=== PATIENT | male | born 1945 | race Caucasian/White ===

== ENCOUNTER 2023-11-22 15:08 | Observation (INO) | payer OTHER, SELFPAY ==
[2023-11-22] VITALS (15 sets, daily range): BP systolic 117–186; BP diastolic 61–118; BMI 23.8
--- NOTE | 2023-11-22 05:43 | ED.GENMED ---
History of Present Illness
<Blake Khalil DO - Last Filed: 11/22/23 05:45>
General
Chief Complaint: Breathing Problem
Time Seen by Provider: 11/22/23 04:20
<HAROON Garcia - Last Filed: 11/22/23 06:04>
General
Source: patient
Exam Limitations: none
Travel History
Have you had any contact with someone who has COVID-19?: No
Do you have any symptoms of coronavirus? Fever > 100 degrees, chills, cough, shortness of breath, sore throat, loss of taste or smell, muscle aches, or headache?: No
History of Present Illness
History of Present Illness:
78 YO M with a PMH of delirium, PAD, CKD, MARIANO, adrenal insufficiency, HLD, HTN, GERD, COPD, and CAD presenting here today after a fall x few hours ago. Pt states he fell off his bed. His located him. Pt states he hit his head at first, but
seems confused, and states he hit his chest. He rates the severity of his pain a 5/10. He states he takes aspirin daily.
Past History
<HAROON Garcia - Last Filed: 11/22/23 06:04>
Past History
ED Past Medical History: CAD, COPD, GERD, HTN, Hypercholesterolemia and Other (pulm fibrosis, MARIANO, on 8 L O2 at home)
Social History
Tobacco: Former smoker
Personal: Single
Living: with family
Review of Systems
<HAROON Garcia - Last Filed: 11/22/23 06:04>
Review of Systems
Constitutional: Reports no symptoms
EENT: Reports no symptoms
Respiratory: Reports no symptoms
Cardiac: Reports no symptoms
ABD/GI: Reports no symptoms
: Reports no symptoms
Musculoskeletal: Reports no symptoms
Skin: Reports no symptoms
Neurological: Reports other (Maybe head pain, or chest pain. Pt is confused with the way he fell.)
Phy Exam
<Kristan Raymond [facility] - Last Filed: 11/22/23 06:04>
Physical Exam
Physical Exam:
Regular S1 and S2. +Wheezing on inspiration.
Pt is confused on exam.
Not oriented to time.
General Physical Exam
General Presentation: well appearing
General age: appears stated age
General Skin: warm and dry
General Habitus: elderly
General Mental: confused
Cardiovascular Exam
Cardiovascular Exam: regular rate/rhythm
Pulmonary Exam
Pulmonary Exam: generalized wheezing (On inspiration)
Scores
<Kristan Raymond [facility] - Last Filed: 11/22/23 06:04>
Heart Failure Risk
Heart Failure Risk Score: Not Applicable
Course
<Blake Khalil DO - Last Filed: 11/22/23 05:45>
Orders/Labs/Results
Orders:
Orders
11/22/23 06:14
Complete Blood Count/With Diff Urgent
Comprehensive Metabolic Panel Urgent
11/22/23 07:51
Venous Blood Gas Urgent
%Oxygen/Room Air: 8L
11/22/23 08:06
Urinalysis Reflex To Culture Urgent
Date Specimen was Collected: 11/22/23
Time Specimen was Collected: 08:03
11/22/23 09:19
CT Head W/o Iv Contrast Urgent
Comment:
Reason For Exam: fall
11/22/23 09:42
CR Chest - 2 Views Urgent
Comment:
Reason For Exam: sob
11/22/23 11:06
Add On- LAB Urgent
Tests Added?: BNP
Dexamethasone Sod Phosphate [Decadron] 10 mg IV NOW STA
Abnormal Lab Results
11/22/23 11/22/23
06:14 07:51
RBC 3.17 L 10^6/uL
(4.70-6.10)
Hgb 9.3 L g/dL
(13.0-18.0)
Hct 28.6 L %
(39.0-52.0)
MCHC 32.5 L g/dL
(33.0-37.0)
RDW 17.9 H %
(11.5-14.5)
Abs Immat Gran (auto) 0.1 H 10^3/uL
(0-0.05)
Absolute Neuts (auto) 6.8 H 10^3/uL
(1.4-6.5)
Absolute Lymphs (auto) 0.8 L 10^3/uL
(1.2-3.4)
Immature Gran % 0.6 H %
(0-0.5)
Neutrophils % 86.6 H %
(42.2-75.2)
Lymphocytes % 10.1 L %
(20.5-51.1)
VBG pCO2 51 H mmHg
(35-48)
VBG pO2 114 H mmHg
(30-50)
VBG HCO3 32.3 H mmol/L
(22-27)
BUN 22 H mg/dl
(9-20)
Glucose 150 H mg/dl
(70-99)
Total Protein 5.7 L g/dl
(6.3-8.2)
Albumin 3.2 L g/dl
(3.5-5.0)
11/22/23 06:14
11/22/23 06:14
Vital Signs
Initial and Last Documented VS:
Initial Vital Signs
Pulse Ox
94
11/22/23 04:12
Last Documented Vital Signs
Temp Pulse Resp BP Pulse Ox
97.8 F 78 25 149/66 98
11/22/23 04:14 11/22/23 10:27 11/22/23 10:27 11/22/23 09:27 11/22/23 10:27
<Kristan Raymond [facility] - Last Filed: 11/22/23 06:04>
Orders/Labs/Results
Orders:
Orders
11/22/23 06:14
Complete Blood Count/With Diff Urgent
Comprehensive Metabolic Panel Urgent
11/22/23 07:51
Venous Blood Gas Urgent
%Oxygen/Room Air: 8L
11/22/23 08:06
Urinalysis Reflex To Culture Urgent
Date Specimen was Collected: 11/22/23
Time Specimen was Collected: 08:03
11/22/23 09:19
CT Head W/o Iv Contrast Urgent
Comment:
Reason For Exam: fall
11/22/23 09:42
CR Chest - 2 Views Urgent
Comment:
Reason For Exam: sob
11/22/23 11:06
Add On- LAB Urgent
Tests Added?: BNP
Dexamethasone Sod Phosphate [Decadron] 10 mg IV NOW STA
Abnormal Lab Results
11/22/23 11/22/23
06:14 07:51
RBC 3.17 L 10^6/uL
(4.70-6.10)
Hgb 9.3 L g/dL
(13.0-18.0)
Hct 28.6 L %
(39.0-52.0)
MCHC 32.5 L g/dL
(33.0-37.0)
RDW 17.9 H %
(11.5-14.5)
Abs Immat Gran (auto) 0.1 H 10^3/uL
(0-0.05)
Absolute Neuts (auto) 6.8 H 10^3/uL
(1.4-6.5)
Absolute Lymphs (auto) 0.8 L 10^3/uL
(1.2-3.4)
Immature Gran % 0.6 H %
(0-0.5)
Neutrophils % 86.6 H %
(42.2-75.2)
Lymphocytes % 10.1 L %
(20.5-51.1)
VBG pCO2 51 H mmHg
(35-48)
VBG pO2 114 H mmHg
(30-50)
VBG HCO3 32.3 H mmol/L
(22-27)
BUN 22 H mg/dl
(9-20)
Glucose 150 H mg/dl
(70-99)
Total Protein 5.7 L g/dl
(6.3-8.2)
Albumin 3.2 L g/dl
(3.5-5.0)
11/22/23 06:14
11/22/23 06:14
Vital Signs
Initial and Last Documented VS:
Initial Vital Signs
Pulse Ox
94
11/22/23 04:12
Last Documented Vital Signs
Temp Pulse Resp BP Pulse Ox
97.8 F 78 25 149/66 98
11/22/23 04:14 11/22/23 10:27 11/22/23 10:27 11/22/23 09:27 11/22/23 10:27
<Avinash Sheffield DO - Last Filed: 11/22/23 11:08>
Orders/Labs/Results
Orders:
Orders
11/22/23 06:14
Complete Blood Count/With Diff Urgent
Comprehensive Metabolic Panel Urgent
11/22/23 07:51
Venous Blood Gas Urgent
%Oxygen/Room Air: 8L
11/22/23 08:06
Urinalysis Reflex To Culture Urgent
Date Specimen was Collected: 11/22/23
Time Specimen was Collected: 08:03
11/22/23 09:19
CT Head W/o Iv Contrast Urgent
Comment:
Reason For Exam: fall
11/22/23 09:42
CR Chest - 2 Views Urgent
Comment:
Reason For Exam: sob
11/22/23 11:06
Add On- LAB Urgent
Tests Added?: BNP
Dexamethasone Sod Phosphate [Decadron] 10 mg IV NOW STA
Abnormal Lab Results
11/22/23 11/22/23
06:14 07:51
RBC 3.17 L 10^6/uL
(4.70-6.10)
Hgb 9.3 L g/dL
(13.0-18.0)
Hct 28.6 L %
(39.0-52.0)
MCHC 32.5 L g/dL
(33.0-37.0)
RDW 17.9 H %
(11.5-14.5)
Abs Immat Gran (auto) 0.1 H 10^3/uL
(0-0.05)
Absolute Neuts (auto) 6.8 H 10^3/uL
(1.4-6.5)
Absolute Lymphs (auto) 0.8 L 10^3/uL
(1.2-3.4)
Immature Gran % 0.6 H %
(0-0.5)
Neutrophils % 86.6 H %
(42.2-75.2)
Lymphocytes % 10.1 L %
(20.5-51.1)
VBG pCO2 51 H mmHg
(35-48)
VBG pO2 114 H mmHg
(30-50)
VBG HCO3 32.3 H mmol/L
(22-27)
BUN 22 H mg/dl
(9-20)
Glucose 150 H mg/dl
(70-99)
Total Protein 5.7 L g/dl
(6.3-8.2)
Albumin 3.2 L g/dl
(3.5-5.0)
11/22/23 06:14
11/22/23 06:14
Vital Signs
Initial and Last Documented VS:
Initial Vital Signs
Pulse Ox
94
11/22/23 04:12
Last Documented Vital Signs
Temp Pulse Resp BP Pulse Ox
97.8 F 78 25 149/66 98
11/22/23 04:14 11/22/23 10:27 11/22/23 10:27 11/22/23 09:27 11/22/23 10:27
<HAROON Garcia - Last Filed: 11/22/23 06:04>
MDM/Problems Addressed
Differential Diagnosis Includes:
Confusion due to UTI, Concussion
MDM/Problems Addressed:
Fall x few hours ago
<HAROON Garcia - Last Filed: 11/22/23 06:04>
*Critical Care Note
Total Time (30-74mins, 75-104mins- exclusive of procedures): Not Applicable
<Avinash Sheffield DO - Last Filed: 11/22/23 11:08>
Update Note
Update Note:
78-year-old male who presents after his significant other found him to be a little confused and very weak. He is on oxygen at home due to pulmonary fibrosis. She does state that he was only given 3 to 5 years to live and he is on year 4. No
fevers reported. No vomiting reported. Patient did reportedly have a minor fall. Exam: Patient is slightly confused. Moves all extremities equally.'s Are exam with fine crackles at bases. Assessment and plan: Weak, confused and could be related
to hypoxia. Treat with Decadron. Admit
ED Attending Note
<Blake Khalil DO - Last Filed: 11/22/23 05:45>
ED Attending Note
Patient seen and examined by attending physician: Yes
I performed the substantive portion of visit, reviewed & personally made and approve the management plan that is documented in note by myself or JAYNE.: Yes
<HAROON Garcia - Last Filed: 11/22/23 06:04>
-
Portions of this chart may have been created with voice recognition software.� Occasional wrong word or��sound alike� substitutions may have occurred due to the inherent limitations of voice recognition software.
Discharge Plan
Departure
Patient Disposition: Admit
Date of Disposition: 11/22/23
Time of Disposition: 11:08
Admit to: Telemetry
Presentation/result/management discussed w/ accepting MD/DO: Hospitalist
Discharge Problem:
Hypoxia, Pulmonary fibrosis, Acute alteration in mental status
Prescriptions:
No Action
prednisone 10 MG tablet
15 mg PO DAILY
benzonatate 200 MG capsule
200 mg PO TID
amlodipine 5 MG tablet
5 mg PO DAILY
pantoprazole 40 MG tablet,delayed release (DR/EC)
40 mg PO DAILY
hydrochlorothiazide 25 MG tablet
25 mg PO DAILY
Ofev 150 MG capsule
150 mg PO BID
atorvastatin 40 mg Tablet
40 mg PO DAILY
Theragen Tablet
1 tab PO DAILY
fexofenadine [Jessica] 180 mg Tablet
180 mg PO DAILY
lorazepam 0.5 mg Tablet
0.5 mg PO Q4HPRN PRN (Reason: anxiety)
Patient Comments:
last filled 10/23/2023 for 270 tablets
gabapentin 100 mg Capsule
100 mg PO TID
sertraline 50 mg Tablet
50 mg PO DAILY
cholecalciferol (vitamin D3) [Vitamin D3] 25 mcg (1,000 unit) Tablet
25 mcg PO DAILY
ibuprofen [Advil] 200 mg Tablet
200 mg PO Q6HPRN PRN (Reason: mild pain)
atovaquone 750 mg/5 mL Suspension
1,500 mg PO DAILY
Patient Comments:
last filled 11/16/2023 for 300mL.
Referrals:
UNKNOWN - PT DOES,NOT KNOW [Family Provider] -
Interventions
Interventions:
*Risk Screen - Suicide Last Done: 11/22/23 04:19
*General Assessment Last Done: 11/22/23 04:19
*Neglect/Abuse Screening Last Done: 11/22/23 04:20
ED- Fall Risk Assessment Last Done: 11/22/23 04:27
*ED COVID-19 Vaccine History Last Done: 11/22/23 06:17
ED- Cardiac Assessment Last Done: 11/22/23 08:38
ED- Pulmonary Assessment Last Done: 11/22/23 04:27
Discharge Date and Time
Print Language: EQUATORIAL GUINEAN
[2023-11-22 06:21] LABS: % Basophils 0.3 % (0-2); % Eosinophils 0.1 % (0-6); % Immature Granulocytes 0.6 % (0-0.5); % Lymphocytes 10.1 % (20.5-51.1); % Monocytes 2.3 % (1.7-9.3); % Neutrophils 86.6 % (42.2-75.2); Absolute Immature Granulocytes 0.1 10^3/uL (0-0.05); Absolute Lymphocytes 0.8 10^3/uL (1.2-3.4); Absolute Monocytes 0.2 10^3/uL (0.1-0.6); Absolute Neutrophils 6.8 10^3/uL (1.4-6.5); Hematocrit 28.6 % (39.0-52.0); Hemoglobin 9.3 g/dL (13.0-18.0); Mean Corp Hgb Conc. 32.5 g/dL (33.0-37.0); Mean Corpuscular Hgb 29.3 pg (27.0-31.0); Mean Corpuscular Volume 90.2 fL (80.0-94.0); Mean Platelet Volume 9.9 fL (7.4-10.4); Nucleated Red Blood Cells % 0 % (-); Platelet Count 305 10^3/uL (130-400); Red Blood Cell Count 3.17 10^6/uL (4.70-6.10); Red Cell Dist. Width 17.9 % (11.5-14.5); White Blood Cell Count 7.8 10^3/uL (4.8-10.8)
[2023-11-22 06:37] LABS: ALT (SGPT) 20 U/L (0-50); AST (SGOT) 25 U/L (17-59); Albumin 3.2 g/dl (3.5-5.0); Alkaline Phosphatase 63 U/L (38-126); Blood Urea Nitrogen 22 mg/dl (9-20); Calcium 9.4 mg/dl (8.4-10.2); Carbon Dioxide 30 mmol/L (22-30); Chloride 102 mmol/L (98-107); Estimated Creatinine Clearance 84 ml/min; Glucose 150 mg/dl (70-99); Potassium 4.3 mmol/L (3.5-5.1); Sodium 139 mmol/L (135-145); Total Bilirubin 0.5 mg/dl (0.2-1.3); Total Protein 5.7 g/dl (6.3-8.2); eGFR > 60.00
[2023-11-22 08:01] LABS: Venous Blood Gas B.E. 6.7 mmol/L (-4 to +4); Venous Blood Gas HCO3 32.3 mmol/L (22-27); Venous Blood Gas O2 Sat % 99.3 %; Venous Blood Gas pCO2 51 mmHg (35-48); Venous Blood Gas pH 7.41 (7.32-7.43); Venous Blood Gas pO2 114 mmHg (30-50)
[2023-11-22 08:20] LABS: Urine Albumin Negative (Neg - Trace); Urine Bilirubin Negative (Negative); Urine Character Clear (Clear); Urine Color Yellow; Urine Glucose Negative (Negative); Urine Ketone Negative (Negative); Urine Leukocyte Negative (Negative); Urine Nitrite Negative (Negative); Urine Occult Blood Negative (Negative); Urine Specific Gravity 1.015 (<1.030); Urine Urobilinogen Negative (Neg - 1+)
[2023-11-22] MEDS: DECADRON 10 MG IV (11:16)
--- NOTE | 2023-11-22 11:21 | HPS.HSE ---
Family Physician
-
Family Physician: NOT KNOW UNKNOWN - PT DOES
Chief Complaint
-
fall/confusion
History of Present Illness
78 male peripheral arterial disease MARIANO pulmonary fibrosis COPD, chronic respiratory failure 5 to 10 L at home baseline, adrenal sufficiency hypertension hyperlipidemia coronary artery disease mild dementia brought in by due to fall off bed
while sleeping with associate confusion weakness. Vital signs stable on baseline oxygen supplementation 5 L. Labs relatively unremarkable chronic anemia hemoglobin appears baseline. CT head noted no acute abnormalities, old right cerebellar
infarct. Chest x-ray noted known interstitial fibrosis possible pulmonary edema BNP within normal limits. Concern for possible interstitial lung disease exacerbation versus progression patient was referred for admission by ED. AOx3 patient
appears to have capacity to make his own medical decisions at this time. Denies fever chills nausea vomiting diarrhea chest/abd pain palpitations lightheadedness dizziness or headache.
Medical History
Past Medical History
Past Medical History: Reports Other (As above)
Past Surgical History: Reports Other (As above)
Social History
Tobacco: Former Smoker
Alcohol: None
Drug: None
Personal:
Living: With Family
Employment: Not Employed
Family History
Family History: Not pertinent (Reviewed)
Allergies / Home Medications
Allergies reflects when Allergies were last updated in [employer].
Home Medications with original date entered in [employer]
Allergy/Medication List:
Allergies
Allergy/AdvReac Type Severity Reaction Status Date / Time
aripiprazole [From Abilify] Allergy Unknown Verified 02/18/23 12:40
ciprofloxacin [From Cipro] Allergy Rash Verified 02/16/23 20:51
codeine Allergy Unknown Verified 02/16/23 20:51
ibuprofen [From Advil] Allergy Rash Verified 02/18/23 15:08
morphine Allergy Unknown Verified 02/16/23 20:51
pseudoephedrine Allergy Unknown Verified 02/16/23 20:51
[From DayQuil Sinus
Pressure/Pain]
Home Medications
amlodipine 5 mg tablet 5 mg PO DAILY Blood Pressure 07/04/21
benzonatate 200 mg capsule 200 mg PO TID Cough 07/04/21
hydrochlorothiazide 25 mg tablet 25 mg PO DAILY Fluid Retention/Swelling 07/04/21
nintedanib 150 mg capsule (Ofev) 150 mg PO BID IDIOPATHIC PULMONARY FIBROSIS 07/04/21
pantoprazole 40 mg tablet,delayed release 40 mg PO DAILY Gastrointestinal Issue 07/04/21
prednisone 10 mg tablet 15 mg PO DAILY Anti-Inflammatory 07/04/21
atorvastatin 40 mg tablet 40 mg PO DAILY 11/22/23
atovaquone 750 mg/5 mL oral suspension 1,500 mg PO DAILY 11/22/23
cholecalciferol (vitamin D3) 25 mcg (1,000 unit) tablet (Vitamin D3) 25 mcg PO DAILY 11/22/23
fexofenadine 180 mg tablet 180 mg PO DAILY 11/22/23
gabapentin 100 mg capsule 100 mg PO TID 11/22/23
ibuprofen 200 mg tablet (Advil) 200 mg PO Q6HPRN PRN mild pain 11/22/23
lorazepam 0.5 mg tablet 0.5 mg PO Q4HPRN PRN anxiety 11/22/23
sertraline 50 mg tablet 50 mg PO DAILY 11/22/23
therapeutic multivitamin 1 tab PO DAILY 11/22/23
Review of Systems
-
A 12 point ROS was completed and negative except as noted: Yes
Constitutional: Reports Other (as below)
Physical Exam
Vital Signs
Vital Signs
Temp Pulse Resp BP Pulse Ox
97.8 F 78 25 149/66 98
11/22/23 04:14 11/22/23 10:27 11/22/23 10:27 11/22/23 09:27 11/22/23 10:27
Physical Exam
General: Other (as below)
Laboratory Results
-
11/22/23 06:14
05/29/24 06:14
Laboratory Results
Total Bilirubin 0.5 mg/dl (0.2-1.3) 11/22/23 06:14
AST 25 U/L (17-59) 11/22/23 06:14
ALT 20 U/L (0-50) 11/22/23 06:14
Alkaline Phosphatase 63 U/L (38-126) 11/22/23 06:14
Impression/Plan
-
ROS
General: Denies fever chills night sweats unexpected weight loss
Neuro: Denies seizure shaking loss of consciousness dizziness vertigo
Psych: denies depression hallucinations confusion manic episodes
Endocrine: Denies polyuria polydipsia polyphagia heat/cold intolerance
HEENT: Denies blindness visual disturbances epistaxis
Pulmonary: denies coughing hemoptysis sneezing sob dyspnea on exertion
Cardiovascular: denies chest pain palpitations leg swelling
Hematology: denies signs symptoms of anemia easy bruising/bleeding
Gastrointestinal: denies nausea vomiting diarrhea constipation hematemesis hematochezia melena
Genito-Urinary: denies retention incontinence dysuria
Musculoskeletal: reports chronic joint pain weakness
Dermatology: denies rash laceration bruising
Physical Exam
General: Appears chronically ill, No pallor, cyanosis, or jaundice.
HEENT: Throat clear. Normocephalic atraumatic Pinpoint pupils b/l arcus senilis+
NECK: Supple. No JVD Carotid Bruits
RESPIRATORY: distant breath sounds no crackles or wheezing noted, on oxygen supplementation 5L baseline
CVS: S1, S2 normal. RRR. No murmur, rub or gallop.
ABDOMEN: Soft, non-tender. No distension. BS+/normal.
EXTREMITIES: No peripheral cyanosis or edema.
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
IMPRESSION:
78 male peripheral arterial disease MARIANO pulmonary fibrosis COPD, chronic respiratory failure 5 to 10 L at home baseline, adrenal sufficiency hypertension hyperlipidemia coronary artery disease mild dementia brought in by due to fall off bed
while sleeping with associate confusion weakness (ambulates with walker at baseline per patient). Vital signs stable on baseline oxygen supplementation 5 L. Labs relatively unremarkable chronic anemia hemoglobin appears baseline. CT head noted no
acute abnormalities, old right cerebellar infarct. Chest x-ray noted known interstitial fibrosis possible pulmonary edema BNP within normal limits. Concern for possible interstitial lung disease exacerbation versus progression patient was referred
for admission by ED. AOx3 patient appears to have capacity to make his own medical decisions at this time.
PLAN:
#Fall/reported associate confusion/weakness
#Hx Mild Dementia
#Severe Interstitial Lung disease, Possible Exacerbation vs Progression
#MARIANO
#Chronic Hypoxic respiratory failure
Observation tele
ST/PT/OT eval
Pulm eval
case mgmt consult
Cont oxygen supplementation as necessary goal sat 92%
Fall precautions
cont home BIPAP
Received IV decadron in ED
cont home prednisone 15 mg daily
cont home atovaquone prophylaxis
cont home Ofev
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
#Hyperlipidemia
#Coronary artery diseae
#PAD
cont asa 81 mg daily and statin
#adrenal insuff
cont home prednisone
#Hypertension
cont home amlodipine HCTz with holding parameters
#GERD
continue PPI
#Anxiety/depression
cont home sertraline prn ativan
dvt ppx lovenox
Full Code as per patient
I spent a total of 80 minutes with the patient or on the floor. More than 50% of this time involved counseling and coordination of care.
[2023-11-22 12:20] LABS: NT-proBNP 228 pg/ml
[2023-11-22 14:23] LABS: TSH Reflex To Free T4 1.08 uIU/ml (0.47-4.68)
--- NOTE | 2023-11-22 17:50 | PTCARENOTE ---
Pt arrived to [facility] around 1720. Pt has no complaints of pain. VSS. Pt oriented to room.
[2023-11-22] MEDS: NEURONTIN 100 MG PO ×2 (17:57→22:08)
[2023-11-22] MEDS: LOVENOX 40 MG SC (17:57)
[2023-11-22] MEDS: TESSALON PERLES 200 MG PO ×2 (17:57→22:08)
[2023-11-22 18:23] LABS: Procalcitonin < 0.05 ng/ml (0.0-0.25)
--- NOTE | 2023-11-22 18:27 | RESPNOTE ---
pt does not have his home bipap machine with him
offered to use hospital bipap at night, he declined use of hospital bipap stating he will wait till he get home.
pt educated on importance of using bipap at nite, still declined.
--- NOTE | 2023-11-22 20:15 | PTCARENOTE ---
pt got OOB to use urinal. SpO2=<70%. pt lips were blue. assisted pt back to bed. placed on non rebreather until oxygen returned to normal 100% then placed back on 6.5LO2 at 98%. contacted OIL HEAT TECHNICIAN obtained prn order for SOB.- see MAR. pt resting in bed w/
call anderson in reach.
[2023-11-22] MEDS: DUONEB 3 ML INH (20:45)
[2023-11-22] MEDS: ATIVAN 0.5 MG PO (22:09)
--- NOTE | 2023-11-23 | PTCARENOTE ---
ordered ekg completed. showed:NORMAL SINUS RHYTHM POSSIBLE LEFT ATRIAL ENLARGEMENT RIGHT BUNDLE BRANCH BLOCK
INFERIOR INFARCT , AGE UNDETERMINED ABNORMAL ECG NO PREVIOUS ECGS AVAILABLE.
pt has no c/o pain. informed HAT MARKER Abdelwahamallory - labs for am.
[2023-11-23 04:29] VITALS: BP 133/75
--- NOTE | 2023-11-23 06:56 | W.PN.HOSP.TC ---
Today's Communication/Plan
-
discharge
Assessment / Plan
Assessment / Plan
Physical Exam
General: Appears chronically ill, No pallor, cyanosis, or jaundice.
HEENT: Throat clear. Normocephalic atraumatic Pinpoint pupils b/l arcus senilis+
NECK: Supple. No JVD Carotid Bruits
RESPIRATORY: distant breath sounds no crackles or wheezing noted, on oxygen supplementation 5-10L baseline
CVS: S1, S2 normal. RRR. No murmur, rub or gallop.
ABDOMEN: Soft, non-tender. No distension. BS+/normal.
EXTREMITIES: No peripheral cyanosis or edema.
MANAGER HOSP[facility]: AOx3
IMPRESSION:
78 male peripheral arterial disease MARIANO pulmonary fibrosis COPD, chronic respiratory failure 5 to 10 L at home baseline, adrenal sufficiency hypertension hyperlipidemia coronary artery disease mild dementia brought in by due to fall off bed
while sleeping with associate confusion weakness (ambulates with walker at baseline per patient). Vital signs stable on baseline oxygen supplementation 5 L. Labs relatively unremarkable chronic anemia hemoglobin appears baseline. CT head noted no
acute abnormalities, old right cerebellar infarct. Chest x-ray noted known interstitial fibrosis possible pulmonary edema BNP within normal limits. Concern for possible interstitial lung disease exacerbation versus progression patient was referred
for admission by ED. AOx3 patient appears to have capacity to make his own medical decisions at this time.
PLAN:
#Fall/reported associate confusion/weakness
#Hx Mild Dementia
#Severe Interstitial Lung disease, Possible Exacerbation vs Progression
#MARIANO
#Chronic Hypoxic respiratory failure
Observation tele
ST eval appreciated appropriate regular diet
PT/OT eval appreciated Home Health Services
case mgmt consult appreciated
Cont oxygen supplementation as necessary goal sat 92%
Fall precautions
cont home BIPAP
Received IV decadron in ED
Pulm eval appreciated cont home PO steroid prednisone 15 mg daily
cont home atovaquone prophylaxis
cont home Ofev
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
#Hyperlipidemia
#Coronary artery diseae
#PAD
cont asa 81 mg daily and statin
#adrenal insuff
cont home prednisone
#Hypertension
cont home amlodipine HCTz with holding parameters
#GERD
continue PPI
#Anxiety/depression
cont home sertraline prn ativan
dvt ppx lovenox
Full Code as per patient
Patient endorses having nebulizer machine at home along with prn nebulizer medication as necessary.
Confusion resolved, baseline mental/oxygenation status, medically stable for discharge home with home services and outpatient follow up recommendations.
discussed with patient and his fiance Wilma
Total Time Preparing Discharge ___50____ minutes including examination of the patient, summary of the hospital stay, instructions for continuing care to all relevant caregivers; and preparation of discharge records, prescriptions, and referral
forms if necessary.
Anticipated Discharge: Today
Subjective/Interval History
-
Date of Service: November 23, 2023
Seen and examined at bedside, sitting up comfortably in chair, in no acute distress reports feeling well. Denies new acute issues at this time. Eager to go home AOx3.
Objective Data
-
Labs:
Laboratory Results
11/23/23
06:00
WBC Pending
Hgb Pending
Hct Pending
Plt Count Pending
Sodium Pending
Potassium Pending
Chloride Pending
Carbon Dioxide Pending
BUN Pending
Creatinine Pending
Glucose Pending
Calcium Pending
Vital Signs:
Vital Signs
Temp Pulse Resp BP Pulse Ox
97.8 F 76 24 133/75 98
11/23/23 04:29 11/23/23 04:29 11/23/23 04:29 11/23/23 04:29 11/23/23 04:29
I&O
11/21/23 11/22/23 11/23/23
06:59 06:59 06:59
Intake Total 240 / 240
Output Total 100 / 100
Balance 140 / 140
[2023-11-23 07:05] VITALS: BP 149/78
[2023-11-23] MEDS: MEPRON SUSPENSION 1500 MG PO (07:44)
[2023-11-23] MEDS: NEURONTIN 100 MG PO ×2 (07:44→15:04)
[2023-11-23] MEDS: CLARITIN 10 MG PO (07:44)
[2023-11-23] MEDS: NORVASC 5 MG PO (07:44)
[2023-11-23] MEDS: LIPITOR 40 MG PO (07:44)
[2023-11-23] MEDS: PROTONIX 40 MG PO (07:44)
[2023-11-23] MEDS: LOW STRENGTH ASPIRIN 81 MG PO (07:44)
[2023-11-23] MEDS: ZOLOFT 50 MG PO (07:44)
[2023-11-23] MEDS: VITAMIN D3 (cholecalciferol) 25 MCG PO (07:45)
[2023-11-23] MEDS: DELTASONE 15 MG PO (07:45)
[2023-11-23] MEDS: THERAGRAN 1 TABLET PO (07:46)
[2023-11-23] MEDS: ORETIC 25 MG PO (07:46)
[2023-11-23] MEDS: TESSALON PERLES 200 MG PO ×2 (07:46→15:04)
[2023-11-23 09:00] VITALS: BP 140/77; PULSE 67; O2SAT 96
--- NOTE | 2023-11-23 09:05 | PTOTSP ---
Speech Language Pathology
Pt seen for clinical bedside swallow evaluation. He denied any previous or current dysphagia. P.O. trials of regular solids and thin liquids provided. Adequate mastication, bolus formation, and A-P transit noted with no oral residue noted. No
overt signs of aspiration. CXR not conerning for PNA with WBC WNL.
Recommend:
(1) Continue regular solids/thin liquids
(2) General aspiration precautions
(3) Meds as tolerated
(4) PROCUREMENT INSPECTOR to sign off. Please reconsult as indicated.
[2023-11-23 09:13] LABS: % Basophils 0.1 % (0-2); % Eosinophils 0.2 % (0-6); % Immature Granulocytes 0.4 % (0-0.5); % Lymphocytes 17.7 % (20.5-51.1); % Monocytes 9.2 % (1.7-9.3); % Neutrophils 72.4 % (42.2-75.2); Absolute Lymphocytes 1.4 10^3/uL (1.2-3.4); Absolute Monocytes 0.8 10^3/uL (0.1-0.6); Absolute Neutrophils 5.9 10^3/uL (1.4-6.5); Hematocrit 29.5 % (39.0-52.0); Hemoglobin 9.1 g/dL (13.0-18.0); Mean Corp Hgb Conc. 30.8 g/dL (33.0-37.0); Mean Corpuscular Volume 93.9 fL (80.0-94.0); Nucleated Red Blood Cells % 0 % (-); Platelet Count 332 10^3/uL (130-400); Red Blood Cell Count 3.14 10^6/uL (4.70-6.10); Red Cell Dist. Width 18.1 % (11.5-14.5); White Blood Cell Count 8.1 10^3/uL (4.8-10.8)
[2023-11-23 09:15] VITALS: BP 140/77; PULSE 68; O2SAT 96
--- NOTE | 2023-11-23 10:05 | CON.PUL ---
Consultation
Consultation Request
Date/Time Consultation Requested: 11/23/2023-8 AM
Date/Time Consultation Performed: 11/23/2023-8:15 AM
Requesting Provider: Hospitalist
Performing Provider: Dr. Macias
Reason for Consultation: Shortness of breath
Medical History
-
Chief Complaint: Shortness of breath
History of Present Illness:
78-year-old male with underlying severe COPD/pulmonary fibrosis overlap, PAD, MARIANO on chronic oxygen in addition to CAD and mild dementia who presented with shortness of breath, confusion and weakness-pulmonary consulted for COPD/pulmonary fibrosis
11/23/2023. Patient states that he has shortness of breath with minimal exertion but not too far from his baseline. He is on 5 to 10 L at home. He denies any chest pain, chest congestion, productive cough, pleurisy, mopped assist, abdominal pain,
nausea, new weakness, or increased lower extremity swelling.
Past Medical History
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 Adrenal insufficiency. Hypertension. Hyperlipidemia. PAD. Old right cerebellar infarct. CAD.
Mild dementia. GERD. Anxiety/depression.)
Social History
Tobacco: Former Smoker (3 packs daily for 30 years quit 48 years old)
Alcohol: None
Drug: None
Personal:
Living: With Family
Occupational Exposures: No known asbestos exposure
Environmental Exposures: No known tuberculosis exposure
Family History
Family History: Reviewed & Not Pertinent
Allergies / Home Medications
Allergies
Allergy/AdvReac Type Severity Reaction Status Date / Time
aripiprazole [From Abilify] Allergy Unknown Verified 02/18/23 12:40
ciprofloxacin [From Cipro] Allergy Rash Verified 02/16/23 20:51
codeine Allergy Unknown Verified 02/16/23 20:51
ibuprofen [From Advil] Allergy Rash Verified 02/18/23 15:08
morphine Allergy Unknown Verified 02/16/23 20:51
pseudoephedrine Allergy Unknown Verified 02/16/23 20:51
[From DayQuil Sinus
Pressure/Pain]
Home Medications
�Medication �Instructions �Recorded �Confirmed �Last Taken �Type
amlodipine 5 mg tablet 5 mg PO DAILY Blood Pressure 07/04/21 11/22/23 11/21/23 History
benzonatate 200 mg capsule 200 mg PO TID Cough 07/04/21 11/22/23 11/21/23 History
hydrochlorothiazide 25 mg tablet 25 mg PO DAILY Fluid 07/04/21 11/22/23 11/21/23 History
Retention/Swelling
nintedanib 150 mg capsule (Ofev) 150 mg PO BID IDIOPATHIC PULMONARY 07/04/21 11/22/23 11/21/23 History
FIBROSIS
pantoprazole 40 mg tablet,delayed 40 mg PO DAILY Gastrointestinal 07/04/21 11/22/23 11/21/23 History
release Issue
prednisone 10 mg tablet 15 mg PO DAILY Anti-Inflammatory 07/04/21 11/22/23 11/21/23 History
aspirin 81 mg chewable tablet 81 mg PO DAILY 11/22/23 11/22/23 Unknown History
atorvastatin 40 mg tablet 40 mg PO DAILY 11/22/23 11/22/23 11/21/23 History
atovaquone 750 mg/5 mL oral 1,500 mg PO DAILY 11/22/23 11/22/23 11/21/23 History
suspension
cholecalciferol (vitamin D3) 25 25 mcg PO DAILY 11/22/23 11/22/23 11/21/23 History
mcg (1,000 unit) tablet (Vitamin
D3)
fexofenadine 180 mg tablet 180 mg PO DAILY 11/22/23 11/22/23 11/21/23 History
gabapentin 100 mg capsule 100 mg PO TID 11/22/23 11/22/23 11/21/23 History
ibuprofen 200 mg tablet (Advil) 200 mg PO Q6HPRN PRN mild pain 11/22/23 11/22/23 11/21/23 History
lorazepam 0.5 mg tablet 0.5 mg PO Q4HPRN PRN anxiety 11/22/23 11/22/23 Unknown History
sertraline 50 mg tablet 50 mg PO DAILY 11/22/23 11/22/23 11/21/23 History
therapeutic multivitamin 1 tab PO DAILY 11/22/23 11/22/23 11/21/23 History
Review of Systems
-
Unable to Obtain full review of systems at this time due to: Other (Per HPI)
Vitals / Labs / Diagnostic Testing
Vital Signs
Temp Pulse Resp BP Pulse Ox
97.6 F 70 20 149/78 94
11/23/23 07:05 11/23/23 07:05 11/23/23 07:05 11/23/23 07:05 11/23/23 09:22
Lab Data
11/23/23 08:41
Diagnostic Testing:
Physical Exam
-
Exam:
Well-nourished and well-developed in no apparent distress
HEENT-atraumatic, normocephalic
Neck-supple, no JVD, no bruit
Heart regular with systolic murmur
Chest with diminished breath sounds, hyperinflation, crackles at both bases, prolonged expiratory time and forced wheezes
Back without tenderness
Abdomen-soft, nontender, nondistended, no hepatosplenomegaly
Extremities-no cyanosis, clubbing, trace lower extremity edema
Integument-intact, no rashes, lesions or ecchymosis
Neurology-alert and oriented, nonfocal motor and sensory exam
Assessment
-
78-year-old male with underlying severe COPD/pulmonary fibrosis overlap, PAD, MARIANO on chronic oxygen in addition to CAD and mild dementia who presented with shortness of breath, confusion and weakness-pulmonary consulted for COPD/pulmonary fibrosis
11/23/2023.
Assessment
Status post fall associated with confusion and weakness
COPD/pulmonary fibrosis overlap with mild acute exacerbation
VBG 11/22/2023--51/114/7 0.41
Mild dementia
MARIANO
Chronic hypoxemic respiratory failure
Mild anemia-hemoglobin 9.1-normocytic
Conditions present prior to admission:
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
Former zcxzoe-70-hycx-year-quit 48 years old.
Adrenal insufficiency.
Hypertension.
Hyperlipidemia.
PAD.
Old right cerebellar infarct.
CAD.
Mild dementia.
GERD.
Anxiety/depression.
Plan
Respiratory compensation in this patient with advanced lung disease-COPD/pulmonary fibrosis overlap is likely mild over his baseline
Supplemental oxygen as needed-maintained on high FiO2 oxygen at home-5 to 10 L
Nebulizers as needed
Prednisone 15 mg daily
Patient is maintained on Ofev for his pulmonary fibrosis as an outpatient
Mucolytic's
Incentive spirometry
Flutter
Hold on intravenous Decadron
BiPAP at night and during the daytime as tolerated
Observe off antibiotics
Speech therapy evaluation
Physical therapy and Occupational Therapy evaluation
Follow hemoglobin
Transfuse if needed
DVT prophylaxis-on Lovenox
Nutrition
Early mobilization/physical therapy
Outpatient pulmonary follow-up
Most recently followed by Dr. De Dios at [facility] and maintained on nebulizers as well as Ofev and oxygen-would like to transfer care local-number will be provided at time of discharge
Diagnostic data:
Chest x-ray 02/12/2023-increased reticulonodular markings suggestive of interstitial fibrosis, slight blunting left costophrenic angle
Chest x-ray 02/19/2023-extremely limited because of low lung volumes
Chest x-ray 11/22/2023-pronounced reticular interstitial thickening related to interstitial fibrosis, no significant pleural effusions or pneumothorax
Lower extremity ultrasound 07/05/2021-no evidence for lower extremity venous thrombosis
CT head 11/22/2023-no acute intracranial abnormalities, mild atrophy and mild chronic small vessel changes, old right sella [place] infarct, no significant changes compared to prior study 02/12/2023
Data Reviewed
-
EKG: Report reviewed by me
Radiology: Image personally visualized and interpreted and Report reviewed by me
Medical Tests (Nuc Med, Echo etc): Report reviewed by me
Labs: Labs reviewed by me
Old Records: Reviewed
Total Time Spent with Patient (in minutes): 65
[2023-11-23 10:22] LABS: Blood Urea Nitrogen 24 mg/dl (9-20); Calcium 9.7 mg/dl (8.4-10.2); Carbon Dioxide 32 mmol/L (22-30); Chloride 104 mmol/L (98-107); Estimated Creatinine Clearance 84 ml/min; Glucose 103 mg/dl (70-99); Magnesium 2.2 mg/dl (1.6-2.3); Potassium 4.4 mmol/L (3.5-5.1); eGFR > 60.00
[2023-11-23 10:37] LABS: Sodium 142 mmol/L (135-145)
[2023-11-23 11:25] VITALS: BP 104/78
--- NOTE | 2023-11-23 12:07 | CM ---
Patient seen in chair, initial assessment completed. Patient resides with his fiance and in one story home, no steps to enter. Patient has a rolling walker, cane, and wheelchair at home. Patient is on home O2, unsure of provider. Patient reports
history with [facility] in past, would like referral to [facility], [facility], referral made in [facility] Patient denies SNF history. Patient reports PCP Dr. Carlos through [facility], pharmacy is [facility] on [address] in [place], not [facility] in [place], pharmacy changed in patients chart. Patient confirms he has prescription coverage through his insurance. Patient reports his fiance and her daughter will be providing transportation home. [facility] form reviewed, signed, placed in
chart. CM will continue to follow for discharge planning needs.
Plan; home with referral to [facility], [facility].
--- NOTE | 2023-11-23 15:03 | W.DCSUMMARY ---
Discharge Summary
Discharge Data
Date of Admission: 11/22/23
Date of Discharge: 11/23/23
-
Pending Results: No
Hospital Course
78 male peripheral arterial disease MARIANO pulmonary fibrosis COPD, chronic respiratory failure 5 to 10 L at home baseline, adrenal sufficiency hypertension hyperlipidemia coronary artery disease mild dementia brought in by fiance due to fall off bed
while sleeping with associate confusion weakness (ambulates with walker at baseline per patient). Vital signs stable on baseline oxygen supplementation 5 L. Labs relatively unremarkable chronic anemia hemoglobin appears baseline. CT head noted no
acute abnormalities, old right cerebellar infarct. Chest x-ray noted known interstitial fibrosis possible pulmonary edema BNP within normal limits. Concern for possible interstitial lung disease exacerbation versus progression patient was referred
for admission by ED. AOx3 patient appears to have capacity to make his own medical decisions at this time. Placed on observation tele overnight. ST evaluated and assessed appropriate regular diet. PT/OT evaluated and assessed Home Health
Services.
Case mgmt consult appreciated. Puljanice parekh appreciated, recommended cont home PO steroid prednisone 15 mg daily. Medically stable, patient was discharged home with home services and outpatient follow up recommendations.
Discharge Plan
-
Patient Disposition: Home with Home Care
Discharge Diagnosis/Procedures: Fall/reported associate confusion/weakness since resolved/improved
Old right cerebellar infarct noted on CT head, no acute abnormalities noted
Severe Interstitial Lung disease baseline at this time, ruled out Possible Exacerbation
History Mild Dementia
Obstructive Sleep apnea
Chronic Hypoxic respiratory failure
Hyperlipidemia
Coronary Artery Disease
Peripheral Artery Disease
Adrenal insufficiency
Hypertension
GERD
Anxiety/depression
Condition: Fair
Diet: Regular
Activity: As tolerated and With Walker
Driving Restrictions: No driving
Bathing Restrictions: None
Other Services: VN, PT and OT
Activity Restrictions/Additional Instructions:
Please follow up with primary care provider in 1 week of discharge and Pulmonology in 2-4 weeks of discharge
Referrals:
Santiago Macias MD [Active] - in two to four weeks
(or Nurse practitioner
Transfer care from [facility]
Eventual PFTs, 6-minute walk test
)
UNKNOWN - PT DOES,NOT KNOW [Family Provider] -
Prescriptions:
Continued
prednisone 10 MG tablet
15 mg PO DAILY
benzonatate 200 MG capsule
200 mg PO TID
amlodipine 5 MG tablet
5 mg PO DAILY
pantoprazole 40 MG tablet,delayed release (DR/EC)
40 mg PO DAILY
hydrochlorothiazide 25 MG tablet
25 mg PO DAILY
Ofev 150 MG capsule
150 mg PO BID
atorvastatin 40 mg Tablet
40 mg PO DAILY
therapeutic multivitamin Tablet
1 tab PO DAILY
fexofenadine 180 mg Tablet
180 mg PO DAILY
lorazepam 0.5 mg Tablet
0.5 mg PO Q4HPRN PRN (Reason: anxiety)
Patient Comments:
last filled 10/23/2023 for 270 tablets
gabapentin 100 mg Capsule
100 mg PO TID
sertraline 50 mg Tablet
50 mg PO DAILY
cholecalciferol (vitamin D3) [Vitamin D3] 25 mcg (1,000 unit) Tablet
25 mcg PO DAILY
ibuprofen [Advil] 200 mg Tablet
200 mg PO Q6HPRN PRN (Reason: mild pain)
atovaquone 750 mg/5 mL Suspension
1,500 mg PO DAILY
Patient Comments:
last filled 11/16/2023 for 300mL.
aspirin 81 mg Tablet,Chewable
81 mg PO DAILY
Discharge Orders:
Discharge Patient (As Directed); Ordered 11/23/23
Ordered By: Gustavo Johnson
Discharge Date and Time
Discharge Date/Time: 11/23/23 19:30
Print Language: FAROESE
[2023-11-23 15:17] VITALS: BP 133/74
== END 2023-11-23 19:30 | disposition home health service (06) ==
LOC: 4 WEST ACU 15:08
PROVIDERS: Student in an Organized Health Care Education/Training Program; ADMITTING PHYSICIAN Internal Medicine; CONSULT PHYSICIAN Internal Medicine Critical Care Medicine; EMERGENCY PHYSICIAN Emergency Medicine
DX: R53.1 Weakness (principal); R41.0 Disorientation, unspecified; W06.XXXA Fall from bed, initial encounter; Y93.9 Activity, unspecified; Y92.9 Unspecified place or not applicable; J84.10 Pulmonary fibrosis, unspecified; I12.9 Hypertensive chronic kidney disease with stage 1 through stage 4 chronic kidney disease, or unspecified chronic kidney disease; I25.10 Atherosclerotic heart disease of native coronary artery without angina pectoris; J44.1 Chronic obstructive pulmonary disease with (acute) exacerbation; E78.00 Pure hypercholesterolemia, unspecified; D64.9 Anemia, unspecified; K21.9 Gastro-esophageal reflux disease without esophagitis; G47.33 Obstructive sleep apnea (adult) (pediatric); J96.11 Chronic respiratory failure with hypoxia; I73.9 Peripheral vascular disease, unspecified; E27.40 Unspecified adrenocortical insufficiency; F32.A Depression, unspecified; F03.A3 Unspecified dementia, mild, with mood disturbance; N18.9 Chronic kidney disease, unspecified; Z79.82 Long term (current) use of aspirin; Z99.81 Dependence on supplemental oxygen; Z87.891 Personal history of nicotine dependence; Z86.73 Personal history of transient ischemic attack (TIA), and cerebral infarction without residual deficits; Z88.6 Allergy status to analgesic agent; Z88.1 Allergy status to other antibiotic agents; Z88.5 Allergy status to narcotic agent; Z88.8 Allergy status to other drugs, medicaments and biological substances; Z79.52 Long term (current) use of systemic steroids
CPT/HCPCS: 51701; 70450; 71046; 80048; 80053; 81003; 82805; 83735; 83880; 84145; 84443; 85025; 87070; 92610; 93005; 94640; 96374; 97162; 97166; 99285; G0378

== ENCOUNTER 2023-12-27 15:32 | Emergency (ER) | payer OTHER, SELFPAY ==
[2023-12-27 15:41] VITALS: BP 107/59
--- NOTE | 2023-12-27 15:59 | ED.GENMED ---
History of Present Illness
<Claudette Hudson PA-C - Last Filed: 12/27/23 20:53>
General
Chief Complaint: Skin Problem
Source: patient
Exam Limitations: none
Time Seen by Provider: 12/27/23 15:58
History of Present Illness
History of Present Illness:
This is a 78-year-old male with past medical history of COPD on 4 L- 8 L at baseline, coronary artery disease, hyperlipidemia, hypertension, left knee replacement presenting emergency department today with concerns of redness on his left lower
extremity. Patient states that this started a few days ago. Patient states that it is not painful, not itchy, and patient states that he does not feel sick. Patient denies any fevers or chills, nausea or vomiting, abdominal pain. Patient states
that he has had this in the past and required IV antibiotics. Patient denies any difficulty ambulating. Patient denies any falls or trauma to the area. Patient does have allergy to ciprofloxacin but denies any other antibiotic allergies.
Past History
<Claudette Hudson PA-C - Last Filed: 12/27/23 20:53>
Past History
ED Past Medical History: CAD, COPD, GERD, HTN, Hypercholesterolemia and Other (pulm fibrosis, MARIANO, on 8 L O2 at home)
Social History
Tobacco: Former smoker
Personal: Single
Living: with family
Review of Systems
<Claudette Hudson PA-C - Last Filed: 12/27/23 20:53>
Review of Systems
All Other Systems: ROS reviewed and negative except as documented in HPI and ROS
Phy Exam
<GLORIA Powers Last Filed: 12/27/23 20:53>
Physical Exam
Physical Exam:
General: Patient is well appearing and in no acute distress; non-toxic
Skin: Warm and dry, left lower extremity mildly erythematous, 2 palpable raised masses on anterior [place] about 2 cm wide
Head: Normocephalic, atraumatic
Eyes: Sclera non-icteric. EOMs intact.
Cardiac: Regular rate and rhythm, no murmur
Peripheral Vascular: Mild left lower extremity swelling noted, 2+ dorsalis pedis and posterior tibial pulses pulses
Pulm: Normal respiratory effort, no wheezes, rales, rhonchi, no crackles
Musculoskeletal: No pain with range of motion of the left knee. No tenderness palpation of left lower extremity.
Neuro: CN II-XII intact, no focal neurologic deficits.
Psychiatric: Appropriate mood and affect.
Course
<Claudette Hudson PA-C - Last Filed: 12/27/23 20:53>
Orders/Labs/Results
Orders:
Orders
12/27/23 16:46
Wound Culture [Wound/Abscess/Other Culture] Urgent
JEANINE Source: Leg
Specimen Description: Left
Date Specimen was Collected: 12/27/23
Time Specimen was Collected: 16:41
12/27/23 17:00
Complete Blood Count/With Diff Urgent
Comprehensive Metabolic Panel Urgent
CeFAZolin 1 GRAM [Ancef] 1 gram in 5 ml IV NOW
Abnormal Lab Results
12/27/23
17:00
RBC 3.22 L 10^6/uL
(4.70-6.10)
Hgb 9.2 L g/dL
(13.0-18.0)
Hct 30.3 L %
(39.0-52.0)
MCV 94.1 H fL
(80.0-94.0)
MCHC 30.4 L g/dL
(33.0-37.0)
RDW 16.8 H %
(11.5-14.5)
Absolute Neuts (auto) 8.8 H 10^3/uL
(1.4-6.5)
Absolute Lymphs (auto) 0.8 L 10^3/uL
(1.2-3.4)
Neutrophils % 89.2 H %
(42.2-75.2)
Lymphocytes % 7.7 L %
(20.5-51.1)
Carbon Dioxide 35 H mmol/L
(22-30)
BUN 24 H mg/dl
(9-20)
Glucose 165 H mg/dl
(70-99)
Total Protein 5.7 L g/dl
(6.3-8.2)
Albumin 3.4 L g/dl
(3.5-5.0)
12/27/23 17:00
12/27/23 17:00
Vital Signs
Initial and Last Documented VS:
Initial Vital Signs
Temp Pulse Resp BP Pulse Ox
98.0 F 78 20 107/59 94
12/27/23 15:41 12/27/23 15:41 12/27/23 15:41 12/27/23 15:41 12/27/23 15:41
Last Documented Vital Signs
Temp Pulse Resp BP Pulse Ox
98.0 F 73 18 130/64 99
12/27/23 15:41 12/27/23 17:45 12/27/23 17:45 12/27/23 17:00 12/27/23 16:13
<Edwardo Watson, - Last Filed: 12/27/23 16:39>
Orders/Labs/Results
Orders:
Orders
12/27/23 16:46
Wound Culture [Wound/Abscess/Other Culture] Urgent
JEANINE Source: Leg
Specimen Description: Left
Date Specimen was Collected: 12/27/23
Time Specimen was Collected: 16:41
12/27/23 17:00
Complete Blood Count/With Diff Urgent
Comprehensive Metabolic Panel Urgent
CeFAZolin 1 GRAM [Ancef] 1 gram in 5 ml IV NOW
Abnormal Lab Results
12/27/23
17:00
RBC 3.22 L 10^6/uL
(4.70-6.10)
Hgb 9.2 L g/dL
(13.0-18.0)
Hct 30.3 L %
(39.0-52.0)
MCV 94.1 H fL
(80.0-94.0)
MCHC 30.4 L g/dL
(33.0-37.0)
RDW 16.8 H %
(11.5-14.5)
Absolute Neuts (auto) 8.8 H 10^3/uL
(1.4-6.5)
Absolute Lymphs (auto) 0.8 L 10^3/uL
(1.2-3.4)
Neutrophils % 89.2 H %
(42.2-75.2)
Lymphocytes % 7.7 L %
(20.5-51.1)
Carbon Dioxide 35 H mmol/L
(22-30)
BUN 24 H mg/dl
(9-20)
Glucose 165 H mg/dl
(70-99)
Total Protein 5.7 L g/dl
(6.3-8.2)
Albumin 3.4 L g/dl
(3.5-5.0)
12/27/23 17:00
12/27/23 17:00
Vital Signs
Initial and Last Documented VS:
Initial Vital Signs
Temp Pulse Resp BP Pulse Ox
98.0 F 78 20 107/59 94
12/27/23 15:41 12/27/23 15:41 12/27/23 15:41 12/27/23 15:41 12/27/23 15:41
Last Documented Vital Signs
Temp Pulse Resp BP Pulse Ox
98.0 F 73 18 130/64 99
12/27/23 15:41 12/27/23 17:45 12/27/23 17:45 12/27/23 17:00 12/27/23 16:13
Procedures
<Claudette Hudson PA-C - Last Filed: 12/27/23 20:53>
Incision/Drainage/Joint Aspiration
Left Anterior Calf:
Anethesia: 1% Lidocaine with Epi
Preparation: cleaned with Betadine
Type of procedure: incise and drain
Nature of site: abscess
Description of abscess: less than 3cm
Loculations broken up: No
How much fluid was obtained?: large amount
Fluid description: purulent
Treatment: left open for drainage
Additional information:
Two, 2 cm abscesses were incised and drained on the left anterior thigh
<Claudette Hudson PA-C - Last Filed: 12/27/23 20:53>
MDM/Problems Addressed
Differential Diagnosis Includes:
ddx include cellulitis, erysipelas, peripheral vascular disease, sebaceous cyst
MDM/Problems Addressed:
Lower extremity redness:
This is a 78-year-old male with past medical history of COPD on 4 L- 8 L at baseline, coronary artery disease, hyperlipidemia, hypertension, left knee replacement presenting emergency department today with concerns of redness on his left lower
extremity. Patient denies any pain in the area, any itchiness, any drainage. 2 palpable masses are seen in the left anterior [place], non firm to palpation. These masses were incised and drained, they drained a significant amount of purulent fluid
consistent with abscess. The wounds were dressed. Wound care instructions given, wounds covered and left open for drainage. Return precautions discussed. Patient given a dose of Ancef here in emergency department, will be sent home Keflex.
Patient stable for discharge
Chronic conditions affecting care:
COPD, CAD, HTN, HLP
Acute Exacerbation and/or Progression of Chronic Illness:
COPD, CAD, HTN, HLP
<Claudette Hudson PA-C - Last Filed: 12/27/23 20:53>
*Pulse Oximetry
Patient hypoxic: no
*Critical Care Note
Total Time (30-74mins, 75-104mins- exclusive of procedures): Not Applicable
Data Reviewed
Review of Other/Old Records Reveals: Records (Reviewed previous ER physician documentation from 07/04/2021) and Discharge Summary (Reviewed discharge summary from 11/23/2023)
Source: patient and records
<Claudette Hudson PA-C - Last Filed: 12/27/23 20:53>
Patient Management
Escalation/DeEscalation of care consider admission/obs:
Admit not indicated. Patient stable for discharge.
ED Attending Note
<Claudette Hudson PA-C - Last Filed: 12/27/23 20:53>
-
Portions of this chart may have been created with voice recognition software.� Occasional wrong word or��sound alike� substitutions may have occurred due to the inherent limitations of voice recognition software.
<Edwardo Watson DO - Last Filed: 12/27/23 16:39>
ED Attending Note
Patient seen and examined by attending physician: Yes
I performed the substantive portion of visit, reviewed & personally made and approve the management plan that is documented in note by myself or JAYNE.: Yes
ED Attending Note:
Seen with SMITA examined independently nontoxic elderly male chronic lung disease on oxygen left lower extremity redness without particular warmth no fever no nausea vomiting to nodular somewhat fluctuant areas over the [place], prior records reviewed he
was admitted in 2019 with cellulitis of extremity and back associated improved suddenly switched to Ancef apparently did improve, not clearly cellulitis perhaps small abscesses performed bedside I&D, check cultures consideration for empiric Ancef
patient would like to go home not be admitted
Discharge Plan
Departure
Patient Disposition: Home (Routine Discharge)
Date of Disposition: 12/27/23
Time of Disposition: 17:40
Patient with high blood pressure during this ER visit?: Yes
Condition: Good
Discharge Problem:
Cellulitis
Instructions: Wound Care (DC), Cellulitis (Skin Infection), Adult (DC), BLOOD PRESSURE
Prescriptions:
New
cephalexin 500 mg capsule
500 mg PO QID 7 Days Qty: 28 0RF
No Action
prednisone 10 MG tablet
15 mg PO DAILY
benzonatate 200 MG capsule
200 mg PO TID
amlodipine 5 MG tablet
5 mg PO DAILY
pantoprazole 40 MG tablet,delayed release (DR/EC)
40 mg PO DAILY
hydrochlorothiazide 25 MG tablet
25 mg PO DAILY
Ofev 150 MG capsule
150 mg PO BID
atorvastatin 40 mg Tablet
40 mg PO DAILY
therapeutic multivitamin Tablet
1 tab PO DAILY
fexofenadine 180 mg Tablet
180 mg PO DAILY
lorazepam 0.5 mg Tablet
0.5 mg PO Q4HPRN PRN (Reason: anxiety)
Patient Comments:
last filled 10/23/2023 for 270 tablets
gabapentin 100 mg Capsule
100 mg PO TID
sertraline 50 mg Tablet
50 mg PO DAILY
cholecalciferol (vitamin D3) [Vitamin D3] 25 mcg (1,000 unit) Tablet
25 mcg PO DAILY
ibuprofen [Advil] 200 mg Tablet
200 mg PO Q6HPRN PRN (Reason: mild pain)
atovaquone 750 mg/5 mL Suspension
1,500 mg PO DAILY
Patient Comments:
last filled 11/16/2023 for 300mL.
aspirin 81 mg Tablet,Chewable
81 mg PO DAILY
Referrals:
Javon Carlos MD [Family Provider] -
Activity Restrictions/Additional Instructions:
Please change dressing over the wounds once daily. You can expect these wounds to drain on their own. Please keep the area well cleaned with mild soap and water.
We have sent an antibiotic called Ladan to her pharmacy. Please take one tablet 4 times daily for 7 days. You can start this tomorrow.
Please follow-up with your primary care provider in a few days.
Please return to the emergency department should you experience fevers or chills, increasing redness swelling or pain in your lower left leg, chest pain, increasing shortness of breath, nausea or vomiting, or any other signs or symptoms concerning
to you.
You will receive a call with the results of your wound culture.
Interventions
Interventions:
*Risk Screen - Suicide Last Done: 12/27/23 15:41
*General Assessment Last Done: 12/27/23 15:41
*Neglect/Abuse Screening Last Done: 12/27/23 15:41
ED- Fall Risk Assessment Last Done: 12/27/23 16:13
*ED COVID-19 Vaccine History Last Done: 12/27/23 16:13
*Nursing Disposition Last Done: 12/27/23 18:11
ED-Skin Assessment Last Done: 12/27/23 16:13
Discharge Date and Time
Discharge Date/Time: 12/27/23 18:12
Print Language: TURKMEN
[2023-12-27 16:16] VITALS: BP 131/69
[2023-12-27 17:00] VITALS: BP 130/64
[2023-12-27] MEDS: ANCEF 5 IV (17:10)
[2023-12-27 17:18] LABS: % Basophils 0.1 % (0-2); % Eosinophils 0.1 % (0-6); % Immature Granulocytes 0.4 % (0-0.5); % Lymphocytes 7.7 % (20.5-51.1); % Monocytes 2.5 % (1.7-9.3); % Neutrophils 89.2 % (42.2-75.2); Absolute Lymphocytes 0.8 10^3/uL (1.2-3.4); Absolute Monocytes 0.3 10^3/uL (0.1-0.6); Absolute Neutrophils 8.8 10^3/uL (1.4-6.5); Hematocrit 30.3 % (39.0-52.0); Hemoglobin 9.2 g/dL (13.0-18.0); Mean Corp Hgb Conc. 30.4 g/dL (33.0-37.0); Mean Corpuscular Hgb 28.6 pg (27.0-31.0); Mean Corpuscular Volume 94.1 fL (80.0-94.0); Mean Platelet Volume 9.8 fL (7.4-10.4); Nucleated Red Blood Cells % 0 % (-); Platelet Count 270 10^3/uL (130-400); Red Blood Cell Count 3.22 10^6/uL (4.70-6.10); Red Cell Dist. Width 16.8 % (11.5-14.5); White Blood Cell Count 9.9 10^3/uL (4.8-10.8)
[2023-12-27 17:25] LABS: ALT (SGPT) 20 U/L (0-50); AST (SGOT) 27 U/L (17-59); Albumin 3.4 g/dl (3.5-5.0); Alkaline Phosphatase 64 U/L (38-126); Blood Urea Nitrogen 24 mg/dl (9-20); Calcium 9.2 mg/dl (8.4-10.2); Carbon Dioxide 35 mmol/L (22-30); Chloride 101 mmol/L (98-107); Estimated Creatinine Clearance 76 ml/min; Glucose 165 mg/dl (70-99); Potassium 3.7 mmol/L (3.5-5.1); Sodium 142 mmol/L (135-145); Total Bilirubin 0.4 mg/dl (0.2-1.3); Total Protein 5.7 g/dl (6.3-8.2); eGFR > 60.00
== END 2023-12-27 18:12 | disposition home or self-care (01) ==
LOC: EMR 15:32
PROVIDERS: Physician Assistant; EMERGENCY PHYSICIAN Emergency Medicine; FAMILY PHYSICIAN Internal Medicine
DX: L03.116 Cellulitis of left lower limb (principal); L02.416 Cutaneous abscess of left lower limb; J44.9 Chronic obstructive pulmonary disease, unspecified; I25.10 Atherosclerotic heart disease of native coronary artery without angina pectoris; E78.00 Pure hypercholesterolemia, unspecified; I10 Essential (primary) hypertension
CPT/HCPCS: 99284; 10061; 96374; 80053; 85025; 87070; 87205

== ENCOUNTER 2024-03-15 18:53 | Inpatient (IN) | payer OTHER, SELFPAY ==
[2024-03-15] VITALS (13 sets, daily range): BP systolic 101–127; BP diastolic 53–93; BMI 24.2
--- NOTE | 2024-03-15 16:38 | ED.GENMED ---
History of Present Illness
General
Chief Complaint: Breathing Problem
Source: patient and ambulance crew
Exam Limitations: none
Time Seen by Provider: 03/15/24 16:36
History of Present Illness
History of Present Illness:
78-year-old male presents emergency department due to respiratory distress. He has a history of pulmonary fibrosis and emphysema. He is on 8 L of oxygen.
Past History
Past History
ED Past Medical History: CAD, COPD, GERD, HTN, Hypercholesterolemia and Other (pulm fibrosis, MARIANO, on 8 L O2 at home)
Social History
Tobacco: Former smoker
Alcohol: None
Drug: None
Personal: Single
Living: with family
Review of Systems
Review of Systems
Allergies reviewed?: Yes
All Other Systems: Not applicable
Constitutional: Reports no symptoms
EENT: Reports no symptoms
Respiratory: Reports cough and trouble breathing
Cardiac: Reports no symptoms
ABD/GI: Reports no symptoms
: Reports no symptoms
Musculoskeletal: Reports no symptoms
Skin: Reports no symptoms
Neurological: Reports no symptoms
Endocrine: Reports no symptoms
Hematologic/Lymphatic: Reports no symptoms
Psychiatric: Reports no symptoms
Phy Exam
Physical Exam
Physical Exam:
Physical Exam
General: Moderate respiratory distress
Neck: supple. no meningeal signs. normal posterior pharynx
Heart: s1/s2 regular rate and rhythm, no murmur. equal radial
pulses.
HEENT: Pupils equal round reactive to light, EOMI
Lungs: Moderate respiratory distress. Slight wheezes bilaterally
Abdomen: normal bowel sounds. not tender. no CVAT
Neuro: alert and oriented. no focal neurological deficits cranial nerves II through XII intact
Skin: no rash
Psychiatric: well kept. interactive and cooperative
Extremities: no edema. no calf tenderness. negative homans. good distal pulses
Scores
Heart Failure Risk
Heart Failure Risk Score: Not Applicable
Course
Orders/Labs/Results
Orders:
Orders
03/15/24 Dinner
NPO
Allow oral meds: Yes
Allow clear liquids: Sips of Clears
NPO with Ice Chips: Yes
03/15/24 16:33
Electrocardiogram (*1) Urgent
Reason for Study: Shortness of Breath
EKG- Treatment ONCE
Portable Chest Xray [CR Chest Portable - 1 View] Urgent
Comment:
Reason For Exam: SOB
Reason Study Needs to be Portable: Patient Unstable
03/15/24 16:36
Electrocardiogram (*1) Stat
Reason for Study: Other
Other Reason for Exam: pneumonia
Cardiac Monitoring- Treatment ONCE
EKG- Treatment ONCE
IV Insert/Care/Rem.- Treatment PRN
Dexamethasone Sod Phosphate [Decadron] 10 mg IV NOW STA
Ipratropium/Albuterol Sulfate [Duoneb] 3 ml INH R NOW STA
O2 Therapy [RESP] Stat
Titrate/Wean O2 to maintain O2 sat greater than (%): 92
Pulse Ox/cont/shift [RESP] Stat
Quantity: 1
03/15/24 16:47
O2 Therapy [RESP] Urgent
Titrate/Wean O2 to maintain O2 sat greater than (%): 92
03/15/24 16:56
Complete Blood Count/With Diff Urgent
Comprehensive Metabolic Panel Urgent
Creatine Phosphokinase Urgent
Lactic Acid Q4H
Comment: CANCEL 2nd LACTIC ACID IF 1st LACTIC ACID IS LESS THAN 2
NT-proBNP Urgent
Troponin I Urgent
Blood Culture Urgent
JEANINE Source: Blood/Venous
Specimen Description:
03/15/24 17:11
Blood Culture Routine
JEANINE Source: Blood/Venous
Specimen Description:
03/15/24 17:58
Electrocardiogram (*1) Urgent
Reason for Study: Shortness of Breath
EKG- Treatment ONCE
03/15/24 18:10
Heparin 4,000 units IV NOW STA
Nursing to Place Non Medication Order As Directed
Physician Order: PTT 6 hours after initial start of Heparin infusion
Above order entered?: Yes
03/15/24 18:14
PTT Urgent
Comment: Obtain baseline before beginning heparin infusion if not already collected
03/15/24 18:15
Heparin 78084 Units/250 ml 25,000 units in 250 ml IV PER PROTOCOL
Weight to be used for heparin protocol in kilograms (kg):: 74.4
Protocol:: Cardiac Tx/Acute Coronary
PTT Goal Range to be used:: PTT 73 to 111 seconds
Order type:: Initial
INITIAL Infusion Dose (UNITS/KG/hr) & then follow protocol:: 12 units/kg/hr
Infusion Dose in UNITS/hr & then follow protocol (UNITS/hr):: 900
INFUSION RATE in mL/hr & then follow protocol (mL/hr):: 9
PTT less than or equal to 64 seconds:: Increase rate by 200 units/hr (+ 2 mL/hr)
PTT 64.1 to 72.9 seconds:: Increase rate by 100 units/hr (+ 1 mL/hr)
PTT 73 to 111 seconds:: Target Range. No change in rate.
PTT 111.1 to 130.9 seconds:: Decrease rate by 100 units/hr (- 1 mL/hr)
PTT 131 to 199.9 seconds:: HOLD for 1 hr. Then decrease rate by 200 units/hr (- 2 mL/hr)
PTT greater than or equal to 200 seconds:: HOLD for 2 hrs & Notify Provider. Then decrease by 200 units/hr (-
2 mL/hr)
Lab follow-up:: Each change, PTT q6h until 2 consecutive are therapeutic. Then PTT
daily.
03/15/24 18:17
CARDIOLOGY CONSULT Urgent
Consulting Provider: Juan Mejia
Was physician already notified: Yes
Reason for consult: NSTEMI
Aspirin Chewable [Low Strength Aspirin] 324 mg PO NOW STA
03/15/24 18:[address] [CT Chest Pe Study] Stat
Comment:
Reason For Exam: Hx of pulmonary fibrosis, hypoxia
03/15/24 18:33
0.9% Sodium Chloride 1000 ml [Nss] 1,000 ml IV BOLUS
03/15/24 18:34
Admit/Transfer Patient As Directed
Co-Sign Provider:
Level of Care: Inpatient admission
Assign to:: IVU
Physician / Group: Hospitalist
Diagnosis: NSTEMI
Reason for Hospitalization: NSTEMI
Expected length of stay greater than two midnights?: Yes
ELOS- Estimated Length of Stay in days: 5
I certify the patient meets the requirements for IP care: Yes
PRN Pain Medication Management As Directed
May give lesser potent ordered pain med per pt: Yes
preference::
Protocol:: Medication orders for pain may be administered in a
manner that supports deferring to patient preference
when the pt is:
- Requesting an ordered lesser potent pain medication.
Least to most potent pain medications are defined
as: acetaminophen < NSAID < tramadol < opioids
(morphine, oxycodone, hydromorphone).
- Requesting a lesser dose of the same medication IF
ORDERED.
- Requesting a less intrusive route of administration
if both routes are prescribed by the provider (PO <
IV).
03/15/24 18:36
Code Status As Directed
Resuscitation Status: Full Code
03/15/24 18:37
Vancomycin [Vancocin] 2,000 mg 0.9% Sodium Chloride 500 ml [Nss] 500 ml IV NOW
03/15/24 18:49
Add On- LAB Stat
Tests Added?: CPK
03/15/24 20:00
Cefepime HCl [Maxipime] 2,000 mg IV Q8H
Sterile Water [Sterile Water For Injection] 10 ml IV Q8H
03/15/24 21:07
Lactic Acid Q4H
Comment: CANCEL 2nd LACTIC ACID IF 1st LACTIC ACID IS LESS THAN 2
03/15/24 21:44
0.9% Sodium Chloride 1000 ml [Nss] 1,000 ml IV 75 mls/hr
Acetaminophen [Tylenol] 650 mg PO Q4HPRN PRN
Bisacodyl [Dulcolax] 10 mg RECTAL [id number] PRN
Docusate W/Senna [Senokot-S] 1 tablet PO BIDPRN PRN
Ipratropium/Albuterol Sulfate [Duoneb] 3 ml INH R Q4HPRN PRN
Ipratropium/Albuterol Sulfate [Duoneb] 3 ml INH R QID
Ondansetron Injectable [Zofran] 4 mg IV Q8HPRN PRN
Polyethylene Glycol Powder [Miralax] 17 grams PO DAILYPRN PRN
03/15/24 21:44
Echo 2D MMode Color/Doppler Routine
Reason for Study: NSTEMI
PULMONARY CONSULT Routine
Consulting Provider: Santiago Macias
Was physician already notified: Yes
Reason for consult: hypoxia
Heparin Protocol- PTT Orders As Directed
PTT per Heparin protocol: -Obtain CBC and baseline PTT - if not already collected.
-Obtain PTT 6 hours from start of infusion. Then, every 6 hours until 2 consecutive
PTT's are therapeutic. Then, PTT Daily.
-With each rate change, obtain PTT every 6 hours until 2 consecutive PTT's are
therapeutic. Then, PTT Daily.
Activity As Directed
Activity Level: Out of Bed-Early Mobility
Notify MD As Directed
Notify physician if: PTT is greater than or equal to 200.
Vital Signs As Directed
Frequency: Per unit guidelines
O2 Therapy [RESP] Routine
Titrate/Wean O2 to maintain O2 sat greater than (%): 90
03/15/24 22:00
Gabapentin [Neurontin] 100 mg PO TID
03/15/24 22:59
Procalcitonin Routine
PCT Algorithmm Indication: Sepsis
TSH Reflex To Free T4 Routine
Troponin I Q6H
03/16/24 00:00
MethylPREDNISolone PF [Solu-Medrol Pf] 60 mg IV Q6H
03/16/24 00:25
PTT Urgent
03/16/24 03:44
Troponin I Q6H
03/16/24 06:00
Complete Blood Count/With Diff IN AM
Comprehensive Metabolic Panel IN AM
Lipid Profile [Cardiovascular Evaluation] IN AM
Magnesium IN AM
03/16/24 08:00
Aspirin Chewable [Low Strength Aspirin] 81 mg PO DAILY
Atorvastatin [Lipitor] 40 mg PO DAILY
Loratadine [Claritin] 10 mg PO DAILY
Pantoprazole [Protonix] 40 mg PO DAILY
Sertraline HCl [Zoloft] 50 mg PO DAILY
03/16/24 09:44
Troponin I Q6H
03/17/24 06:00
Complete Blood Count/No Diff Q2D
Comment: notify provider: Platelet count < 130,000 or decrease by 50% from baseline
03/19/24 06:00
Complete Blood Count/No Diff Q2D
Comment: notify provider: Platelet count < 130,000 or decrease by 50% from baseline
03/21/24 06:00
Complete Blood Count/No Diff Q2D
Comment: notify provider: Platelet count < 130,000 or decrease by 50% from baseline
03/23/24 06:00
Complete Blood Count/No Diff Q2D
Comment: notify provider: Platelet count < 130,000 or decrease by 50% from baseline
03/25/24 06:00
Complete Blood Count/No Diff Q2D
Comment: notify provider: Platelet count < 130,000 or decrease by 50% from baseline
03/27/24 06:00
Complete Blood Count/No Diff Q2D
Comment: notify provider: Platelet count < 130,000 or decrease by 50% from baseline
03/29/24 06:00
Complete Blood Count/No Diff Q2D
Comment: notify provider: Platelet count < 130,000 or decrease by 50% from baseline
03/31/24 06:00
Complete Blood Count/No Diff Q2D
Comment: notify provider: Platelet count < 130,000 or decrease by 50% from baseline
Abnormal Lab Results
03/15/24
16:56
WBC 14.9 H 10^3/uL
(4.8-10.8)
RBC 3.89 L 10^6/uL
(4.70-6.10)
Hgb 10.1 L g/dL
(13.0-18.0)
Hct 33.6 L %
(39.0-52.0)
MCH 26.0 L pg
(27.0-31.0)
MCHC 30.1 L g/dL
(33.0-37.0)
RDW 17.6 H %
(11.5-14.5)
Absolute Neuts (auto) 11.8 H 10^3/uL
(1.4-6.5)
Absolute Monos (auto) 0.8 H 10^3/uL
(0.1-0.6)
Neutrophils % 79.2 H %
(42.2-75.2)
Lymphocytes % 13.0 L %
(20.5-51.1)
Carbon Dioxide 31 H mmol/L
(22-30)
BUN 30 H mg/dl
(9-20)
Glucose 151 H mg/dl
(70-99)
Lactic Acid 5.0 H* mmol/L
(0.7-2.0)
AST 115 H U/L
(17-59)
Creatine Kinase 250 H U/L
(55-170)
Troponin I 8.110 H* ng/ml
Total Protein 6.0 L g/dl
(6.3-8.2)
03/15/24 16:56
03/15/24 16:56
Vital Signs
Initial and Last Documented VS:
Initial Vital Signs
Pulse Resp BP
107 32 114/93
03/15/24 16:35 03/15/24 16:35 03/15/24 16:35
Last Documented Vital Signs
Pulse Resp BP Pulse Ox
88 21 111/67 99
03/15/24 20:36 03/15/24 20:15 03/15/24 19:45 03/15/24 20:16
MDM/Problems Addressed
Differential Diagnosis Includes:
Pulmonary embolism, NSTEMI, COPD, pulmonary fibrosis, respiratory failure
MDM/Problems Addressed:
78-year-old male with respiratory failure, hypoxia, pulmonary fibrosis exacerbation, and NSTEMI
Chronic conditions affecting care: CAD and COPD
Acute Exacerbation and/or Progression of Chronic Illness: CAD and COPD
*Radiology
Radiology exam reviewed: radiology read reviewed (Chest x-ray shows severe pulmonary fibrosis, CT chest shows no PE, severe pulmonary fibrosis and coronary disease)
*Pulse Oximetry
Patient hypoxic: yes
*EKG
Interpreted by ED Provider?: Yes
EKG Intrepretation Date: 03/15/24
EKG Intrepretation Time: 18:05
Interpretation: abnormal
Comparison EKG: changes noted
Heart Rate: 104
Rate: tachycardiac
Rhythm: sinus tachycardia
Christiana: normal axis
Interval: normal interval
QRS Pattern: right bundle branch block
Ischemia: non-specific ST changes
*Quality Nurse Interpretation
Rate: tachycardiac
Interpretation: abnormal
Heart Rate: 100
Rhythm: sinus tachycardia
*Critical Care Note
Total Time (30-74mins, 75-104mins- exclusive of procedures): 45
comment:
Critical care statement: A total of 45 minutes of critical care time was provided for this patient. This includes management of unstable vital signs, evaluation of the patient at bedside, reviewing the patient's pertinent medical records, discussion
with consultants, review of old EKGs and review of pertinent medical records. This time with separate from time utilized to perform the aforementioned documented procedures
Patient Management
Social determinants of health affecting care: Living situation
Discussion with other providers: Hospitalist and Foreclosure Specialist (Cardiology, Dr. Mejia agrees with aspirin and heparin)
Escalation/DeEscalation of care consider admission/obs:
Admit indicated
ED Attending Note
-
Portions of this chart may have been created with voice recognition software.� Occasional wrong word or��sound alike� substitutions may have occurred due to the inherent limitations of voice recognition software.
Discharge Plan
Departure
Patient Disposition: Admit
Date of Disposition: 03/15/24
Time of Disposition: 18:08
Admit to: IMU
Presentation/result/management discussed w/ accepting MD/DO: Hospitalist
Patient with high blood pressure during this ER visit?: No
Condition: Fair
Discharge Problem:
Acute respiratory failure with hypoxia, IPF (idiopathic pulmonary fibrosis), Acute non-ST elevation myocardial infarction (NSTEMI)
Interventions
Interventions:
*Risk Screen - Suicide Last Done: 03/15/24 16:40
*General Assessment Last Done: 03/15/24 16:40
*Neglect/Abuse Screening Last Done: 03/15/24 16:40
ED- Fall Risk Assessment Last Done: 03/15/24 17:28
*ED COVID-19 Vaccine History Last Done: 03/15/24 16:40
*Nursing Disposition Last Done: 03/15/24 20:41
ED- Cardiac Assessment Last Done: 03/15/24 17:27
ED- Pulmonary Assessment Last Done: 03/15/24 17:27
Discharge Date and Time
Discharge Date/Time: 03/15/24 20:42
[2024-03-15] MEDS: DUONEB 3 ML INH ×2 (16:58→23:25)
[2024-03-15] MEDS: DECADRON 10 MG IV (16:58)
[2024-03-15 17:04] LABS: % Basophils 0.3 % (0-2); % Eosinophils 1.7 % (0-6); % Immature Granulocytes 0.3 % (0-0.5); % Monocytes 5.5 % (1.7-9.3); % Neutrophils 79.2 % (42.2-75.2); Absolute Basophils 0.1 10^3/uL (0-0.2); Absolute Eosinophils 0.3 10^3/uL (0-0.7); Absolute Lymphocytes 1.9 10^3/uL (1.2-3.4); Absolute Monocytes 0.8 10^3/uL (0.1-0.6); Absolute Neutrophils 11.8 10^3/uL (1.4-6.5); Hematocrit 33.6 % (39.0-52.0); Hemoglobin 10.1 g/dL (13.0-18.0); Mean Corp Hgb Conc. 30.1 g/dL (33.0-37.0); Mean Corpuscular Volume 86.4 fL (80.0-94.0); Nucleated Red Blood Cells % 0 % (-); Platelet Count 317 10^3/uL (130-400); Red Blood Cell Count 3.89 10^6/uL (4.70-6.10); Red Cell Dist. Width 17.6 % (11.5-14.5); White Blood Cell Count 14.9 10^3/uL (4.8-10.8)
[2024-03-15 17:20] LABS: ALT (SGPT) 34 U/L (0-50); AST (SGOT) 115 U/L (17-59); Albumin 3.6 g/dl (3.5-5.0); Alkaline Phosphatase 70 U/L (38-126); Blood Urea Nitrogen 30 mg/dl (9-20); Calcium 9.2 mg/dl (8.4-10.2); Carbon Dioxide 31 mmol/L (22-30); Chloride 101 mmol/L (98-107); Estimated Creatinine Clearance 65 ml/min; Glucose 151 mg/dl (70-99); Potassium 4.7 mmol/L (3.5-5.1); Sodium 145 mmol/L (135-145); Total Bilirubin 0.6 mg/dl (0.2-1.3); eGFR > 60.00
[2024-03-15 17:33] LABS: NT-proBNP 1260 pg/ml
[2024-03-15] MEDS: HEPARIN 4000 UNITS IV (18:22)
[2024-03-15] MEDS: HEPARIN 25000 UNITS/250 ML IV (18:23)
[2024-03-15] MEDS: LOW STRENGTH ASPIRIN 324 MG PO (18:27)
[2024-03-15 18:34] LABS: APTT 32.1 Sec (23.4-35.0)
--- NOTE | 2024-03-15 18:50 | HPS.HSE ---
Family Physician
-
Family Physician: Javon Carlos
Chief Complaint
-
SOB
History of Present Illness
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 Also had episodes of palpitations. In ED found troponin of 8, lactate of 5, placed on HFNC. EKG without ST elevation.
Medical History
Past Medical History
Past Medical History: Reports Other
Additional Past Medical History:
See HPI
Past Surgical History: Reports Other
Additional Past Surgical History:
See HPI
Social History
Tobacco: Non-smoker
Alcohol: None
Drug: None
Family History
Family History: Not pertinent
Allergies / Home Medications
Allergies reflects when Allergies were last updated in [facility].
Home Medications with original date entered in [facility]
Allergy/Medication List:
Allergies
Allergy/AdvReac Type Severity Reaction Status Date / Time
aripiprazole [From Abilify] Allergy Unknown Verified 03/15/24 16:35
ciprofloxacin [From Cipro] Allergy Rash Verified 03/15/24 16:35
codeine Allergy Unknown Verified 03/15/24 16:35
morphine Allergy Unknown Verified 03/15/24 16:35
Home Medications
amlodipine 5 mg tablet 5 mg PO DAILY Blood Pressure 07/04/21
benzonatate 200 mg capsule 200 mg PO TID Cough 07/04/21
hydrochlorothiazide 25 mg tablet 25 mg PO DAILY Fluid Retention/Swelling 07/04/21
nintedanib 150 mg capsule (Ofev) 150 mg PO BID IDIOPATHIC PULMONARY FIBROSIS 07/04/21
pantoprazole 40 mg tablet,delayed release 40 mg PO DAILY Gastrointestinal Issue 07/04/21
prednisone 10 mg tablet 15 mg PO DAILY Anti-Inflammatory 07/04/21
aspirin 81 mg chewable tablet 81 mg PO DAILY Blood Clot Prevention/Tx 11/22/23
atorvastatin 40 mg tablet 40 mg PO DAILY High Cholesterol 11/22/23
atovaquone 750 mg/5 mL oral suspension 1,500 mg PO DAILY Infection 11/22/23
cholecalciferol (vitamin D3) 25 mcg (1,000 unit) tablet (Vitamin D3) 25 mcg PO DAILY Supplement 11/22/23
fexofenadine 180 mg tablet 180 mg PO DAILY Allergies 11/22/23
gabapentin 100 mg capsule 100 mg PO TID Neurological Condition 11/22/23
ibuprofen 200 mg tablet (Advil) 200 mg PO Q6HPRN PRN mild pain 11/22/23
lorazepam 0.5 mg tablet 0.5 mg PO Q4HPRN PRN anxiety 11/22/23
sertraline 50 mg tablet 50 mg PO DAILY Depression 11/22/23
therapeutic multivitamin 1 tab PO DAILY Supplement 11/22/23
cephalexin 500 mg capsule 500 mg PO QID 7 days #28 caps 12/27/23
Review of Systems
-
History Source: Patient
A 12 point ROS was completed and negative except as noted: Yes
Respiratory: Reports Trouble Breathing
Physical Exam
Vital Signs
Vital Signs
Pulse Resp BP Pulse Ox
103 20 101/53 99
03/15/24 18:30 03/15/24 18:30 03/15/24 18:30 03/15/24 18:30
Physical Exam
General: Respiratory Distress
HEENT: Moist mucous membranes and Other (R tip of ear resection)
Respiratory: Crackles; No Wheezes
Cardiac: S1/S2, Regular Rhythm and Tachycardia
GI: Soft, Non Tender and Non Distended
Musculoskeletal: No Clubbing, No Cyanosis and No Edema
Skin: Warm
Neuro: Awake, Alert, Oriented and AO x 3
Psych: Calm
Laboratory Results
-
03/15/24 16:56
03/15/24 16:56
Laboratory Results
APTT 32.1 Sec (23.4-35.0) 03/15/24 18:14
Lactic Acid 5.0 mmol/L (0.7-2.0) H* 03/15/24 16:56
Total Bilirubin 0.6 mg/dl (0.2-1.3) 03/15/24 16:56
AST 115 U/L (17-59) H 03/15/24 16:56
ALT 34 U/L (0-50) 03/15/24 16:56
Alkaline Phosphatase 70 U/L (38-126) 03/15/24 16:56
Troponin I 8.110 ng/ml H* 03/15/24 16:56
Data Reviewed
-
Diagnostic Radiology: Report Reviewed by me
Lab Data: Labs Reviewed by me
Impression/Plan
-
A/P:
#Acute on chronic hypoxic respiratory failure
#COPD exacerbation
#Pulmonary fibrosis
CTA chest
IV steroids
bronchodilators
Pulm consult
HFNC and wean off tto baseline as tolerated
#Leukocytosis
possibly steroid induced, will start empiric Abx pedning CT chest
#NSTEMI
#Palpitations
Cardio consult urgent
ASA, heparin drip
Telemetry
cont statin
Eventual BB
sublingual nitro PRN
Echo
#Elevated lactate
2/2 hypoxia
follow
IVF
#HLD
cont home meds
#Essential HTN
hold antihypertensives since borderline-low BP on admission
#AST elevation
check CPK
follow LFT
most likely 2/2 cardiac injury
DVT ppx on heparin drip
Full code
I have spent at least 79min reviewing chart, test results, communication with consutlants and direct patient care
[2024-03-15] MEDS: VANCOCIN 540 MG IV (18:55)
[2024-03-15] MEDS: NSS 1000 IV ×2 (18:56→23:05)
[2024-03-15 19:27] LABS: Creatine Phosphokinase 250 U/L (55-170)
--- NOTE | 2024-03-15 20:56 | PHA.VAN.IN ---
Assessment
- Assessment
Renal Function: Appears similar to baseline
Concomitant Antimicrobials: CEFEPIME
- Previous Dosing Experience
Previous Regimen: 1250MG IV Q12H
Date of Regimen: 07/05/21
Provided Trough of: 12.8 PREDICTED
Provided AUC of: 478 PREDICTED
Patient's SCR is: Similar to previous dosing experience
Patient's weight is: Decreased compared to previous dosing experience (07/05/21 WT = 102 KG)
AUC Dosing Plan
- Dosing Variables
Dosing Weight (kg): 74.4
Dosing CrCl (ml/min): 65
Vd coefficient (L/kg): 0.7
- Empiric Dosing
Initial / Loading Dose: 2GM
Maintenance Regimen: 750MG IV Q12H
Estimated AUC (mcg*h/mL): 508
Estimated Peak (mcg*h/mL): 28.6
Estimated Trough (mcg/ml): 15.1
Estimated Half Life (H): 11.9
Pharmacokinetics Vancomycin I
- -
Patient Age: 78
Patient Sex: Male
Vancomycin Day #: 1
Indication: Pulmonary/Respiratory
Requesting Provider: NICOLAS
Pertinent Antimicrobial Allergies:
Allergies
ciprofloxacin [From Cipro] Allergy (Verified 03/15/24 16:35)
Rash
Height / Weight:
Height 5 ft 9 in
Actual Weight 74.4 kg
- Vital Signs / Lab Results
Pulse Resp BP Pulse Ox
88 21 111/67 99
03/15/24 20:36 03/15/24 20:15 03/15/24 19:45 03/15/24 20:15
Lab Results - Hematology
03/15/24
16:56
WBC 14.9 H
Lab Results - Chemistry
03/15/24
16:56
BUN 30 H
Creatinine 0.9
Estimated Creat Clear 65
Albumin 3.6
03/15/24
16:56
Lactic Acid 5.0 H*
[2024-03-15 21:28] LABS: Lactic Acid 1.5 mmol/L (0.7-2.0)
[2024-03-15] MEDS: DUONEB INH (22:26)
--- NOTE | 2024-03-15 22:32 | PTCARENOTE ---
Pt admitted in to 2251- Heparin gtt, IVF, and Vanco infusing. Admission and assessment completed. Dgt Rosalind at bedside. High flow NC in place resp. on the floor managing. Pt unsure of medlist at this time. dgt will have significant other Wilma
bring in med list from home tomorrow. Pt denies cheat pain- appears tachypneic, orthopneic but saturating in the mid-high 90s. POC discussed with pt and family- call anderson within reach. Wounds documented on work list. SR with 1st degree.
[2024-03-15] MEDS: MAXIPIME 2000 MG IV (22:51)
[2024-03-15] MEDS: STERILE WATER FOR INJECTION 10 ML IV (22:51)
[2024-03-15] MEDS: NEURONTIN 100 MG PO (23:05)
[2024-03-15] MEDS: SOLU-MEDROL PF 60 MG IV (23:05)
[2024-03-15 23:42] LABS: Procalcitonin 0.26 ng/ml (0.0-0.25)
[2024-03-16 00:20] LABS: TSH Reflex To Free T4 1.14 uIU/ml (0.47-4.68)
[2024-03-16 04:26] VITALS: BP 121/67
[2024-03-16 05:22] LABS: % Immature Granulocytes 0.6 % (0-0.5); % Lymphocytes 4.3 % (20.5-51.1); % Monocytes 1.4 % (1.7-9.3); % Neutrophils 93.7 % (42.2-75.2); Absolute Immature Granulocytes 0.1 10^3/uL (0-0.05); Absolute Lymphocytes 0.4 10^3/uL (1.2-3.4); Absolute Monocytes 0.1 10^3/uL (0.1-0.6); Absolute Neutrophils 7.8 10^3/uL (1.4-6.5); Hematocrit 27.2 % (39.0-52.0); Hemoglobin 8.6 g/dL (13.0-18.0); Mean Corp Hgb Conc. 31.6 g/dL (33.0-37.0); Mean Corpuscular Hgb 27.3 pg (27.0-31.0); Mean Corpuscular Volume 86.3 fL (80.0-94.0); Mean Platelet Volume 9.8 fL (7.4-10.4); Nucleated Red Blood Cells % 0 % (-); Platelet Count 208 10^3/uL (130-400); Red Blood Cell Count 3.15 10^6/uL (4.70-6.10); Red Cell Dist. Width 17.1 % (11.5-14.5); White Blood Cell Count 8.3 10^3/uL (4.8-10.8)
[2024-03-16 05:41] LABS: ALT (SGPT) 30 U/L (0-50); AST (SGOT) 74 U/L (17-59); Albumin 2.9 g/dl (3.5-5.0); Alkaline Phosphatase 60 U/L (38-126); Blood Urea Nitrogen 25 mg/dl (9-20); Calcium 8.4 mg/dl (8.4-10.2); Carbon Dioxide 30 mmol/L (22-30); Chloride 104 mmol/L (98-107); Estimated Creatinine Clearance 84 ml/min; Glucose 176 mg/dl (70-99); HDL Cholesterol 63 mg/dl; LDL Cholesterol, Calculated 69 mg/dl; Potassium 4.7 mmol/L (3.5-5.1); Sodium 142 mmol/L (135-145); Total Bilirubin 0.3 mg/dl (0.2-1.3); Total Cholesterol 145 mg/dl (50-199); Total Protein 5.1 g/dl (6.3-8.2); Triglyceride 69 mg/dl (10-149); Very Low Density Lipoprotein 13 mg/dl (0-30); eGFR > 60.00
[2024-03-16 06:00] VITALS: BMI 24.1
[2024-03-16] MEDS: VANCOCIN 150 IV ×2 (06:32→17:40)
[2024-03-16 06:54] VITALS: BP 123/66
--- NOTE | 2024-03-16 08:07 | CON.CAR ---
Consultation
Consultation Request
Date/Time Consultation Requested: 03/15/2024 18: 00
Date/Time Consultation Performed: 03/16/2024 7: 45
Requesting Provider: Elly
Performing Provider: Roberto
Reason for Consultation: mi
Medical History
-
Chief Complaint: sob, respiratory distress
History of Present Illness:
Miller has a history of severe pulmonary fibrosis on 5 to 8 L of oxygen chronically (followed by pulmonary at [facility] and possibly due to ink exposure), CAD status post stents in 1997 at [facility], peripheral vascular disease status post
peripheral stents, reflux, hypertension, hypercholesterolemia. At baseline he is on 5 to 8 L of oxygen. He had a lesion removed from his right ear on 03/13/2024. He became progressively more short of breath and had palpitations. In the ER he was
in respiratory distress. He is found to have a troponin of 8 with lactate of 5 and was placed on nonrebreather then BiPAP. At the present time he feels better. He denies chest discomfort.
Past Medical History
Past Medical History: Other (See HPI)
Past Surgical History: Other (Cartilage remove from knee in 1973, spur removed from neck in 1979, balloon angioplasty right thigh 1989, heart stent 1997, bilateral knee replacement 2005, peroneal nerve release left knee 2006, tender transfer left
foot 2008, second left knee replacement 2009, left hand tendon repair 2013, right h)
Social History
Tobacco: Former Smoker (Stopped in the s)
Alcohol: None
Drug: None
Personal: Partner
Living: With Family
Employment: Retired (Retired from [employer])
Family History
Family History: CAD (Father had heart attack and at age 57) and Other (Mother of cancer at age 60)
Allergies / Home Medications
Allergy/AdvReac Type Severity Reaction Status Date / Time
aripiprazole [From Abilify] Allergy Unknown Verified 03/15/24 16:35
ciprofloxacin [From Cipro] Allergy Rash Verified 03/15/24 16:35
codeine Allergy Unknown Verified 03/15/24 16:35
morphine Allergy Unknown Verified 03/15/24 16:35
�Medication �Instructions �Recorded �Confirmed �Type
amlodipine 5 mg tablet 5 mg PO DAILY Blood Pressure 07/04/21 11/22/23 History
benzonatate 200 mg capsule 200 mg PO TID Cough 07/04/21 11/22/23 History
hydrochlorothiazide 25 mg tablet 25 mg PO DAILY Fluid 07/04/21 11/22/23 History
Retention/Swelling
nintedanib 150 mg capsule (Ofev) 150 mg PO BID IDIOPATHIC PULMONARY 07/04/21 11/22/23 History
FIBROSIS
pantoprazole 40 mg tablet,delayed 40 mg PO DAILY Gastrointestinal 07/04/21 11/22/23 History
release Issue
prednisone 10 mg tablet 15 mg PO DAILY Anti-Inflammatory 07/04/21 11/22/23 History
aspirin 81 mg chewable tablet 81 mg PO DAILY Blood Clot 11/22/23 11/22/23 History
Prevention/Tx
atorvastatin 40 mg tablet 40 mg PO DAILY High Cholesterol 11/22/23 11/22/23 History
atovaquone 750 mg/5 mL oral 1,500 mg PO DAILY Infection 11/22/23 11/22/23 History
suspension
cholecalciferol (vitamin D3) 25 25 mcg PO DAILY Supplement 11/22/23 11/22/23 History
mcg (1,000 unit) tablet (Vitamin
D3)
fexofenadine 180 mg tablet 180 mg PO DAILY Allergies 11/22/23 11/22/23 History
gabapentin 100 mg capsule 100 mg PO TID Neurological 11/22/23 11/22/23 History
Condition
ibuprofen 200 mg tablet (Advil) 200 mg PO Q6HPRN PRN mild pain 11/22/23 11/22/23 History
lorazepam 0.5 mg tablet 0.5 mg PO Q4HPRN PRN anxiety 11/22/23 11/22/23 History
sertraline 50 mg tablet 50 mg PO DAILY Depression 11/22/23 11/22/23 History
therapeutic multivitamin 1 tab PO DAILY Supplement 11/22/23 11/22/23 History
cephalexin 500 mg capsule 500 mg PO QID 7 days #28 caps 12/27/23 Rx
Review of Systems
-
History Source: Patient
All other systems: Negative unless noted
Constitutional: Weight Loss (He claims to have lost 50 pounds in the past few years)
EENT: No Symptoms
Respiratory: Trouble Breathing
Cardiac: No Symptoms
Abdomen/GI: Constipated
: No Symptoms
Musculoskeletal: No Symptoms
Skin: No Symptoms
Neurological: No Symptoms
Endocrine: No Symptoms
Hematologic/Lymphatic: No Symptoms
Physical Exam
Vital Signs
Temp Pulse Resp BP Pulse Ox
98.3 F 62 18 123/66 100
03/16/24 04:28 03/16/24 07:45 03/16/24 06:53 03/16/24 06:54 03/16/24 07:45
Lab Results
03/16/24 04:47
03/16/24 04:47
Troponin I Cancelled 03/16/24 09:44
Yng-M-Fmpyzoylzbh Pept 1260 pg/ml 03/15/24 16:56
General: Well developed, well nourished in NAD.
Neck: Supple, no JVD, HJR, carotids +2 B/L, no bruits bilaterally.
Heart: Non displaced PMI, RRR, no murmurs, No S3, S4, no rubs.
Lungs: Scattered rhonchi
Abdomen: Normal bowel sounds, soft, non-tender, non-distended.
Extremities: No clubbing, cyanosis or edema bilaterally.
Neuro: Grossly nonfocal, awake, alert and oriented x3.
Impression / Plan
-
Impression:
Hypoxemic respiratory failure
Non-STEMI with peak troponin of 9.9
Pulmonary fibrosis on chronic 5 to 8 L of oxygen possibly due to prior ink exposure
Acute diastolic CHF
Elevated lactic acid level
History of CAD status post stents in [address] Maldonado at [facility] but not seen since 2021
History of PVD status post lower extremity revascularization procedures
Hypertension
Hypercholesterolemia
GERD
Anemia
Hyperglycemia
Right bundle branch block
Plan:
There may be an element of acute diastolic CHF as well with elevated proBNP but chest x-ray and CT difficult to evaluate given severe pulmonary fibrosis
We will try IV Lasix as well
Continue supportive care with IV steroids as well as antibiotics with cefepime and vancomycin for possible sepsis
Pulmonary is to evaluate patient as well
Will check echocardiogram to assess LV function
Continue IV heparin for now but unclear if patient would be a candidate for [employer] given severe pulmonary fibrosis at baseline
Might consider stopping IV heparin after 48-hour
LDL 69�continue Lipitor
Add low-dose Toprol and hold Norvasc and HCTZ for now
Need to review records from [facility] with Dr. Maldonado's office
Follow anemia with hemoglobin of 8.6 on 03/16
Check hemoglobin A1c
Data Reviewed
-
EKG: Tracing Personally Visualized and interpreted
Radiology: Report Reviewed by me
CT Scan: Report Reviewed by me
Medical Tests (Nuc Med, Echo etc): Report Reviewed by me
Labs: Labs Reviewed by me
Old Records: Reviewed
[2024-03-16] MEDS: DUONEB 3 ML INH ×4 (08:13→19:33)
[2024-03-16] MEDS: SOLU-MEDROL PF 60 MG IV (08:34)
[2024-03-16] MEDS: LOW STRENGTH ASPIRIN 81 MG PO (08:37)
[2024-03-16] MEDS: LIPITOR 40 MG PO (08:38)
[2024-03-16] MEDS: NEURONTIN 100 MG PO ×3 (08:38→21:54)
[2024-03-16] MEDS: CLARITIN 10 MG PO (08:38)
[2024-03-16] MEDS: ZOLOFT 50 MG PO (08:38)
[2024-03-16] MEDS: PROTONIX 40 MG PO (08:38)
[2024-03-16] MEDS: STERILE WATER FOR INJECTION 10 ML IV ×3 (08:44→23:37)
[2024-03-16] MEDS: MAXIPIME 2000 MG IV ×3 (08:49→23:34)
[2024-03-16] MEDS: TOPROL XL 25 MG PO (08:49)
[2024-03-16] MEDS: LASIX 40 MG IV (08:49)
--- NOTE | 2024-03-16 09:22 | PTCARENOTE ---
Assumed care of pt from night RN. Pt received awake and alert, Ox3. VSS, CM shows SB with 1 degree AVB, POX 100% on Hi maile 50/80. Heparin drip infusing through left f/a at 700 units/hr. urine cultures, and nasal swabs for COVID and Influenza
obtained as ordered. CLD started as ordered. He denies any pain or discomfort at this time, turned and repositioned for comfort.
--- NOTE | 2024-03-16 09:41 | W.PN.HOSP.TC ---
Today's Communication/Plan
-
stop IVF
cont Abx
send UA
Assessment / Plan
Assessment / Plan
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 Also had episodes of palpitations. In ED found troponin of 8, lactate of 5, placed on HFNC. EKG without ST elevation.
A/P:
#Acute on chronic hypoxic respiratory failure
#COPD exacerbation
#Pulmonary fibrosis
CTA chest
IV steroids
bronchodilators
Pulm consult
HFNC and wean off tto baseline as tolerated
#Leukocytosis - resolved on Abx
procalcitonin elevated, cont empiric Abx, suspect pneumonia due to new hypoxia and chronic lung disease
Check UA
Legionella and s.pneumonia urinary Ag
Sputum Cx if possible
Check COVID-19, Influenza PCR
Bcx NTW
MRSA screen pending
#NSTEMI
#Palpitations
#Possible acute on chronci HFpEF exacerbation
Cardio consult: IV lasix
ASA, heparin drip
Telemetry
cont statin
Eventual BB
sublingual nitro PRN
Echo
#Anemai
Anemia w/u including FOBT
follow CBC
#Elevated lactate
2/2 hypoxia
follow
IVF
#HLD
cont home meds
#Essential HTN
hold antihypertensives since borderline-low BP on admission
#Anxiety d/o
cont SSRI
#AST elevation - improving
CPK minimally elevated
follow LFT
most likely 2/2 cardiac injury
DVT ppx on heparin drip
Full code
I have spent at least 59min reviewing chart, test results, communication with consutlants and direct patient care
Anticipated Discharge: > 48 hours
Subjective/Interval History
-
Date of Service: March 16, 2024
Objective Data
-
Labs:
Laboratory Results
03/16/24 03/16/24 03/16/24
01:01 04:47 09:15
WBC 8.3
Hgb 8.6 L
Hct 27.2 L
Plt Count 208 D
APTT 138.0 H Pending
Sodium 142
Potassium 4.7
Chloride 104
Carbon Dioxide 30
BUN 25 H
Creatinine 0.7
Glucose 176 H
Calcium 8.4
Total Bilirubin 0.3
AST 74 H
ALT 30
Alkaline Phosphatase 60
Vital Signs:
Vital Signs
Temp Pulse Resp BP Pulse Ox
98.4 F 72 18 123/66 96
03/16/24 08:34 03/16/24 08:13 03/16/24 08:13 03/16/24 06:54 03/16/24 08:19
Review of Systems
-
History Source: Patient
All other systems: Reviewed and negative
Physical Exam
-
General: No Apparent Distress
HEENT: Normocephalic
Respiratory: Rales
GI: Soft
Genito-urinary: No Costovertebral Tender
Musculoskeletal: No Clubbing, No Cyanosis and No Edema
Neuro: Awake, Alert, Oriented and AO x 3
Psych: Calm
--- NOTE | 2024-03-16 10:04 | PHA.VAN.FU ---
Vancomycin Assessment / Plan
- Assessment
Renal Function: Stable
WBC's are: Trending Down
In the past 24 hrs, patient has been: Afebrile
Concomitant Antimicrobials: cefepime
- Dosing Plan
Continue: vancomycin 750 mg q12h - first dose 03/16 06
- Monitoring Plan
No level(s) ordered at this time: consider levels after 4th maint dose Teetee ricci
- Follow Up
Pharmacy will continue to follow.
Vancomycin Follow UP
- -
Patient Age: 78
Patient Sex: Male
Vancomycin Day #: 2
Indication: Pulmonary/Respiratory
Requesting Provider: NICOLAS
Pertinent Antimicrobial Allergies:
Allergies
ciprofloxacin [From Cipro] Allergy (Verified 03/15/24 16:35)
Rash
Height / Weight:
Height 5 ft 9 in
Actual Weight 74.4 kg
Pertinent Past Medical History: COPD - home O2 5-10 L, chronic steroids
- Vital Signs / Lab Results
Temp Pulse Resp BP Pulse Ox
98.4 F 72 18 123/66 96
03/16/24 08:34 03/16/24 08:13 03/16/24 08:13 03/16/24 06:54 03/16/24 08:19
Lab Results - Hematology
03/15/24 03/16/24
16:56 04:47
WBC 14.9 H 8.3
Lab Results - Chemistry
03/15/24 03/16/24
16:56 04:47
BUN 30 H 25 H
Creatinine 0.9 0.7
Estimated Creat Clear 65 84
Albumin 3.6 2.9 L
03/15/24 03/15/24
16:56 21:07
Lactic Acid 5.0 H* 1.5
--- NOTE | 2024-03-16 10:13 | CON.PUL ---
Consultation
Consultation Request
Date/Time Consultation Requested: 03/16/2024-7 AM
Date/Time Consultation Performed: 03/16/2024-7:30 AM
Requesting Provider: Hospitalist
Performing Provider: Dr. Macias
Reason for Consultation: Shortness of breath and pulmonary fibrosis
Medical History
-
Chief Complaint: Shortness of breath
History of Present Illness:
78-year-old male with underlying CAD, PAD with stents, COPD/pulmonary fibrosis overlap taking care of at [facility] though he does want local care, chronic hypoxemia maintained on 5 L of oxygen at home, prednisone as well as Ofev who presented
with increasing shortness of breath and noted to be hypoxemic with elevated troponin-pulmonary consulted for pulmonary fibrosis/hypoxemia 03/16/2024. The patient states that he feels better since he came in. He has chronic dyspnea on exertion. He
is usually on a minimum of 5 L of oxygen at home. He denies any current chest pain, chest tightness, pleurisy, hemoptysis, chest congestion, abdominal pain, nausea, vomiting, leg swelling or weakness.
Past Medical History
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 Former [id number]-year-quit 48 years old. Adrenal insufficiency. Hypertension. Hyperlipidemia. PAD. Old right cerebellar infarct. CAD.
Mild dementia. GERD. Anxiety/depression.)
Social History
Tobacco: Former Smoker (3 packs a day for 30 years-quit 48 years old)
Alcohol: None
Drug: None
Personal:
Living: With Family
Occupational Exposures: No known asbestos exposure
Environmental Exposures: No known tuberculosis exposure
Allergies / Home Medications
Allergies
Allergy/AdvReac Type Severity Reaction Status Date / Time
aripiprazole [From Abilify] Allergy Unknown Verified 03/15/24 16:35
ciprofloxacin [From Cipro] Allergy Rash Verified 03/15/24 16:35
codeine Allergy Unknown Verified 03/15/24 16:35
morphine Allergy Unknown Verified 03/15/24 16:35
Home Medications
�Medication �Instructions �Recorded �Confirmed �Last Taken �Type
amlodipine 5 mg tablet 5 mg PO DAILY Blood Pressure 07/04/21 11/22/23 11/21/23 History
benzonatate 200 mg capsule 200 mg PO TID Cough 07/04/21 11/22/23 11/21/23 History
hydrochlorothiazide 25 mg tablet 25 mg PO DAILY Fluid 07/04/21 11/22/23 11/21/23 History
Retention/Swelling
nintedanib 150 mg capsule (Ofev) 150 mg PO BID IDIOPATHIC PULMONARY 07/04/21 11/22/23 11/21/23 History
FIBROSIS
pantoprazole 40 mg tablet,delayed 40 mg PO DAILY Gastrointestinal 07/04/21 11/22/23 11/21/23 History
release Issue
prednisone 10 mg tablet 15 mg PO DAILY Anti-Inflammatory 07/04/21 11/22/23 11/21/23 History
aspirin 81 mg chewable tablet 81 mg PO DAILY Blood Clot 11/22/23 11/22/23 Unknown History
Prevention/Tx
atorvastatin 40 mg tablet 40 mg PO DAILY High Cholesterol 11/22/23 11/22/23 11/21/23 History
atovaquone 750 mg/5 mL oral 1,500 mg PO DAILY Infection 11/22/23 11/22/23 11/21/23 History
suspension
cholecalciferol (vitamin D3) 25 25 mcg PO DAILY Supplement 11/22/23 11/22/23 11/21/23 History
mcg (1,000 unit) tablet (Vitamin
D3)
fexofenadine 180 mg tablet 180 mg PO DAILY Allergies 11/22/23 11/22/23 11/21/23 History
gabapentin 100 mg capsule 100 mg PO TID Neurological 11/22/23 11/22/23 11/21/23 History
Condition
ibuprofen 200 mg tablet (Advil) 200 mg PO Q6HPRN PRN mild pain 11/22/23 11/22/23 11/21/23 History
lorazepam 0.5 mg tablet 0.5 mg PO Q4HPRN PRN anxiety 11/22/23 11/22/23 Unknown History
sertraline 50 mg tablet 50 mg PO DAILY Depression 11/22/23 11/22/23 11/21/23 History
therapeutic multivitamin 1 tab PO DAILY Supplement 11/22/23 11/22/23 11/21/23 History
cephalexin 500 mg capsule 500 mg PO QID 7 days #28 caps 12/27/23 Unknown Rx
Review of Systems
-
Unable to Obtain full review of systems at this time due to: Other (Per HPI)
Vitals / Labs / Diagnostic Testing
Vital Signs
Temp Pulse Resp BP Pulse Ox
98.4 F 72 18 123/66 96
03/16/24 08:34 03/16/24 08:13 03/16/24 08:13 03/16/24 06:54 03/16/24 08:19
Lab Data
03/16/24 04:47
03/16/24 04:47
Laboratory Results
03/15/24 03/16/24
18:14 01:01
APTT 32.1 138.0 H
Diagnostic Testing:
Physical Exam
-
Exam:
Well-nourished and well-developed in no apparent distress
HEENT-atraumatic, normocephalic
Neck-supple, no JVD, no bruit
Heart-regular rate and rhythm-no murmurs, rubs or gallops
Chest with crackles at both bases and no wheezes
Back without tenderness
Abdomen-soft, nontender, nondistended, no hepatosplenomegaly
Extremities-no cyanosis, clubbing, trace lower extremity edema
Integument-intact, no rashes, lesions or ecchymosis
Neurology-alert and oriented, nonfocal motor and sensory exam
Assessment
-
78-year-old male with underlying CAD, PAD with stents, COPD/pulmonary fibrosis overlap taking care of at [facility] though he does want local care, chronic hypoxemia maintained on 5 L of oxygen at home, prednisone as well as Ofev who presented
with increasing shortness of breath and noted to be hypoxemic with elevated troponin-pulmonary consulted for pulmonary fibrosis/hypoxemia 03/16/2024.
COPD/pulmonary fibrosis overlap with mild acute exacerbation
Elevated troponin-peak 9.9
Acute diastolic CHF
Bronchitis versus early pneumonia-elevated procalcitonin
Elevated lactate
Mild dementia
MARIANO
Mild anemia-hemoglobin 8.6-normocytic
Hyperglycemia
Conditions present prior to admission:
Recent hospitalization 11/23/2023-fall and mild acute COPD/pulmonary fibrosis overlap exacerbation
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
Former [id number]-year-quit 48 years old.
Adrenal insufficiency.
Hypertension.
Hyperlipidemia.
PAD.
Old right cerebellar infarct.
CAD.
Mild dementia.
GERD.
Anxiety/depression.
Plan
Respiratory compensation in this patient with advanced lung disease-COPD/pulmonary fibrosis overlap is likely mild over his baseline
Supplemental oxygen as needed-maintained on high FiO2 oxygen at home-5 to 10 L
Nebulizers as needed-on DuoNebs
Solu-Medrol 60 mg IV every 6 hours initiated-fairly rapid taper-will reduce to 40 mg IV every 12 hours
Prednisone 15 mg daily this is baseline
Patient is maintained on Ofev for his pulmonary fibrosis as an outpatient
Mucolytic's
Incentive spirometry
Flutter
BiPAP at night and during the daytime as tolerated
Check cultures
Urine Legionella and streptococcal antigen pending
Influenza-pending
MRSA screen pending
Blood cultures pending
Unable to produce sputum
Empiric antibiotics-vancomycin and cefepime initiated
Trend troponin
Cardiology evaluation ongoing-correspondence reviewed
Heparin initiated
Diuresis as tolerated
Monitor renal function, electrolytes, intake/output, lower extremity edema and weight
Replace electrolytes as needed
Speech therapy evaluation if needed
Physical therapy and Occupational Therapy evaluation
Follow hemoglobin
Transfuse if needed
DVT prophylaxis-on heparin drip
GI prophylaxis-on pantoprazole
Nutrition
Early mobilization/physical therapy
Outpatient pulmonary follow-up recommended
Most recently followed by Dr. De Dios at [facility] and maintained on nebulizers as well as Ofev and oxygen-would like to transfer care local-number will be provided at time of discharge
Diagnostic data:
Chest x-ray 02/12/2023-increased reticulonodular markings suggestive of interstitial fibrosis, slight blunting left costophrenic angle
Chest x-ray 02/19/2023-extremely limited because of low lung volumes
Chest x-ray 11/22/2023-pronounced reticular interstitial thickening related to interstitial fibrosis, no significant pleural effusions or pneumothorax
Chest x-ray 03/15/2024-bilateral interstitial opacifications without acute process
Lower extremity ultrasound 07/05/2021-no evidence for lower extremity venous thrombosis
CT head 11/22/2023-no acute intracranial abnormalities, mild atrophy and mild chronic small vessel changes, old right sella [place] infarct, no significant changes compared to prior study 02/12/2023
CT chest 03/15/2024-no CT evidence for PE, chronic severe pulmonary fibrosis and emphysema, severe coronary artery and aortic valve calcifications
Data Reviewed
-
EKG: Report reviewed by me
Radiology: Image personally visualized and interpreted and Report reviewed by me
CT Scan: Image personally visualized and interpreted and Report reviewed by me
Medical Tests (Nuc Med, Echo etc): Report reviewed by me
Labs: Labs reviewed by me
Old Records: Reviewed
Total Time Spent with Patient (in minutes): 50
[2024-03-16 10:38] LABS: COVID-19 Antigen Negative (Negative)
[2024-03-16 10:43] LABS: Urine Albumin Negative (Neg - Trace); Urine Bilirubin Negative (Negative); Urine Character Clear (Clear); Urine Color Yellow; Urine Glucose Negative (Negative); Urine Ketone Trace (Negative); Urine Leukocyte Negative (Negative); Urine Nitrite Negative (Negative); Urine Occult Blood Negative (Negative); Urine Urobilinogen Negative (Neg - 1+); Urine pH 6.5 (5.0-9.0)
[2024-03-16 10:59] LABS: Total Iron Binding Capacity 274 ug/dl (261-462)
[2024-03-16 11:01] LABS: APTT 118.5 Sec (23.4-35.0)
--- NOTE | 2024-03-16 11:29 | PTCARENOTE ---
Tubi high risk case manager applied as ordered.
[2024-03-16 11:34] VITALS: BP 118/72
[2024-03-16 16:09] VITALS: BP 130/69
[2024-03-16] MEDS: SOLU-MEDROL PF 40 MG IV (17:39)
[2024-03-16 17:57] LABS: APTT 81.5 Sec (23.4-35.0)
[2024-03-16 18:53] VITALS: BP 128/62
[2024-03-16 21:58] VITALS: BP 131/71
[2024-03-16 23:50] LABS: APTT 73.5 Sec (23.4-35.0)
[2024-03-17] VITALS (12 sets, daily range): BP systolic 122–147; BP diastolic 59–81; BMI 24.1
[2024-03-17] MEDS: TESSALON PERLES 200 MG PO (00:34)
[2024-03-17] MEDS: ATIVAN 0.5 MG PO ×2 (00:44→23:08)
--- NOTE | 2024-03-17 02:03 | PTCARENOTE ---
Pt. taken to [facility] by PCT this shift, had a large BM (refused bedpan, insisted he get OOB). Pt. very GRUBBS after getting back in bed, pulse ox 70's-80's on high flow O2 50 L / 55 %, titrated up to 50 L / 65% with improvement, pulse ox up to mid 90's,
pt. stated he felt better.. Generally pt. is very intolerant of any movement, even simply turning, due to respiratory status. Unable to lay flat. Requires recovery time with any movement. Okay when completely still. NSR on the monitor. No chest
pain. Requested his 'sleeping pill' (Ativan on home med list) - order obtained, dose given, pt. sleeping.
[2024-03-17] MEDS: VANCOCIN 150 IV ×2 (05:10→17:46)
[2024-03-17] MEDS: SOLU-MEDROL PF 40 MG IV ×2 (05:10→17:44)
[2024-03-17] MEDS: HEPARIN 25000 UNITS/250 ML IV (05:11)
[2024-03-17 05:36] LABS: % Immature Granulocytes 0.3 % (0-0.5); % Lymphocytes 5.2 % (20.5-51.1); % Monocytes 7.4 % (1.7-9.3); % Neutrophils 87.1 % (42.2-75.2); Absolute Lymphocytes 0.4 10^3/uL (1.2-3.4); Absolute Monocytes 0.6 10^3/uL (0.1-0.6); Absolute Neutrophils 6.6 10^3/uL (1.4-6.5); Hematocrit 25.2 % (39.0-52.0); Hemoglobin 7.9 g/dL (13.0-18.0); Mean Corp Hgb Conc. 31.3 g/dL (33.0-37.0); Mean Corpuscular Hgb 26.3 pg (27.0-31.0); Nucleated Red Blood Cells % 0 % (-); Platelet Count 241 10^3/uL (130-400); Red Cell Dist. Width 17.2 % (11.5-14.5); Reticulocyte Count 1.4 % (0.4-2.8); White Blood Cell Count 7.5 10^3/uL (4.8-10.8)
[2024-03-17 05:49] LABS: APTT 66.6 Sec (23.4-35.0)
[2024-03-17 05:55] LABS: ALT (SGPT) 45 U/L (0-50); AST (SGOT) 72 U/L (17-59); Alkaline Phosphatase 58 U/L (38-126); Blood Urea Nitrogen 29 mg/dl (9-20); Calcium 8.7 mg/dl (8.4-10.2); Carbon Dioxide 32 mmol/L (22-30); Chloride 103 mmol/L (98-107); Estimated Creatinine Clearance 72 ml/min; Glucose 134 mg/dl (70-99); Iron 30 ug/dl (49-181); LDH 455 U/L (120-246); Phosphorus 3.4 mg/dl (2.5-4.5); Potassium 4.3 mmol/L (3.5-5.1); Sodium 142 mmol/L (135-145); Total Bilirubin 0.3 mg/dl (0.2-1.3); Total Protein 5.2 g/dl (6.3-8.2); eGFR > 60.00
--- NOTE | 2024-03-17 07:17 | W.PN.PUL.V3 ---
Today's Communication / Plan
-
Check cultures
Empiric antibiotics
Diuresis
Adjust cardiac medications in case cardiac ischemia playing a role
No change in steroids
Long-term prognosis unfortunately poor
Patient wished a happy birthday!
Assessment
-
78-year-old male with underlying CAD, PAD with stents, COPD/pulmonary fibrosis overlap taking care of at [facility] though he does want local care, chronic hypoxemia maintained on 5 L of oxygen at home, prednisone as well as Ofev who presented
with increasing shortness of breath and noted to be hypoxemic with elevated troponin-pulmonary consulted for pulmonary fibrosis/hypoxemia 03/16/2024.
COPD/pulmonary fibrosis overlap with mild acute exacerbation
Elevated troponin-peak 9.9
Acute diastolic CHF
Bronchitis versus early pneumonia-elevated procalcitonin
Elevated lactate
Mild dementia
MARIANO
Mild anemia-hemoglobin 8.6-normocytic
Hyperglycemia
Conditions present prior to admission:
Recent hospitalization 11/23/2023-fall and mild acute COPD/pulmonary fibrosis overlap exacerbation
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
Adrenal insufficiency.
Hypertension.
Hyperlipidemia.
PAD.
Old right cerebellar infarct.
CAD.
Mild dementia.
GERD.
Anxiety/depression.
Plan
Respiratory decompensation in this patient with advanced end-stage lung disease-COPD/pulmonary fibrosis overlap is likely mild over his baseline
Unfortunately he has end-stage lung disease and thus the only hope of improving his current situation is if there is another reversible process such as ischemic CAD/CHF/infection as his lung disease will not improve-steroids have been initiated for
the potential of reversible inflammatory component
Remains unstable with episodes of chest tightness and shortness of breath aggravated by underlying anxiety-rapid response 03/17/2024
Supplemental oxygen as needed-maintained on high FiO2 oxygen at home-5 to 10 L
Nebulizers as needed-on DuoNebs
Solu-Medrol 60 mg IV every 6 hours initiated-fairly rapid taper-will reduce to 40 mg IV every 12 hours-no change
Note: Prednisone 15 mg daily this is baseline
Patient is maintained on Ofev for his pulmonary fibrosis as an outpatient
Mucolytic's
Incentive spirometry
Flutter
BiPAP at night and during the daytime as tolerated
Cultures reviewed
Urine Legionella and streptococcal antigen pending
Urine Legionella and streptococcal antigen negative
Influenza-pending
MRSA screen positive
Blood cultures negative
Last urine culture 02/17/2023-Enterococcus
Unable to produce sputum
Empiric antibiotics-vancomycin and cefepime initiated
Continue to trend troponin
Cardiology evaluation ongoing-correspondence reviewed-reviewed with Dr. Michael Keyes-okay to try increased [id number] for bronchospasm
Heparin initiated
Continue diuresis as tolerated
Monitor renal function, electrolytes, intake/output, lower extremity edema and weight
Replace electrolytes as needed
Speech therapy evaluation if needed
Physical therapy and Occupational Therapy evaluation
Follow hemoglobin
Transfuse if needed
DVT prophylaxis-on heparin drip
GI prophylaxis-on pantoprazole
Nutrition
Early mobilization/physical therapy
Patient wished a happy birthday!
Outpatient pulmonary follow-up recommended-he has end-stage lung disease
Most recently followed by Dr. De Dios at [facility] and maintained on nebulizers as well as Ofev and oxygen-would like to transfer care local-number will be provided at time of discharge
Diagnostic data:
Chest x-ray 02/12/2023-increased reticulonodular markings suggestive of interstitial fibrosis, slight blunting left costophrenic angle
Chest x-ray 02/19/2023-extremely limited because of low lung volumes
Chest x-ray 11/22/2023-pronounced reticular interstitial thickening related to interstitial fibrosis, no significant pleural effusions or pneumothorax
Chest x-ray 03/15/2024-bilateral interstitial opacifications without acute process
Lower extremity ultrasound 07/05/2021-no evidence for lower extremity venous thrombosis
CT head 11/22/2023-no acute intracranial abnormalities, mild atrophy and mild chronic small vessel changes, old right sella [place] infarct, no significant changes compared to prior study 02/12/2023
CT chest 03/15/2024-no CT evidence for PE, chronic severe pulmonary fibrosis and emphysema, severe coronary artery and aortic valve calcifications
Subjective Data
-
Date of Service:
Date of Service: March 17, 2024
Chief Complaint: Pulmonary Follow Up and Dyspnea Follow Up
Subjective:
Respiratory status very tenuous, desaturates with difficulties in recovery with minimal exertion-going to the commode, currently improved, no chest pain, chest tightness, productive cough, abdominal pain
Review of Systems
General: Other (Per HPI)
Objective Data
Data Reviewed
Vital Signs / I&O:
Vital Signs
Temp Pulse Resp BP Pulse Ox
98.2 F 69 20 127/77 99
03/17/24 04:16 03/17/24 04:15 03/17/24 04:16 03/17/24 04:15 03/17/24 04:24
Intake and Output
03/16/24 03/17/24 03/18/24
06:59 06:59 06:59
Intake Total 474 / 474
Output Total 2099 / 2099
Balance -1626 / -1626
SaO2: 99
Nasal Cannula flow liters per minute: 50
Physical Exam
General: Respiratory Distress (n) and Comfortable
HEENT: Normocephalic, Anicteric and Moist Mucous Membranes
Cardiovascular: Regular Rhythm and Murmur
Respiratory: Wheeze (Forced end expiratory), Crackles (Bilateral [facility] up posteriorly), Rhonchi (n), Non-Labored Respirations, Accessory Resp Muscle Use (n) and Stridor (n)
GI: Soft, Non Distended and Non Tender
Neurology: Awake, Alert and No Motor Deficits
Skin: Warm, Good Color, Cyanosis (n), Jaundice (n) and Rash (n)
Labs/Micro/Reports
Lab Data
03/17/24 05:16
03/17/24 05:16
Laboratory Results
03/16/24 03/16/24 03/16/24
10:07 17:37 23:31
APTT 118.5 H 81.5 H 73.5 H
03/17/24
05:16
APTT 66.6 H
Microbiology
03/15/24 17:11 Blood/Venous Blood Culture - Preliminary
No Growth in 24 hours- Final report to follow
03/15/24 16:56 Blood/Venous Blood Culture - Preliminary
No Growth in 24 hours- Final report to follow
03/16/24 10:07 Urine Legionella Urinary Antigen - Final
Negative for Legionella pneumophila Serogroup 1 antigen.
A negative result does not rule out the possiblity of
Legionella infection due to other serogroups or species of
Legionella. Clinical correlation is recommended.
03/16/24 10:07 Urine Streptococcus pneumoniae Antigen (M - Final
Negative for Streptococcus pneumoniae antigen.
A negative result does not exclude infection with
Streptococcus pneumoniae. Clinical correlation is
recommended.
--- NOTE | 2024-03-17 08:07 | W.PN.HOSP.TC ---
Addendum entered and electronically signed by Paul Sanabria MD 03/17/24 13:15:
#DM type 2 new onset
Accuchecks, Insulin SS, DM diet
HgbA1c 6.7%
Original Note:
Today's Communication/Plan
-
check FOBT
discuss transfusion with cardio
Hematology consult
serial H&H
stop Heparin at 6pm
If MRSA scren neg - will stop Vanco
Assessment / Plan
Assessment / Plan
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 Also had episodes of palpitations. In ED found troponin of 8, lactate of 5, placed on HFNC. EKG without ST elevation. Managed for NSTEMI, possible pneumonia and exacerbation of COPD/lung fibrosis overlap. Developed worsening
anemia
A/P:
#Acute on chronic hypoxic respiratory failure
#COPD exacerbation
#Pulmonary fibrosis
CTA chest
IV steroids
bronchodilators
Pulm consult
HFNC and wean off tto baseline as tolerated
#possible CAP
procalcitonin elevated, cont empiric Abx, suspect pneumonia due to new hypoxia and chronic lung disease
Legionella and s.pneumonia urinary Ag
Sputum Cx if possible
COVID-19, Influenza PCR neg
Bcx NTD
MRSA screen pending - plan to stop Vanco if neg
#NSTEMI
#Palpitations with sinus arrhythmia on tele
#Possible acute on chronic HFpEF exacerbation
Cardio consult: IV lasix
ASA, heparin drip for 48h as per cardio
Telemetry
cont statin - LDL 69
Eventual BB
sublingual nitro PRN
Echo
#PETE
with infection will postpone iron suplementation
High LDH with normal retics -hematology consult
Discuss with cardiology blood transfusion since patient is treated for NSTEMI - would favor keeping Hgb between 9-10, however concomitant concern for CHF might be prohibitive. Also patient w/o chest pain
serial H&H
FOBT pending
Consent signed
#Elevated lactate
2/2 hypoxia
resolved
#HLD
cont home meds
#Essential HTN
hold antihypertensives since borderline-low BP on admission
#Anxiety d/o
cont SSRI
#AST elevation - improving
CPK minimally elevated
follow LFT
most likely 2/2 cardiac injury
DVT ppx on heparin drip
Full code
I have spent at least 59min reviewing chart, test results, communication with consutlants and direct patient care
Anticipated Discharge: > 48 hours
Subjective/Interval History
-
Date of Service: March 17, 2024
Objective Data
-
Labs:
Laboratory Results
03/16/24 03/17/24 03/17/24
23:31 05:16 12:00
WBC 7.5
Hgb 7.9 L Pending
Hct 25.2 L Pending
Plt Count 241
APTT 73.5 H 66.6 H Pending
Sodium 142
Potassium 4.3
Chloride 103
Carbon Dioxide 32 H
BUN 29 H
Creatinine 0.8
Glucose 134 H
Calcium 8.7
Total Bilirubin 0.3
AST 72 H
ALT 45
Alkaline Phosphatase 58
03/17/24
20:00
WBC
Hgb Pending
Hct Pending
Plt Count
APTT
Sodium
Potassium
Chloride
Carbon Dioxide
BUN
Creatinine
Glucose
Calcium
Total Bilirubin
AST
ALT
Alkaline Phosphatase
Vital Signs:
Vital Signs
Temp Pulse Resp BP Pulse Ox
97.5 F 69 20 127/77 99
03/17/24 07:32 03/17/24 04:15 03/17/24 07:32 03/17/24 04:15 03/17/24 07:32
I&O
03/16/24 03/17/24 03/18/24
06:59 06:59 06:59
Intake Total 474 / 474
Output Total 2099 / 2099
Balance -1626 / -1626
Review of Systems
-
History Source: Patient
All other systems: Reviewed and negative
Respiratory: Reports Trouble Breathing
Physical Exam
-
General: No Apparent Distress
HEENT: Normocephalic
Respiratory: Negative Wheezes or Rales
Cardiac: Regular Rhythm
GI: Soft, Nontender and Nondistended
Musculoskeletal: No Clubbing, No Cyanosis and No Edema
Skin: Other (L neck bruse, b/l UE bruises)
Neuro: Awake, Alert, Oriented and AO x 3
Psych: Calm
--- NOTE | 2024-03-17 08:10 | W.PN.CARDCBS ---
Addendum entered and electronically signed by Michael Keyes MD 03/17/24 09:46:
Patient with chest tightness and increasing shortness of breath. Had not had tightness in chest prior to this episode. ST elevation in V1, which is new, ST elevation in lead III and aVF may be slightly increased. Suspect RCA distribution
discomfort, symptoms better with nitro. Will increase beta-yunior. Heparin still on hold because of anemia, stat hemoglobin, would consider adding Plavix if hemoglobin is stable.
Original Note:
Today's Communication / Plan
-
Stop heparin
Continue aspirin
Okay to transfuse from my standpoint
Continue IV Lasix
Echo in a.m.
Impression / Plan
-
Impression:
Hypoxemic respiratory failure
Non-STEMI with peak troponin of 9.9
Pulmonary fibrosis on chronic 5 to 8 L of oxygen possibly due to prior ink exposure
Acute diastolic CHF
Elevated lactic acid level
History of CAD status post stents in [address] Maldonado at [facility] but not seen since 2021
History of PVD status post lower extremity revascularization procedures
Hypertension
Hypercholesterolemia
GERD
Anemia
Hyperglycemia
Right bundle branch block
Plan:
He presents with a troponin of approximately 9, but I doubt true ACS. Suspect troponin elevation is mostly nonischemic myocardial injury related to COPD and possibly an element of heart failure with unknown EF.
At present I think his major issues relate to his COPD rather than ACS or predominant cardiac issues, though there may be an element of heart failure.
His hemoglobin has dropped to 7.9. He is on heparin and aspirin. Since I doubt ACS will stop heparin now. Continue aspirin. If hemoglobin stabilizes we could consider empiric addition of clopidogrel. Cardiac catheterization is not out of the
question but if possible should probably be avoided. Obviously not a surgical candidate, and therefore we do not need to worry about Plavix washout if Plavix is started.
I am in favor of transfusion if Dr Sanabria feels necessary.
Await echo in a.m.
We have added a beta-yunior, given his lung disease may need to discontinue, okay to continue for now.
Await records from Dr. Maldonado.
Progress Note - [place]
Subjective
Date of Service: March 17, 2024:
Patient very short of breath, had trouble with moving bowels, now on 55 L high flow, sats 99%
Current medications: Cefepime 2 g IV every 8, vancomycin, aspirin 81 mg a day, atorvastatin 40 mg a day, Claritin, Neurontin 100 mg 3 times daily, sertraline 50 mg daily, DuoNebs, metoprolol ER 25 mg a day, furosemide 40 mg IV daily,
methylprednisolone 40 IV every 12, pantoprazole. Was not on metoprolol at baseline, currently on IV heparin
127/77, pulse 69, respiratory 20, afebrile, intake and output -1.6 L, weight is 74 kg, down 0.4 kg, some respiratory distress, on high flow, head neck exam unremarkable, rare crackles, breath sounds somewhat tubular but still moving air, distant
heart tones, JVD hard to assess, pulses diminished right lower extremity, not much edema, abdomen benign, neuro nonfocal, conversant
Chest CT no pulmonary embolism, severe COPD/fibrosis, cardiomegaly, coronary artery calcification/stents
Hemoglobin 7.9 this morning, was 10.1 on admit, platelets are 241, BUN and creatinine are 29 and 0.8, potassium 4.3, troponin peak was 9.9, yesterday was 8.5, proBNP was 1260, in October had been 228
EKG, sinus rhythm/tachycardia PACs, right bundle branch block left atrial enlargement, inferior LA
Objective
Labs:
03/17/24 05:16
Labs
Hgb 7.9 g/dL (13.0-18.0) L 03/17/24 05:16
Hct 25.2 % (39.0-52.0) L 03/17/24 05:16
Plt Count 241 10^3/uL (130-400) 03/17/24 05:16
APTT 66.6 Sec (23.4-35.0) H 03/17/24 05:16
Sodium 142 mmol/L (135-145) 03/17/24 05:16
Potassium 4.3 mmol/L (3.5-5.1) 03/17/24 05:16
BUN 29 mg/dl (9-20) H 03/17/24 05:16
Creatinine 0.8 mg/dL (0.7-1.3) 03/17/24 05:16
Glucose 134 mg/dl (70-99) H 03/17/24 05:16
Troponins
03/15/24 03/15/24 03/16/24
16:56 22:59 04:47
Troponin I 8.110 H* 9.920 H* 8.510 H*
03/16/24
09:44
Troponin I Cancelled
Vital Signs and I&O:
Vital Signs
Temp Pulse Resp BP Pulse Ox
36.4 C 69 20 127/77 99
03/17/24 07:32 03/17/24 04:15 03/17/24 07:32 03/17/24 04:15 03/17/24 07:32
Vital Signs
Temp Pulse Resp BP Pulse Ox
36.4 C 69 20 127/77 99
03/17/24 07:32 03/17/24 04:15 03/17/24 07:32 03/17/24 04:15 03/17/24 07:32
Intake & Output
03/15/24 03/16/24 03/17/24 03/18/24
07:59 07:59 07:59 07:59
Intake Total 474 / 474
Output Total 2099 / 2099
Balance -1626 / -1626
Physical Exam
Physical Exam
See above
[2024-03-17] MEDS: DUONEB 3 ML INH ×4 (08:19→19:22)
[2024-03-17] MEDS: LASIX 40 MG IV (08:52)
[2024-03-17] MEDS: ZOLOFT 50 MG PO (08:53)
[2024-03-17] MEDS: CLARITIN 10 MG PO (08:53)
[2024-03-17] MEDS: LOW STRENGTH ASPIRIN 81 MG PO (08:54)
[2024-03-17] MEDS: NEURONTIN 100 MG PO ×3 (08:54→23:08)
[2024-03-17] MEDS: LIPITOR 40 MG PO (08:54)
[2024-03-17] MEDS: TOPROL XL 25 MG PO (08:55)
[2024-03-17] MEDS: NSS (PRESERVATIVE FREE) 10 ML IV ×2 (09:03→19:42)
[2024-03-17] MEDS: PROTONIX IV 40 MG IV ×2 (09:04→19:42)
[2024-03-17] MEDS: MAXIPIME 2000 MG IV ×3 (09:13→23:08)
[2024-03-17] MEDS: STERILE WATER FOR INJECTION 10 ML IV ×3 (09:13→23:08)
--- NOTE | 2024-03-17 09:29 | W.PN.UPDATE ---
Update Note
Progress Note Update
Episode of chest tightness with no hypoxia, resolved with nitro
No change on EKG - similar ST changes from October 2023
Cardio called to reassess
check CBC, CMP, Lactate, PT/PTT, ddimer, proBNP and troponin
[2024-03-17 10:10] LABS: % Immature Granulocytes 0.2 % (0-0.5); % Lymphocytes 5.5 % (20.5-51.1); % Neutrophils 92.3 % (42.2-75.2); Absolute Lymphocytes 0.5 10^3/uL (1.2-3.4); Absolute Monocytes 0.2 10^3/uL (0.1-0.6); Absolute Neutrophils 7.8 10^3/uL (1.4-6.5); Hematocrit 26.2 % (39.0-52.0); Hemoglobin 7.9 g/dL (13.0-18.0); Hemoglobin 8.1 g/dL (13.0-18.0); Mean Corp Hgb Conc. 30.4 g/dL (33.0-37.0); Mean Corpuscular Hgb 26.2 pg (27.0-31.0); Mean Corpuscular Volume 86.1 fL (80.0-94.0); Mean Platelet Volume 10.2 fL (7.4-10.4); Nucleated Red Blood Cells % 0 % (-); Platelet Count 257 10^3/uL (130-400); Red Blood Cell Count 3.02 10^6/uL (4.70-6.10); Red Cell Dist. Width 17.4 % (11.5-14.5); White Blood Cell Count 8.5 10^3/uL (4.8-10.8)
[2024-03-17 10:16] LABS: INR 1.12; PT 14.2 Sec (11.4-14.6)
[2024-03-17 10:17] LABS: APTT 48.1 Sec (23.4-35.0)
[2024-03-17] MEDS: PROTONIX PO (10:21)
[2024-03-17 10:26] LABS: ALT (SGPT) 47 U/L (0-50); AST (SGOT) 73 U/L (17-59); Albumin 3.2 g/dl (3.5-5.0); Alkaline Phosphatase 59 U/L (38-126); Blood Urea Nitrogen 29 mg/dl (9-20); Calcium 8.8 mg/dl (8.4-10.2); Carbon Dioxide 28 mmol/L (22-30); Chloride 100 mmol/L (98-107); Estimated Creatinine Clearance 72 ml/min; Glucose 254 mg/dl (70-99); Sodium 140 mmol/L (135-145); Total Bilirubin 0.4 mg/dl (0.2-1.3); Total Protein 5.4 g/dl (6.3-8.2); eGFR > 60.00
[2024-03-17 10:36] LABS: Lactic Acid 4.5 mmol/L (0.7-2.0)
--- NOTE | 2024-03-17 10:44 | PTCARENOTE ---
Assumed care of pt from night RN. Pt received awake and alert. Hi/flow presently 50/65 with POX 94% CM shows NSR with first degree AVB. Presently he is resting comfortably. At 0930 as I was administering Lasix, pt became very SOB and c/o chest
tightness. Resp called Stat, and EKG done. Hi/maile was adjusted to 55/100, and one NTG given SL. Pt began to relax, Chest tightness diminished. Stat labs drawn as ordered. made aware, repeat EKG done as ordered. Pt returned to baseline.
Unit of PRBC's ordered for am H/H 7.03/21. Will continue to monitor closely.
[2024-03-17 10:50] LABS: D-Dimer 0.44 ug/mlFEU (0.00-0.50)
[2024-03-17 10:59] LABS: NT-proBNP 3200 pg/ml
--- NOTE | 2024-03-17 11:42 | PHA.VAN.FU ---
Vancomycin Assessment / Plan
- Assessment
Renal Function: Stable
WBC's are: WNL
In the past 24 hrs, patient has been: Afebrile
Concomitant Antimicrobials: cefepime; atovaquone
- Dosing Plan
Continue: vancomycin 750 mg q12h - first dose 03/16 600
- Monitoring Plan
Peak Level: 03/17 2030 - after 4th maint dose
Trough Level: 03/18 530
- Follow Up
Pharmacy will continue to follow.
Vancomycin Follow UP
- -
Patient Age: 78
Patient Sex: Male
Vancomycin Day #: 3
Indication: Pulmonary/Respiratory
Requesting Provider: NICOLAS
Pertinent Antimicrobial Allergies:
Allergies
ciprofloxacin [From Cipro] Allergy (Verified 03/15/24 16:35)
Rash
Height / Weight:
Height 5 ft 9 in
Actual Weight 74 kg
Pertinent Past Medical History: COPD - home O2 5-10 L, chronic steroids
- Vital Signs / Lab Results
Temp Pulse Resp BP Pulse Ox
97.5 F 80 18 138/81 100
03/17/24 07:32 03/17/24 11:14 03/17/24 11:14 03/17/24 07:34 03/17/24 11:16
Lab Results - Hematology
03/15/24 03/16/24 03/17/24
16:56 04:47 05:16
WBC 14.9 H 8.3 7.5
03/17/24
09:53
WBC 8.5
Lab Results - Chemistry
03/15/24 03/16/24 03/17/24
16:56 04:47 05:16
BUN 30 H 25 H 29 H
Creatinine 0.9 0.7 0.8
Estimated Creat Clear 65 84 72
Albumin 3.6 2.9 L 3.0 L
03/17/24
09:54
BUN 29 H
Creatinine 0.8
Estimated Creat Clear 72
Albumin 3.2 L
03/15/24 03/15/24 03/17/24
16:56 21:07 09:53
Lactic Acid 5.0 H* 1.5 4.5 H*
Microbiology Results
03/15/24 22:19 MRSA Screen - Final
Nose Staph aureus MRSA
03/15/24 17:11 Blood Culture - Preliminary
Blood/Venous No Growth in 24 hours- Final report to follow
03/15/24 16:56 Blood Culture - Preliminary
Blood/Venous No Growth in 24 hours- Final report to follow
03/16/24 10:07 Legionella Urinary Antigen - Final
Urine Negative for Legionella pneumophila Serogroup 1 antigen.
A negative result does not rule out the possiblity of
Legionella infection due to other serogroups or species of
Legionella. Clinical correlation is recommended.
Streptococcus pneumoniae Antigen (M - Final
Negative for Streptococcus pneumoniae antigen.
A negative result does not exclude infection with
Streptococcus pneumoniae. Clinical correlation is
recommended.
--- NOTE | 2024-03-17 12:12 | PTCARENOTE ---
One uit PRBC's up and infusing as ordered, VSS, pt appears comfortable with no S/S of adverse reaction.
[2024-03-17] MEDS: LOPRESSOR 25 MG PO ×3 (12:14→23:08)
--- NOTE | 2024-03-17 12:19 | CON.ONC ---
Impression
Impression
Acute on chronic anemia last normal Hemoglobin 21 months ago baseline 10Respiratory insufficiency
Elevated troponin acute ischemic cardiomyopathy Troponin peak 9.9
Diastolic Dysfunction
Pulmonary fibrosis
Developing iron deficiency
Plan
Plan
Elevated RDW with MCV trending toward microcytosis
Heme test stools
Consult GI once safe to evaluate
Replete iron
Monitor CBC
Patient History
History of Present Illness
78-year-old male with underlying CAD, PAD with stents, COPD/pulmonary fibrosis overlap taking care of at [facility] though he does want local care, chronic hypoxemia maintained on 5 L of oxygen at home presented with increasing shortness of
breath, hypoxemic with elevated troponin. He has chronic dyspnea on exertion. He is usually on a minimum of 5 L of oxygen at home Secondary to pulmonary fibrosis.He reports dark melanotic stools on occasion over the past few weeks and is anemic. He
denies any current chest pain, chest tightness, pleurisy, hemoptysis, chest congestion, abdominal pain, nausea, vomiting, leg swelling or weakness.
Past-Medical/Surgical History
Past Medical History
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 Adrenal insufficiency. Hypertension. Hyperlipidemia. PAD. Old right cerebellar infarct. CAD. Mild
dementia. GERD. Anxiety/depression.
Social History
Tobacco: Former Smoker (3 packs a day for 30 years-quit 48 years old)
Alcohol: None
Drug: None
Personal:
Living: With Family
Occupational Exposures: No known asbestos exposure
Environmental Exposures: No known tuberculosis exposure
Patient Medication
�Medication �Instructions �Recorded �Confirmed �Last Taken �Type
amlodipine 5 mg tablet 5 mg PO DAILY Blood Pressure 07/04/21 03/16/24 11/21/23 History
benzonatate 200 mg capsule 200 mg PO TID Cough 01/03/1703/16/24 11/21/23 History
hydrochlorothiazide 25 mg tablet 25 mg PO DAILY Fluid 07/04/21 03/16/24 11/21/23 History
Retention/Swelling
nintedanib 150 mg capsule (Ofev) 150 mg PO BID IDIOPATHIC PULMONARY 07/04/21 03/16/24 11/21/23 History
FIBROSIS
pantoprazole 40 mg tablet,delayed 40 mg PO DAILY Gastrointestinal 07/04/21 03/16/24 11/21/23 History
release Issue
prednisone 10 mg tablet 15 mg PO DAILY Anti-Inflammatory 07/04/21 03/16/24 11/21/23 History
aspirin 81 mg chewable tablet 81 mg PO DAILY Blood Clot 11/22/23 11/22/23 Unknown History
Prevention/Tx
atorvastatin 40 mg tablet 40 mg PO DAILY High Cholesterol 11/22/23 03/16/24 11/21/23 History
atovaquone 750 mg/5 mL oral 1,500 mg PO DAILY Infection 11/22/23 03/16/24 11/21/23 History
suspension
cholecalciferol (vitamin D3) 25 25 mcg PO DAILY Supplement 11/22/23 11/22/23 11/21/23 History
mcg (1,000 unit) tablet (Vitamin
D3)
fexofenadine 180 mg tablet 180 mg PO DAILY Allergies 11/22/23 11/22/23 11/21/23 History
gabapentin 100 mg capsule 100 mg PO TID Neurological 11/22/23 03/16/24 11/21/23 History
Condition
ibuprofen 200 mg tablet (Advil) 200 mg PO Q6HPRN PRN mild pain 11/22/23 11/22/23 11/21/23 History
lorazepam 0.5 mg tablet 0.5 mg PO Q4HPRN PRN anxiety 11/22/23 03/16/24 Unknown History
sertraline 50 mg tablet 50 mg PO DAILY Depression 11/22/23 03/16/24 11/21/23 History
therapeutic multivitamin 1 tab PO DAILY Supplement 11/22/23 03/16/24 11/21/23 History
Active Medications
Generic Name Dose Route Start Last Admin
Trade Name Freq PRN Reason Stop Dose Admin
Acetaminophen 650 mg 03/15/24 21:44
Acetaminophen 325 Mg Tablet PO 04/12/24 21:43
Q4HPRN PRN
mild pain/LAMAR/temp> 100.4F
Albuterol/Ipratropium 3 ml 03/15/24 21:44 03/17/24 11:14
Ipratropium 0.5/Albuterol 3 Mg (3 Ml Ampul) INH 3 ml
R QID RAYMON Administration
Protocol
Albuterol/Ipratropium 3 ml 03/15/24 21:44 03/15/24 23:25
Ipratropium 0.5/Albuterol 3 Mg (3 Ml Ampul) INH 3 ml
R Q4HPRN PRN Administration
shortness of breath
Protocol
Aspirin 81 mg 03/16/24 08:00 03/17/24 08:54
Aspirin 81 Mg Chewable Tablet PO 04/13/24 07:59 81 mg
DAILY RAYMON Administration
Atorvastatin Calcium 40 mg 03/16/24 08:00 03/17/24 08:54
Atorvastatin (Lipitor) 40 Mg Tablet PO 04/13/24 07:59 40 mg
DAILY RAYMON Administration
Atovaquone 1,500 mg 03/18/24 08:00
Atovaquone 750 Mg/5 Ml Oral Suspension Cup PO 03/28/24 07:59
DAILY RAYMON
Bisacodyl 10 mg 03/15/24 21:44
Bisacodyl 10 Mg Rectal Suppository RECTAL 04/12/24 21:43
[id number] PRN
constipation
Cefepime HCl 2,000 mg 03/15/24 20:00 03/17/24 09:13
Cefepime Hcl 2,000 Mg/12.5 Ml Vial IV 2,000 mg
Q8H RAYMON Administration
Furosemide 40 mg 03/16/24 09:00 03/17/24 08:52
Furosemide 40 Mg (10 Mg/Ml) 4 Ml Vial IV 04/13/24 08:59 40 mg
DAILY RAYMON Administration
Gabapentin 100 mg 03/15/24 22:00 03/17/24 08:54
Gabapentin 100 Mg Capsule PO 04/12/24 21:59 100 mg
TID RAYMON Administration
Vancomycin HCl 750 mg in 150 mls @ 150 mls/hr 03/16/24 06:00 03/17/24 05:10
Vancocin IV 150 mls
Q12H RAYMON Administration
Protocol
Loratadine 10 mg 03/16/24 08:00 03/17/24 08:53
Loratadine 10 Mg Tablet PO 04/13/24 07:59 10 mg
DAILY RAYMON Administration
Lorazepam 0.5 mg 03/17/24 12:18
Lorazepam 0.5 Mg Tablet PO 04/14/24 12:17
BIDPRN PRN
anxiety
Methylprednisolone Sodium Succinate 40 mg 03/16/24 18:00 03/17/24 05:10
Methylprednisolone Pf 125 Mg/2 Ml Vial IV 04/13/24 17:59 40 mg
Q12H RAYMON Administration
Metoprolol Tartrate 25 mg 03/17/24 12:00 03/17/24 12:14
Metoprolol 25 Mg Regular Release Tablet PO 04/14/24 11:59 25 mg
Q6 RAYMON Administration
Nitroglycerin 0.4 mg 03/17/24 09:25
Nitroglycerin 0.4 Mg Sl Tablet SL 04/14/24 09:24
[id number] PRN
chest pain, tightness
Nintedanib [Ofev] 0 mg 03/17/24 20:00
150 Mg Capsule Po PO 04/14/24 19:59
Bid BID RAYMON
Ondansetron HCl 4 mg 03/15/24 21:44
Ondansetron 4 Mg/2 Ml Vial IV 04/12/24 21:43
Q8HPRN PRN
nausea and vomiting
Pantoprazole Sodium 40 mg 03/17/24 09:00 03/17/24 09:04
Pantoprazole Sodium 40 Mg/10 Ml Vial IV 04/14/24 08:59 40 mg
Q12 RAYMON Administration
Polyethylene Glycol 17 grams 03/15/24 21:44
Polyethylene Glycol Powder 17 Grams Packet PO 04/12/24 21:43
DAILYPRN PRN
constipation
Senna/Docusate Sodium 1 tablet 03/15/24 21:44
Docusate W/Senna (Sarah-Colace) Tablet PO 04/12/24 21:43
BIDPRN PRN
constipation
Sertraline HCl 50 mg 03/16/24 08:00 03/17/24 08:53
Sertraline 50 Mg Tablet PO 04/13/24 07:59 50 mg
DAILY RAYMON Administration
Sodium Chloride 0 flush 03/15/24 22:00
Sodium Chloride 0.9% (Flush) Syringe IV 04/12/24 21:59
PER PROTOCOL RAYMON
Sodium Chloride 10 ml 03/17/24 09:00 03/17/24 09:03
Sodium Chloride 0.9% (Preservative Free) 10 Ml Vial IV 04/14/24 08:59 10 ml
Q12 RAYMON Administration
Sterile Water 10 ml 03/15/24 20:00 03/17/24 09:13
Sterile Water For Injection 10 Ml Vial IV 04/12/24 19:59 10 ml
Q8H RAYMON Administration
Review of Systems
-
As indicated in HPI patient reports atypical bowels including dark red stool
Physical Exam
-
Physical Exam
Well-nourished and well-developed in no apparent distress
HEENT-atraumatic, normocephalic
Neck-supple, no JVD, no bruit
Heart-regular rate and rhythm-no murmurs, rubs or gallops
Chest with crackles at both bases and no wheezes
Back without tenderness
Abdomen-soft, nontender, nondistended, no hepatosplenomegaly
Extremities-no cyanosis, clubbing, trace lower extremity edema
Integument-intact, no rashes, lesions or ecchymosis
Neurology-alert and oriented, nonfocal motor and sensory exam
Labs
Lab Results
WBC 8.5 10^3/uL (4.8-10.8) 03/17/24 09:53
RBC 3.02 10^6/uL (4.70-6.10) L 03/17/24 09:53
Hgb 7.9 g/dL (13.0-18.0) L 03/17/24 09:53
Hgb 8.1 g/dL (13.0-18.0) L 03/17/24 09:53
Hct 26.0 % (39.0-52.0) L 03/17/24 09:53
Hct 26.2 % (39.0-52.0) L 03/17/24 09:53
MCV 86.1 fL (80.0-94.0) 03/17/24 09:53
MCH 26.2 pg (27.0-31.0) L 03/17/24 09:53
MCHC 30.4 g/dL (33.0-37.0) L 03/17/24 09:53
RDW 17.4 % (11.5-14.5) H 03/17/24 09:53
Plt Count 257 10^3/uL (130-400) 03/17/24 09:53
MPV 10.2 fL (7.4-10.4) 03/17/24 09:53
Abs Immat Gran (auto) 0.0 10^3/uL (0-0.05) 03/17/24 09:53
Absolute Neuts (auto) 7.8 10^3/uL (1.4-6.5) H 03/17/24 09:53
Absolute Lymphs (auto) 0.5 10^3/uL (1.2-3.4) L 03/17/24 09:53
Absolute Monos (auto) 0.2 10^3/uL (0.1-0.6) 03/17/24 09:53
Absolute Eos (auto) 0.0 10^3/uL (0-0.7) 03/17/24 09:53
Absolute Basos (auto) 0.0 10^3/uL (0-0.2) 03/17/24 09:53
Immature Gran % 0.2 % (0-0.5) 03/17/24 09:53
Neutrophils % 92.3 % (42.2-75.2) H 03/17/24 09:53
Lymphocytes % 5.5 % (20.5-51.1) L 03/17/24 09:53
Monocytes % 2.0 % (1.7-9.3) 03/17/24 09:53
Eosinophils % 0.0 % (0-6) 03/17/24 09:53
Basophils % 0.0 % (0-2) 03/17/24 09:53
Creatinine 0.8 mg/dL (0.7-1.3) 03/17/24 09:54
Vital Signs
Vital Signs
Temp Pulse Resp BP Pulse Ox
97.6 F 84 18 132/76 100
03/17/24 12:08 03/17/24 12:14 03/17/24 12:08 03/17/24 12:14 03/17/24 11:16
[2024-03-17 12:59] LABS: Glycohemoglobin (HgbA1c) 6.7 % (4.0-5.6)
[2024-03-17 16:40] LABS: Glucose - Point of Care 175 mg/dl (70-99)
[2024-03-17] MEDS: NOVOLOG FLEXPEN-LOW RESISTANCE SC (16:40)
--- NOTE | 2024-03-17 19:50 | PTCARENOTE ---
Pt. received at change of shift. Pt. seen and assessed in room. Pt. AOx3, no complaints of pain at this time. On high flow with a continuous pulse ox, satting at 100%. Plan of care explained to pt., pt. verbalizes understanding. Call anderson within
reach. Continuing to monitor at this time.
[2024-03-17 20:41] LABS: Hematocrit 28.1 % (39.0-52.0); Hemoglobin 8.9 g/dL (13.0-18.0)
[2024-03-17 20:59] LABS: Vancomycin Peak 24.9 ug/ml (18-26)
[2024-03-17 21:52] LABS: Glucose - Point of Care 184 mg/dl (70-99)
[2024-03-18] VITALS (9 sets, daily range): BP systolic 86–157; BP diastolic 40–71; BMI 24.2
[2024-03-18] MEDS: SOLU-MEDROL PF 40 MG IV (05:16)
[2024-03-18] MEDS: LOPRESSOR 25 MG PO ×2 (05:17→22:57)
[2024-03-18 05:42] LABS: Albumin 3.2 g/dl (3.5-5.0); Blood Urea Nitrogen 31 mg/dl (9-20); Calcium 8.9 mg/dl (8.4-10.2); Carbon Dioxide 29 mmol/L (22-30); Chloride 103 mmol/L (98-107); Estimated Creatinine Clearance 72 ml/min; Glucose 137 mg/dl (70-99); Phosphorus 3.4 mg/dl (2.5-4.5); Potassium 4.5 mmol/L (3.5-5.1); Sodium 141 mmol/L (135-145); eGFR > 60.00
[2024-03-18 05:46] LABS: Vancomycin Trough 16.3 ug/ml (5-20)
[2024-03-18] MEDS: VANCOCIN 150 IV (05:51)
[2024-03-18 06:46] LABS: % Basophils 0.1 % (0-2); % Immature Granulocytes 0.5 % (0-0.5); % Lymphocytes 5.2 % (20.5-51.1); % Monocytes 7.6 % (1.7-9.3); % Neutrophils 86.6 % (42.2-75.2); Absolute Immature Granulocytes 0.1 10^3/uL (0-0.05); Absolute Lymphocytes 0.5 10^3/uL (1.2-3.4); Absolute Monocytes 0.8 10^3/uL (0.1-0.6); Absolute Neutrophils 8.9 10^3/uL (1.4-6.5); Hematocrit 28.7 % (39.0-52.0); Hemoglobin 9.1 g/dL (13.0-18.0); Mean Corp Hgb Conc. 31.7 g/dL (33.0-37.0); Mean Corpuscular Hgb 26.7 pg (27.0-31.0); Mean Corpuscular Volume 84.2 fL (80.0-94.0); Mean Platelet Volume 9.7 fL (7.4-10.4); Nucleated Red Blood Cells % 0 % (-); Platelet Count 233 10^3/uL (130-400); Red Blood Cell Count 3.41 10^6/uL (4.70-6.10); Red Cell Dist. Width 17.1 % (11.5-14.5); White Blood Cell Count 10.2 10^3/uL (4.8-10.8)
[2024-03-18] MEDS: DUONEB 3 ML INH ×4 (07:08→19:25)
[2024-03-18] MEDS: NOVOLOG FLEXPEN-LOW RESISTANCE SC ×3 (07:20→17:51)
--- NOTE | 2024-03-18 08:14 | VNURNOTE ---
Chart reviewed. Patient is current with [facility] nursing. Will continue to follow hospital course and DC plans.
[2024-03-18] MEDS: ZOLOFT 50 MG PO (08:57)
[2024-03-18] MEDS: LIPITOR 40 MG PO (08:57)
[2024-03-18] MEDS: CLARITIN 10 MG PO (08:57)
[2024-03-18] MEDS: LOW STRENGTH ASPIRIN 81 MG PO (08:57)
[2024-03-18] MEDS: NSS (PRESERVATIVE FREE) 10 ML IV ×2 (08:58→19:51)
[2024-03-18] MEDS: NEURONTIN 100 MG PO ×3 (08:58→22:57)
[2024-03-18] MEDS: PROTONIX IV 40 MG IV ×2 (08:58→19:50)
[2024-03-18] MEDS: LASIX 40 MG IV (08:58)
[2024-03-18] MEDS: MEPRON SUSPENSION 1500 MG PO (08:58)
--- NOTE | 2024-03-18 09:31 | W.PN.ONC2 ---
Today's Communication / Plan
-
daily CBC, follow anemia evaluation, transfuse prn
Impression
Impression
a/w acute respiratory failure, CTA no pulmonary emboli
Acute on chronic anemia, baseline Hgb since January 2023 ~10g/dL
nonischemic myocardial injury
Diastolic Dysfunction
Pulmonary fibrosis
COPD
CAD
normocytic anemia -less likely hemolysis with normal retic
purpura from chronic steroid use
Plan
Plan
normocytic Anemia
Heme test stools
follow up iron studies, B12, folate
Consult GI once safe to evaluate
transfuse prn hgb <8g/dL, s/p 1 unit prbc during hospitalization
daily CBC
Updates provided to daughterRosalind at bedside
>50% of visit was spent on education, counseling, and coordination of care
Subjective/Objective
Chief Complaint
confusion this morning
Subjective
afebrile, soft BP this morning, on HF supplemental O2
denies overt bleeding, chronic purpura unchanged
Vital Signs:
Vital Signs
Temp Pulse Resp BP Pulse Ox
97.6 F 64 14 96/40 97
03/18/24 05:23 03/18/24 09:00 03/18/24 07:10 03/18/24 08:57 03/18/24 09:00
Lab Results:
Laboratory Data
WBC 10.2 10^3/uL (4.8-10.8) 03/18/24 06:37
Hgb 9.1 g/dL (13.0-18.0) L 03/18/24 06:37
Plt Count 233 10^3/uL (130-400) 03/18/24 06:37
PT 14.2 Sec (11.4-14.6) 03/17/24 09:54
INR 1.12 03/17/24 09:54
APTT Cancelled 03/17/24 12:00
eGFR > 60.00 03/18/24 05:09
Physical Exam
No acute distress
HEENT-atraumatic, normocephalic
Neck-supple
Heart-S1, S2
Chest with crackles at both bases and no wheezes
Abdomen-soft, nontender, nondistended
Extremities-trace lower extremity edema
Neurology-alert and oriented, speech clear
Review of Systems
Review of Systems
ROS notable for subjective, otherwise negative
--- NOTE | 2024-03-18 09:39 | W.PN.PUL3 ---
Today's Communication / Plan
-
Weaning down on HFNC, wean back to baseline O2 as tolerated, reviewed with RT
Continued on IV lasix for elevated proBNP
Can likely stop abx tomorrow 03/19 which would complete 5 days
Decrease steroids today
Encouraged OOB, PT/OT
GOC would be appropriate if he were to clinically deteriorate
Assessment
-
78-year-old male with underlying CAD, PAD with stents, COPD/pulmonary fibrosis overlap taking care of at [facility] though he does want local care, chronic hypoxemia maintained on 5 L of oxygen at home, prednisone as well as Ofev who presented
with increasing shortness of breath and noted to be hypoxemic with elevated troponin-pulmonary consulted for pulmonary fibrosis/hypoxemia 03/16/2024.
COPD/pulmonary fibrosis overlap with mild acute exacerbation
Elevated troponin-peak 9.9
Acute diastolic CHF
Bronchitis versus early pneumonia-elevated procalcitonin
Elevated lactate
Mild dementia
MARIANO
Mild anemia-hemoglobin 8.6-normocytic
Hyperglycemia
Conditions present prior to admission:
Recent hospitalization 11/23/2023-fall and mild acute COPD/pulmonary fibrosis overlap exacerbation
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
Adrenal insufficiency.
Hypertension.
Hyperlipidemia.
PAD.
Old right cerebellar infarct.
CAD.
Mild dementia.
GERD.
Anxiety/depression.
Plan
Respiratory decompensation in this patient with advanced end-stage lung disease-COPD/pulmonary fibrosis overlap is likely mild over his baseline
Remains on HFNC now, weaning down
At baseline uses 5L at rest, at times up to 8L due to long cannula length at home
Unfortunately he has end-stage lung disease and thus the only hope of improving his current situation is if there is another reversible process such as ischemic CAD/CHF/infection as his lung disease will not improve-steroids have been initiated for
the potential of reversible inflammatory component
Remains unstable with episodes of chest tightness and shortness of breath aggravated by underlying anxiety-rapid response 03/17/2024
Supplemental oxygen as needed-maintained on high FiO2 oxygen at home-5 to 10 L
Nebulizers as needed-on DuoNebs
Solu-Medrol 60 mg IV every 6 hours initiated-fairly rapid taper-will reduce to 40 mg IV every 12 hours
Will change this to daily dose, prednisone taper eventually
Note: Prednisone 15 mg daily this is baseline
Patient is maintained on Ofev for his pulmonary fibrosis as an outpatient
Mucolytic's
Incentive spirometry
Flutter
BiPAP at night and during the daytime as tolerated
Cultures reviewed
Urine Legionella and streptococcal antigen negative
MRSA screen positive
Blood cultures negative
Last urine culture 02/17/2023-Enterococcus
Unable to produce sputum
Empiric antibiotics-vancomycin and cefepime initiated 03/15
Can likely stop abx tomorrow 03/19 (day 5)
ProBNP 3200
Continue to trend troponin
Cardiology evaluation ongoing-correspondence reviewed-reviewed with Dr. Michael Keyes-okay to try increased [id number]-renepnd for bronchospasm
Heparin initiated
Continue diuresis as tolerated--agree with IV dosing
Monitor renal function, electrolytes, intake/output, lower extremity edema and weight
Replace electrolytes as needed
Speech therapy evaluation if needed
Physical therapy and Occupational Therapy evaluation
Follow hemoglobin
Transfuse if needed
DVT prophylaxis-on heparin drip
GI prophylaxis-on pantoprazole
Nutrition
Early mobilization/physical therapy
Outpatient pulmonary follow-up recommended-he has end-stage lung disease
Most recently followed by Dr. De Dios at [facility] and maintained on nebulizers as well as Ofev and oxygen-would like to transfer care local-number will be provided at time of discharge
Diagnostic data:
Chest x-ray 02/12/2023-increased reticulonodular markings suggestive of interstitial fibrosis, slight blunting left costophrenic angle
Chest x-ray 02/19/2023-extremely limited because of low lung volumes
Chest x-ray 11/22/2023-pronounced reticular interstitial thickening related to interstitial fibrosis, no significant pleural effusions or pneumothorax
Chest x-ray 03/15/2024-bilateral interstitial opacifications without acute process
Lower extremity ultrasound 07/05/2021-no evidence for lower extremity venous thrombosis
CT head 11/22/2023-no acute intracranial abnormalities, mild atrophy and mild chronic small vessel changes, old right sella [place] infarct, no significant changes compared to prior study 02/12/2023
CT chest 03/15/2024-no CT evidence for PE, chronic severe pulmonary fibrosis and emphysema, severe coronary artery and aortic valve calcifications
Subjective Data
-
Date of Service:
Date of Service: March 18, 2024
Chief Complaint: Pulmonary Follow Up and Dyspnea Follow Up
Subjective:
Remains on HFNC, he notes his SOB has been improving
No new complaints
Has not been OOB much
Objective Data
Data Reviewed
Vital Signs / I&O / Oxygen:
Vital Signs
Temp Pulse Resp BP Pulse Ox
97.6 F 64 14 96/40 97
03/18/24 05:23 03/18/24 09:00 03/18/24 07:10 03/18/24 08:57 03/18/24 09:00
Intake and Output
03/17/24 03/18/24 03/19/24
06:59 06:59 06:59
Intake Total 474 / 474 650 / 650
Output Total 2099 / 2099 1150 / 1150
Balance -1626 / -1626 -500 / -500
SaO2 97
Nasal Cannula flow liters per 40
minute
Physical Exam
General: Respiratory Distress (n) and Comfortable
HEENT: Normocephalic, Anicteric and Moist Mucous Membranes
Cardiovascular: Regular Rhythm and Murmur
Respiratory: Wheeze (Forced end expiratory), Crackles (Bilateral custodial up posteriorly), Rhonchi (n), Non-Labored Respirations, Accessory Resp Muscle Use (n) and Stridor (n)
GI: Soft, Non Distended and Non Tender
Neurology: Awake, Alert, Oriented, AO x 3 and No Motor Deficits
Skin: Warm, Good Color, Cyanosis (n), Jaundice (n) and Rash (n)
Labs/Micro/Reports
Lab Data
03/18/24 06:37
03/18/24 05:09
Laboratory Results
03/17/24
09:54
PT 14.2
INR 1.12
APTT 48.1 H
Microbiology
03/15/24 17:11 Blood/Venous Blood Culture - Preliminary
No Growth in 48 hours- Final report to follow
03/15/24 16:56 Blood/Venous Blood Culture - Preliminary
No Growth in 48 hours- Final report to follow
03/15/24 22:19 Nose MRSA Screen - Final
Staph aureus MRSA
03/16/24 10:07 Urine Legionella Urinary Antigen - Final
Negative for Legionella pneumophila Serogroup 1 antigen.
A negative result does not rule out the possiblity of
Legionella infection due to other serogroups or species of
Legionella. Clinical correlation is recommended.
03/16/24 10:07 Urine Streptococcus pneumoniae Antigen (M - Final
Negative for Streptococcus pneumoniae antigen.
A negative result does not exclude infection with
Streptococcus pneumoniae. Clinical correlation is
recommended.
--- NOTE | 2024-03-18 09:48 | PHA.VAN.FU ---
Vancomycin Assessment / Plan
- Assessment
Renal Function: Stable
WBC's are: WNL
In the past 24 hrs, patient has been: Afebrile
Concomitant Antimicrobials: cefepime
- Assessment - Therapeutic Drug Monitoring
Extrapolated Cmax (mcg/mL): 27.3
Peak level was drawn: Appropriately (drawn ~1.8H after end of previous infusion)
Extrapolated Cmin (mcg/mL): 15.8
Trough Drawn: Appropriately
Levels were drawn: At steady state (levels drawn after 4th maintenance dose)
Calculated AUC (mcg*h/mL): 506
Calculated ke: 0.0496
Calculated half life (H): 14
Calculated Vd (L): 59.9 (~0.8 L/kg)
Calculated Vanc CL (ml/min): 49
- Dosing Plan
Adjust Regimen to: Vanc 1250mg Q24H starting 03/19 0600
New Regimen Predicts: AUC (437), Peak (30), Trough (10)
AUC therapeutic; however, t1/2 > interval and patient may continue to accumulate
May require further dose adjustment
- Monitoring Plan
No level(s) ordered at this time: consider levels in next few days
- Follow Up
Pharmacy will continue to follow.
Vancomycin Follow UP
- -
Patient Age: 78
Patient Sex: Male
Vancomycin Day #: 4
Indication: Pulmonary/Respiratory
Requesting Provider: Dr. Sanabria
Pertinent Antimicrobial Allergies:
ciprofloxacin - Rash
Height / Weight:
Height 5 ft 9 in
Actual Weight 74.2 kg
Pertinent Past Medical History: COPD - home O2 5-10 L, chronic steroids
- Vital Signs / Lab Results
Temp Pulse Resp BP Pulse Ox
97.6 F 64 14 96/40 97
03/18/24 05:23 03/18/24 09:00 03/18/24 07:10 03/18/24 08:57 03/18/24 09:00
Lab Results - Hematology
03/15/24 03/16/24 03/17/24
16:56 04:47 05:16
WBC 14.9 H 8.3 7.5
03/17/24 03/18/24
09:53 06:37
WBC 8.5 10.2
Lab Results - Chemistry
03/15/24 03/16/24 03/17/24
16:56 04:47 05:16
BUN 30 H 25 H 29 H
Creatinine 0.9 0.7 0.8
Estimated Creat Clear 65 84 72
Albumin 3.6 2.9 L 3.0 L
03/17/24 03/18/24
09:54 05:09
BUN 29 H 31 H
Creatinine 0.8 0.8
Estimated Creat Clear 72 72
Albumin 3.2 L 3.2 L
03/15/24 03/15/24 03/17/24
16:56 21:07 09:53
Lactic Acid 5.0 H* 1.5 4.5 H*
03/17/24
13:48
Lactic Acid 3.0 H
Microbiology Results
03/15/24 17:11 Blood Culture - Preliminary
Blood/Venous No Growth in 48 hours- Final report to follow
03/15/24 16:56 Blood Culture - Preliminary
Blood/Venous No Growth in 48 hours- Final report to follow
03/15/24 22:19 MRSA Screen - Final
Nose Staph aureus MRSA
03/16/24 10:07 Legionella Urinary Antigen - Final
Urine Negative for Legionella pneumophila Serogroup 1 antigen.
A negative result does not rule out the possiblity of
Legionella infection due to other serogroups or species of
Legionella. Clinical correlation is recommended.
Streptococcus pneumoniae Antigen (M - Final
Negative for Streptococcus pneumoniae antigen.
A negative result does not exclude infection with
Streptococcus pneumoniae. Clinical correlation is
recommended.
Therapeutic Drug Monitoring
Vancomycin Peak 24.9 ug/ml (18-26) 03/17/24 20:36
Vancomycin Trough 16.3 ug/ml (5-20) 03/18/24 05:09
[2024-03-18] MEDS: MAXIPIME 2000 MG IV ×3 (10:09→23:01)
[2024-03-18] MEDS: STERILE WATER FOR INJECTION 10 ML IV ×3 (10:09→23:00)
[2024-03-18] MEDS: ATIVAN 0.5 MG PO ×2 (10:21→22:57)
--- NOTE | 2024-03-18 11:21 | W.PN.CARDCBS ---
Addendum entered and electronically signed by Michael Keyes MD 03/18/24 13:47:
Patient seems confused, currently incontinent, does not appear to be in distress, says he feels better than yesterday. Yesterday he had chest tightness with EKG changes, in the setting of anemia, resolved with sublingual nitro and increase in
metoprolol.
current medications: Cefepime, DuoNebs, aspirin 81 mg a day, atorvastatin 40 mg a day, Neurontin 100 3 times daily, Claritin, sertraline 50 a day, furosemide 40 mg IV daily, pantoprazole 40 IV every 12, Mepron, Ofev, metoprolol tartrate 25 every 6,
insulin, vancomycin, Solu-Medrol
86/48, 129/70, pulse 60s, weight is 74.2 kg, unchanged, incontinent, still on high flow, no acute distress, saturations adequate, head neck exam unremarkable, dry crackles throughout much of lungs, systolic murmur at base, abdomen benign,
extremities without much edema,
Hemoglobin 9.1, platelets 233, BUN and creatinine 31 and 0.8, troponin is 2.89, continuing to drop, proBNP yesterday was 3200 had been 1260 at admission
EKG today, sinus bradycardia, right bundle branch block, inferior CT, PACs, LVH, ST segment changes remained stable, Saturations are 96% on high flow, intake and output relatively stable
Echo is pending
Impression:
Admitted with acute on chronic hypoxemic respiratory failure 03/15/24
AE COPD
Possible PNA
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
Chest pain
Non-STEMI with peak troponin of 9.9 this admission
Acute HFpEF
Elevated lactic acid level
CAD
s/p stents in 1997 History of PVD status post lower extremity revascularization procedures
Hypertension
Hypercholesterolemia
GERD
Anemia
Hyperglycemia
Right bundle branch block
Plan:
Regarding his respiratory failure he remains marginally compensated. Probably a result of both heart failure with unknown EF and predominantly COPD/pulmonary fibrosis and/or pneumonia
I suspect his non-ST segment elevation CT is secondary to a ROD BUSTER of the RCA and non-ACS myocardial injury related to increased demand in the setting of anemia and lower GI bleeding.
Await GI evaluation. Not certain if he is a candidate for endoscopic evaluation at this time. Would probably want oxygen requirements to drop before considering.
Eventually he will need cardiac catheterization but is not stable at present.
Strategy for now will be aspirin only with beta-blockade. We may need to reduce metoprolol if blood pressure remains low. Volume status is difficult to assess. Will hold furosemide and reassess in a.m.
Original Note:
Today's Communication / Plan
-
Remains on high flow
Echo pending
GI consulted
Impression / Plan
-
PCP: Dr. Javon Carlos
Cardiology: Dr. Maldonado at [facility], last seen 2021,
Impression:
Admitted with acute on chronic hypoxemic respiratory failure 03/15/24
AE COPD
Possible PNA
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
Chest pain
Non-STEMI with peak troponin of 9.9 this admission
Acute HFpEF
Elevated lactic acid level
CAD
s/p stents in 1997
History of PVD status post lower extremity revascularization procedures
Hypertension
Hypercholesterolemia
GERD
Anemia
Hyperglycemia
Right bundle branch block
Echo 03/18/24: Study pending
Plan:
-Called patient's primary rod buster, Dr. Maldonado, on 03/18/24 and they confirmed that he has not been seen in the office since 2021. Dr. Maldonado's office is faxing over last office note and echo from 05/2022
-Hgb improved to 9.1 on 03/18/24 following 1 unit of PRBCs given 03/17/24 for a Hgb of 7.9.
-Patient was heme positive on 03/17/24. Patient previously cared for at [facility] and reports a colonoscopy there within the last 5 years that was normal by his report. Will ask GI to consult, consult placed and GI contacted by me.
-No recurrence of chest pain. Heparin gtt has been on hold due to suspected GIB. Cont aspirin 81 mg daily
-New to Lopressor 25 mg PO q 6 hours, but dose held 03/18/24 AM due to hypotension.
-Patient reports previous PCI in 1997, await records from primary rod buster
-Troponin peaked at 9.92. Patient with chest pain and ECG changes. Echo pending
-LDL 69 and outpatient dose of atorvastatin 40 mg daily has been continued
-Weight is only down 1 lb despite Lasix 40 mg IV daily diuresis.
-Remains on 40 L high flow with h/o 5-8 L NC continuously at home prior to admission
Progress Note - Soils Analyst
Subjective
Date of Service: March 18, 2024
No chest pain
Objective
Labs:
03/18/24 06:37
03/18/24 05:09
Labs
Hgb 9.1 g/dL (13.0-18.0) L 03/18/24 06:37
Hct 28.7 % (39.0-52.0) L 03/18/24 06:37
Plt Count 233 10^3/uL (130-400) 03/18/24 06:37
PT 14.2 Sec (11.4-14.6) 03/17/24 09:54
INR 1.12 03/17/24 09:54
APTT Cancelled 03/17/24 12:00
Sodium 141 mmol/L (135-145) 03/18/24 05:09
Potassium 4.5 mmol/L (3.5-5.1) 03/18/24 05:09
BUN 31 mg/dl (9-20) H 03/18/24 05:09
Creatinine 0.8 mg/dL (0.7-1.3) 03/18/24 05:09
Glucose 137 mg/dl (70-99) H 03/18/24 05:09
Troponins
03/15/24 03/15/24 03/16/24
16:56 22:59 04:47
Troponin I 8.110 H* 9.920 H* 8.510 H*
03/16/24 03/17/24 03/18/24
09:44 09:54 05:09
Troponin I Cancelled 3.310 H* 2.890 H*
Vital Signs and I&O:
Vital Signs
Temp Pulse Resp BP Pulse Ox
97.6 F 65 18 96/40 95
03/18/24 05:23 03/18/24 11:01 03/18/24 11:01 03/18/24 08:57 03/18/24 11:01
Vital Signs
Temp Pulse Resp BP Pulse Ox
97.6 F 65 18 96/40 95
03/18/24 05:23 03/18/24 11:01 03/18/24 11:01 03/18/24 08:57 03/18/24 11:01
Intake & Output
03/16/24 03/17/24 03/18/24 03/19/24
06:59 06:59 06:59 06:59
Intake Total 474 / 474 650 / 650
Output Total 2100 / 2100 1150 / 1150
Balance -1626 / -1626 -500 / -500
Physical Exam
Physical Exam
GEN: NAD. AAOx3
HEENT: MMM
LUNGS: Wearing high flow. No wheeze
CV: SR on tele
ABD: ND
EXT: No edema B/L
NEURO: Gross non-focal
SKIN: No rash
--- NOTE | 2024-03-18 12:06 | CM ---
spoke to pt in room, he is prev indep, lives with his s.o. in a 1 story home with no steps to enter. he uses home O2 with [employer]- 5-8 liters as needed. dc plan is underdetermined at this , cm following.
[2024-03-18] MEDS: LOPRESSOR PO ×2 (12:09→18:34)
--- NOTE | 2024-03-18 12:27 | PTCARENOTE ---
patient slightly confused per patient and daughter. anxious. requesting ativan.oriented but states he got a little confused overnight. will contine to monitor.
--- NOTE | 2024-03-18 13:17 | CON.GI ---
Addendum entered and electronically signed by Juan Erazo MD 03/18/24 14:25:
Patient seen and examined, agree with nurse practitioner note. Patient is an 79-year-old male with complex medical history as noted who presents with shortness of breath and palpitations, found to have non-ST elevation NV. His menstrual hemoglobin
on presentation was 10.1, heparin was started and dropped to 7.9. Today there is back to 9.1 without transfusion. He has had loose stools, though they have been brown. On Hemoccult they were positive, though again has not had any gross bleeding.
He denies any abdominal pain, nausea, vomiting, dysphagia, melena or hematochezia. He does have a history of endoscopy and colonoscopy with Dr. Olson in [place] in the past around 5 to 7 years ago which have been unremarkable by his report. His
exam is benign from GI standpoint, with no significant abdominal tenderness, though does have multiple ecchymoses diffusely. At this point his underlying anemia is more likely anemia of chronic disease, though iron studies are pending, and
multifactorial. While his stools were Hemoccult positive he has not had any gross bleeding, and hemoglobin has been relatively stable. From a GI standpoint there is no contraindication to anticoagulation if needed. Will hold on any invasive GI
procedures unless had a gross bleeding.
We will sign off for now, please call back with any further questions or signs of gross bleeding.
Original Note:
Consultation
-
Date/Time Consultation Requested: 03/18/24 1119
Date/Time Consultation Performed: 03/18/24 1245
Requesting Provider: SMITA Maria
Performing Provider: Dr. Erazo/MINGO Baker
Reason for Consultation: anemia
Medical History
Chief Complaint / HPI
Chief Complaint: respiratory distress
History of Present Illness:
79-year-old male with past medical history of CAD, PAD with stents, COPD/pulmonary fibrosis O2 dependent on 8 L, obstructive sleep apnea, on chronic prednisone and Ofev, adrenal insufficiency, hypertension, hyperlipidemia, prior right cerebellar
infarct, mild dementia, GERD, anxiety, depression, recent right ear lesion removed on 03/13/2024 who presents to the emergency room on 03/15/2024 with increased shortness of breath, palpitations. He was found to have a non-ST LETHA with peak troponin
of 9.9 and acute HFpEF He was on heparin and aspirin. Heparin drip has been put on hold. His chest pain resolved with nitro. He continues on Lasix 40 mg IV daily. He is currently on aspirin 81 mg only now his hemoglobin dropped down to 7.9 from
presentation hemoglobin of 10.1. Of note his hemoglobin usually runs in the 9 range on prior labs that we have. He was given 1 unit of packed red blood cells and this improved to 9.1. He has had no signs of GI bleeding. He has had loose brown
stools. He is on Ofev which gives him loose stools. He continues on pantoprazole 40 mg IV twice daily. He is currently on high flow O2 supplementation. When he starts to speak he desaturates. The patient denies any GI complaints. He denies any
prior history of ulcers. He is chronically on pantoprazole at home. He states he had colonoscopy and endoscopy in the past with Drs. Olson and Vu in [place]. He believes that the timeline for this is somewhere between 5 and 7 years ago.
He denies any history of polyps. He denies any family history of gastrointestinal malignancy or IBD. He denies any history of nausea, vomiting, melena, hematochezia. I was able to review records from his PCP dated 02/20/2024 and there were no GI
complaints reported or recorded. It states that his chronic GERD was stable on pantoprazole.
Past Medical History
Past Medical History: CAD (PAD), CHF, COPD (IPF), CVA, GERD, HTN, Hypercholesterolemia and Other (Adrenal insufficiency, mild dementia, anxiety, depression,)
Past Surgical History: Other (Cartilage removed October 1973, spur removed neck 1979, balloon angio right thigh 1989, heart stent 1997, bilateral total knee replacement 2005, peroneal nerve release left knee 2006, tendon transfer left foot 2007, knee
replacement 2009, left hand tendon repair 2013, right hip replaced 2016, bilateral )
Social History
Tobacco: Former Smoker
Alcohol: None
Drug: None
Personal: Partner
Living: With Family
Employment: Retired
Family History
Family History: Other (No family history gastrointestinal malignancy or IBD)
Allergies / Home Medications
Allergy/AdvReac Type Severity Reaction Status Date / Time
aripiprazole [From Abilify] Allergy Unknown Verified 03/15/24 16:35
ciprofloxacin [From Cipro] Allergy Rash Verified 03/15/24 16:35
codeine Allergy Unknown Verified 03/15/24 16:35
morphine Allergy Unknown Verified 03/15/24 16:35
�Medication �Instructions �Recorded
amlodipine 5 mg tablet 5 mg PO DAILY Blood Pressure 07/04/21
benzonatate 200 mg capsule 200 mg PO TID Cough 07/04/21
hydrochlorothiazide 25 mg tablet 25 mg PO DAILY Fluid 07/04/21
Retention/Swelling
nintedanib 150 mg capsule (Ofev) 150 mg PO BID IDIOPATHIC PULMONARY 07/04/21
FIBROSIS
pantoprazole 40 mg tablet,delayed 40 mg PO DAILY Gastrointestinal 07/04/21
release Issue
prednisone 10 mg tablet 15 mg PO DAILY Anti-Inflammatory 07/04/21
aspirin 81 mg chewable tablet 81 mg PO DAILY Blood Clot 11/22/23
Prevention/Tx
atorvastatin 40 mg tablet 40 mg PO DAILY High Cholesterol 11/22/23
atovaquone 750 mg/5 mL oral 1,500 mg PO DAILY Infection 11/22/23
suspension
cholecalciferol (vitamin D3) 25 25 mcg PO DAILY Supplement 11/22/23
mcg (1,000 unit) tablet (Vitamin
D3)
fexofenadine 180 mg tablet 180 mg PO DAILY Allergies 11/22/23
gabapentin 100 mg capsule 100 mg PO TID Neurological 11/22/23
Condition
ibuprofen 200 mg tablet (Advil) 200 mg PO Q6HPRN PRN mild pain 11/22/23
lorazepam 0.5 mg tablet 0.5 mg PO Q4HPRN PRN anxiety 11/22/23
sertraline 50 mg tablet 50 mg PO DAILY Depression 11/22/23
therapeutic multivitamin 1 tab PO DAILY Supplement 11/22/23
Review of Systems
-
All other systems: A 12 pt ROS was Negative except as stated above in HPI
Vital Signs
Temp Pulse Resp BP Pulse Ox
97.7 F 67 22 86/48 96
03/18/24 11:49 03/18/24 12:09 03/18/24 11:49 03/18/24 12:09 03/18/24 11:41
Physical Exam
Exam
General: Other (Appears chronically ill, high flow cannula in place, becomes dyspneic and desaturates with speaking)
HEENT: Anicteric
Respiratory: Wheezes (Bilateral expiratory wheezes, Poor air exchange) and Rales (Fine crackles)
Cardiac: Regular Rhythm
GI: Soft, Non Tender, Non Distended and Normal Bowel Sounds
Musculoskeletal: No Edema
Skin: Warm and Dry
Neuro: Awake, Alert and Oriented
Psych: Calm
Results
WBC 10.2 10^3/uL (4.8-10.8) 03/18/24 06:37
Hgb 9.1 g/dL (13.0-18.0) L 03/18/24 06:37
Hct 28.7 % (39.0-52.0) L 03/18/24 06:37
MCV 84.2 fL (80.0-94.0) 03/18/24 06:37
Plt Count 233 10^3/uL (130-400) 03/18/24 06:37
Absolute Neuts (auto) 8.9 10^3/uL (1.4-6.5) H 03/18/24 06:37
PT 14.2 Sec (11.4-14.6) 03/17/24 09:54
INR 1.12 03/17/24 09:54
APTT Cancelled 03/17/24 12:00
Sodium 141 mmol/L (135-145) 03/18/24 05:09
Potassium 4.5 mmol/L (3.5-5.1) 03/18/24 05:09
Chloride 103 mmol/L (98-107) 03/18/24 05:09
Carbon Dioxide 29 mmol/L (22-30) 03/18/24 05:09
BUN 31 mg/dl (9-20) H 03/18/24 05:09
Creatinine 0.8 mg/dL (0.7-1.3) 03/18/24 05:09
Calcium 8.9 mg/dl (8.4-10.2) 03/18/24 05:09
Total Bilirubin 0.4 mg/dl (0.2-1.3) 03/17/24 09:54
AST 73 U/L (17-59) H 03/17/24 09:54
ALT 47 U/L (0-50) 03/17/24 09:54
Alkaline Phosphatase 59 U/L (38-126) 03/17/24 09:54
Diagnostic Image Results:
CT Chest 03/15/24:
1. No CTA evidence for an acute pulmonary thromboembolism.
2. Severe chronic pulmonary fibrosis and emphysema.
3. Mild cardiomegaly.
4. Severe coronary artery and aortic valve calcifications. Please correlate with symptoms of and risk factors for coronary artery disease and aortic stenosis, with further workup as clinically appropriate.
Electronically signed by Antione Bai, 03/15/2024 8:55 PM
Prior GI Procedures:
EGD: Patient states approximately 5 to [address]s Olson and Vu in [place]
Colonoscopy: Patient states approximately 5 to [address]s Olson and Vu in [place]
Assessment / Plan
-
79-year-old male with past medical history of CAD, PAD with stents, COPD/pulmonary fibrosis O2 dependent on 8 L, obstructive sleep apnea, on chronic prednisone and Ofev, adrenal insufficiency, hypertension, hyperlipidemia, prior right cerebellar
infarct, mild dementia, GERD, anxiety, depression, recent right ear lesion removed on 03/13/2024 who presents to the emergency room on 03/15/2024 with increased shortness of breath, palpitations. He was found to have a non-ST LETAH with peak troponin
of 9.9 and acute HFpEF He was on heparin and aspirin. Heparin drip has been put on hold. His chest pain resolved with nitro. He continues on Lasix 40 mg IV daily. He is currently on aspirin 81 mg only now his hemoglobin dropped down to 7.9 from
presentation hemoglobin of 10.1. Of note his hemoglobin usually runs in the 9 range on prior labs that we have. He was given 1 unit of packed red blood cells and this improved to 9.1. He has had no signs of GI bleeding. His stools are loose and
brown.
Impression:
Acute on chronic hypoxemic respiratory failure-> Continues on high flow O2 supplementation at this time
Acute exacerbation COPD/IPF on Ofev/Steroids/cefepime/vanco
Non-ST elevated NV -> on ASA 81 mg, Heparin gtt on hold
Acute HFpEF-on Lasix
Anemia -> Hgb 10.1 then to 7.9-> 1 unit PRB given now 9.1. Baseline in the 9-10 range in the past. No signs of bleeding identified.
--stools brown, was on PPI prior to arrival and now on BID. Patient without GI sx prior to arrival and none at this time.
Plan:
-Patient unable to have any GI intervention given respiratory status.
-Also no role for GI intervention as no signs of GI bleeding.
-Continue Pantoprazole 40 mg BID for GI protection
-Ok to continue ASA 81 mg daily.
-Further recommendations to be forthcoming.
-
-
Thank you for consultation and allowing me to participate in the patient's care. Please call the neon tube bender GI physician during the after hours with any questions or concerns.
--- NOTE | 2024-03-18 13:58 | PTCARENOTE ---
weaned to 40L50% fio2. hi maile. tolerating well. 95%
[2024-03-18 14:02] LABS: Glucose - Point of Care 131 mg/dl (70-99)
--- NOTE | 2024-03-18 14:06 | WOUNDNOTE ---
L 2ND TOE
--- NOTE | 2024-03-18 14:07 | WOUNDNOTE ---
R POSTERIOR HEEL PROXIMAL
--- NOTE | 2024-03-18 14:16 | WOUNDNOTE ---
WON RN note: Patient admitted with acute non -st elevation NE.
See H&P for complete history. Lives with girlfriend, daughter lives nearby.
PMH: Mild dementia, PAD-L fem pop November 2022, pneumonia, chronic L leg ulcer, anemia, COPD, pulmonary fibrosis, 3ppd smoker quit at age 48, R ear skin cancer removal. and adrenal insufficiency.
Wound Location and type/assessment: Patient known to service, last seen 01/2023. Since then L lateral ankle ulcer healed. Has remaining L anterior venous ulcer that is chronic. + Audible PP with Doppler, trace edema. L 2nd toe plantar with dry scab,
suspect arterial vs abrasion. Using Tubigrip for compression at home. R medial foot with intact scab/abrasion. R heel with 2 intact scabs from previous ulcers, suspect are healing stage 2PI. L heel blanchable red. Sacrum is intact, patient
incontinent of large amt of urine, condom catheter had fallen off. R ear with recent surgery for skin cancer patient states, adaptic and dry dressing in place. R elbow with tiny skin tear.
Appetite: Good.
Pressure redistribution devices in place: Centrella air bed.
Plan:Adaptic and silicone foam applied to R ear and L anterior leg. Silicone foam applied to R elbow. Adhesive foams to both heels. Air cushion on pillow under calves to offload heels. Tubigrip size F applied knee high. L 2nd toe open to air. Will
confirm orders with hospitalist and updated nurse. Updated nurse Jyoti, care plan and will follow as needed.
Note to case management of equipment requested for discharge: Continue VN
--- NOTE | 2024-03-18 14:18 | W.PN.HOSP.TC ---
Today's Communication/Plan
-
Hold lasix
PPI
trend hgb
wean o2
IV steroids
IV abx
Assessment / Plan
Assessment / Plan
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 Also had episodes of palpitations. In ED found troponin of 8, lactate of 5, placed on HFNC. EKG without ST elevation. Managed for NSTEMI, possible pneumonia and exacerbation of COPD/lung fibrosis overlap. Developed worsening
anemia
A/P:
#Acute on chronic hypoxic respiratory failure
#COPD exacerbation
#Pulmonary fibrosis
CTA chest
IV steroids solumedrol 40mg daily. Frequency decreased.
bronchodilators
Pulm consulted
HFNC and wean off to baseline as tolerated
#possible CAP
procalcitonin elevated, cont empiric Abx, suspect pneumonia due to new hypoxia and chronic lung disease
Legionella and s.pneumonia urinary Ag
Sputum Cx if possible
COVID-19, Influenza PCR neg
Bcx NTD
MRSA POSITIVE. Cont vanc/cefepime for now
#NSTEMI
#Palpitations with sinus arrhythmia on tele
#Possible acute on chronic HFpEF exacerbation
Cardio consult
Cont asprin.
s/p hep gtt infusion.
Telemetry
cont statin - LDL 69
Eventual BB
sublingual nitro PRN
cont BB
Lasix held for today
#PETE
with infection will postpone iron suplementation
High LDH with normal retics -hematology consult
Discuss with cardiology blood transfusion since patient is treated for NSTEMI - would favor keeping Hgb between 9-10, however concomitant concern for CHF might be prohibitive. Also patient w/o chest pain
serial H&H
GI consulted.
PPI bid for now
#Elevated lactate
2/2 hypoxia
resolved
#HLD
cont home meds
#Essential HTN
hold antihypertensives since borderline-low BP on admission
#Anxiety d/o
cont SSRI
#AST elevation - improving
CPK minimally elevated
follow LFT
most likely 2/2 cardiac injury
DVT ppx scds
Full code
Anticipated Discharge: > 48 hours
Subjective/Interval History
-
Date of Service: March 18, 2024
Remains on HFNC
FOBT positive earlier today
Hgb at 9.1
tachypneic
Objective Data
-
Labs:
Laboratory Results
03/18/24 03/18/24
05:09 06:37
WBC 10.2
Hgb 9.1 L
Hct 28.7 L
Plt Count 233
Sodium 141
Potassium 4.5
Chloride 103
Carbon Dioxide 29
BUN 31 H
Creatinine 0.8
Glucose 137 H
Calcium 8.9
Vital Signs:
Vital Signs
Temp Pulse Resp BP Pulse Ox
97.7 F 67 22 86/48 96
03/18/24 11:49 03/18/24 12:09 03/18/24 11:49 03/18/24 12:09 03/18/24 11:41
I&O
03/17/24 03/18/24 03/19/24
06:59 06:59 06:59
Intake Total 474 / 474 650 / 650 240 / 240
Output Total 2100 / 2099 1150 / 1150 350 / 350
Balance -1626 / -1626 -500 / -500 -110 / -110
Data Reviewed
-
Total Time Spent with Patient (in minutes): 58
[2024-03-18 14:40] LABS: Ferritin 49.1 ng/ml (17.9-464.0)
[2024-03-18 15:11] LABS: Folate > 20.0 ng/ml (2.76-20); Vitamin B12 577 pg/ml (239-931)
--- NOTE | 2024-03-18 20:20 | PTCARENOTE ---
pt. received at change of shift. pt AOx3, O2 on high flow nasal cannula at 40L/50% currently satting on 96% on continuous pulse ox. Tele reading NSR. No complaints of pain at this time. Plan of care explained to patient, pt. verbalizes
understanding. Call anderson within reach. Continuing to monitor at this time.
[2024-03-18 21:47] LABS: Glucose - Point of Care 152 mg/dl (70-99)
[2024-03-18] MEDS: TESSALON PERLES 200 MG PO (22:57)
[2024-03-19] VITALS (12 sets, daily range): BP systolic 117–159; BP diastolic 59–94; BMI 24.1
[2024-03-19 03:18] LABS: Blood Urea Nitrogen 28 mg/dl (9-20); Calcium 8.8 mg/dl (8.4-10.2); Carbon Dioxide 37 mmol/L (22-30); Chloride 103 mmol/L (98-107); Estimated Creatinine Clearance 64 ml/min; Glucose 88 mg/dl (70-99); Phosphorus 2.8 mg/dl (2.5-4.5); Potassium 3.8 mmol/L (3.5-5.1); Sodium 145 mmol/L (135-145); eGFR > 60.00
[2024-03-19] MEDS: LOPRESSOR 25 MG PO ×4 (05:19→22:57)
[2024-03-19] MEDS: VANCOCIN 275 MG IV (05:19)
[2024-03-19] MEDS: DUONEB 3 ML INH ×4 (07:19→19:24)
[2024-03-19 07:28] LABS: Glucose - Point of Care 92 mg/dl (70-99)
[2024-03-19] MEDS: NOVOLOG FLEXPEN-LOW RESISTANCE SC (07:33)
--- NOTE | 2024-03-19 08:35 | PHA.VAN.FU ---
Vancomycin Assessment / Plan
- Assessment
Renal Function: Stable
WBC's are: WNL
In the past 24 hrs, patient has been: Afebrile
Concomitant Antimicrobials: cefepime
- Dosing Plan
Continue: Vanc 1250mg Q24H (first dose of new regimen today)
- Monitoring Plan
No level(s) ordered at this time: consider levels in next few days
- Follow Up
Pharmacy will continue to follow.
Vancomycin Follow UP
- -
Patient Age: 78
Patient Sex: Male
Vancomycin Day #: 5
Indication: Pulmonary/Respiratory
Requesting Provider: Dr. Sanabria
Pertinent Antimicrobial Allergies:
ciprofloxacin - Rash
Height / Weight:
Height 5 ft 9 in
Actual Weight 73.9 kg
Pertinent Past Medical History: COPD (home O2)
- Vital Signs / Lab Results
Temp Pulse Resp BP Pulse Ox
98.1 F 56 20 155/66 94
03/19/24 07:44 03/19/24 07:21 03/19/24 07:44 03/19/24 05:19 03/19/24 07:44
Lab Results - Hematology
03/17/24 03/17/24 03/18/24
05:16 09:53 06:37
WBC 7.5 8.5 10.2
Lab Results - Chemistry
03/17/24 03/17/24 03/18/24
05:16 09:54 05:09
BUN 29 H 29 H 31 H
Creatinine 0.8 0.8 0.8
Estimated Creat Clear 72 72 72
Albumin 3.0 L 3.2 L 3.2 L
03/19/24
02:45
BUN 28 H
Creatinine 0.9
Estimated Creat Clear 64
Albumin 3.0 L
03/17/24 03/17/24
09:53 13:48
Lactic Acid 4.5 H* 3.0 H
Microbiology Results
03/15/24 17:11 Blood Culture - Preliminary
Blood/Venous No Growth in 72 hours- Final report to follow
03/15/24 16:56 Blood Culture - Preliminary
Blood/Venous No Growth in 72 hours- Final report to follow
03/15/24 22:19 MRSA Screen - Final
Nose Staph aureus MRSA
Therapeutic Drug Monitoring
Vancomycin Peak 24.9 ug/ml (18-26) 03/17/24 20:36
Vancomycin Trough 16.3 ug/ml (5-20) 03/18/24 05:09
[2024-03-19] MEDS: NSS (PRESERVATIVE FREE) 10 ML IV ×2 (10:08→19:38)
[2024-03-19] MEDS: SOLU-MEDROL PF 40 MG IV (10:08)
[2024-03-19] MEDS: PROTONIX IV 40 MG IV ×2 (10:08→19:38)
[2024-03-19] MEDS: LIPITOR 40 MG PO (10:09)
[2024-03-19] MEDS: ZOLOFT 50 MG PO (10:09)
[2024-03-19] MEDS: CLARITIN 10 MG PO (10:09)
[2024-03-19] MEDS: NEURONTIN 100 MG PO ×3 (10:09→21:53)
[2024-03-19] MEDS: LOW STRENGTH ASPIRIN 81 MG PO (10:09)
[2024-03-19] MEDS: TESSALON PERLES 200 MG PO ×3 (10:09→21:53)
[2024-03-19] MEDS: MEPRON SUSPENSION 1500 MG PO (10:10)
[2024-03-19] MEDS: MAXIPIME 2000 MG IV ×3 (10:43→23:05)
[2024-03-19] MEDS: STERILE WATER FOR INJECTION 10 ML IV ×3 (10:44→23:05)
--- NOTE | 2024-03-19 11:20 | PTCARENOTE ---
High flow increased bu respiratory. Discussed respiratory status with Hospitalist. Agreed IMU would be appropriate for patient. Family ( and Daughter) made aware of transfer.
--- NOTE | 2024-03-19 11:37 | W.PN.ONC ---
Today's Communication / Plan
-
will give IV iron while hospitalized. No need for oral iron after d/c as long as he gets a couple IV doses here.
supportive care per primary team, no plans for inpatient GI w/u
hematology will sign off, please call w/ any questions
Impression
Impression
a/w acute respiratory failure, CTA no pulmonary emboli
Acute on chronic anemia, baseline Hgb since January 2023 ~10g/dL
nonischemic myocardial injury
Diastolic Dysfunction
Pulmonary fibrosis
COPD
CAD
normocytic anemia - iron def + chronic disease
purpura from chronic steroid use
Plan
Plan
Will give IV iron while inpatient in light of iron studies suggesting both iron def and anemia in chronic disease
No need for oral iron after d/c as long as he gets a couple IV doses here.
Per pulm, likely to stop abx today
supportive care per primary team, no plans for inpatient GI w/u
hematology will sign off, please call w/ any questions
Subjective/Objective
Subjective/Objective
no new complaints
Vital Signs:
Vital Signs
Temp Pulse Resp BP Pulse Ox
98.1 F 71 22 130/67 92
03/19/24 07:44 03/19/24 11:17 03/19/24 11:17 03/19/24 07:44 03/19/24 11:17
Lab Results:
Laboratory Data
WBC 10.2 10^3/uL (4.8-10.8) 03/18/24 06:37
Hgb 9.1 g/dL (13.0-18.0) L 03/18/24 06:37
Plt Count 233 10^3/uL (130-400) 03/18/24 06:37
PT 14.2 Sec (11.4-14.6) 03/17/24 09:54
INR 1.12 03/17/24 09:54
APTT Cancelled 03/17/24 12:00
eGFR > 60.00 03/19/24 02:45
--- NOTE | 2024-03-19 12:02 | W.PN.CARDCBS ---
Addendum entered and electronically signed by Juan Mejia MD 03/19/24 13:10:
I saw and examined the patient.
The COLLET GLUER or PA's note was reviewed and I agree with the note.
Comment: General: Well developed, well nourished in NAD.
Neck: Supple, no JVD, HJR, carotids +2 B/L, no bruits bilaterally.
Heart: Non displaced PMI, RRR, no murmurs, No S3, S4, no rubs.
Lungs: Scattered rhonchi
Extremities: No clubbing, cyanosis or edema bilaterally.
Neuro: Grossly nonfocal, awake, alert and oriented x3.
He remains severely hypoxemic. Suspect this is mostly pulmonary. IV Lasix currently on hold and did not show much improvement.. Not ideal candidate for catheterization given severe hypoxemia on significant oxygen as an outpatient. Also would be
concerned about heme positive stools and anemia and possible stent thrombosis if Plavix would have to be interrupted.
Original Note:
Today's Communication / Plan
-
Moving to IMU
Medically managing for NSTEMI
Impression / Plan
-
PCP: Dr. Javon Carlos
Cardiology: Dr. Maldonado at [facility], last seen 2021,
Pulm: Dr. Bhatti [phone]
Impression:
Admitted with acute on chronic hypoxemic respiratory failure 03/15/24
AE COPD
Possible PNA
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
Chest pain
NSTEMI with peak troponin of 9.9 this admission
Possible acute HFpEF
Elevated lactic acid level
CAD
s/p LAD and RCA stents in 1997
History of PVD status post lower extremity revascularization procedures
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
Hypertension
Hypercholesterolemia
GERD
Anemia
Hyperglycemia
Right bundle branch block
Lexiscan nuclear stress test 01/2020: [facility] study, normal perfusion
Echo 03/18/24: EF 55%, mild inferior, inferolateral hypokinesis, mild MR, mild to moderate AAS without regurgitation peak/mean 35/22 mmHg with ANYI 1.1 cm sq
Plan:
-Called primary credit risk management director, requested records, received, reviewed and summarized records in this note. LAD and RCA stents were from 1997. Patient with reportedly normal perfusion at last known ischemic evaluation in 2019
-Echo noted above with inferior and inferolateral hypokinesis, but overall preserved EF.
-Troponin peaked at 9.92, will manage as a NSTEMI given chest pain, ECG changes and WMA. Patient is high risk for invasive management given heme positive anemia and high flow oxygen requirements.
-Hgb dopped following addition of Heparin gtt 03/17/24. Consider starting Plavix 75 mg daily. Cont aspirin 81 mg daily
-GI consulted and they feel that anemia is due to chronic disease and that unless there is gross GIB that they will not pursue further. GI has signed off of the case. Heme/Onc is following and has ordered IV iron
-LDL 69 and outpatient dose of atorvastatin 40 mg daily has been continued
-New to Lopressor 25 mg PO q 6 hours, doses intermittently held due to hypotension.
-Patient was attempted to be diuresed with Lasix 40 mg IV daily, but now on hold. Only diuresed about 1 lb and no appreciable improvement in oxygenation.
-Remains on 40 L high flow with h/o 5-8 L NC continuously at home prior to admission
-Patient remains a full code and is being transferred to IMU
Progress Note - Svp
Subjective
Date of Service: March 19, 2024
No chest pain, he needs to move his bowels
Objective
Labs:
03/18/24 06:37
03/19/24 02:45
Labs
Hgb 9.1 g/dL (13.0-18.0) L 03/18/24 06:37
Hct 28.7 % (39.0-52.0) L 03/18/24 06:37
Plt Count 233 10^3/uL (130-400) 03/18/24 06:37
PT 14.2 Sec (11.4-14.6) 03/17/24 09:54
INR 1.12 03/17/24 09:54
APTT Cancelled 03/17/24 12:00
Sodium 145 mmol/L (135-145) 03/19/24 02:45
Potassium 3.8 mmol/L (3.5-5.1) 03/19/24 02:45
BUN 28 mg/dl (9-20) H 03/19/24 02:45
Creatinine 0.9 mg/dL (0.7-1.3) 03/19/24 02:45
Glucose 88 mg/dl (70-99) 03/19/24 02:45
Troponins
03/17/24 03/18/24
09:54 05:09
Troponin I 3.310 H* 2.890 H*
Vital Signs and I&O:
Vital Signs
Temp Pulse Resp BP Pulse Ox
98.4 F 71 20 130/67 95
03/19/24 11:40 03/19/24 11:17 03/19/24 11:40 03/19/24 07:44 03/19/24 11:40
Vital Signs
Temp Pulse Resp BP Pulse Ox
98.4 F 71 20 130/67 95
03/19/24 11:40 03/19/24 11:17 03/19/24 11:40 03/19/24 07:44 03/19/24 11:40
Intake & Output
03/17/24 03/18/24 03/19/24 03/20/24
06:59 06:59 06:59 06:59
Intake Total 474 / 474 650 / 650 340 / 340 150 / 150
Output Total 2100 / 2100 1150 / 1150 850 / 850
Balance -1626 / -1626 -500 / -500 -510 / -510 150 / 150
Physical Exam
Physical Exam
GEN: NAD. AAOx3
HEENT: MMM
LUNGS: Wearing high flow. No wheeze
CV: SR on tele
ABD: ND
EXT: No edema B/L
NEURO: Gross non-focal
SKIN: No rash
[2024-03-19 12:10] LABS: Glucose - Point of Care 159 mg/dl (70-99)
--- NOTE | 2024-03-19 12:15 | W.PN.HOSP.TC ---
Today's Communication/Plan
-
wean o2 as tolerate
IV steroids
abx
lasix per cards
tx out of IVU
Prognosis poor
Assessment / Plan
Assessment / Plan
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 Also had episodes of palpitations. In ED found troponin of 8, lactate of 5, placed on HFNC. EKG without ST elevation. Managed for NSTEMI, possible pneumonia and exacerbation of COPD/lung fibrosis overlap. Developed worsening
anemia
A/P:
#Acute on chronic hypoxic respiratory failure
#COPD exacerbation
#Pulmonary fibrosis
CTA chest
IV steroids solumedrol 40mg daily. Frequency decreased.
bronchodilators
Pulm consulted
HFNC and wean off to baseline as tolerated. Increase in FIO2 t0 65%.
#possible CAP
procalcitonin elevated, cont empiric Abx, suspect pneumonia due to new hypoxia and chronic lung disease
Legionella and s.pneumonia urinary Ag
Sputum Cx if possible
COVID-19, Influenza PCR neg
Blood culture negative so far.
MRSA POSITIVE. Cont vanc/cefepime for with plan to stop later today.
#NSTEMI
#Palpitations with sinus arrhythmia on tele
#Possible acute on chronic HFpEF exacerbation
Cardio consult
Cont asprin.
s/p hep gtt infusion.
cont statin - LDL 69
Started on lopressor 25mg q6h.
sublingual nitro PRN
cont BB
Lasix held for now
#PETE
High LDH with normal retics -hematology consult
Discuss with cardiology blood transfusion since patient is treated for NSTEMI - would favor keeping Hgb between 9-10, however concomitant concern for CHF might be prohibitive. Also patient w/o chest pain
serial H&H
GI consulted. No plan for procedure.
Started on IV iron per heme
PPI bid for now
#Elevated lactate
2/2 hypoxia
resolved
#HLD
cont home meds
#Essential HTN
BB for now.
#Anxiety d/o
cont SSRI
#AST elevation - improving
CPK minimally elevated
follow LFT
most likely 2/2 cardiac injury
DVT ppx scds
Full code
okay tx out IVU
Anticipated Discharge: > 48 hours
Subjective/Interval History
-
Date of Service: March 19, 2024
Remains on HFNC with increase oxygen requirement
tolerating diet
Objective Data
-
Labs:
Laboratory Results
03/19/24
02:45
Sodium 145
Potassium 3.8
Chloride 103
Carbon Dioxide 37 H
BUN 28 H
Creatinine 0.9
Glucose 88
Calcium 8.8
Vital Signs:
Vital Signs
Temp Pulse Resp BP Pulse Ox
98.4 F 71 20 130/67 95
03/19/24 11:40 03/19/24 11:17 03/19/24 11:40 03/19/24 07:44 03/19/24 11:40
I&O
03/18/24 03/19/24 03/20/24
06:59 06:59 06:59
Intake Total 650 / 650 340 / 340 150 / 150
Output Total 1150 / 1150 850 / 850
Balance -500 / -500 -510 / -510 150 / 150
Physical Exam
-
General: No Apparent Distress and Appears Chronically Ill
HEENT: Normocephalic, Atraumatic, Moist Mucous Membranes and Oxygen (HFNC )
Respiratory: Rhonchi; Negative Wheezes or Rales
Cardiac: Regular Rhythm and S1/S2
GI: Soft, Nontender, Nondistended and Normal Bowel Sounds
Musculoskeletal: No Clubbing and No Cyanosis
Skin: Other (L neck bruse, b/l UE bruises)
Neuro: Awake, Alert, Oriented and AO x 3
Psych: Calm
Data Reviewed
-
Total Time Spent with Patient (in minutes): 58
--- NOTE | 2024-03-19 12:21 | W.PN.PUL3 ---
Today's Communication / Plan
-
Not significantly improving despite IV steroids, lasix and abx
Remains on HFNC, his O2 requirements at baseline are rather high
We discussed palliative care/GOC today if he should not make further progress in terms of his O2 needs
He is currently full code
He will think about it
Assessment
-
78-year-old male with underlying CAD, PAD with stents, COPD/pulmonary fibrosis overlap taking care of at [facility] though he does want local care, chronic hypoxemia maintained on 5 L of oxygen at home, prednisone as well as Ofev who presented
with increasing shortness of breath and noted to be hypoxemic with elevated troponin-pulmonary consulted for pulmonary fibrosis/hypoxemia 03/16/2024.
COPD/pulmonary fibrosis overlap with mild acute exacerbation
Elevated troponin-peak 9.9
Acute diastolic CHF
Bronchitis versus early pneumonia-elevated procalcitonin
Elevated lactate
Mild dementia
MARIANO
Mild anemia-hemoglobin 8.6-normocytic
Hyperglycemia
Conditions present prior to admission:
Recent hospitalization 11/23/2023-fall and mild acute COPD/pulmonary fibrosis overlap exacerbation
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
Former jjqenn-48-hpjr-year-quit 48 years old.
Adrenal insufficiency.
Hypertension.
Hyperlipidemia.
PAD.
Old right cerebellar infarct.
CAD.
Mild dementia.
GERD.
Anxiety/depression.
Plan
Respiratory decompensation in this patient with advanced end-stage lung disease-COPD/pulmonary fibrosis overlap is likely mild over his baseline
Remains on HFNC now, weaning down
At baseline uses 5L at rest, at times up to 8L due to long cannula length at home
Unfortunately he has end-stage lung disease and thus the only hope of improving his current situation is if there is another reversible process such as ischemic CAD/CHF/infection as his lung disease will not improve-steroids have been initiated for
the potential of reversible inflammatory component
Remains unstable with episodes of chest tightness and shortness of breath aggravated by underlying anxiety-rapid response 03/17/2024
Supplemental oxygen as needed-maintained on high FiO2 oxygen at home-5 to 10 L
Nebulizers as needed-on DuoNebs
Solu-Medrol 60 mg IV every 6 hours initiated-fairly rapid taper-will reduce to 40 mg IV every 12 hours
Will change this to daily dose, prednisone taper eventually
Note: Prednisone 15 mg daily this is baseline
Patient is maintained on Ofev for his pulmonary fibrosis as an outpatient
Mucolytic's
Incentive spirometry
Flutter
BiPAP at night and during the daytime as tolerated
Cultures reviewed
Urine Legionella and streptococcal antigen negative
MRSA screen positive
Blood cultures negative
Last urine culture 02/17/2023-Enterococcus
Unable to produce sputum
Empiric antibiotics-vancomycin and cefepime initiated 03/15
Can likely stop abx tomorrow 03/19 (day 5)
ProBNP 3200
Continue to trend troponin
Cardiology evaluation ongoing-correspondence reviewed-reviewed with Dr. Michael Keyes-okay to try increased [id number]-[id number] for bronchospasm
Heparin initiated
Continue diuresis as tolerated--agree with IV dosing
Monitor renal function, electrolytes, intake/output, lower extremity edema and weight
Replace electrolytes as needed
Speech therapy evaluation if needed
Physical therapy and Occupational Therapy evaluation
Follow hemoglobin
Transfuse if needed
DVT prophylaxis-on heparin drip
GI prophylaxis-on pantoprazole
Nutrition
Early mobilization/physical therapy
Outpatient pulmonary follow-up recommended-he has end-stage lung disease
Most recently followed by Dr. De Dios at [facility] and maintained on nebulizers as well as Ofev and oxygen
Hospice has been discussed in the past, I discussed with him again what he would want if he made little to no progress on weaning O2
He remains full code
Diagnostic data:
Chest x-ray 02/12/2023-increased reticulonodular markings suggestive of interstitial fibrosis, slight blunting left costophrenic angle
Chest x-ray 02/19/2023-extremely limited because of low lung volumes
Chest x-ray 11/22/2023-pronounced reticular interstitial thickening related to interstitial fibrosis, no significant pleural effusions or pneumothorax
Chest x-ray 03/15/2024-bilateral interstitial opacifications without acute process
Lower extremity ultrasound 07/05/2021-no evidence for lower extremity venous thrombosis
CT head 11/22/2023-no acute intracranial abnormalities, mild atrophy and mild chronic small vessel changes, old right sella Owsley infarct, no significant changes compared to prior study 02/12/2023
CT chest 03/15/2024-no CT evidence for PE, chronic severe pulmonary fibrosis and emphysema, severe coronary artery and aortic valve calcifications
Subjective Data
-
Date of Service:
Date of Service: March 19, 2024
Chief Complaint: Pulmonary Follow Up and Dyspnea Follow Up
Subjective:
No acute events ON, remains on HFNC--satting 88%
Feels the same level of SOB, not improved
Dyspneic with conversation
Objective Data
Data Reviewed
Vital Signs / I&O / Oxygen:
Vital Signs
Temp Pulse Resp BP Pulse Ox
98.4 F 71 20 130/67 95
03/19/24 11:40 03/19/24 11:17 03/19/24 11:40 03/19/24 07:44 03/19/24 11:40
Intake and Output
03/18/24 03/19/24 03/20/24
06:59 06:59 06:59
Intake Total 650 / 650 340 / 340 150 / 150
Output Total 1150 / 1150 850 / 850
Balance -500 / -500 -510 / -510 150 / 150
SaO2 95
Nasal Cannula flow liters per 50
minute
Physical Exam
General: Respiratory Distress (n) and Comfortable
HEENT: Normocephalic, Anicteric and Moist Mucous Membranes
Cardiovascular: Regular Rhythm and Murmur
Respiratory: Wheeze (Forced end expiratory), Crackles (Bilateral shelter up posteriorly), Rhonchi (n), Non-Labored Respirations, Accessory Resp Muscle Use (n) and Stridor (n)
GI: Soft, Non Distended and Non Tender
Neurology: Awake, Alert, Oriented, AO x 3 and No Motor Deficits
Skin: Warm, Good Color, Cyanosis (n), Jaundice (n) and Rash (n)
Labs/Micro/Reports
Lab Data
03/18/24 06:37
03/19/24 02:45
Microbiology
03/15/24 17:11 Blood/Venous Blood Culture - Preliminary
No Growth in 72 hours- Final report to follow
03/15/24 16:56 Blood/Venous Blood Culture - Preliminary
No Growth in 72 hours- Final report to follow
03/15/24 22:19 Nose MRSA Screen - Final
Staph aureus MRSA
03/16/24 10:07 Urine Legionella Urinary Antigen - Final
Negative for Legionella pneumophila Serogroup 1 antigen.
A negative result does not rule out the possiblity of
Legionella infection due to other serogroups or species of
Legionella. Clinical correlation is recommended.
03/16/24 10:07 Urine Streptococcus pneumoniae Antigen (M - Final
Negative for Streptococcus pneumoniae antigen.
A negative result does not exclude infection with
Streptococcus pneumoniae. Clinical correlation is
recommended.
--- NOTE | 2024-03-19 12:49 | PN.CDI ---
CDI
- -
CDI:
Physician Documentation Request
Admit Date: 03/15/24 18:53
Dear Doctor Cortes,
Please review the following and provide your response in the progress notes.
Clinical Indicators:
PN, 03/19
#Elevated lactate
#...2/2 hypoxia
#...resolved
Laboratory Tests
03/15/24 03/15/24 03/17/24
16:56 21:07 09:53
Lactic Acid 5.0 H* 1.5 4.5 H*
03/17/24
13:48
Lactic Acid 3.0 H
Based on the above and your clinical assessment, please clarify the diagnosis/condition, that supports the above abnormalities and additional evaluation, monitoring and/or treatment rendered:
Lactic acidosis
Abnormal lab value, clinically insignificant
Other(please specify)
Use of terms such as suspected, likely, concern for, or probable (associated with a specific diagnosis that is being evaluated, monitored, or treated as if it exists) are acceptable and can be coded in the inpatient setting, when documented at the
time of discharge.
Thank you,
Sis Elliott RN BSN CCDS
CDI Specialist
please contact via tiger text
Please use your independent medical judgment in providing your response.
[2024-03-19] MEDS: NOVOLOG FLEXPEN-LOW RESISTANCE 1 UNITS SC ×2 (12:54→17:16)
[2024-03-19] MEDS: FERRLECIT 110 MG IV (14:22)
--- NOTE | 2024-03-19 14:42 | TRANSFER ---
Patient transferred to IMU. Report given to Shabnam CUNHA. Patient transported with Respiratory therapist to manage high flow. VSS. Patient A&Ox3. O2 95% High flow 50/65%.
--- NOTE | 2024-03-19 14:51 | PTCARENOTE ---
Received patient into room 3344 from IVU. Patient oriented x2, disoriented to month. Lungs with crackles at bases, he is tachypneic, GRUBBS and orthopneic. He is on HFNC 50L/65%. Heart regular, SR on monitor. CC #21 replaced on arrival to IMU. All
wound dressings intact, pt's sacrum blanchable. Assessment, care and VS as charted.
[2024-03-19 16:58] LABS: Glucose - Point of Care 181 mg/dl (70-99)
[2024-03-19] MEDS: NON-FORMULARY ITEM 150 MG PO (19:38)
--- NOTE | 2024-03-19 21:45 | PTCARENOTE ---
Received patient AAOx2, following commands, denying pain. Normal sinus 60s, BP stable, normothermic. On HFNC, 50 L, 65%, saturating 94-96%. Lung sounds diminished throughout, crackles in the bases bilaterally. Condom cath #[address] draining
yellow urine. Foams throughout extremities for skin tears/wounds, CDI. PIV patent, WNL. Call anderson within reach.
[2024-03-19 23:07] LABS: Glucose - Point of Care 129 mg/dl (70-99)
[2024-03-20] VITALS (13 sets, daily range): BP systolic 110–160; BP diastolic 55–110; BMI 23.6
[2024-03-20] MEDS: ATIVAN PO (03:04)
[2024-03-20] MEDS: ATIVAN 0.5 MG PO (03:06)
[2024-03-20 04:36] LABS: % Basophils 0.1 % (0-2); % Eosinophils 1.2 % (0-6); % Immature Granulocytes 0.5 % (0-0.5); % Lymphocytes 8.1 % (20.5-51.1); % Monocytes 6.6 % (1.7-9.3); % Neutrophils 83.5 % (42.2-75.2); Absolute Eosinophils 0.1 10^3/uL (0-0.7); Absolute Immature Granulocytes 0.1 10^3/uL (0-0.05); Absolute Lymphocytes 0.8 10^3/uL (1.2-3.4); Absolute Monocytes 0.7 10^3/uL (0.1-0.6); Absolute Neutrophils 8.7 10^3/uL (1.4-6.5); Hematocrit 30.5 % (39.0-52.0); Hemoglobin 9.7 g/dL (13.0-18.0); Mean Corp Hgb Conc. 31.8 g/dL (33.0-37.0); Mean Corpuscular Hgb 27.6 pg (27.0-31.0); Mean Corpuscular Volume 86.6 fL (80.0-94.0); Mean Platelet Volume 9.8 fL (7.4-10.4); Nucleated Red Blood Cells % 0 % (-); Platelet Count 225 10^3/uL (130-400); Red Blood Cell Count 3.52 10^6/uL (4.70-6.10); White Blood Cell Count 10.4 10^3/uL (4.8-10.8)
[2024-03-20 05:02] LABS: Blood Urea Nitrogen 29 mg/dl (9-20); Calcium 9.1 mg/dl (8.4-10.2); Carbon Dioxide 31 mmol/L (22-30); Chloride 104 mmol/L (98-107); Estimated Creatinine Clearance 72 ml/min; Glucose 99 mg/dl (70-99); Potassium 4.3 mmol/L (3.5-5.1); Sodium 140 mmol/L (135-145); eGFR > 60.00
[2024-03-20] MEDS: LOPRESSOR 25 MG PO ×3 (05:55→18:39)
[2024-03-20] MEDS: VANCOCIN 275 MG IV (05:57)
[2024-03-20] MEDS: DUONEB 3 ML INH ×4 (07:22→19:23)
[2024-03-20 07:31] LABS: Glucose - Point of Care 90 mg/dl (70-99)
--- NOTE | 2024-03-20 09:17 | PHA.VAN.FU ---
Vancomycin Assessment / Plan
- Assessment
Renal Function: Stable
WBC's are: WNL
In the past 24 hrs, patient has been: Afebrile
Concomitant Antimicrobials: cefepime
- Dosing Plan
Continue: Vanc 1250mg Q24H
- Monitoring Plan
No level(s) ordered at this time: consider levels in next few days
- Follow Up
Pharmacy will continue to follow.
Vancomycin Follow UP
- -
Patient Age: 78
Patient Sex: Male
Vancomycin Day #: 6
Indication: Pulmonary/Respiratory
Requesting Provider: Dr. Sanabria
Pertinent Antimicrobial Allergies:
ciprofloxacin - Rash
Height / Weight:
Height 5 ft 9 in
Actual Weight 72.4 kg
Pertinent Past Medical History: COPD (home O2)
- Vital Signs / Lab Results
Temp Pulse Resp BP Pulse Ox
97.9 F 66 18 152/86 95
03/20/24 09:11 03/20/24 07:26 03/20/24 07:26 03/20/24 05:56 03/20/24 07:27
Lab Results - Hematology
03/17/24 03/17/24 03/18/24
05:16 09:53 06:37
WBC 7.5 8.5 10.2
03/20/24
04:16
WBC 10.4
Lab Results - Chemistry
03/17/24 03/18/24 03/19/24
09:54 05:09 02:45
BUN 29 H 31 H 28 H
Creatinine 0.8 0.8 0.9
Estimated Creat Clear 72 72 64
Albumin 3.2 L 3.2 L 3.0 L
03/20/24
04:16
BUN 29 H
Creatinine 0.8
Estimated Creat Clear 72
Albumin
03/17/24 03/17/24
09:53 13:48
Lactic Acid 4.5 H* 3.0 H
Microbiology Results
03/15/24 17:11 Blood Culture - Preliminary
Blood/Venous No Growth in 4 days- Final report to follow
03/15/24 16:56 Blood Culture - Preliminary
Blood/Venous No Growth in 4 days- Final report to follow
Therapeutic Drug Monitoring
Vancomycin Peak 24.9 ug/ml (18-26) 03/17/24 20:36
Vancomycin Trough 16.3 ug/ml (5-20) 03/18/24 05:09
[2024-03-20] MEDS: NOVOLOG FLEXPEN-LOW RESISTANCE SC ×2 (10:00→12:15)
[2024-03-20] MEDS: LOW STRENGTH ASPIRIN 81 MG PO (10:01)
[2024-03-20] MEDS: LIPITOR 40 MG PO (10:01)
[2024-03-20] MEDS: TESSALON PERLES 200 MG PO ×3 (10:01→19:21)
[2024-03-20] MEDS: NEURONTIN 100 MG PO ×3 (10:01→19:21)
[2024-03-20] MEDS: ZOLOFT 50 MG PO (10:02)
[2024-03-20] MEDS: PROTONIX IV 40 MG IV ×2 (10:02→19:22)
[2024-03-20] MEDS: SOLU-MEDROL PF 40 MG IV (10:02)
[2024-03-20] MEDS: CLARITIN 10 MG PO (10:02)
[2024-03-20] MEDS: NSS (PRESERVATIVE FREE) 10 ML IV ×2 (10:02→19:22)
[2024-03-20] MEDS: NON-FORMULARY ITEM 150 MG PO ×2 (10:03→19:21)
[2024-03-20] MEDS: MEPRON SUSPENSION 1500 MG PO (10:03)
[2024-03-20] MEDS: MAXIPIME 2000 MG IV ×2 (10:10→16:01)
[2024-03-20] MEDS: STERILE WATER FOR INJECTION 10 ML IV ×2 (10:10→16:02)
--- NOTE | 2024-03-20 10:42 | W.PN.CARDCBS ---
Addendum entered and electronically signed by Juan Mejia MD 03/20/24 12:14:
I saw and examined the patient.
The [employer] or PA's note was reviewed and I agree with the note.
Comment: General: Well developed, well nourished in NAD.
Neck: Supple, no JVD, HJR, carotids +2 B/L, no bruits bilaterally.
Heart: Non displaced PMI, RRR, no murmurs, No S3, S4, no rubs.
Lungs: Scattered rhonchi throughout
Extremities: No clubbing, cyanosis or edema bilaterally.
Neuro: Grossly nonfocal, awake, alert and oriented x3.
He remains severely hypoxic. Presumably this is mostly pulmonary. However we will try Lasix again and assess response. Will also try adding Plavix 75 mg daily to see if anemia worsens. Is unclear whether he would ever be a candidate for Cna Per Diem
given severe hypoxia at present and at baseline and medical therapy may be more appropriate with normal ejection fraction.
Original Note:
Today's Communication / Plan
-
Will make another attempt at diuresis with Lasix 40 mg IV BID starting now
Will try adding Plavix 75 mg daily and follow stools and Hgb
Impression / Plan
-
PCP: Dr. Javon Carlos
Cardiology: Dr. Maldonado at [facility], last seen 2021,
Pulm: Dr. Bhatti [phone]
Impression:
Admitted with acute on chronic hypoxemic respiratory failure 03/15/24
AE COPD
Possible PNA
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
Chest pain
NSTEMI with peak troponin of 9.9 this admission
Possible acute HFpEF
Elevated lactic acid level
CAD
s/p LAD and RCA stents in 1997
History of PVD status post lower extremity revascularization procedures
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
FORM CARPENTER and stent RLE 1997
Hypertension
Hypercholesterolemia
GERD
Anemia
Hyperglycemia
Right bundle branch block
Lexiscan nuclear stress test 01/2020: [facility] study, normal perfusion
Echo 03/18/24: EF 55%, mild inferior, inferolateral hypokinesis, mild MR, mild to moderate AAS without regurgitation peak/mean 35/22 mmHg with ANYI 1.1 cm sq
Plan:
-Remains on high flow at 50 L. Pulm and hospitalist notes reviewed.
-pro-BNP was 1260 on admission 03/15/24. Patient was diuresed with Lasix 40 mg IV daily on 03/16, 03/17 and 03/18/24. pro-BNP checked again on 03/17/24 and increased to 3200. Lasix stopped 03/18/24. Will attempt to diurese again with Lasix 40 mg IV BID
starting now. Will follow labs and VS
-Troponin peaked at 9.92, will manage as a NSTEMI given chest pain, ECG changes and WMA. Patient is high risk for invasive management given heme positive anemia and high flow oxygen requirements.
-Patient with known CAD and previous LAD and RCA stents from 1997. Patient with reportedly normal perfusion at last known ischemic evaluation in 2019
-Echo noted above with inferior and inferolateral hypokinesis, but overall preserved EF.
-Hgb dopped following addition of Heparin gtt 03/17/24. GI saw the patient and signed off, no work-up planned unless patient develops gross GIB. Will add Plavix 75 mg daily starting 03/20/24. Cont aspirin 81 mg daily
-LDL 69 and outpatient dose of atorvastatin 40 mg daily has been continued
-New to Lopressor 25 mg PO q 6 hours, doses intermittently held due to hypotension.
-Patient remains a full code and is now in IMU
HPI: Miller has a history of severe pulmonary fibrosis on 5 to 8 L of oxygen chronically (followed by pulmonary at [facility] and possibly due to ink exposure), CAD status post stents in 1997 at [facility], peripheral vascular disease status post
peripheral stents, reflux, hypertension, hypercholesterolemia. At baseline he is on 5 to 8 L of oxygen. He had a lesion removed from his right ear on 03/13/2024. He became progressively more short of breath and had palpitations. In the ER he was
in respiratory distress. He is found to have a troponin of 8 with lactate of 5 and was placed on nonrebreather then BiPAP. At the present time he feels better. He denies chest discomfort.
Progress Note - Director Writing
Subjective
Date of Service: March 20, 2024
No recurrence of chest pain
Objective
Labs:
03/20/24 04:16
03/20/24 04:16
Labs
Hgb 9.7 g/dL (13.0-18.0) L 03/20/24 04:16
Hct 30.5 % (39.0-52.0) L 03/20/24 04:16
Plt Count 225 10^3/uL (130-400) 03/20/24 04:16
PT 14.2 Sec (11.4-14.6) 03/17/24 09:54
INR 1.12 03/17/24 09:54
APTT Cancelled 03/17/24 12:00
Sodium 140 mmol/L (135-145) 03/20/24 04:16
Potassium 4.3 mmol/L (3.5-5.1) 03/20/24 04:16
BUN 29 mg/dl (9-20) H 03/20/24 04:16
Creatinine 0.8 mg/dL (0.7-1.3) 03/20/24 04:16
Glucose 99 mg/dl (70-99) 03/20/24 04:16
Troponins
03/17/24 03/18/24
09:54 05:09
Troponin I 3.310 H* 2.890 H*
Vital Signs and I&O:
Vital Signs
Temp Pulse Resp BP Pulse Ox
97.9 F 70 18 132/55 94
03/20/24 09:11 03/20/24 10:00 03/20/24 10:00 03/20/24 10:00 03/20/24 10:00
Vital Signs
Temp Pulse Resp BP Pulse Ox
97.9 F 70 18 132/55 94
03/20/24 09:11 03/20/24 10:00 03/20/24 10:00 03/20/24 10:00 03/20/24 10:00
Intake & Output
03/18/24 03/19/24 03/20/24 03/21/24
06:59 06:59 06:59 06:59
Intake Total 650 / 650 340 / 340 1015 / 1015
Output Total 1150 / 1150 850 / 850 1200 / 1200
Balance -500 / -500 -510 / -510 -185 / -185
Physical Exam
Physical Exam
GEN: NAD. AAOx3
HEENT: MMM
LUNGS: Wearing high flow. No wheeze
CV: SR on tele
ABD: ND
EXT: No edema B/L
NEURO: Gross non-focal
SKIN: No rash
--- NOTE | 2024-03-20 11:35 | W.PN.PUL3 ---
Today's Communication / Plan
-
Worsening clinically, increasing HFNC requirements
Can stop CFP (completed 5 days), vanc continued for MRSA
Steroids can be resumed IV while clinically worsened
Diuresis ongoing per team
Daughter at bedside, we reviewed prognosis
Agree to DNR status and are open to hospice discussions, consult placed
Assessment
-
78-year-old male with underlying CAD, PAD with stents, COPD/pulmonary fibrosis overlap taking care of at [facility] though he does want local care, chronic hypoxemia maintained on 5 L of oxygen at home, prednisone as well as Ofev who presented
with increasing shortness of breath and noted to be hypoxemic with elevated troponin-pulmonary consulted for pulmonary fibrosis/hypoxemia 03/16/2024.
COPD/pulmonary fibrosis overlap with mild acute exacerbation
Elevated troponin-peak 9.9
Acute diastolic CHF
Bronchitis versus early pneumonia-elevated procalcitonin
Elevated lactate
Mild dementia
MARIANO
Mild anemia-hemoglobin 8.6-normocytic
Hyperglycemia
Conditions present prior to admission:
Recent hospitalization 11/23/2023-fall and mild acute COPD/pulmonary fibrosis overlap exacerbation
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
Former [id number]-year-quit 48 years old.
Adrenal insufficiency.
Hypertension.
Hyperlipidemia.
PAD.
Old right cerebellar infarct.
CAD.
Mild dementia.
GERD.
Anxiety/depression.
Plan
Respiratory decompensation in this patient with advanced end-stage lung disease-COPD/pulmonary fibrosis overlap is likely mild over his baseline
Remains on HFNC now, worsening clinically
At baseline uses 5L at rest, at times up to 8L due to long cannula length at home
Unfortunately he has end-stage lung disease and thus the only hope of improving his current situation is if there is another reversible process such as ischemic CAD/CHF/infection as his lung disease will not improve-steroids have been initiated for
the potential of reversible inflammatory component
Daughter is aware his prognosis is poor
Remains unstable with episodes of chest tightness and shortness of breath aggravated by underlying anxiety-rapid response 03/17/2024
Supplemental oxygen as needed-maintained on high FiO2 oxygen at home-5 to 10 L
Nebulizers as needed-on DuoNebs
Solu-Medrol 60 mg IV every 6 hours initiated-fairly rapid taper-will reduce to 40 mg IV every 12 hours
Can continue IV while patient's clinical condition is worsening
Patient is maintained on Ofev for his pulmonary fibrosis as an outpatient
Mucolytic's
Incentive spirometry
Flutter
BiPAP at night and during the daytime as tolerated
Cultures reviewed
Urine Legionella and streptococcal antigen negative
MRSA screen positive
Blood cultures negative
Last urine culture 02/17/2023-Enterococcus
Unable to produce sputum
Empiric antibiotics-vancomycin and cefepime initiated 03/15
Can likely stop CFP tomorrow 03/19 (day 5)
Can continued, MRSA +
ProBNP 3200
Continue to trend troponin
Cardiology evaluation ongoing-correspondence reviewed-reviewed with Dr. Michael Keyes-okay to try increased [id number] for bronchospasm
Heparin initiated
Continue diuresis as tolerated--agree with IV dosing
Monitor renal function, electrolytes, intake/output, lower extremity edema and weight
Replace electrolytes as needed
Speech therapy evaluation if needed
Physical therapy and Occupational Therapy evaluation
Follow hemoglobin
Transfuse if needed
DVT prophylaxis-on heparin drip
GI prophylaxis-on pantoprazole
Nutrition
Early mobilization/physical therapy
Outpatient pulmonary follow-up recommended-he has end-stage lung disease
Most recently followed by Dr. De Dios at [facility] and maintained on nebulizers as well as Ofev and oxygen
Family Discussions
Viktoriya 03/20/24 - Spoke to patient and daughter today regarding prognosis they know his condition is non-reversible and agree he should be DNR. We then discussed his chances of survival on this admission which is low. Saughter aware and are likely to
enroll into hospice but need to decide. They were agreeable to consult.
03/19/24 Hospice has been discussed in the past, I discussed with him again what he would want if he made little to no progress on weaning O2
Diagnostic data:
Chest x-ray 02/12/2023-increased reticulonodular markings suggestive of interstitial fibrosis, slight blunting left costophrenic angle
Chest x-ray 02/19/2023-extremely limited because of low lung volumes
Chest x-ray 11/22/2023-pronounced reticular interstitial thickening related to interstitial fibrosis, no significant pleural effusions or pneumothorax
Chest x-ray 03/15/2024-bilateral interstitial opacifications without acute process
Lower extremity ultrasound 07/05/2021-no evidence for lower extremity venous thrombosis
CT head 11/22/2023-no acute intracranial abnormalities, mild atrophy and mild chronic small vessel changes, old right sella [place] infarct, no significant changes compared to prior study 02/12/2023
CT chest 03/15/2024-no CT evidence for PE, chronic severe pulmonary fibrosis and emphysema, severe coronary artery and aortic valve calcifications
-----
Time spent on this encounter including review of data, events, imaging is 55 minutes. This also includes family discussions.
Subjective Data
-
Date of Service:
Date of Service: March 20, 2024
Chief Complaint: Pulmonary Follow Up and Dyspnea Follow Up
Subjective:
transferred to IMU for worsening hypoxemia
now on HFNC
daughter at bedside
patient now wants to be DNR
Objective Data
Data Reviewed
Vital Signs / I&O / Oxygen:
Vital Signs
Temp Pulse Resp BP Pulse Ox
98.3 F 69 20 132/55 95
03/20/24 11:25 03/20/24 11:23 03/20/24 11:23 03/20/24 10:00 03/20/24 11:23
Intake and Output
03/19/24 03/20/2424
06:59 06:59 06:59
Intake Total 340 / 340 1015 / 1015
Output Total 850 / 850 1200 / 1200
Balance -510 / -510 -185 / -185
SaO2 95
Nasal Cannula flow liters per 50
minute
Physical Exam
General: Respiratory Distress (n) and Comfortable
HEENT: Normocephalic, Anicteric and Moist Mucous Membranes
Cardiovascular: Regular Rhythm and Murmur
Respiratory: Wheeze (Forced end expiratory), Crackles (Bilateral penitentiary up posteriorly), Rhonchi (n), Non-Labored Respirations, Accessory Resp Muscle Use (n) and Stridor (n)
GI: Soft, Non Distended and Non Tender
Neurology: Awake, Alert, Oriented, AO x 3 and No Motor Deficits
Skin: Warm, Good Color, Cyanosis (n), Jaundice (n) and Rash (n)
Labs/Micro/Reports
Lab Data
03/20/24 04:16
03/20/24 04:16
Microbiology
03/15/24 17:11 Blood/Venous Blood Culture - Preliminary
No Growth in 4 days- Final report to follow
03/15/24 16:56 Blood/Venous Blood Culture - Preliminary
No Growth in 4 days- Final report to follow
03/15/24 22:19 Nose MRSA Screen - Final
Staph aureus MRSA
--- NOTE | 2024-03-20 11:50 | PTOTSP ---
Dysphagia Evaluation
Patient presents with an unspecified pharyngeal dysphagia, signs of aspiration with consecutive sips of thin liquids, and elevated risk for decreased breathing/swallowing coordination and aspiration given current respiratory status (on 50 LMP HFNC)
and comorbidities (i..e, chronic COPD/pulmonary fibrosis with dementia).
Discussed risks with patient and medical team (as patient noted to be confused this morning). If opting to continue an oral diet understanding aspiration risks, consider diet below. Alternate 'safest' option would be NPO. Continued GOC discussion
about dysphagia/aspiration risks warranted given end-stage lung disease.
Recommend:
1. NPO vs IDDSI Level 6 Soft/Bite Sized and Thin Liquids (understanding aspiration risks/complications)
2. Medications - whole and/or crushed in puree
3. Strategies: upright to 90 degrees, full supervision with assistance as needed, small single sips/bites, slow rate with breaks for breathing, hold PO if RR >30 or SpO2 <90%
4. Oral care 3x daily
5. Dysphagia therapy at the acute care level pending GOC
6. Consider video swallow study if/when respiratory status appropriate to leave the floor pending GOC
[2024-03-20 11:56] LABS: Glucose - Point of Care 125 mg/dl (70-99)
[2024-03-20] MEDS: LASIX 40 MG IV ×2 (12:21→18:40)
[2024-03-20] MEDS: PLAVIX 75 MG PO (12:22)
[2024-03-20] MEDS: FERRLECIT 110 MG IV (13:33)
--- NOTE | 2024-03-20 13:57 | HOSPNOTE ---
Addendum entered by Lulú Castillo RN 03/20/24 15:00:
Spoke with son Miller and explained hospice and the philosophy. Miller will be in this evening and will discuss hospice. Miller will call me tomorrow with an answer. Will await phone call tomorrow.
Original Note:
Met with patient and daughter and explained hospice and the philosophy. The plan is to meet again tomorrow to help guide and make decisions. The patient would need to remain inpatient hospice. More information to follow.
--- NOTE | 2024-03-20 14:32 | CM ---
Patient with Dx Acute on chronic hypoxic respiratory failure, COPD exacerbation. High flow O2. Dysphagia diet. Receiving IV Abx, IV Fe Sodium Gluconate, IV Lasix, IV Steroids.
CNM Consult: Hospice
Met with patient and daughter Rosalind was present.
Attempted to explain hospice philosophy & benefits; patient receptive but daughter was agitated, kept interrupting and stated she didn't want to discuss.
Patient agreed to speak with hospice nurse.
Met with patient after his daughter left, and SO Wilma was present; patient clearly stated he wishes his primary contact to be his son Miller Coreas Jr who is POA [phone]. His SO explained that for the past 15 years that the patient & SO were
together, after their spouses , that the 2 daughters were not civil to Wilma. The patient added that he has no contact with his other daughter.
Spoke with patient's son Miller Torres;
explained hospice philosophy & benefits.
He asked if his father would be able to go home with hospice, as he is aware that the patient would really like that. Explained that his father is on high flow O2 at present and he would not be able to get high flow O2 at home.
Miller agrees to speaking with hospice nurse.
Message to [facility] about referral and son as the updated primary contact.
Plan follow up after family meets with Hospice tomorrow.
--- NOTE | 2024-03-20 14:37 | W.PN.HOSP.TC ---
Today's Communication/Plan
-
diet downgraded
IV lasix
IV vanc
IV steroids
wean o2 as tolerated
prognosis poor
Assessment / Plan
Assessment / Plan
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 Also had episodes of palpitations. In ED found troponin of 8, lactate of 5, placed on HFNC. EKG without ST elevation. Managed for NSTEMI, possible pneumonia and exacerbation of COPD/lung fibrosis overlap. Developed worsening
anemia
A/P:
#Acute on chronic hypoxic respiratory failure likely multifactorial due to COPD and pulmonary fibrosis exacerbation, pneumonia, acute on chronic diastolic heart failure exacerbation
#COPD exacerbation
#Pulmonary fibrosis
CTA chest
IV steroids solumedrol 40mg daily. Frequency decreased.
bronchodilators
Pulm consulted
HFNC and wean off to baseline as tolerated. Increase in FIO2 t0 65%.
#possible CAP
procalcitonin elevated, cont empiric Abx, suspect pneumonia due to new hypoxia and chronic lung disease
Legionella and s.pneumonia urinary Ag
Sputum Cx if possible
COVID-19, Influenza PCR neg
Blood culture negative so far.
MRSA POSITIVE. Continue Vancomycin
Cefepime DCed later today. Completed 5d coruse.
#Dysphagia
?silent aspiration
Diet downgraded to IDDS6-understands aspiration risk. Code status DNR.
#NSTEMI
#Palpitations with sinus arrhythmia on tele
#Possible acute on chronic HFpEF exacerbation
Cardio consult
Cont asprin.
s/p hep gtt infusion.
cont statin - LDL 69
Started on lopressor 25mg q6h.
sublingual nitro PRN
cont BB
Restarted in IV lasix 40mg BID
Plavix started- trend hgb closely.
#PETE
High LDH with normal retics -hematology consult
Discuss with cardiology blood transfusion since patient is treated for NSTEMI - would favor keeping Hgb between 9-10, however concomitant concern for CHF might be prohibitive. Also patient w/o chest pain
serial H&H
GI consulted. No plan for procedure.
Started on IV iron per heme
PPI bid for now
# Lactic acidosis likely in the setting of severe hypoxemia and CHF exacerbation
No need to further trend.
#HLD
cont home meds
#Essential HTN
BB for now.
#Anxiety d/o
cont SSRI
#AST elevation - improving
CPK minimally elevated
follow LFT
most likely 2/2 cardiac injury
DVT ppx scds
DNR/DNI
d/w with daughter at bedside in details on 03/20/24. terminal manager prognosis poor. Hospice recommended.
d/w with Pulm
Anticipated Discharge: > 48 hours
Subjective/Interval History
-
Date of Service: March 20, 2024
worsening of o2 requirement
Objective Data
-
Labs:
Laboratory Results
03/20/24
04:16
WBC 10.4
Hgb 9.7 L
Hct 30.5 L
Plt Count 225
Sodium 140
Potassium 4.3
Chloride 104
Carbon Dioxide 31 H
BUN 29 H
Creatinine 0.8
Glucose 99
Calcium 9.1
Vital Signs:
Vital Signs
Temp Pulse Resp BP Pulse Ox
98.3 F 60 22 129/67 96
03/20/24 11:25 03/20/24 14:00 03/20/24 14:00 03/20/24 14:00 03/20/24 14:00
I&O
03/19/24 03/20/24 03/21/24
06:59 06:59 06:59
Intake Total 340 / 340 1015 / 1015
Output Total 850 / 850 1200 / 1200 1675 / 1675
Balance -510 / -510 -185 / -185 -1675 / -1675
Data Reviewed
-
Total Time Spent with Patient (in minutes): 57
[2024-03-20] MEDS: NOVOLOG FLEXPEN-LOW RESISTANCE 2 UNITS SC (16:13)
[2024-03-20 16:22] LABS: Glucose - Point of Care 207 mg/dl (70-99)
[2024-03-20 21:28] LABS: Glucose - Point of Care 174 mg/dl (70-99)
[2024-03-21] VITALS (13 sets, daily range): BP systolic 107–142; BP diastolic 51–70; BMI 22.3
[2024-03-21] MEDS: LOPRESSOR 25 MG PO ×2 (00:07→06:02)
[2024-03-21 04:08] LABS: % Basophils 0.2 % (0-2); % Eosinophils 1.1 % (0-6); % Immature Granulocytes 0.7 % (0-0.5); % Lymphocytes 10.2 % (20.5-51.1); % Monocytes 6.2 % (1.7-9.3); % Neutrophils 81.6 % (42.2-75.2); Absolute Eosinophils 0.1 10^3/uL (0-0.7); Absolute Immature Granulocytes 0.1 10^3/uL (0-0.05); Absolute Lymphocytes 1.1 10^3/uL (1.2-3.4); Absolute Monocytes 0.7 10^3/uL (0.1-0.6); Absolute Neutrophils 8.7 10^3/uL (1.4-6.5); Hematocrit 34.6 % (39.0-52.0); Hemoglobin 10.9 g/dL (13.0-18.0); Mean Corp Hgb Conc. 31.5 g/dL (33.0-37.0); Mean Corpuscular Hgb 27.2 pg (27.0-31.0); Mean Corpuscular Volume 86.3 fL (80.0-94.0); Mean Platelet Volume 9.9 fL (7.4-10.4); Nucleated Red Blood Cells % 0.3 % (-); Platelet Count 252 10^3/uL (130-400); Red Blood Cell Count 4.01 10^6/uL (4.70-6.10); White Blood Cell Count 10.7 10^3/uL (4.8-10.8)
[2024-03-21 04:36] LABS: Blood Urea Nitrogen 38 mg/dl (9-20); Calcium 9.2 mg/dl (8.4-10.2); Carbon Dioxide 34 mmol/L (22-30); Chloride 100 mmol/L (98-107); Estimated Creatinine Clearance 47 ml/min; Glucose 106 mg/dl (70-99); Potassium 3.9 mmol/L (3.5-5.1); Sodium 143 mmol/L (135-145); eGFR > 60.00
[2024-03-21] MEDS: VANCOCIN 275 MG IV (06:00)
[2024-03-21] MEDS: DUONEB 3 ML INH ×4 (07:05→20:01)
[2024-03-21 08:21] LABS: Glucose - Point of Care 99 mg/dl (70-99)
--- NOTE | 2024-03-21 08:30 | PTCARENOTE ---
Patient received from hourly shift manager. Patient resting comfortably in bed. AAOx1-2, VSS. No events noted overnight. No complaints of pain at this time. Patient remains on HighFlow N/C 50L @ 70% with NRB PRN. Hospice talks are still questionable at
this time. Some family at bedside. Call anderson in reach.
[2024-03-21] MEDS: NOVOLOG FLEXPEN-LOW RESISTANCE SC ×2 (08:41→12:54)
--- NOTE | 2024-03-21 08:51 | W.PN.CARDCBS ---
Addendum entered and electronically signed by Javon Godinez MD 03/21/24 09:33:
I saw and examined the patient.
The [employer] Captain's note was reviewed and I agree with the note.
Comment:
GEN: No distress, awake, Ox3
HEENT: supple, anicteric, mmm
LUNGS: bilat rhonchi
CV: Reg, S1/S2, 1/6 syst LSB, S4+
ABD: soft, BS+, NT/ND
EXT: No edema
NEURO: Gross non-focal
SKIN: No rash
PLan:
He has diuresed well with IV Lasix. Will continue Lasix 40 mg IV twice daily. Creatinine is up to 1.2 and will need to continue to follow.
He remains on high flow oxygen. Continue treatments for COPD and pneumonia.
At this point we will continue to treat non-STEMI conservatively. Continue aspirin, Plavix, metoprolol, and atorvastatin
Aortic stenosis remains in the moderate range.
Original Note:
Today's Communication / Plan
-
Cont Lasix 40 mg IV BID
Adding KCl 20 meq daily
Impression / Plan
-
PCP: Dr. Javon Carlos
Cardiology: Dr. Maldonado at [facility], last seen 2021,
Pulm: Dr. Bhatti [phone]
Impression:
Admitted with acute on chronic hypoxemic respiratory failure 03/15/24
AE COPD
Possible PNA
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
Elevated lactic acid level
Chest pain
NSTEMI with peak troponin of 9.9 this admission
Acute HFpEF
CAD
s/p LAD and RCA stents in 1997
History of PVD status post lower extremity revascularization procedures
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
HOCKEY INSTRUCTOR and stent RLE 1997
Hypertension
Hypercholesterolemia
GERD
Anemia
Hyperglycemia
Right bundle branch block
Lexiscan nuclear stress test 01/2020: [facility] study, normal perfusion
Echo 03/18/24: EF 55%, mild inferior, inferolateral hypokinesis, mild MR, mild to moderate AAS without regurgitation peak/mean 35/22 mmHg with ANYI 1.1 cm sq
Plan:
-Attempted IV diuresis again starting 03/20/24 and Lasix 40 mg IV BID ordered. Weight is down 9 lbs overnight, but this is according to a bed scale weight. Intake not recorded, but he is negative 3 L. Patient also reports symptomatic improvement.
-Potassium trending down with increased diuresis, will add KCl 20 meq daily 03/21/24
-Remains on high flow at 50 L.
-Troponin peaked at 9.92, and managed as a NSTEMI given chest pain, ECG changes and WMA. Patient is high risk for invasive management given heme positive anemia and high flow oxygen requirements.
-Patient with known CAD and previous LAD and RCA stents from 1997. Patient with reportedly normal perfusion at last known ischemic evaluation in 2019
-Echo noted above with inferior and inferolateral hypokinesis, but overall preserved EF.
-Hgb dopped following addition of Heparin gtt 03/17/24. GI saw the patient and signed off, no work-up planned unless patient develops gross GIB.
-Added Plavix 75 mg daily 03/20/24. Cont aspirin 81 mg daily. Hgb stable at 10.9 on 03/21/24
-LDL 69 and outpatient dose of atorvastatin 40 mg daily has been continued
-New to Lopressor 25 mg PO q 6 hours, doses intermittently held due to hypotension.
-Patient is now a DNR
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
peripheral stents, reflux, hypertension, hypercholesterolemia. At baseline he is on 5 to 8 L of oxygen. He had a lesion removed from his right ear on 03/13/2024. He became progressively more short of breath and had palpitations. In the ER he was
in respiratory distress. He is found to have a troponin of 8 with lactate of 5 and was placed on nonrebreather then BiPAP. At the present time he feels better. He denies chest discomfort.
Progress Note - Wet Process Assistant Head Miller
Subjective
Date of Service: March 21, 2024
Patient says work of breathing is easier today
Objective
Labs:
03/21/24 03:59
03/21/24 03:59
Labs
Hgb 10.9 g/dL (13.0-18.0) L 03/21/24 03:59
Hct 34.6 % (39.0-52.0) L 03/21/24 03:59
Plt Count 252 10^3/uL (130-400) 03/21/24 03:59
PT 14.2 Sec (11.4-14.6) 03/17/24 09:54
INR 1.12 03/17/24 09:54
APTT Cancelled 03/17/24 12:00
Sodium 143 mmol/L (135-145) 03/21/24 03:59
Potassium 3.9 mmol/L (3.5-5.1) 03/21/24 03:59
BUN 38 mg/dl (9-20) H 03/21/24 03:59
Creatinine 1.2 mg/dL (0.7-1.3) 03/21/24 03:59
Glucose 106 mg/dl (70-99) H 03/21/24 03:59
Vital Signs and I&O:
Vital Signs
Temp Pulse Resp BP Pulse Ox
97.8 F 58 24 120/66 96
03/21/24 07:12 03/21/24 07:06 03/21/24 07:06 03/21/24 04:00 03/21/24 07:06
Vital Signs
Temp Pulse Resp BP Pulse Ox
97.8 F 58 24 120/66 96
03/21/24 07:12 03/21/24 07:06 03/21/24 07:06 03/21/24 04:00 03/21/24 07:06
Intake & Output
03/19/24 03/20/24 03/21/24 03/22/24
06:59 06:59 06:59 06:59
Intake Total 340 / 340 1015 / 1015
Output Total 850 / 850 1200 / 1200 3925 / 3925
Balance -510 / -510 -185 / -185 -3925 / -3925
Physical Exam
Physical Exam
GEN: NAD. AAOx3
HEENT: MMM
LUNGS: Wearing high flow. No wheeze
CV: SR on tele
ABD: ND
EXT: No edema B/L
NEURO: Gross non-focal
SKIN: No rash
: Condom catheter draining clear yellow urine
[2024-03-21] MEDS: LASIX 40 MG IV ×2 (09:25→17:08)
[2024-03-21] MEDS: CLARITIN 10 MG PO (09:25)
[2024-03-21] MEDS: LIPITOR 40 MG PO (09:27)
[2024-03-21] MEDS: LOW STRENGTH ASPIRIN 81 MG PO (09:28)
[2024-03-21] MEDS: NEURONTIN 100 MG PO ×3 (09:28→20:51)
[2024-03-21] MEDS: MEPRON SUSPENSION 1500 MG PO (09:28)
[2024-03-21] MEDS: NON-FORMULARY ITEM 150 MG PO ×2 (09:29→20:52)
[2024-03-21] MEDS: PLAVIX 75 MG PO (09:30)
[2024-03-21] MEDS: NSS (PRESERVATIVE FREE) 10 ML IV (09:30)
[2024-03-21] MEDS: PROTONIX IV 40 MG IV (09:31)
[2024-03-21] MEDS: SOLU-MEDROL PF 40 MG IV (09:31)
[2024-03-21] MEDS: TESSALON PERLES 200 MG PO ×3 (09:32→20:51)
[2024-03-21] MEDS: ZOLOFT 50 MG PO (09:32)
[2024-03-21] MEDS: ATIVAN 0.5 MG PO ×2 (09:33→21:54)
--- NOTE | 2024-03-21 10:06 | HOSPNOTE ---
Addendum entered by Lulú Castillo RN 03/21/24 10:32:
Son called me back and at this time the patient does not wish for hospice. The son would like to continue treatments since that is what the patient wants at this time. The son will call me Monday and we will see how the weekend goes. The son said of
course if anything changes and the patient declines then more decisions will be made accordingly. Will continue to follow and support.
Original Note:
Called son Miller this morning and had to leave a message. Will update when he returns call.
--- NOTE | 2024-03-21 10:19 | W.PN.HOSP.TC ---
Today's Communication/Plan
-
Await family decision on hospice
Continue with IV steroid
IV antibiotic
IV diuretic
Prognosis poor
Assessment / Plan
Assessment / Plan
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 Also had episodes of palpitations. In ED found troponin of 8, lactate of 5, placed on HFNC. EKG without ST elevation. Managed for NSTEMI, possible pneumonia and exacerbation of COPD/lung fibrosis overlap. Developed worsening
anemia
A/P:
#Acute on chronic hypoxic respiratory failure likely multifactorial due to COPD and pulmonary fibrosis exacerbation, pneumonia, acute on chronic diastolic heart failure exacerbation
#COPD exacerbation
#Pulmonary fibrosis
CTA chest
IV steroids solumedrol 40mg daily. Frequency decreased.
bronchodilators
Pulm consulted
HFNC and wean off to baseline as tolerated. Increase in FIO2 t0 65%.
#possible CAP
procalcitonin elevated, cont empiric Abx, suspect pneumonia due to new hypoxia and chronic lung disease
Legionella and s.pneumonia urinary Ag
Sputum Cx if possible
COVID-19, Influenza PCR neg
Blood culture negative so far.
MRSA POSITIVE. Continue Vancomycin
Cefepime DCed. Completed 5d course.
#Dysphagia
?silent aspiration
Diet downgraded to IDDS6-understands aspiration risk. Code status DNR.
#NSTEMI
#Palpitations with sinus arrhythmia on tele
#Possible acute on chronic HFpEF exacerbation
Cardio consult
Cont asprin.
s/p hep gtt infusion.
cont statin - LDL 69
Started on Toprol 25 twice daily
sublingual nitro PRN
cont BB
Restarted in IV lasix 40mg BID with good urinary output. Creat slowly uptrending.
Plavix started- trend hgb closely. Stable
#PETE
High LDH with normal retics -hematology consult
Discuss with cardiology blood transfusion since patient is treated for NSTEMI - would favor keeping Hgb between 9-10, however concomitant concern for CHF might be prohibitive. Also patient w/o chest pain
serial H&H
GI consulted. No plan for procedure.
Started on IV iron per heme
PPI bid for now
# Lactic acidosis likely in the setting of severe hypoxemia and CHF exacerbation
No need to further trend.
#HLD
cont home meds
#Essential HTN
BB for now.
#Anxiety d/o
cont SSRI
#AST elevation - improving
CPK minimally elevated
follow LFT
most likely 2/2 cardiac injury
DVT ppx scds
DNR/DNI
d/w with daughter at bedside in details on 03/20/24. terminal worker prognosis poor. Hospice recommended.
Await further family decision on hospice
Anticipated Discharge: > 48 hours
Subjective/Interval History
-
Date of Service: March 21, 2024
Remains persistent severely hypoxic and on high flow nasal cannula
Denies chest pain or palpitations. Remains with intermittent shortness of breath
Objective Data
-
Labs:
Laboratory Results
03/21/24
03:59
WBC 10.7
Hgb 10.9 L
Hct 34.6 L
Plt Count 252
Sodium 143
Potassium 3.9
Chloride 100
Carbon Dioxide 34 H
BUN 38 H
Creatinine 1.2
Glucose 106 H
Calcium 9.2
Vital Signs:
Vital Signs
Temp Pulse Resp BP Pulse Ox
97.8 F 64 24 142/59 94
03/21/24 07:12 03/21/24 09:25 03/21/24 07:06 03/21/24 09:25 03/21/24 08:50
I&O
03/20/24 03/21/24 03/22/24
06:59 06:59 06:59
Intake Total 1015 / 1015
Output Total 1200 / 1200 3925 / 3925
Balance -185 / -185 -3925 / -3925
Physical Exam
-
General: No Apparent Distress and Appears Chronically Ill
HEENT: Normocephalic, Atraumatic, Moist Mucous Membranes and Oxygen (HFNC )
Respiratory: Rhonchi; Negative Wheezes or Rales
Cardiac: Regular Rhythm and S1/S2
GI: Soft, Nontender, Nondistended and Normal Bowel Sounds
Musculoskeletal: No Clubbing and No Cyanosis
Skin: Other (L neck bruse, b/l UE bruises)
Neuro: Awake, Alert, Oriented and AO x 3
Psych: Calm
Data Reviewed
-
Total Time Spent with Patient (in minutes): 56
--- NOTE | 2024-03-21 11:21 | W.PN.PUL3 ---
Today's Communication / Plan
-
No change clinically, remains on HFNC
Continue IV steroids, lasix
Abx to be completed
Encouraged IS, PT/OOB
Hospice consult placed, children to continue discussions
Patient is DNR
Assessment
-
78-year-old male with underlying CAD, PAD with stents, COPD/pulmonary fibrosis overlap taking care of at [facility] though he does want local care, chronic hypoxemia maintained on 5 L of oxygen at home, prednisone as well as Ofev who presented
with increasing shortness of breath and noted to be hypoxemic with elevated troponin-pulmonary consulted for pulmonary fibrosis/hypoxemia 03/16/2024.
COPD/pulmonary fibrosis overlap with mild acute exacerbation
Elevated troponin-peak 9.9
Acute diastolic CHF
Bronchitis versus early pneumonia-elevated procalcitonin
Elevated lactate
Mild dementia
MARIANO
Mild anemia-hemoglobin 8.6-normocytic
Hyperglycemia
Conditions present prior to admission:
Recent hospitalization 11/23/2023-fall and mild acute COPD/pulmonary fibrosis overlap exacerbation
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
Former [id number]-year-quit 48 years old.
Adrenal insufficiency.
Hypertension.
Hyperlipidemia.
PAD.
Old right cerebellar infarct.
CAD.
Mild dementia.
GERD.
Anxiety/depression.
Plan
Respiratory decompensation in this patient with advanced end-stage lung disease-COPD/pulmonary fibrosis overlap is likely mild over his baseline
Remains on HFNC now, worsening clinically
Baseline use of 5-8L at home
Unfortunately he has end-stage lung disease and thus the only hope of improving his current situation is if there is another reversible process such as ischemic CAD/CHF/infection as his lung disease will not improve-steroids have been initiated for
the potential of reversible inflammatory component
Daughter is aware his prognosis is poor
Remains unstable with episodes of chest tightness and shortness of breath aggravated by underlying anxiety-rapid response 03/17/2024
Supplemental oxygen as needed-maintained on high FiO2 oxygen at home-5 to 10 L
Nebulizers as needed-on DuoNebs
Solu-Medrol 60 mg IV every 6 hours initiated-fairly rapid taper-will reduce to 40 mg IV every 12 hours
Can continue IV while patient's clinical condition is worsening
Patient is maintained on Ofev for his pulmonary fibrosis as an outpatient
Mucolytic's
Incentive spirometry
Flutter
BiPAP at night and during the daytime as tolerated
Cultures reviewed
Urine Legionella and streptococcal antigen negative
MRSA screen positive
Blood cultures negative
Last urine culture 02/17/2023-Enterococcus
Unable to produce sputum
Empiric antibiotics-vancomycin and cefepime initiated 03/15
Can likely stop CFP tomorrow 03/19 (day 5)
Can continued, MRSA +
ProBNP 3200
Continue to trend troponin
Cardiology evaluation ongoing-correspondence reviewed-reviewed with Dr. Michael Keyes-okay to try increased [id number] for bronchospasm
Heparin initiated
Continue diuresis as tolerated--agree with IV dosing
Monitor renal function, electrolytes, intake/output, lower extremity edema and weight
Replace electrolytes as needed
Speech therapy evaluation if needed
Physical therapy and Occupational Therapy evaluation
Follow hemoglobin
Transfuse if needed
DVT prophylaxis-on heparin drip
GI prophylaxis-on pantoprazole
Nutrition
Early mobilization/physical therapy
Outpatient pulmonary follow-up recommended-he has end-stage lung disease
Most recently followed by Dr. De Dios at [facility] and maintained on nebulizers as well as Ofev and oxygen
Ongoing discussions with hospice
Family Discussions
Viktoriya 03/20/24 - Spoke to patient and daughter today regarding prognosis they know his condition is non-reversible and agree he should be DNR. We then discussed his chances of survival on this admission which is low. Daughter aware and are likely to
enroll into hospice but need to decide. They were agreeable to consult.
03/19/24 Hospice has been discussed in the past, I discussed with him again what he would want if he made little to no progress on weaning O2
Diagnostic data:
Chest x-ray 02/12/2023-increased reticulonodular markings suggestive of interstitial fibrosis, slight blunting left costophrenic angle
Chest x-ray 02/19/2023-extremely limited because of low lung volumes
Chest x-ray 11/22/2023-pronounced reticular interstitial thickening related to interstitial fibrosis, no significant pleural effusions or pneumothorax
Chest x-ray 03/15/2024-bilateral interstitial opacifications without acute process
Lower extremity ultrasound 07/05/2021-no evidence for lower extremity venous thrombosis
CT head 11/22/2023-no acute intracranial abnormalities, mild atrophy and mild chronic small vessel changes, old right sella [place] infarct, no significant changes compared to prior study 02/12/2023
CT chest 03/15/2024-no CT evidence for PE, chronic severe pulmonary fibrosis and emphysema, severe coronary artery and aortic valve calcifications
-----
Time spent on this encounter including review of data, events, imaging is 55 minutes. This also includes family discussions.
Subjective Data
-
Date of Service:
Date of Service: March 21, 2024
Chief Complaint: Pulmonary Follow Up and Dyspnea Follow Up
Subjective:
No acute events ON, remains on HFNC
Sleeping on my arrival
Objective Data
Data Reviewed
Vital Signs / I&O / Oxygen:
Vital Signs
Temp Pulse Resp BP Pulse Ox
97.8 F 74 73 142/59 97
03/21/24 07:12 03/21/24 11:19 03/21/24 11:19 03/21/24 09:25 03/21/24 11:19
Intake and Output
03/20/24 03/21/24 03/22/24
06:59 06:59 06:59
Intake Total 1015 / 1015
Output Total 1200 / 1200 3925 / 3925
Balance -185 / -185 -3925 / -3925
SaO2 97
Nasal Cannula flow liters per 50
minute
Physical Exam
General: Respiratory Distress (n) and Comfortable
HEENT: Normocephalic, Anicteric and Moist Mucous Membranes
Cardiovascular: Regular Rhythm and Murmur
Respiratory: Wheeze (Forced end expiratory), Crackles (Bilateral penitentiary up posteriorly), Rhonchi (n), Non-Labored Respirations, Accessory Resp Muscle Use (n) and Stridor (n)
GI: Soft, Non Distended and Non Tender
Neurology: Awake, Alert, Oriented, AO x 3 and No Motor Deficits
Skin: Warm, Good Color, Cyanosis (n), Jaundice (n) and Rash (n)
Labs/Micro/Reports
Lab Data
03/21/24 03:59
03/21/24 03:59
Microbiology
03/15/24 17:11 Blood/Venous Blood Culture - Final
No Growth - Final Report
03/15/24 16:56 Blood/Venous Blood Culture - Final
No Growth - Final Report
--- NOTE | 2024-03-21 12:32 | CM ---
Patient with Dx Acute on chronic hypoxic respiratory failure, COPD exacerbation, possible CAP, dysphagia, NSTEMI, Possible HF. High flow O2. Receiving IV Abx, IV Fe Sodium Gluconate, IV Lasix, IV Steroids. Dysphagia diet. Per nurse assessment;
bedrest, forgetful.
Per hospice nurse notes; son declined hospice at this time. Son agreed to discuss with hospice nurse again on 03/25.
CM continuing to follow.
Plan TBD.
[2024-03-21] MEDS: KCL PO (12:46)
[2024-03-21 12:58] LABS: Glucose - Point of Care 166 mg/dl (70-99)
[2024-03-21] MEDS: FERRLECIT 110 MG IV (14:05)
[2024-03-21] MEDS: KCL 20 MEQ PO (14:31)
[2024-03-21] MEDS: NOVOLOG FLEXPEN-LOW RESISTANCE 1 UNITS SC (14:34)
--- NOTE | 2024-03-21 15:04 | PHA.VAN.FU ---
Vancomycin Assessment / Plan
- Assessment
Renal Function: SCR Increasing
WBC's are: WNL
In the past 24 hrs, patient has been: Afebrile
- Dosing Plan
Adjust Regimen to: dosing by level
- Monitoring Plan
Random Level: 03/22 06
- Follow Up
Pharmacy will continue to follow.
Vancomycin Follow UP
- -
Patient Age: 78
Patient Sex: Male
Vancomycin Day #: 7
Indication: Pulmonary/Respiratory
Requesting Provider: Dr. Sanabria
Pertinent Antimicrobial Allergies:
ciprofloxacin - Rash
Height / Weight:
Height 5 ft 9 in
Actual Weight 68.4 kg
Pertinent Past Medical History: COPD (home O2)
- Vital Signs / Lab Results
Temp Pulse Resp BP Pulse Ox
97.9 F 60 20 120/66 98
03/21/24 11:30 03/21/24 12:00 03/21/24 12:00 03/21/24 12:00 03/21/24 12:00
Lab Results - Hematology
03/20/24 03/21/24
04:16 03:59
WBC 10.4 10.7
Lab Results - Chemistry
03/19/24 03/20/24 03/21/24
02:45 04:16 03:59
BUN 28 H 29 H 38 H
Creatinine 0.9 0.8 1.2
Estimated Creat Clear 64 72 47
Albumin 3.0 L
Microbiology Results
03/15/24 17:11 Blood Culture - Final
Blood/Venous No Growth - Final Report
03/15/24 16:56 Blood Culture - Final
Blood/Venous No Growth - Final Report
Therapeutic Drug Monitoring
Vancomycin Peak 24.9 ug/ml (18-26) 03/17/24 20:36
Vancomycin Trough 16.3 ug/ml (5-20) 03/18/24 05:09
[2024-03-21] MEDS: NOVOLOG FLEXPEN-LOW RESISTANCE 4 UNITS SC (17:10)
[2024-03-21 17:18] LABS: Glucose - Point of Care 325 mg/dl (70-99)
[2024-03-21] MEDS: PROTONIX 40 MG PO (20:51)
[2024-03-21] MEDS: TOPROL XL 25 MG PO (20:51)
[2024-03-21 22:02] LABS: Glucose - Point of Care 152 mg/dl (70-99)
[2024-03-22] VITALS (11 sets, daily range): BP systolic 113–155; BP diastolic 57–91; BMI 22.0
[2024-03-22 04:19] LABS: % Basophils 0.2 % (0-2); % Eosinophils 1.8 % (0-6); % Immature Granulocytes 0.7 % (0-0.5); % Lymphocytes 10.8 % (20.5-51.1); % Monocytes 6.6 % (1.7-9.3); % Neutrophils 79.9 % (42.2-75.2); Absolute Eosinophils 0.2 10^3/uL (0-0.7); Absolute Immature Granulocytes 0.1 10^3/uL (0-0.05); Absolute Lymphocytes 1.1 10^3/uL (1.2-3.4); Absolute Monocytes 0.7 10^3/uL (0.1-0.6); Absolute Neutrophils 8.4 10^3/uL (1.4-6.5); Hematocrit 33.7 % (39.0-52.0); Hemoglobin 10.7 g/dL (13.0-18.0); Mean Corp Hgb Conc. 31.8 g/dL (33.0-37.0); Mean Corpuscular Hgb 26.8 pg (27.0-31.0); Mean Corpuscular Volume 84.3 fL (80.0-94.0); Mean Platelet Volume 9.8 fL (7.4-10.4); Nucleated Red Blood Cells % 0.2 % (-); Platelet Count 261 10^3/uL (130-400); Red Cell Dist. Width 17.2 % (11.5-14.5); White Blood Cell Count 10.5 10^3/uL (4.8-10.8)
[2024-03-22 04:33] LABS: Vancomycin Random 18.1 ug/ml
[2024-03-22 04:40] LABS: Blood Urea Nitrogen 53 mg/dl (9-20); Carbon Dioxide 32 mmol/L (22-30); Chloride 100 mmol/L (98-107); Estimated Creatinine Clearance 51 ml/min; Glucose 111 mg/dl (70-99); Sodium 143 mmol/L (135-145); eGFR > 60.00
--- NOTE | 2024-03-22 04:56 | PTCARENOTE ---
No acute events overnight. Remains on HFNC. Daughter stayed the night. PRN ativan given for anxiety.
[2024-03-22] MEDS: DUONEB 3 ML INH ×4 (07:41→19:58)
[2024-03-22 08:05] LABS: Glucose - Point of Care 106 mg/dl (70-99)
[2024-03-22] MEDS: ZOLOFT 50 MG PO (08:14)
[2024-03-22] MEDS: TESSALON PERLES 200 MG PO ×3 (08:14→21:02)
[2024-03-22] MEDS: PROTONIX 40 MG PO ×2 (08:14→21:02)
[2024-03-22] MEDS: NEURONTIN 100 MG PO ×3 (08:15→21:02)
[2024-03-22] MEDS: CLARITIN 10 MG PO (08:15)
[2024-03-22] MEDS: LIPITOR 40 MG PO (08:15)
[2024-03-22] MEDS: PLAVIX 75 MG PO (08:16)
[2024-03-22] MEDS: LOW STRENGTH ASPIRIN 81 MG PO (08:16)
[2024-03-22] MEDS: KCL 20 MEQ PO (08:16)
[2024-03-22] MEDS: TOPROL XL 25 MG PO ×2 (08:17→21:02)
[2024-03-22] MEDS: MEPRON SUSPENSION 1500 MG PO (08:19)
[2024-03-22] MEDS: LASIX 40 MG IV ×2 (08:19→15:10)
[2024-03-22] MEDS: SOLU-MEDROL PF 40 MG IV (08:22)
[2024-03-22] MEDS: NON-FORMULARY ITEM 150 MG PO ×2 (08:47→21:01)
--- NOTE | 2024-03-22 08:48 | PHA.VAN.FU ---
Vancomycin Assessment / Plan
- Assessment
Renal Function: Stable (SCR stable, BUN increasing)
WBC's are: WNL
In the past 24 hrs, patient has been: Afebrile
- Assessment - Therapeutic Drug Monitoring
Random Level: 18.1 - drawn ~22H after previous dose of 1250mg
Patient had therapeutic AUC on Vanc 750mg Q12H; however, half-life was > dosing interval
Regimen was adjusted to Q24H but patient continues to accumulate
- Dosing Plan
Dosing by Level: Hold off on dosing today
- Monitoring Plan
Random Level: 03/23 0600
- Follow Up
Pharmacy will continue to follow.
Vancomycin Follow UP
- -
Patient Age: 78
Patient Sex: Male
Vancomycin Day #: 8
Indication: Pulmonary/Respiratory
Requesting Provider: Dr. Sanabria
Pertinent Antimicrobial Allergies:
ciprofloxacin - Rash
Height / Weight:
Height 5 ft 9 in
Actual Weight 67.4 kg
Pertinent Past Medical History: COPD (home O2)
- Vital Signs / Lab Results
Temp Pulse Resp BP Pulse Ox
97.5 F 74 18 128/57 92
03/22/24 03:08 03/22/24 08:19 03/22/24 07:42 03/22/24 08:19 03/22/24 07:42
Lab Results - Hematology
03/20/24 03/21/24 03/22/24
04:16 03:59 04:01
WBC 10.4 10.7 10.5
Lab Results - Chemistry
03/20/24 03/21/24 03/22/24
04:16 03:59 04:01
BUN 29 H 38 H 53 H
Creatinine 0.8 1.2 1.1
Estimated Creat Clear 72 47 51
Microbiology Results
03/15/24 17:11 Blood Culture - Final
Blood/Venous No Growth - Final Report
03/15/24 16:56 Blood Culture - Final
Blood/Venous No Growth - Final Report
Therapeutic Drug Monitoring
Vancomycin Peak 24.9 ug/ml (18-26) 03/17/24 20:36
Vancomycin Trough 16.3 ug/ml (5-20) 03/18/24 05:09
Random Vancomycin 18.1 ug/ml 03/22/24 04:00
[2024-03-22] MEDS: NOVOLOG FLEXPEN-LOW RESISTANCE SC (08:59)
--- NOTE | 2024-03-22 09:38 | W.PN.CARDCBS ---
Addendum entered and electronically signed by Javon Godinez MD 03/22/24 15:55:
I saw and examined the patient.
The C Web Developer's note was reviewed and I agree with the note.
Comment:
GEN: No distress, awake, Ox3
HEENT: supple, anicteric, mmm
LUNGS: Bilateral rhonchi
CV: Reg, S1/S2, 1/6 syst LSB, no gallop
ABD: soft, BS+, NT/ND
EXT: No edema
NEURO: Gross non-focal
SKIN: No rash
Plan:
Will continue to try to diurese for another 24 hours and switch to Lasix 40 mg daily in AM.
Would continue medical therapy for non-STEMI/CAD. Continue aspirin, Plavix, atorvastatin, and Toprol. He has no current chest pains.
With his high oxygen requirement would likely hold off on cardiac catheterization for now.
LVEF is preserved with moderate .
Original Note:
Today's Communication / Plan
-
continue IV lasix today, transition to po lasix 40mg daily in AM
continue asa, plavix, lipitor, toprol
treatment of lung issues per pulmonary
Impression / Plan
-
PCP: Dr. Javon Carlos
Cardiology: Dr. Maldonado at [facility], last seen 2021,
Pulm: Dr. Bhatti [phone]
Impression:
Admitted with acute on chronic hypoxemic respiratory failure 03/15/24
AE COPD
Possible PNA
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
Elevated lactic acid level
Chest pain
NSTEMI with peak troponin of 9.9 this admission
Acute HFpEF
CAD
s/p LAD and RCA stents in 1997
History of PVD status post lower extremity revascularization procedures
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
Hypertension
Hypercholesterolemia
GERD
Anemia
Hyperglycemia
Right bundle branch block
Lexiscan nuclear stress test 01/2020: [facility] study, normal perfusion
Echo 03/18/24: EF 55%, mild inferior, inferolateral hypokinesis, mild MR, mild to moderate without regurgitation peak/mean 35/22 mmHg with ANYI 1.1 cm sq
Plan:
-Weight trending down on IV Lasix. Will plan to transition to p.o. in a.m as BUN uptrending. prior to admission was on HCTZ 25 mg daily. Will plan for p.o. Lasix 40 mg daily upon discharge
-Continue to wean oxygen as able, remains on high flow O2
-Troponin peaked at 9.92. managed as NSTEMI given chest pain, ECG changes and WMA. Patient is high risk for invasive management given heme positive anemia and high flow oxygen requirements so being medically managed. no present CP
-Patient with known CAD and previous LAD and RCA stents from 1997. Patient with reportedly normal perfusion at last known ischemic evaluation in 2019
-Echo noted above with inferior and inferolateral hypokinesis, but overall preserved EF.
-Hgb dropped following addition of Heparin gtt 03/17/24. GI saw the patient and signed off, no work-up planned unless patient develops gross GIB.
-Added Plavix this admission. Cont aspirin 81 mg daily. Hgb stable at 10.7 on 03/22/24
-LDL 69. continue lipitor
-continue toprol 25mg BID
-Patient made DNR this admission
-d/w hospitalist
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
peripheral stents, reflux, hypertension, hypercholesterolemia. At baseline he is on 5 to 8 L of oxygen. He had a lesion removed from his right ear on 03/13/2024. He became progressively more short of breath and had palpitations. In the ER he was
in respiratory distress. He is found to have a troponin of 8 with lactate of 5 and was placed on nonrebreather then BiPAP. At the present time he feels better. He denies chest discomfort.
Progress Note - Jd [employer] Developer
Subjective
Date of Service: March 22, 2024
resting comfortably
Objective
Labs:
03/22/24 04:01
03/22/24 04:01
Labs
Hgb 10.7 g/dL (13.0-18.0) L 03/22/24 04:01
Hct 33.7 % (39.0-52.0) L 03/22/24 04:01
Plt Count 261 10^3/uL (130-400) 03/22/24 04:01
PT 14.2 Sec (11.4-14.6) 03/17/24 09:54
INR 1.12 03/17/24 09:54
APTT Cancelled 03/17/24 12:00
Sodium 143 mmol/L (135-145) 03/22/24 04:01
Potassium 4.0 mmol/L (3.5-5.1) 03/22/24 04:01
BUN 53 mg/dl (9-20) H 03/22/24 04:01
Creatinine 1.1 mg/dL (0.7-1.3) 03/22/24 04:01
Glucose 111 mg/dl (70-99) H 03/22/24 04:01
Vital Signs and I&O:
Vital Signs
Temp Pulse Resp BP Pulse Ox
97.5 F 74 18 128/57 92
03/22/24 03:08 03/22/24 08:19 03/22/24 07:42 03/22/24 08:19 03/22/24 07:42
Vital Signs
Temp Pulse Resp BP Pulse Ox
97.5 F 74 18 128/57 92
03/22/24 03:08 03/22/24 08:19 03/22/24 07:42 03/22/24 08:19 03/22/24 07:42
Intake & Output
03/20/24 03/21/24 03/22/24 03/23/24
07:59 07:59 07:59 07:59
Intake Total 1015 / 1015 580 / 580
Output Total 1200 / 1200 3925 / 3925 1650 / 1650
Balance -185 / -185 -3925 / -3925 -1070 / -1070
Physical Exam
Physical Exam
GEN: No distress, resting comfortably. on high flow O2
HEENT: supple, mmm
LUNGS: no audible wheezes
CV: Reg rhythm on tele
EXT: No edema B/L LE
SKIN: Warm, pink, dry. No rash
--- NOTE | 2024-03-22 09:45 | W.PN.PUL3 ---
Today's Communication / Plan
-
Remains clinically unchanged, on HFNC without improvement
He is continued on IV steroids/lasix/abx with no change
Ongoing GOC discussions are warranted
Prognosis overall is poor
Assessment
-
78-year-old male with underlying CAD, PAD with stents, COPD/pulmonary fibrosis overlap taking care of at [facility] though he does want local care, chronic hypoxemia maintained on 5 L of oxygen at home, prednisone as well as Ofev who presented
with increasing shortness of breath and noted to be hypoxemic with elevated troponin-pulmonary consulted for pulmonary fibrosis/hypoxemia 03/16/2024.
COPD/pulmonary fibrosis overlap with mild acute exacerbation
Elevated troponin-peak 9.9
Acute diastolic CHF
Bronchitis versus early pneumonia-elevated procalcitonin
Elevated lactate
Mild dementia
MARIANO
Mild anemia-hemoglobin 8.6-normocytic
Hyperglycemia
Conditions present prior to admission:
Recent hospitalization 11/23/2023-fall and mild acute COPD/pulmonary fibrosis overlap exacerbation
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
Adrenal insufficiency.
Hypertension.
Hyperlipidemia.
PAD.
Old right cerebellar infarct.
CAD.
Mild dementia.
GERD.
Anxiety/depression.
Plan
Respiratory decompensation in this patient with advanced end-stage lung disease-COPD/pulmonary fibrosis overlap is likely mild over his baseline
Remains on HFNC now, worsening clinically
Baseline use of 5-8L at home
Unfortunately he has end-stage lung disease and thus the only hope of improving his current situation is if there is another reversible process such as ischemic CAD/CHF/infection as his lung disease will not improve-steroids have been initiated for
the potential of reversible inflammatory component
Daughter is aware his prognosis is poor
Remains unstable with episodes of chest tightness and shortness of breath aggravated by underlying anxiety-rapid response 03/17/2024
Supplemental oxygen as needed-maintained on high FiO2 oxygen at home-5 to 10 L
Nebulizers as needed-on DuoNebs
Solu-Medrol 60 mg IV every 6 hours initiated-fairly rapid taper-will reduce to 40 mg IV every 12 hours
Can continue IV while patient's clinical condition is worsening
Patient is maintained on Ofev for his pulmonary fibrosis as an outpatient
Mucolytic's
Incentive spirometry
Flutter
BiPAP at night and during the daytime as tolerated
Cultures reviewed
Urine Legionella and streptococcal antigen negative
MRSA screen positive
Blood cultures negative
Last urine culture 02/17/2023-Enterococcus
Unable to produce sputum
Empiric antibiotics-vancomycin and cefepime initiated 03/15
Can likely stop CFP tomorrow 03/19 (day 5)
Can continued, MRSA +
ProBNP 3200
Continue to trend troponin
Cardiology evaluation ongoing-correspondence reviewed-reviewed with Dr. Michael Keyes-okay to try increased [id number] for bronchospasm
Heparin initiated
Continue diuresis as tolerated--agree with IV dosing
Monitor renal function, electrolytes, intake/output, lower extremity edema and weight
Replace electrolytes as needed
Speech therapy evaluation if needed
Physical therapy and Occupational Therapy evaluation
Follow hemoglobin
Transfuse if needed
DVT prophylaxis-on heparin drip
GI prophylaxis-on pantoprazole
Nutrition
Early mobilization/physical therapy
Outpatient pulmonary follow-up recommended-he has end-stage lung disease
Most recently followed by Dr. De Dios at [facility] and maintained on nebulizers as well as Ofev and oxygen
Ongoing discussions with hospice
Family Discussions
Viktoriya 03/20/24 - Spoke to patient and daughter today regarding prognosis they know his condition is non-reversible and agree he should be DNR. We then discussed his chances of survival on this admission which is low. Daughter aware and are likely to
enroll into hospice but need to decide. They were agreeable to consult.
03/19/24 Hospice has been discussed in the past, I discussed with him again what he would want if he made little to no progress on weaning O2
Diagnostic data:
Chest x-ray 02/12/2023-increased reticulonodular markings suggestive of interstitial fibrosis, slight blunting left costophrenic angle
Chest x-ray 02/19/2023-extremely limited because of low lung volumes
Chest x-ray 11/22/2023-pronounced reticular interstitial thickening related to interstitial fibrosis, no significant pleural effusions or pneumothorax
Chest x-ray 03/15/2024-bilateral interstitial opacifications without acute process
Lower extremity ultrasound 07/05/2021-no evidence for lower extremity venous thrombosis
CT head 11/22/2023-no acute intracranial abnormalities, mild atrophy and mild chronic small vessel changes, old right sella Long infarct, no significant changes compared to prior study 02/12/2023
CT chest 03/15/2024-no CT evidence for PE, chronic severe pulmonary fibrosis and emphysema, severe coronary artery and aortic valve calcifications
-----
Total time spent on this encounter __51__ includes review of history, physical exam, medications, laboratory data, personal review of imaging, extensive review of outpatient records, discussion with care team and respiratory therapy.
Subjective Data
-
Date of Service:
Date of Service: March 22, 2024
Chief Complaint: Pulmonary Follow Up and Dyspnea Follow Up
Subjective:
Remains on HFNC, no significant changes
Sleeping on my arrival, feels his breathing is a little better
Objective Data
Data Reviewed
Vital Signs / I&O / Oxygen:
Vital Signs
Temp Pulse Resp BP Pulse Ox
97.5 F 74 18 128/57 92
03/22/24 03:08 03/22/24 08:19 03/22/24 07:42 03/22/24 08:19 03/22/24 07:42
Intake and Output
03/21/24 03/22/24 03/23/24
06:59 06:59 06:59
Intake Total 580 / 580
Output Total 3925 / 3925 1650 / 1650
Balance -3925 / -3925 -1070 / -1070
SaO2 92
Nasal Cannula flow liters per 40
minute
Physical Exam
General: Respiratory Distress (n) and Comfortable
HEENT: Normocephalic, Anicteric and Moist Mucous Membranes
Cardiovascular: Regular Rhythm and Murmur
Respiratory: Wheeze (Forced end expiratory), Crackles (Bilateral half-way up posteriorly), Rhonchi (n), Non-Labored Respirations, Accessory Resp Muscle Use (n) and Stridor (n)
GI: Soft, Non Distended and Non Tender
Neurology: Awake, Alert, Oriented, AO x 3 and No Motor Deficits
Skin: Warm, Good Color, Cyanosis (n), Jaundice (n) and Rash (n)
Labs/Micro/Reports
Lab Data
03/22/24 04:01
03/22/24 04:01
Microbiology
03/15/24 17:11 Blood/Venous Blood Culture - Final
No Growth - Final Report
03/15/24 16:56 Blood/Venous Blood Culture - Final
No Growth - Final Report
--- NOTE | 2024-03-22 10:46 | W.PN.HOSP.TC ---
Today's Communication/Plan
-
IV steroids
IV vanc
IV lasix
wean o2 as tolerate
diet upgraded
Assessment / Plan
Assessment / Plan
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 Also had episodes of palpitations. In ED found troponin of 8, lactate of 5, placed on HFNC. EKG without ST elevation. Managed for NSTEMI, possible pneumonia and exacerbation of COPD/lung fibrosis overlap. Developed worsening
anemia
A/P:
#Acute on chronic hypoxic respiratory failure likely multifactorial due to COPD and pulmonary fibrosis exacerbation, pneumonia, acute on chronic diastolic heart failure exacerbation
#COPD exacerbation
#Pulmonary fibrosis
CTA chest
IV steroids solumedrol 40mg daily. Frequency decreased.
bronchodilators
Pulm consulted
HFNC and wean off to baseline as tolerated. Increase in FIO2 t0 65%.
#possible CAP
procalcitonin elevated, cont empiric Abx, suspect pneumonia due to new hypoxia and chronic lung disease
Legionella and s.pneumonia urinary Ag
Sputum Cx if possible
COVID-19, Influenza PCR neg
Blood culture negative so far.
MRSA POSITIVE. Continue Vancomycin complete 7d course.
Cefepime DCed. Completed 5d course.
#Dysphagia
?silent aspiration
Diet upgraded to regular. Patient understands aspiration risk
Appreciate speech
#NSTEMI
#Palpitations with sinus arrhythmia on tele
#Possible acute on chronic HFpEF exacerbation
Cardio consult
Cont asprin.
s/p hep gtt infusion.
cont statin - LDL 69
Started on Toprol 25 twice daily
sublingual nitro PRN
cont BB
Restarted in IV lasix 40mg BID with good urinary output. Improvement in weigh.t Plan to switch to po lasix in am
Plavix started- trend hgb closely. Stable
#PETE
High LDH with normal retics -hematology consult
Discuss with cardiology blood transfusion since patient is treated for NSTEMI - would favor keeping Hgb between 9-10, however concomitant concern for CHF might be prohibitive. Also patient w/o chest pain
serial H&H
GI consulted. No plan for procedure.
s/p IV iron per heme
PPI bid for now
# Lactic acidosis likely in the setting of severe hypoxemia and CHF exacerbation
No need to further trend.
#HLD
cont home meds
#Essential HTN
BB for now.
#Anxiety d/o
cont SSRI
#AST elevation - improving
CPK minimally elevated
follow LFT
most likely 2/2 cardiac injury
DVT ppx scds
DNR/DNI
d/w with daughter at bedside in details on 03/20/24. terminal gauger supervisor prognosis poor. Hospice recommended.
Family decided to wait on hospice.
Anticipated Discharge: > 48 hours
Subjective/Interval History
-
Date of Service: March 22, 2024
remains on HFNC
States feeling better
Objective Data
-
Labs:
Laboratory Results
03/22/24
04:01
WBC 10.5
Hgb 10.7 L
Hct 33.7 L
Plt Count 261
Sodium 143
Potassium 4.0
Chloride 100
Carbon Dioxide 32 H
BUN 53 H
Creatinine 1.1
Glucose 111 H
Calcium 9.0
Vital Signs:
Vital Signs
Temp Pulse Resp BP Pulse Ox
97.6 F 74 21 128/57 98
03/22/24 07:33 03/22/24 08:19 03/22/24 08:17 03/22/24 08:19 03/22/24 08:00
I&O
03/21/24 03/22/24 03/23/24
06:59 06:59 06:59
Intake Total 580 / 580
Output Total 3925 / 3925 1650 / 1650
Balance -3925 / -3925 -1070 / -1070
Physical Exam
-
General: No Apparent Distress and Appears Chronically Ill
HEENT: Normocephalic, Atraumatic, Moist Mucous Membranes and Oxygen (HFNC )
Respiratory: Rhonchi; Negative Wheezes or Rales
Cardiac: Regular Rhythm and S1/S2
GI: Soft, Nontender, Nondistended and Normal Bowel Sounds
Musculoskeletal: No Clubbing and No Cyanosis
Skin: Other (L neck bruse, b/l UE bruises)
Neuro: Awake, Alert, Oriented and AO x 3
Psych: Calm
Data Reviewed
-
Total Time Spent with Patient (in minutes): 56
[2024-03-22 11:59] LABS: Glucose - Point of Care 176 mg/dl (70-99)
[2024-03-22] MEDS: NOVOLOG FLEXPEN-LOW RESISTANCE 1 UNITS SC (12:24)
--- NOTE | 2024-03-22 12:31 | PTCARENOTE ---
Received patient from previous RN. Patient is AX3. Patient was ordered low cholesterol diet and is tolerating it well. Patient is on HFNC with O2 sat at 97. Patient resting in bed with call anderson in reach.
[2024-03-22] MEDS: SENOKOT-S 1 TABLET PO (15:10)
[2024-03-22] MEDS: DULCOLAX 10 MG RECTAL (15:10)
[2024-03-22] MEDS: MIRALAX 17 GRAMS PO (15:10)
--- NOTE | 2024-03-22 15:31 | PTCARENOTE ---
Patient asking for bedpan but unable to have BM, pt elected for PRN bowel regimen including suppository.
[2024-03-22] MEDS: NOVOLOG FLEXPEN-LOW RESISTANCE 2 UNITS SC (16:43)
[2024-03-22 16:54] LABS: Glucose - Point of Care 239 mg/dl (70-99)
--- NOTE | 2024-03-22 17:03 | CM ---
Patient with Dx Acute on chronic hypoxic respiratory failure, COPD exacerbation, possible CAP, dysphagia, NSTEMI, Possible HF. Ongoing GOC discussions. High flow O2. Receiving IV Lasix, IV Steroids. Dysphagia diet. Seen by wound care nurse.
Per nurse assessment; A/O.
CM continuing to follow.
Plan follow up after seen by Hospice again on 03/25.
[2024-03-22 21:59] LABS: Glucose - Point of Care 124 mg/dl (70-99)
[2024-03-23] VITALS (12 sets, daily range): BP systolic 104–163; BP diastolic 58–92; BMI 22.1
[2024-03-23] MEDS: ATIVAN 0.5 MG PO ×2 (00:08→21:36)
--- NOTE | 2024-03-23 02:37 | PTCARENOTE ---
Pt received at beginning of shift resting in bed. AAOx3. HF at 50L/75% POX 96%. Pt able to lie flat for care without issue. VSS. SR/BBB on CM. Afebrile. Crackles throughout. Slight GRUBBS/ARMEN. No need for non-rebreather this shift so far for recovery.
Rest of assessment as documented. Assisted with turns. Skin as documented. Call anderson within reach. Will continue to monitor.
[2024-03-23 05:29] LABS: % Basophils 0.2 % (0-2); % Eosinophils 2.7 % (0-6); % Immature Granulocytes 0.7 % (0-0.5); % Lymphocytes 12.5 % (20.5-51.1); % Monocytes 7.3 % (1.7-9.3); % Neutrophils 76.6 % (42.2-75.2); Absolute Eosinophils 0.3 10^3/uL (0-0.7); Absolute Immature Granulocytes 0.1 10^3/uL (0-0.05); Absolute Lymphocytes 1.3 10^3/uL (1.2-3.4); Absolute Monocytes 0.8 10^3/uL (0.1-0.6); Absolute Neutrophils 7.9 10^3/uL (1.4-6.5); Hemoglobin 10.5 g/dL (13.0-18.0); Mean Corp Hgb Conc. 31.8 g/dL (33.0-37.0); Mean Corpuscular Hgb 27.9 pg (27.0-31.0); Mean Corpuscular Volume 87.5 fL (80.0-94.0); Mean Platelet Volume 9.9 fL (7.4-10.4); Nucleated Red Blood Cells % 0 % (-); Platelet Count 258 10^3/uL (130-400); Red Blood Cell Count 3.77 10^6/uL (4.70-6.10); White Blood Cell Count 10.4 10^3/uL (4.8-10.8)
[2024-03-23 05:58] LABS: Blood Urea Nitrogen 57 mg/dl (9-20); Calcium 9.2 mg/dl (8.4-10.2); Carbon Dioxide 37 mmol/L (22-30); Chloride 98 mmol/L (98-107); Estimated Creatinine Clearance 50 ml/min; Glucose 95 mg/dl (70-99); Potassium 3.5 mmol/L (3.5-5.1); Sodium 142 mmol/L (135-145); eGFR > 60.00
[2024-03-23] MEDS: DUONEB 3 ML INH ×4 (07:22→19:10)
[2024-03-23 08:03] LABS: Glucose - Point of Care 95 mg/dl (70-99)
[2024-03-23] MEDS: NOVOLOG FLEXPEN-LOW RESISTANCE SC (08:26)
[2024-03-23] MEDS: MEPRON SUSPENSION 1500 MG PO (08:27)
[2024-03-23] MEDS: ZOLOFT 50 MG PO (08:27)
[2024-03-23] MEDS: LOW STRENGTH ASPIRIN 81 MG PO (08:27)
[2024-03-23] MEDS: TESSALON PERLES 200 MG PO ×3 (08:27→20:13)
[2024-03-23] MEDS: KCL 20 MEQ PO (08:27)
[2024-03-23] MEDS: PLAVIX 75 MG PO (08:27)
[2024-03-23] MEDS: PROTONIX 40 MG PO ×2 (08:27→20:13)
[2024-03-23] MEDS: TOPROL XL 25 MG PO ×2 (08:27→20:15)
[2024-03-23] MEDS: CLARITIN 10 MG PO (08:27)
[2024-03-23] MEDS: NEURONTIN 100 MG PO ×3 (08:27→20:13)
[2024-03-23] MEDS: LASIX 40 MG IV (08:28)
[2024-03-23] MEDS: LIPITOR 40 MG PO (08:28)
[2024-03-23] MEDS: SOLU-MEDROL PF 40 MG IV (08:28)
[2024-03-23] MEDS: NON-FORMULARY ITEM 150 MG PO ×2 (08:29→20:12)
--- NOTE | 2024-03-23 08:30 | PTCARENOTE ---
Patient received from associate director of development. Patient resting comfortably in bed. AAO, VSS. No events noted overnight. No complaints of pain at this time. Patient remains on HighFlow N/C 50L @ 70% with NRB PRN, Respiratory to attempt to continue to wean
as tolerated. Hospice talks likely to be revisited Sunday 03/25. Some family at bedside. Call anderson in reach.
--- NOTE | 2024-03-23 08:45 | W.PN.CARDCBS ---
Today's Communication / Plan
-
Weight overall down 15 pounds. Will switch to Lasix 40 mg p.o. twice daily.
Continue medical therapy for coronary artery disease. Continue aspirin, Plavix, atorvastatin, and metoprolol.
Remains on high flow oxygen. Agree with DNR.
Continue IV steroids and treatments for advanced COPD.
Will sign off. Will arrange outpatient follow-up.
Impression / Plan
-
PCP: Dr. Javon Carlos
Cardiology: Dr. Maldonado at [facility], last seen 2021,
Pulm: Dr. Bhatti [phone]
Impression:
Admitted with acute on chronic hypoxemic respiratory failure 03/15/24
AE COPD
Possible PNA
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
Elevated lactic acid level
Chest pain
NSTEMI with peak troponin of 9.9 this admission
Acute HFpEF
CAD
s/p LAD and RCA stents in 1997
History of PVD status post lower extremity revascularization procedures
HOEING ROW BOSS RLE 1996
HOEING ROW BOSS and stent RLE 1997
Hypertension
Hypercholesterolemia
GERD
Anemia
Hyperglycemia
Right bundle branch block
Lexiscan nuclear stress test 01/2020: [facility] study, normal perfusion
Echo 03/18/24: EF 55%, mild inferior, inferolateral hypokinesis, mild MR, mild to moderate without regurgitation peak/mean 35/22 mmHg with ANYI 1.1 cm sq
Plan:
-He has diuresed well and lost 10 to 15 pounds. Will switch to Lasix 40 mg p.o. twice daily. Creatinine remains normal with BUN rising.
-Continue to wean oxygen as able, remains on high flow O2
-Troponin peaked at 9.92. managed as NSTEMI given chest pain, ECG changes and WMA. Patient is high risk for invasive management given heme positive anemia and high flow oxygen requirements so being medically managed. no present CP
-Patient with known CAD and previous LAD and RCA stents from 1997. Patient with reportedly normal perfusion at last known ischemic evaluation in 2019
-Echo noted above with inferior and inferolateral hypokinesis, but overall preserved EF.
-Hgb dropped following addition of Heparin gtt 03/17/24. GI saw the patient and signed off, no work-up planned unless patient develops gross GIB.
-Added Plavix this admission. Cont aspirin 81 mg daily. Hgb stable at 10.7 on 03/22/24
-LDL 69. continue lipitor
-continue toprol 25mg BID
-Patient made DNR this admission
-d/w hospitalist
HPI: Miller has a history of severe pulmonary fibrosis on 5 to 8 L of oxygen chronically (followed by pulmonary at [facility] and possibly due to ink exposure), CAD status post stents in 1997 at [facility], peripheral vascular disease status post
peripheral stents, reflux, hypertension, hypercholesterolemia. At baseline he is on 5 to 8 L of oxygen. He had a lesion removed from his right ear on 03/13/2024. He became progressively more short of breath and had palpitations. In the ER he was
in respiratory distress. He is found to have a troponin of 8 with lactate of 5 and was placed on nonrebreather then BiPAP. At the present time he feels better. He denies chest discomfort.
Progress Note - [employer]
Subjective
Date of Service: March 23, 2024
Denies chest pains. Breathing about the same. Weight is overall down.
Objective
Labs:
03/23/24 05:19
03/23/24 05:19
Labs
Hgb 10.5 g/dL (13.0-18.0) L 03/23/24 05:19
Hct 33.0 % (39.0-52.0) L 03/23/24 05:19
Plt Count 258 10^3/uL (130-400) 03/23/24 05:19
PT 14.2 Sec (11.4-14.6) 03/17/24 09:54
INR 1.12 03/17/24 09:54
APTT Cancelled 03/17/24 12:00
Sodium 142 mmol/L (135-145) 03/23/24 05:19
Potassium 3.5 mmol/L (3.5-5.1) 03/23/24 05:19
BUN 57 mg/dl (9-20) H 03/23/24 05:19
Creatinine 1.1 mg/dL (0.7-1.3) 03/23/24 05:19
Glucose 95 mg/dl (70-99) 03/23/24 05:19
Vital Signs and I&O:
Vital Signs
Temp Pulse Resp BP Pulse Ox
97.7 F 69 16 163/87 99
03/23/24 02:32 03/23/24 08:27 03/23/24 07:28 03/23/24 08:27 03/23/24 07:28
Vital Signs
Temp Pulse Resp BP Pulse Ox
97.7 F 69 16 163/87 99
03/23/24 02:32 03/23/24 08:27 03/23/24 07:28 03/23/24 08:27 03/23/24 07:28
Intake & Output
03/21/24 03/22/24 03/23/24 03/24/24
06:59 06:59 06:59 06:59
Intake Total 580 / 580 480 / 480
Output Total 3925 / 3925 1650 / 1650 1750 / 1750
Balance -3925 / -3925 -1070 / -1070 -1270 / -1270
Physical Exam
Physical Exam
GEN: No distress, awake, Ox3
HEENT: supple, anicteric, mmm
LUNGS: scatt rhonchi
CV: Reg, S1/S2, 1/6 syst LSB, no murmur
ABD: soft, BS+, NT/ND
EXT: No edema
NEURO: Gross non-focal
SKIN: No rash
--- NOTE | 2024-03-23 09:22 | W.PN.PUL3 ---
Today's Communication / Plan
-
Continue with high flow nasal cannula
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
Continue with Ofev
Start Pulmicort
Start Zithromax mainly for anti-inflammatory effect
Nocturnal BiPAP rec'd but he is refusing as he has been intolerant in the past
Guarded prognosis
Code status: DNR/DNI
If patient deteriorates further then it would be appropriate to transition to comfort care measures at that time
Assessment
-
78-year-old male with underlying CAD, PAD with stents, COPD/pulmonary fibrosis overlap taking care of at [facility] though he does want local care, chronic hypoxemia maintained on 5 L of oxygen at home, prednisone as well as Ofev who presented
with increasing shortness of breath and noted to be hypoxemic with elevated troponin-pulmonary consulted for pulmonary fibrosis/hypoxemia 03/16/2024.
Impression:
COPD/pulmonary fibrosis overlap with acute exacerbation
Elevated troponin due to NSTEMI-peak 9.9
Acute HFpEF exacerbation
Bronchitis versus early pneumonia-elevated procalcitonin
Elevated lactate
Mild dementia
MARIANO
Mild anemia-hemoglobin 8.6-normocytic
Hyperglycemia
Conditions present prior to admission:
Recent hospitalization 11/23/2023-fall and mild acute COPD/pulmonary fibrosis overlap exacerbation
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
Adrenal insufficiency.
Hypertension.
Hyperlipidemia.
PAD with history of RLE stent (1997) and lower extremity revascularization
Hx of RBBB
Old right cerebellar infarct.
CAD with history of LAD + RCA stents (1997)
Mild dementia.
GERD.
Anxiety/depression.
Plan
Respiratory decompensation in this patient with advanced end-stage lung disease-COPD/pulmonary fibrosis overlap is likely mild over his baseline
Remains on HFNC now --> he has improved with systemic steroids
Baseline use of 5-8L at home
Unfortunately he has end-stage lung disease and thus the only hope of improving his current situation is if there is another reversible process such as ischemic CAD/CHF/infection as his lung disease will not improve-steroids have been initiated for
the potential of reversible inflammatory component
Daughter is aware his prognosis is poor
Remains unstable with episodes of chest tightness and shortness of breath aggravated by underlying anxiety-rapid response 03/17/2024
Supplemental oxygen as needed-maintained on O2 at home-5 to 10 L
Nebulizers as needed-on DuoNebs QID
Solu-Medrol 60 mg IV every 6 hours initiated-fairly rapid taper-now on 40mg IV daily
Can continue IV steroids while patient's clinical oxygen requirements remain elevated
Patient is maintained on Ofev for his pulmonary fibrosis as an outpatient
Start Pulmicort + Zithromax mainly for anti-inflammatory response
Mucolytics
Incentive spirometry
Flutter
Patient carries a history of sleep apnea but has been intolerant to CPAP/BiPAP. He is refusing PAP while hospitalized
Cultures reviewed
Urine Legionella and streptococcal antigen negative
MRSA screen positive
Blood cultures negative (drawn 03/15/2024)
Last urine culture 02/17/2023-Enterococcus
Unable to produce sputum
Empiric antibiotics-vancomycin and cefepime initiated 03/15 - stopped on 03/20
MRSA screen positive
Continue with atovaquone
ProBNP 3200
Troponin peaked at 9.921 03/15/2024. No need to continue trending at this time
Cardiology evaluation ongoing-correspondence reviewed-reviewed with Dr. Michael Keyes-okay to try increased [id number] for bronchospasm
Continue diuresis with PO lasix
Monitor renal function, electrolytes, intake/output, lower extremity edema and weight
Replace electrolytes as needed
Diet as per REGISTER REPAIRER � recommended regular + thin liquids with aspiration precautions
PT/OT once more stable with O2 requirements
Follow hemoglobin
Transfuse if needed to keep Hb>8g/dL
DVT prophylaxis- start LMWH
GI prophylaxis - N/A (-on pantoprazole - home med)
Nutrition
Early mobilization/physical therapy
Outpatient pulmonary follow-up recommended-he has end-stage lung disease
Most recently followed by Dr. De Dios at [facility] and maintained on nebulizers as well as Ofev and oxygen
Ongoing discussions with hospice
Pulmonary service will continue to follow along.
Family Discussions
Viktoriya 03/20/24 - Spoke to patient and daughter today regarding prognosis they know his condition is non-reversible and agree he should be DNR. We then discussed his chances of survival on this admission which is low. Daughter aware and are likely to
enroll into hospice but need to decide. They were agreeable to consult.
03/19/24 Hospice has been discussed in the past, I discussed with him again what he would want if he made little to no progress on weaning O2
Diagnostic data:
Chest x-ray 02/12/2023-increased reticulonodular markings suggestive of interstitial fibrosis, slight blunting left costophrenic angle
Chest x-ray 02/19/2023-extremely limited because of low lung volumes
Chest x-ray 11/22/2023-pronounced reticular interstitial thickening related to interstitial fibrosis, no significant pleural effusions or pneumothorax
Chest x-ray 03/15/2024-bilateral interstitial opacifications without acute process
Lower extremity ultrasound 07/05/2021-no evidence for lower extremity venous thrombosis
CT head 11/22/2023-no acute intracranial abnormalities, mild atrophy and mild chronic small vessel changes, old right sella [place] infarct, no significant changes compared to prior study 02/12/2023
CT chest 03/15/2024-no CT evidence for PE, chronic severe pulmonary fibrosis and emphysema, severe coronary artery and aortic valve calcifications
-----
Total time spent today was 53 minutes for this encounter. Time includes reviewing laboratory test/imaging results, reviewing pertinent medical records, obtaining and reviewing medical history, performing an appropriate exam, ordering medications,
tests and procedures. Time also includes documentation of this encounter, coordinating patient care and communicating with other healthcare professionals. Total time does not include separately billed tests performed on this date of service.
Subjective Data
-
Date of Service:
Date of Service: March 23, 2024
Chief Complaint: Pulmonary Follow Up and Dyspnea Follow Up
Subjective:
Patient seen and evaluated today at bedside. He says that he feels a lot better today. He denies any productive cough, chest discomfort, fevers or chills. He is currently on high flow nasal cannula at 60% FiO2 at 50 L/min saturating 96%. Heart
rate 85, and BP 108/62.
Review of Systems
General: Other (Negative unless mentioned above)
Objective Data
Data Reviewed
Vital Signs / I&O / Oxygen:
Vital Signs
Temp Pulse Resp BP Pulse Ox
97.4 F 69 16 163/87 99
03/23/24 07:53 03/23/24 08:27 03/23/24 07:28 03/23/24 08:27 03/23/24 07:28
Intake and Output
03/22/24 03/23/24 03/24/24
06:59 06:59 06:59
Intake Total 580 / 580 480 / 480
Output Total 1650 / 1650 1750 / 1750
Balance -1070 / -1070 -1270 / -1270
SaO2 99
Nasal Cannula flow liters per 50
minute
Physical Exam
General: Respiratory Distress (n), Comfortable, Chills (negative) and Sweats (negative)
HEENT: Normocephalic and Anicteric
Cardiovascular: Regular Rhythm, Murmur and Peripheral Edema (negative)
Respiratory: Wheeze (negative), Crackles (Bilateral residential up posteriorly), Rhonchi (n), Non-Labored Respirations, Accessory Resp Muscle Use (n) and Stridor (n)
GI: Soft, Non Distended and Non Tender
Neurology: AO x 3 and Tremors (negative)
Skin: Warm, Dry, Cyanosis (n), Jaundice (n) and Rash (n)
Labs/Micro/Reports
Lab Data
03/23/24 05:19
03/23/24 05:19
Microbiology
03/15/24 17:11 Blood/Venous Blood Culture - Final
No Growth - Final Report
03/15/24 16:56 Blood/Venous Blood Culture - Final
No Growth - Final Report
--- NOTE | 2024-03-23 09:26 | HOSPNOTE ---
Hospice is following. Family had opted to wait on hospice to see how patient does over the weekend. Plan is to follow up with patient and family on Monday to see if they feel hospice is now wanted. Hospice remains available for any questions or
concerns.
--- NOTE | 2024-03-23 09:54 | W.PN.HOSP.TC ---
Addendum entered and electronically signed by Germán Kolb MD 03/23/24 11:32:
General: No Apparent Distress and Appears Chronically Ill, talking with multiple family member at bedside. in good spirits.
HEENT: Normocephalic, Atraumatic, Moist Mucous Membranes and Oxygen (HFNC )
Respiratory: Rhonchi; Negative Wheezes or Rales
Cardiac: Regular Rhythm and S1/S2
GI: Soft, Nontender, Nondistended and Normal Bowel Sounds
Musculoskeletal: No Clubbing and No Cyanosis
Skin: Other (L neck bruse, b/l UE bruises)
Neuro: Awake, Alert, Oriented and AO x 3
Psych: Calm
Original Note:
Today's Communication/Plan
-
Wean oxygen started
IV steroids
Await family decision
Prognosis remain guarded
Assessment / Plan
Assessment / Plan
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 Also had episodes of palpitations. In ED found troponin of 8, lactate of 5, placed on HFNC. EKG without ST elevation. Managed for NSTEMI, possible pneumonia and exacerbation of COPD/lung fibrosis overlap. Developed worsening
anemia
A/P:
#Acute on chronic hypoxic respiratory failure likely multifactorial due to COPD and pulmonary fibrosis exacerbation, pneumonia, acute on chronic diastolic heart failure exacerbation
#COPD exacerbation
#Pulmonary fibrosis
CTA chest
IV steroids solumedrol 40mg daily. Frequency decreased.
bronchodilators
Pulm consulted
HFNC and wean off to baseline as tolerated. Increase in FIO2 to 60- 65%.
#possible CAP
procalcitonin elevated, cont empiric Abx, suspect pneumonia due to new hypoxia and chronic lung disease
Legionella and s.pneumonia urinary Ag
Sputum Cx if possible
COVID-19, Influenza PCR neg
Blood culture negative so far.
MRSA POSITIVE. Vancomycin completed 7d course.
Cefepime DCed. Completed 5d course.
#Dysphagia
?silent aspiration
Diet upgraded to regular. Patient understands aspiration risk
Appreciate speech
#NSTEMI
#Palpitations with sinus arrhythmia on tele
#Possible acute on chronic HFpEF exacerbation
Cardio consult
Cont asprin.
s/p hep gtt infusion.
cont statin - LDL 69
Started on Toprol 25 twice daily
sublingual nitro PRN
cont BB
Significant improvement with IV diuresis and now transition to 40 mg p.o. twice daily.
Plavix started- trend hgb closely. Stable
Cardiology signed off.
#PETE
High LDH with normal retics -hematology consult
Discuss with cardiology blood transfusion since patient is treated for NSTEMI - would favor keeping Hgb between 9-10, however concomitant concern for CHF might be prohibitive. Also patient w/o chest pain
serial H&H
GI consulted. No plan for procedure.
s/p IV iron per heme
PPI bid for now
# Lactic acidosis likely in the setting of severe hypoxemia and CHF exacerbation
No need to further trend.
#HLD
cont home meds
#Essential HTN
BB for now.
#Anxiety d/o
cont SSRI
#AST elevation - improving
CPK minimally elevated
follow LFT
most likely 2/2 cardiac injury
DVT ppx scds
DNR/DNI
d/w with daughter at bedside in details on 03/20/24. 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 Hospice recommended.
Family decided to wait on hospice.
Discussed with daughter once again at bedside in detail 03/23/24
Anticipated Discharge: > 48 hours
Subjective/Interval History
-
Date of Service: March 23, 2024
Remains on high flow nasal cannula
states of cough but no phelgm
Objective Data
-
Labs:
Laboratory Results
03/23/24
05:19
WBC 10.4
Hgb 10.5 L
Hct 33.0 L
Plt Count 258
Sodium 142
Potassium 3.5
Chloride 98
Carbon Dioxide 37 H
BUN 57 H
Creatinine 1.1
Glucose 95
Calcium 9.2
Vital Signs:
Vital Signs
Temp Pulse Resp BP Pulse Ox
97.4 F 69 16 163/87 99
03/23/24 07:53 03/23/24 08:27 03/23/24 07:28 03/23/24 08:27 03/23/24 07:28
I&O
03/22/24 03/23/24 03/24/24
06:59 06:59 06:59
Intake Total 580 / 580 480 / 480
Output Total 1650 / 1650 1750 / 1750
Balance -1070 / -1070 -1270 / -1270
Data Reviewed
-
Total Time Spent with Patient (in minutes): 56
[2024-03-23 12:18] LABS: Glucose - Point of Care 154 mg/dl (70-99)
[2024-03-23] MEDS: NOVOLOG FLEXPEN-LOW RESISTANCE 1 UNITS SC (12:24)
[2024-03-23] MEDS: NOVOLOG FLEXPEN-LOW RESISTANCE 2 UNITS SC (17:06)
[2024-03-23 17:07] LABS: Glucose - Point of Care 227 mg/dl (70-99)
[2024-03-23] MEDS: LASIX 40 MG PO (17:07)
[2024-03-23] MEDS: PULMICORT 0.5 MG INH (19:09)
[2024-03-23] MEDS: ZITHROMAX INFUSION 250 IV (19:29)
[2024-03-23 21:43] LABS: Glucose - Point of Care 113 mg/dl (70-99)
[2024-03-24] VITALS (8 sets, daily range): BP systolic 110–160; BP diastolic 59–92; BMI 21.8
--- NOTE | 2024-03-24 01:44 | PTCARENOTE ---
Pt resting comfortably throughout shift. Continues on HF 50L/50% POX 96-99%. Slight GRUBBS/ARMEN. Shallow, crackles throughout. Less cough overnight. Received stat dose Zithromax at beginning of shift as ordered. Pt using Acapella while awake. Refusing
turns this shift. SR/SA/BBB irregular rhythm. Condom cath intact draining yellow urine. No change from previous assessment. Call anderson remains within reach. Daughter staying the night. Will continue to monitor.
[2024-03-24 05:03] LABS: Blood Urea Nitrogen 57 mg/dl (9-20); Calcium 9.5 mg/dl (8.4-10.2); Carbon Dioxide 40 mmol/L (22-30); Chloride 95 mmol/L (98-107); Estimated Creatinine Clearance 50 ml/min; Glucose 110 mg/dl (70-99); Potassium 3.9 mmol/L (3.5-5.1); Sodium 143 mmol/L (135-145); eGFR > 60.00
[2024-03-24] MEDS: DUONEB 3 ML INH ×4 (07:07→19:20)
[2024-03-24] MEDS: PULMICORT 0.5 MG INH ×2 (07:08→19:20)
[2024-03-24 08:06] LABS: Glucose - Point of Care 133 mg/dl (70-99)
[2024-03-24] MEDS: NOVOLOG FLEXPEN-LOW RESISTANCE SC ×2 (08:08→13:15)
--- NOTE | 2024-03-24 09:40 | W.PN.PUL3 ---
Today's Communication / Plan
-
Continue with high flow nasal cannula
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
Continue with Ofev
Pulmicort
Zithromax mainly for anti-inflammatory effect
Nocturnal BiPAP rec'd but he is refusing as he has been intolerant in the past
Guarded prognosis
Code status: DNR/DNI
If patient deteriorates further then it would be appropriate to transition to comfort care measures at that time
Assessment
-
78-year-old male with underlying CAD, PAD with stents, COPD/pulmonary fibrosis overlap taking care of at [facility] though he does want local care, chronic hypoxemia maintained on 5 L of oxygen at home, prednisone as well as Ofev who presented
with increasing shortness of breath and noted to be hypoxemic with elevated troponin-pulmonary consulted for pulmonary fibrosis/hypoxemia 03/16/2024.
Impression:
COPD/pulmonary fibrosis overlap with acute exacerbation
Elevated troponin due to NSTEMI-peak 9.9
Acute HFpEF exacerbation
Bronchitis versus early pneumonia-elevated procalcitonin
Elevated lactate
Mild dementia
MARIANO
Mild anemia-hemoglobin 8.6-normocytic
Hyperglycemia
Conditions present prior to admission:
Recent hospitalization 11/23/2023-fall and mild acute COPD/pulmonary fibrosis overlap exacerbation
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
Former aeoqxy-57-dsat-year-quit 48 years old.
Adrenal insufficiency.
Hypertension.
Hyperlipidemia.
PAD with history of RLE stent (1997) and lower extremity revascularization
Hx of RBBB
Old right cerebellar infarct.
CAD with history of LAD + RCA stents (1997)
Mild dementia.
GERD.
Anxiety/depression.
Plan
Respiratory decompensation in this patient with advanced end-stage lung disease-COPD/pulmonary fibrosis overlap is likely mild over his baseline
Remains on HFNC now at 50% FiO2 --> he has improved with systemic steroids
Baseline use of 5-8L at home
Unfortunately he has end-stage lung disease and thus the only hope of improving his current situation is if there is another reversible process such as ischemic CAD/CHF/infection as his lung disease will not improve-steroids have been initiated for
the potential of reversible inflammatory component
Daughter is aware his prognosis is poor
Remains unstable with episodes of chest tightness and shortness of breath aggravated by underlying anxiety-rapid response 03/17/2024
Wean down FiO2 on HFNC as tolerated- he is maintained on O2 at home-5 to 10 L
Nebulizers as needed + DuoNebs QID
Solu-Medrol 60 mg IV every 6 hours initiated-fairly rapid taper-now on 40mg IV daily
Can continue IV steroids while patient's clinical oxygen requirements remain elevated and wean down as he clinically improves
Patient is maintained on Ofev for his pulmonary fibrosis as an outpatient
On 03/23, started Pulmicort + Zithromax mainly for anti-inflammatory response
Mucolytics
Incentive spirometry
Flutter valve
Patient carries a history of sleep apnea but has been intolerant to CPAP/BiPAP. He is refusing PAP while hospitalized
Cultures reviewed
Urine Legionella and streptococcal antigen negative
MRSA screen positive
Blood cultures negative (drawn 03/15/2024)
Last urine culture 02/17/2023-Enterococcus
Unable to produce sputum
Empiric antibiotics-vancomycin and cefepime initiated 03/15 - stopped on 03/20
MRSA screen positive
Continue with atovaquone
ProBNP 3200
Troponin peaked at 9.921 03/15/2024. No need to continue trending at this time
Cardiology evaluation ongoing-correspondence reviewed-reviewed with Dr. Michael Keyes-okay to try increased [id number] for bronchospasm
Continue diuresis with PO lasix
Monitor renal function, electrolytes, intake/output, lower extremity edema and weight
Replace electrolytes as needed
Diet as per LAND TITLE EXAMINER � recommended regular + thin liquids with aspiration precautions
PT/OT once more stable with O2 requirements
Follow hemoglobin
Transfuse if needed to keep Hb>8g/dL
DVT prophylaxis- LMWH
GI prophylaxis - N/A (-on pantoprazole - home med)
Nutrition
Outpatient pulmonary follow-up recommended-he has end-stage lung disease
Most recently followed by Dr. De Dios at [facility] and maintained on nebulizers as well as Ofev and oxygen
Ongoing discussions with hospice
Pulmonary service will continue to follow along.
Family Discussions
Viktoriya 03/20/24 - Spoke to patient and daughter today regarding prognosis they know his condition is non-reversible and agree he should be DNR. We then discussed his chances of survival on this admission which is low. Daughter aware and are likely to
enroll into hospice but need to decide. They were agreeable to consult.
03/19/24 Hospice has been discussed in the past, I discussed with him again what he would want if he made little to no progress on weaning O2
Diagnostic data:
Chest x-ray 02/12/2023-increased reticulonodular markings suggestive of interstitial fibrosis, slight blunting left costophrenic angle
Chest x-ray 02/19/2023-extremely limited because of low lung volumes
Chest x-ray 11/22/2023-pronounced reticular interstitial thickening related to interstitial fibrosis, no significant pleural effusions or pneumothorax
Chest x-ray 03/15/2024-bilateral interstitial opacifications without acute process
Lower extremity ultrasound 07/05/2021-no evidence for lower extremity venous thrombosis
CT head 11/22/2023-no acute intracranial abnormalities, mild atrophy and mild chronic small vessel changes, old right sella [place] infarct, no significant changes compared to prior study 02/12/2023
CT chest 03/15/2024-no CT evidence for PE, chronic severe pulmonary fibrosis and emphysema, severe coronary artery and aortic valve calcifications
-----
Total time spent today was 53 minutes for this encounter. Time includes reviewing laboratory test/imaging results, reviewing pertinent medical records, obtaining and reviewing medical history, performing an appropriate exam, ordering medications,
tests and procedures. Time also includes documentation of this encounter, coordinating patient care and communicating with other healthcare professionals. Total time does not include separately billed tests performed on this date of service.
Subjective Data
-
Date of Service:
Date of Service: March 24, 2024
Chief Complaint: Pulmonary Follow Up and Dyspnea Follow Up
Subjective:
Patient was seen and evaluated today at bedside. Patient's son, Miller, at bedside. Patient's heart rate is 67 and he is saturating 100% on high flow nasal cannula at 50% FiO2. Patient is very tired today but he is easily arousable and answering
questions appropriately. He denies SOB at rest, chest pain, LAMAR, fevers or chills.
Review of Systems
General: Other (Negative unless mentioned above)
Objective Data
Data Reviewed
Vital Signs / I&O / Oxygen:
Vital Signs
Temp Pulse Resp BP Pulse Ox
97.6 F 65 24 140/60 94
03/24/24 03:36 03/24/24 07:12 03/24/24 07:12 03/24/24 06:00 03/24/24 07:12
Intake and Output
03/23/24 03/24/24 03/25/24
06:59 06:59 06:59
Intake Total 480 / 480 480 / 480
Output Total 1750 / 1750 1600 / 1600
Balance -1270 / -1270 -1120 / -1120
SaO2 94
Nasal Cannula flow liters per 50
minute
Physical Exam
General: Respiratory Distress (n), Comfortable, Chills (negative) and Sweats (negative)
HEENT: Normocephalic and Anicteric
Cardiovascular: Regular Rhythm, Murmur and Peripheral Edema (negative)
Respiratory: Wheeze (negative), Crackles (Bilateral fci up posteriorly), Rhonchi (n), Non-Labored Respirations, Accessory Resp Muscle Use (n) and Stridor (n)
GI: Soft, Non Distended and Non Tender
Neurology: AO x 3 and Tremors (negative)
Skin: Warm, Dry, Cyanosis (n), Jaundice (n) and Rash (n)
Labs/Micro/Reports
Lab Data
03/23/24 05:19
03/24/24 04:17
[2024-03-24] MEDS: PLAVIX 75 MG PO (11:27)
[2024-03-24] MEDS: ZITHROMAX 250 MG PO (11:27)
[2024-03-24] MEDS: CLARITIN 10 MG PO (11:27)
[2024-03-24] MEDS: LIPITOR 40 MG PO (11:27)
[2024-03-24] MEDS: NEURONTIN 100 MG PO ×3 (11:28→21:43)
[2024-03-24] MEDS: MEPRON SUSPENSION 1500 MG PO (11:28)
[2024-03-24] MEDS: TESSALON PERLES 200 MG PO ×3 (11:28→21:43)
[2024-03-24] MEDS: PROTONIX 40 MG PO ×2 (11:29→20:34)
[2024-03-24] MEDS: ZOLOFT 50 MG PO (11:29)
[2024-03-24] MEDS: TOPROL XL 25 MG PO ×2 (11:29→20:34)
[2024-03-24] MEDS: KCL 20 MEQ PO (11:29)
[2024-03-24] MEDS: LASIX 40 MG PO ×2 (11:29→18:29)
[2024-03-24] MEDS: LOW STRENGTH ASPIRIN 81 MG PO (11:29)
[2024-03-24] MEDS: SOLU-MEDROL PF 40 MG IV (11:30)
[2024-03-24] MEDS: NON-FORMULARY ITEM 150 MG PO ×2 (11:31→20:35)
[2024-03-24 12:26] LABS: Glucose - Point of Care 115 mg/dl (70-99)
--- NOTE | 2024-03-24 12:55 | W.PN.HOSP.TC ---
Today's Communication/Plan
-
IV Steroids per pulmonary
Monitor BMP
may need to hold lasix in next 24h
wean o2 as tolerated
prognosis remains guarded
Assessment / Plan
Assessment / Plan
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 Also had episodes of palpitations. In ED found troponin of 8, lactate of 5, placed on HFNC. EKG without ST elevation. Managed for NSTEMI, possible pneumonia and exacerbation of COPD/lung fibrosis overlap. Developed worsening
anemia
A/P:
#Acute on chronic hypoxic respiratory failure likely multifactorial due to COPD and pulmonary fibrosis exacerbation, pneumonia, acute on chronic diastolic heart failure exacerbation
#COPD exacerbation
#Pulmonary fibrosis
CTA chest
IV steroids solumedrol 40mg daily. Frequency decreased. Adjustment per pulm
bronchodilators
started on pulmicort
azithromycin started daily
Pulm consulted
HFNC and wean off to baseline as tolerated
#possible CAP
procalcitonin elevated, cont empiric Abx, suspect pneumonia due to new hypoxia and chronic lung disease
Legionella and s.pneumonia urinary Ag
Sputum Cx if possible
COVID-19, Influenza PCR neg
Blood culture negative so far.
MRSA POSITIVE. Vancomycin completed 7d course.
Cefepime DCed. Completed 5d course.
#Dysphagia
?silent aspiration
Diet upgraded to regular. Patient understands aspiration risk
Appreciate speech
#NSTEMI
#Palpitations with sinus arrhythmia on tele
#Possible acute on chronic HFpEF exacerbation
Cardio consult
Cont asprin.
s/p hep gtt infusion.
cont statin - LDL 69
Started on Toprol 25 twice daily
sublingual nitro PRN
cont BB
Significant improvement with IV diuresis and now transition to 40 mg p.o. twice daily. Monitor for contraction alkalosis. Monitor BMP closely.
Plavix started- trend hgb closely. Stable
Cardiology signed off.
#PETE
High LDH with normal retics -hematology consult
Discuss with cardiology blood transfusion since patient is treated for NSTEMI - would favor keeping Hgb between 9-10, however concomitant concern for CHF might be prohibitive. Also patient w/o chest pain
serial H&H
GI consulted. No plan for procedure.
s/p IV iron per heme
PPI bid for now
# Lactic acidosis likely in the setting of severe hypoxemia and CHF exacerbation
No need to further trend.
#HLD
cont home meds
#Essential HTN
BB for now.
#Anxiety d/o
cont SSRI
#AST elevation - improving
CPK minimally elevated
follow LFT
most likely 2/2 cardiac injury
DVT ppx scds
DNR/DNI
d/w with daughter at bedside in details on 03/20/24. long-term prognosis poor. Hospice recommended.
Family decided to wait on hospice.
Discussed with daughter once again at bedside in detail 03/24/24
Anticipated Discharge: > 48 hours
Subjective/Interval History
-
Date of Service: March 24, 2024
remains with dry cough
remains on HFNC
Objective Data
-
Labs:
Laboratory Results
03/24/24
04:17
Sodium 143
Potassium 3.9
Chloride 95 L
Carbon Dioxide 40 H
BUN 57 H
Creatinine 1.1
Glucose 110 H
Calcium 9.5
Vital Signs:
Vital Signs
Temp Pulse Resp BP Pulse Ox
97.9 F 83 28 140/60 97
03/24/24 07:17 03/24/24 11:24 03/24/24 11:24 03/24/24 06:00 03/24/24 11:28
I&O
03/23/24 03/24/24 03/25/24
06:59 06:59 06:59
Intake Total 480 / 480 480 / 480
Output Total 1750 / 1750 1600 / 1600
Balance -1270 / -1270 -1120 / -1120
Physical Exam
-
General: No Apparent Distress and Appears Chronically Ill
HEENT: Normocephalic, Atraumatic, Moist Mucous Membranes and Oxygen (HFNC )
Respiratory: Rhonchi; Negative Wheezes or Rales
Cardiac: Regular Rhythm and S1/S2
GI: Soft, Nontender, Nondistended and Normal Bowel Sounds
Musculoskeletal: No Clubbing and No Cyanosis
Skin: Other (L neck bruse, b/l UE bruises)
Neuro: Awake, Alert, Oriented and AO x 3
Psych: Calm
Data Reviewed
-
Total Time Spent with Patient (in minutes): 56
[2024-03-24 17:50] LABS: Glucose - Point of Care 215 mg/dl (70-99)
[2024-03-24] MEDS: LOVENOX 40 MG SC (18:30)
[2024-03-24] MEDS: NOVOLOG FLEXPEN-LOW RESISTANCE 2 UNITS SC (18:30)
--- NOTE | 2024-03-24 19:38 | PTCARENOTE ---
day shift note. pt weaned down to 45liters/45% high flow by resp therapist. pt was oob to chair x 1.5 hours with assist of 2. pt with increased dyspnea upon exerting himself and desatted to 79% after transferring to chair but was able to quicky
rebound back to sats in 90s after focusing on breathing in nose/out mouth. appetite was good. condom cath in place draining yellow urine.
[2024-03-24] MEDS: TYLENOL 650 MG PO (20:34)
[2024-03-24 21:28] LABS: Glucose - Point of Care 200 mg/dl (70-99)
[2024-03-24] MEDS: ATIVAN 0.5 MG PO (23:32)
[2024-03-25] VITALS (14 sets, daily range): BP systolic 89–149; BP diastolic 42–91; BMI 21.9
--- NOTE | 2024-03-25 02:47 | PTCARENOTE ---
Pt tolerating high flow. SPO2 95%. CC#30 placed. Pt had no complaints at this time. Assessment care and vitals as charted.
[2024-03-25 05:55] LABS: Blood Urea Nitrogen 59 mg/dl (9-20); Calcium 9.3 mg/dl (8.4-10.2); Chloride 94 mmol/L (98-107); Estimated Creatinine Clearance 55 ml/min; Glucose 105 mg/dl (70-99); Potassium 4.6 mmol/L (3.5-5.1); Sodium 141 mmol/L (135-145); eGFR > 60.00
[2024-03-25 06:07] LABS: Carbon Dioxide 33 mmol/L (22-30)
[2024-03-25] MEDS: DUONEB 3 ML INH ×4 (07:41→20:08)
[2024-03-25] MEDS: PULMICORT 0.5 MG INH ×2 (07:41→20:08)
[2024-03-25 08:00] LABS: Glucose - Point of Care 108 mg/dl (70-99)
[2024-03-25] MEDS: NOVOLOG FLEXPEN-LOW RESISTANCE SC ×2 (08:30→12:15)
[2024-03-25] MEDS: ZOLOFT 50 MG PO (08:30)
[2024-03-25] MEDS: MEPRON SUSPENSION 1500 MG PO (08:31)
[2024-03-25] MEDS: PLAVIX 75 MG PO (08:31)
[2024-03-25] MEDS: TOPROL XL 25 MG PO ×2 (08:31→21:41)
[2024-03-25] MEDS: PROTONIX 40 MG PO ×2 (08:32→21:43)
[2024-03-25] MEDS: NEURONTIN 100 MG PO ×3 (08:32→21:43)
[2024-03-25] MEDS: TESSALON PERLES 200 MG PO ×3 (08:32→21:43)
[2024-03-25] MEDS: LIPITOR 40 MG PO (08:32)
[2024-03-25] MEDS: LOW STRENGTH ASPIRIN 81 MG PO (08:32)
[2024-03-25] MEDS: KCL 20 MEQ PO (08:32)
[2024-03-25] MEDS: ZITHROMAX 250 MG PO (08:32)
[2024-03-25] MEDS: LASIX 40 MG PO ×2 (08:32→16:59)
[2024-03-25] MEDS: CLARITIN 10 MG PO (08:32)
[2024-03-25] MEDS: SOLU-MEDROL PF 40 MG IV (08:34)
[2024-03-25] MEDS: NON-FORMULARY ITEM 150 MG PO ×2 (08:35→21:47)
--- NOTE | 2024-03-25 09:41 | W.PN.PUL3 ---
Today's Communication / Plan
-
Remains on high flow oxygen-57%. Wean as able. Not ready to transition to nasal cannula
Continue IV corticosteroid for now
continue to monitor blood sugars.
Nebulizers
Symptomatic management
Physical therapy as able
Poor prognosis
Assessment
-
78-year-old male with underlying CAD, PAD with stents, COPD/pulmonary fibrosis overlap taking care of at [facility] though he does want local care, chronic hypoxemia maintained on 5 L of oxygen at home, prednisone as well as Ofev who presented
with increasing shortness of breath and noted to be hypoxemic with elevated troponin-pulmonary consulted for pulmonary fibrosis/hypoxemia 03/16/2024.
Impression:
COPD/pulmonary fibrosis overlap with acute exacerbation
Elevated troponin due to NSTEMI-peak 9.9
Acute HFpEF exacerbation
Bronchitis versus early pneumonia-elevated procalcitonin
Elevated lactate
Mild dementia
MARIAON
Mild anemia-hemoglobin 8.6-normocytic
Hyperglycemia
Conditions present prior to admission:
Recent hospitalization 11/23/2023-fall and mild acute COPD/pulmonary fibrosis overlap exacerbation
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
Adrenal insufficiency.
Hypertension.
Hyperlipidemia.
PAD with history of RLE stent (1997) and lower extremity revascularization
Hx of RBBB
Old right cerebellar infarct.
CAD with history of LAD + RCA stents (1997)
Mild dementia.
GERD.
Anxiety/depression.
Plan
Respiratory decompensation in this patient with advanced end-stage lung disease-COPD/pulmonary fibrosis overlap is likely mild over his baseline
Remains on HFNC now at 57% FiO2/50 L/min--> he has improved with systemic steroids, very slow progress. Not ready to transition to nasal cannula.
Baseline use of 5-8L at home.
Unfortunately he has end-stage lung disease and thus the only hope of improving his current situation is if there is another reversible process such as ischemic CAD/CHF/infection as his lung disease will not improve-steroids have been initiated for
the potential of reversible inflammatory component
Daughter is aware his prognosis is poor. Ongoing discussions regarding possible hospice.
Continue supportive care for now.
Remains unstable with episodes of chest tightness and shortness of breath aggravated by underlying anxiety-rapid response 03/17/2024
Wean down FiO2 on HFNC-57%. Pulse ox during my evaluation was 100%, wean as able. Minimal effort dyspnea
Nebulizers as needed + DuoNebs QID
Solu-Medrol pulse, now on -, continue without change for now. 40mg IV daily
Can continue IV steroids while patient's clinical oxygen requirements remain elevated and wean down as he clinically improves
Patient is maintained on Ofev for his pulmonary fibrosis as an outpatient
On 03/23, started Pulmicort + Zithromax mainly for anti-inflammatory response
Mucolytics
Incentive spirometry
Flutter valve, as able.
-
Patient carries a history of sleep apnea but has been intolerant to CPAP/BiPAP. He is refusing PAP while hospitalized
Afebrile/no leukocytosis.
Cultures reviewed
Urine Legionella and streptococcal antigen negative
MRSA screen positive
Blood cultures negative (drawn 03/15/2024)
Last urine culture 02/17/2023-Enterococcus
Unable to produce sputum
Empiric antibiotics-vancomycin and cefepime completed e days on 03/20
MRSA screen positive
Continue with atovaquone- PJP prophylaxis.
ProBNP 3200
Troponin peaked at 9.921 03/15/2024. No need to continue trending at this time
Cardiology evaluation ongoing-correspondence reviewed-reviewed with Dr. Michael Keyes-shilpa to try increased [id number] for bronchospasm
Continue diuresis with PO lasix
Monitor renal function. BUN increasing.
Diet as per ASSISTANT PRODUCER � recommended regular + thin liquids with aspiration precautions
PT/OT once more stable with O2 requirements
Chronic anemia noted: Contributing to symptoms. Stable for now. No evidence for bleeding.
Continue to follow
DVT prophylaxis- LMWH
GI prophylaxis - N/A (-on pantoprazole - home med)
Nutrition
GOC discussions:
Outpatient pulmonary follow-up recommended-he has end-stage lung disease
Most recently followed by Dr. De Dios at [facility] and maintained on nebulizers as well as Ofev and oxygen
Ongoing discussions with hospice
Pulmonary service will continue to follow along.

Family Discussions
Viktoriya 03/20/24 - Spoke to patient and daughter today regarding prognosis they know his condition is non-reversible and agree he should be DNR. We then discussed his chances of survival on this admission which is low. Daughter aware and are likely to
enroll into hospice but need to decide. They were agreeable to consult.
03/19/24 Hospice has been discussed in the past, I discussed with him again what he would want if he made little to no progress on weaning O2
Diagnostic data:
Chest x-ray 02/12/2023-increased reticulonodular markings suggestive of interstitial fibrosis, slight blunting left costophrenic angle
Chest x-ray 02/19/2023-extremely limited because of low lung volumes
Chest x-ray 11/22/2023-pronounced reticular interstitial thickening related to interstitial fibrosis, no significant pleural effusions or pneumothorax
Chest x-ray 03/15/2024-bilateral interstitial opacifications without acute process
Lower extremity ultrasound 07/05/2021-no evidence for lower extremity venous thrombosis
CT head 11/22/2023-no acute intracranial abnormalities, mild atrophy and mild chronic small vessel changes, old right sella [place] infarct, no significant changes compared to prior study 02/12/2023
CT chest 03/15/2024-no CT evidence for PE, chronic severe pulmonary fibrosis and emphysema, severe coronary artery and aortic valve calcifications
-----
Subjective Data
-
Date of Service:
Date of Service: March 25, 2024
Chief Complaint: Pulmonary Follow Up and Dyspnea Follow Up
Subjective:
Remain on high flow oxygen.
Minimal effort dyspnea.
No significant increased phlegm production or hemoptysis
Denies leg edema
Review of Systems
Cardiopulmonary: Dyspnea, Dyspnea on Exertion (Minimal effort), Cough and Chest Pain (n)
Objective Data
Data Reviewed
Vital Signs / I&O / Oxygen:
Vital Signs
Temp Pulse Resp BP Pulse Ox
97.6 F 79 20 107/61 96
03/25/24 07:15 03/25/24 08:32 03/25/24 07:42 03/25/24 08:32 03/25/24 08:43
Intake and Output
03/24/24 03/25/24 03/26/24
06:59 06:59 06:59
Intake Total 480 / 480 60 / 60
Output Total 1600 / 1600 600 / 600
Balance -1120 / -1120 -540 / -540
SaO2 96
Nasal Cannula flow liters per 50
minute
Physical Exam
General: Respiratory Distress (n), Comfortable, Chills (negative) and Sweats (negative)
HEENT: Normocephalic and Anicteric
Cardiovascular: Regular Rhythm, Murmur and Peripheral Edema (negative)
Respiratory: Wheeze (negative), Crackles (Bilateral assisted up posteriorly), Rhonchi (n), Non-Labored Respirations, Accessory Resp Muscle Use (n) and Stridor (n)
GI: Soft, Non Distended and Non Tender
Neurology: AO x 3 and Tremors (negative)
Skin: Warm, Dry, Cyanosis (n), Jaundice (n) and Rash (n)
Labs/Micro/Reports
Lab Data
03/23/24 05:19
03/25/24 04:59
--- NOTE | 2024-03-25 12:03 | W.PN.HOSP.TC ---
Today's Communication/Plan
-
Recehck XR chest
Cont Steroids
Assessment / Plan
Assessment / Plan
78yo M with PMHx of CAD, PAD s/p stents, COPD with lung fibrosis, chronic hypoxic respiratory failure on 5-10L home O2, chronic prednisone, HTN, GERD came with SOB started to worsen after he had a cancer resection procedure (without general
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 Also had episodes of palpitations. In ED found troponin of 8, lactate of 5, placed on HFNC. EKG without ST elevation. Managed for NSTEMI, possible pneumonia and exacerbation of COPD/lung fibrosis overlap. Developed worsening
anemia, that later stabilized. No significant improvement with CHF and COPD treatment, but patient was declining hospice on multiple occasions
A/P:
#Acute on chronic hypoxic respiratory failure likely multifactorial due to COPD and pulmonary fibrosis exacerbation, pneumonia, acute on chronic diastolic heart failure exacerbation
#COPD exacerbation
#Pulmonary fibrosis
CTA chest
IV steroids solumedrol 40mg daily. Frequency decreased. Adjustment per pulm
bronchodilators
started on pulmicort
azithromycin started daily
Pulm consulted
HFNC and wean off to baseline as tolerated
#possible CAP
Legionella and s.pneumonia urinary Ag neg
Sputum Cx if possible
COVID-19, Influenza PCR neg
Blood culture negative so far.
MRSA POSITIVE. Vancomycin completed 7d course.
Cefepime DCed. Completed 5d course.
#Dysphagia
possible silent aspiration
Diet upgraded to regular. Patient understands aspiration risk
[facility] foillowed
#NSTEMI
#Palpitations with sinus arrhythmia on tele
#Possible acute on chronic HFpEF exacerbation
Cardio consult
Cont asprin.
s/p hep gtt infusion.
cont statin - LDL 69
Started on Toprol 25 twice daily
sublingual nitro PRN
cont BB
Significant improvement with IV diuresis and transitioned to 40 mg p.o. twice daily. Monitor for contraction alkalosis. Monitor BMP closely.
Plavix started- trend hgb closely. Stable
Cardiology signed off.
#PETE
High LDH with normal retics -hematology consult
Discuss with cardiology blood transfusion since patient is treated for NSTEMI - would favor keeping Hgb between 9-10, however concomitant concern for CHF might be prohibitive. Also patient w/o chest pain
serial H&H - stable
GI consulted. No plan for procedure.
s/p IV iron per heme
PPI bid for now
# Lactic acidosis likely in the setting of severe hypoxemia and CHF exacerbation
No need to further trend.
#HLD
cont home meds
#Essential HTN
BB for now.
#Anxiety d/o
cont SSRI
#AST elevation - improving
CPK minimally elevated
follow LFT
most likely 2/2 cardiac injury
DVT ppx Lovenox
DNR/DNI
I have spent at least 37min reviewing chart, test results, communication with consultants and direct patient care
Anticipated Discharge: > 48 hours
Subjective/Interval History
-
Date of Service: March 25, 2024
Objective Data
-
Labs:
Laboratory Results
03/25/24
04:59
Sodium 141
Potassium 4.6
Chloride 94 L
Carbon Dioxide 33 H
BUN 59 H
Creatinine 1.0
Glucose 105 H
Calcium 9.3
Vital Signs:
Vital Signs
Temp Pulse Resp BP Pulse Ox
97.6 F 64 18 107/61 98
03/25/24 07:15 03/25/24 11:37 03/25/24 11:37 03/25/24 08:32 03/25/24 11:37
I&O
03/24/24 03/25/24 03/26/24
06:59 06:59 06:59
Intake Total 480 / 480 60 / 60
Output Total 1600 / 1600 600 / 600
Balance -1120 / -1120 -540 / -540
Review of Systems
-
History Source: Patient
All other systems: Reviewed and negative
Respiratory: Reports Trouble Breathing
Physical Exam
-
General: No Apparent Distress
HEENT: Normocephalic
Respiratory: Negative Wheezes
Cardiac: Regular Rhythm
GI: Soft, Nontender and Nondistended
Neuro: Awake, Alert and Oriented
[2024-03-25 12:14] LABS: Glucose - Point of Care 146 mg/dl (70-99)
--- NOTE | 2024-03-25 15:16 | HOSPNOTE ---
Spoke with son Miller and updated. Patient is still the same and is unable to tolerate weaning down any oxygen support. We will continue to follow and support.
[2024-03-25 16:57] LABS: Glucose - Point of Care 182 mg/dl (70-99)
[2024-03-25] MEDS: NOVOLOG FLEXPEN-LOW RESISTANCE 1 UNITS SC (17:01)
--- NOTE | 2024-03-25 17:07 | PTCARENOTE ---
Patient received with 40% and 40 L oxygen but at completion of breakfast pt dropped pulse ox to 84% and difficulty recovering. Respiratory therapy assisted and pt increased to 50% and 50L and pulse ox has remained >92%. Pt tachypneic and SOB with
any bed activity. pt is forgetful at times and [place] Rt ear with silicone border foam and pt reports he has stitches that are due to be removed 03/26. Dr. Alvarado notified and will review in the morning. NSR with PAC/BBB with rate. Pt's skin with
scattered dry flaking lesions, bruising. Hospice care discussed with pt and he continues to decline and wants to be treated and go home. This RN had discussion with pt and regarding increased oxygen and chronic issues with poor improvement this
week. Oxygen needs too high for home and unable to care for increasingly weak . Pt does not want to accept hopsice care at this point.
[2024-03-25] MEDS: LOVENOX 40 MG SC (21:45)
[2024-03-25 22:10] LABS: Glucose - Point of Care 164 mg/dl (70-99)
[2024-03-25] MEDS: ATIVAN 0.5 MG PO (23:36)
[2024-03-26] VITALS (10 sets, daily range): BP systolic 119–161; BP diastolic 69–86; BMI 21.9
--- NOTE | 2024-03-26 00:25 | PTCARENOTE ---
Pt received from previous RN. Pt son at bedside. Pt AAO x3, forgetful at times. NSR on monitor with BBB. HR 69. Pt on hiflow, 50% with 50L. Pt sats remain 99% while resting. Pt does desat to 88-89% with exertion, then recovers to the 90's quickly.
Pt with condom cath #25. Voiding yellow urine. Pt took HS pills whole with apple sauce. Pt denies further needs at this time. Call light in reach.
[2024-03-26 04:03] LABS: % Basophils 0.2 % (0-2); % Eosinophils 1.1 % (0-6); % Immature Granulocytes 0.9 % (0-0.5); % Lymphocytes 13.4 % (20.5-51.1); % Monocytes 7.8 % (1.7-9.3); % Neutrophils 76.6 % (42.2-75.2); Absolute Eosinophils 0.1 10^3/uL (0-0.7); Absolute Immature Granulocytes 0.1 10^3/uL (0-0.05); Absolute Lymphocytes 1.7 10^3/uL (1.2-3.4); Absolute Neutrophils 9.4 10^3/uL (1.4-6.5); Hematocrit 36.1 % (39.0-52.0); Hemoglobin 11.5 g/dL (13.0-18.0); Mean Corp Hgb Conc. 31.9 g/dL (33.0-37.0); Mean Corpuscular Hgb 27.5 pg (27.0-31.0); Mean Corpuscular Volume 86.4 fL (80.0-94.0); Mean Platelet Volume 9.7 fL (7.4-10.4); Nucleated Red Blood Cells % 0 % (-); Platelet Count 262 10^3/uL (130-400); Red Blood Cell Count 4.18 10^6/uL (4.70-6.10); Red Cell Dist. Width 17.7 % (11.5-14.5); White Blood Cell Count 12.3 10^3/uL (4.8-10.8)
[2024-03-26 04:21] LABS: ALT (SGPT) 57 U/L (0-50); AST (SGOT) 39 U/L (17-59); Albumin 3.6 g/dl (3.5-5.0); Alkaline Phosphatase 64 U/L (38-126); Blood Urea Nitrogen 67 mg/dl (9-20); Calcium 9.4 mg/dl (8.4-10.2); Chloride 94 mmol/L (98-107); Estimated Creatinine Clearance 50 ml/min; Glucose 107 mg/dl (70-99); Potassium 4.4 mmol/L (3.5-5.1); Sodium 140 mmol/L (135-145); Total Bilirubin 0.6 mg/dl (0.2-1.3); Total Protein 5.9 g/dl (6.3-8.2); eGFR > 60.00
[2024-03-26 04:32] LABS: Carbon Dioxide 34 mmol/L (22-30)
[2024-03-26 07:15] LABS: Glucose - Point of Care 104 mg/dl (70-99)
[2024-03-26] MEDS: PULMICORT 0.5 MG INH ×2 (07:17→19:53)
[2024-03-26] MEDS: DUONEB 3 ML INH ×4 (07:17→19:53)
[2024-03-26] MEDS: NOVOLOG FLEXPEN-LOW RESISTANCE SC ×2 (08:23→12:34)
[2024-03-26] MEDS: ZOLOFT 50 MG PO (08:24)
[2024-03-26] MEDS: PLAVIX 75 MG PO (08:24)
[2024-03-26] MEDS: MEPRON SUSPENSION 1500 MG PO (08:24)
[2024-03-26] MEDS: ZITHROMAX 250 MG PO (08:24)
[2024-03-26] MEDS: PROTONIX 40 MG PO ×2 (08:24→20:14)
[2024-03-26] MEDS: NEURONTIN 100 MG PO ×3 (08:24→20:14)
[2024-03-26] MEDS: LOW STRENGTH ASPIRIN 81 MG PO (08:24)
[2024-03-26] MEDS: TESSALON PERLES 200 MG PO ×3 (08:24→20:14)
[2024-03-26] MEDS: CLARITIN 10 MG PO (08:24)
[2024-03-26] MEDS: LIPITOR 40 MG PO (08:24)
[2024-03-26] MEDS: SOLU-MEDROL PF 40 MG IV (08:25)
[2024-03-26] MEDS: NON-FORMULARY ITEM 150 MG PO ×2 (08:25→20:15)
[2024-03-26] MEDS: KCL 20 MEQ PO (08:25)
[2024-03-26] MEDS: TOPROL XL 25 MG PO ×2 (08:30→20:14)
[2024-03-26] MEDS: LASIX 40 MG PO ×2 (08:33→16:31)
--- NOTE | 2024-03-26 09:30 | CM ---
Patient with Dx Acute on chronic hypoxic respiratory failure, COPD exacerbation, possible CAP, dysphagia, NSTEMI, Possible HF, iron deficiency anemia/PETE. High flow O2. Receiving IV Steroids. Per nurse assessment; A/O, forgetful.
Spoke with [facility]; the family is interested in hospice however the patient is not agreeing to hospice at this time.
CM continuing to follow.
Plan TBD.
--- NOTE | 2024-03-26 10:36 | W.PN.SURGUPD ---
Surgical Update
Surgical Update
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 He was due for suture removal today. Hospitalist has requested suture removal. Wound overall well-healed, mild skin separation, dried blood and clot.
Sutures removed at bedside. No visible sutures remain. Patient tolerated procedure well.
--- NOTE | 2024-03-26 11:06 | W.PN.PUL3 ---
Today's Communication / Plan
-
Continue IV corticosteroids
Symptomatic management
Oxygen supplementation
Prognosis guarded
Assessment
-
78-year-old male with underlying CAD, PAD with stents, COPD/pulmonary fibrosis overlap taking care of at [facility] though he does want local care, chronic hypoxemia maintained on 5 L of oxygen at home, prednisone as well as Ofev who presented
with increasing shortness of breath and noted to be hypoxemic with elevated troponin-pulmonary consulted for pulmonary fibrosis/hypoxemia 03/16/2024.
Impression:
COPD/pulmonary fibrosis overlap with acute exacerbation
Elevated troponin due to NSTEMI-peak 9.9
Acute HFpEF exacerbation
Bronchitis versus early pneumonia-elevated procalcitonin
Elevated lactate
Mild dementia
MARIANO
Mild anemia-hemoglobin 8.6-normocytic
Hyperglycemia
Conditions present prior to admission:
Recent hospitalization 11/23/2023-fall and mild acute COPD/pulmonary fibrosis overlap exacerbation
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
Adrenal insufficiency.
Hypertension.
Hyperlipidemia.
PAD with history of RLE stent (1997) and lower extremity revascularization
Hx of RBBB
Old right cerebellar infarct.
CAD with history of LAD + RCA stents (1997)
Mild dementia.
GERD.
Anxiety/depression.
Plan
Respiratory decompensation in this patient with advanced end-stage lung disease-COPD/pulmonary fibrosis overlap.
Remains on HFNC now at 57% FiO2/50 L/min--> he has improved with systemic steroids, very slow progress. Not ready to transition to nasal cannula.
Baseline use of 5-8L at home.
Unfortunately he has end-stage lung disease and thus the only hope of improving his current situation is if there is another reversible process such as ischemic CAD/CHF/infection as his lung disease will not improve-steroids have been initiated for
the potential of reversible inflammatory component.
Ongoing discussions regarding possible hospice. discussed with the daughter in the past during this admission
Continue supportive care for now.
Remains unstable with episodes of chest tightness and shortness of breath aggravated by underlying anxiety-rapid response 03/17/2024
Continue Ultram [id number]%. Continues to be very limited.
Wean down FiO2 to maintain pulse ox above 88%, discussed with respiratory therapy
Continue supportive/symptomatic care. Likely if there is recovery is going to be as low.
Nebulizers as needed + DuoNebs QID
Solu-Medrol pulse, now on 40mg IV daily - continue without change for now.
Will continue IV corticosteroids until there is hopefully some improvement but
Patient is maintained on Ofev for his pulmonary fibrosis as an outpatient
On 03/23, started Pulmicort + Zithromax mainly for anti-inflammatory response
Mucolytics
Incentive spirometry
Flutter valve, as able.
-
Patient carries a history of sleep apnea but has been intolerant to CPAP/BiPAP. He is refusing PAP while hospitalized
Afebrile/mild leukocytosis likely due to steroids per
Cultures reviewed
Urine Legionella and streptococcal antigen negative
MRSA screen positive
Blood cultures negative (drawn 03/15/2024)
Last urine culture 02/17/2023-Enterococcus
Unable to produce sputum
Empiric antibiotics-vancomycin and cefepime completed e days on 03/20
MRSA screen positive
Continue with atovaquone- PJP prophylaxis.
ProBNP 3200
Troponin peaked at 9.921 03/15/2024. No need to continue trending at this time
Cardiology evaluation ongoing-correspondence reviewed-reviewed with Dr. Michael Keyes-shilpa to try increased [id number]-hgpmila for bronchospasm
Continue diuresis with PO lasix
Monitor renal function. BUN increasing.
Diet as per AREA DEVELOPMENT CONSULTANT � recommended regular + thin liquids with aspiration precautions
PT/OT once more stable with O2 requirements
Chronic anemia noted: Contributing to symptoms. Stable for now. No evidence for bleeding.
Continue to follow
DVT prophylaxis- LMWH
GI prophylaxis - N/A (-on pantoprazole - home med)
Continue nutritional support, aspiration precaution for
GOC discussions:
Outpatient pulmonary follow-up recommended-he has end-stage lung disease
Most recently followed by Dr. De Dios at [facility] and maintained on nebulizers as well as Ofev and oxygen
Ongoing discussions with hospice.
-
Pulmonary service will continue to follow along.

Family Discussions
Viktoriya 03/20/24 - Spoke to patient and daughter today regarding prognosis they know his condition is non-reversible and agree he should be DNR. We then discussed his chances of survival on this admission which is low. Daughter aware and are likely to
enroll into hospice but need to decide. They were agreeable to consult.
03/19/24 Hospice has been discussed in the past, I discussed with him again what he would want if he made little to no progress on weaning O2
Diagnostic data:
Chest x-ray 02/12/2023-increased reticulonodular markings suggestive of interstitial fibrosis, slight blunting left costophrenic angle
Chest x-ray 02/19/2023-extremely limited because of low lung volumes
Chest x-ray 11/22/2023-pronounced reticular interstitial thickening related to interstitial fibrosis, no significant pleural effusions or pneumothorax
Chest x-ray 03/15/2024-bilateral interstitial opacifications without acute process
Lower extremity ultrasound 07/05/2021-no evidence for lower extremity venous thrombosis
CT head 11/22/2023-no acute intracranial abnormalities, mild atrophy and mild chronic small vessel changes, old right sella [place] infarct, no significant changes compared to prior study 02/12/2023
CT chest 03/15/2024-no CT evidence for PE, chronic severe pulmonary fibrosis and emphysema, severe coronary artery and aortic valve calcifications
-----
Subjective Data
-
Date of Service:
Date of Service: March 26, 2024
Chief Complaint: Pulmonary Follow Up and Dyspnea Follow Up
Subjective:
Continues to report exertional dyspnea
Denies hemoptysis or phlegm production
Remains on high flow oxygen
Review of Systems
General: Fever (n)
Cardiopulmonary: Dyspnea, Dyspnea on Exertion and Cough
GI: Abdominal Pain (n) and Nausea (n)
Objective Data
Data Reviewed
Vital Signs / I&O / Oxygen:
Vital Signs
Temp Pulse Resp BP Pulse Ox
97.9 F 67 18 142/70 96
03/26/24 07:31 03/26/24 11:04 03/26/24 11:04 03/26/24 10:00 03/26/24 11:05
Intake and Output
03/25/24 03/26/24 03/27/24
06:59 06:59 06:59
Intake Total 60 / 60
Output Total 600 / 600 1650 / 1650
Balance -540 / -540 -1650 / -1650
SaO2 96
Nasal Cannula flow liters per 50
minute
Physical Exam
General: Respiratory Distress (n), Comfortable, Chills (negative) and Sweats (negative)
HEENT: Normocephalic and Anicteric
Cardiovascular: Regular Rhythm, Murmur and Peripheral Edema (negative)
Respiratory: Wheeze (negative), Crackles (Bilateral snf up posteriorly), Rhonchi (n), Non-Labored Respirations, Accessory Resp Muscle Use (n) and Stridor (n)
GI: Soft, Non Distended and Non Tender
Neurology: AO x 3 and Tremors (negative)
Skin: Warm, Dry, Cyanosis (n), Jaundice (n) and Rash (n)
Labs/Micro/Reports
Lab Data
03/26/24 03:46
03/26/24 03:46
[2024-03-26 11:49] LABS: Glucose - Point of Care 149 mg/dl (70-99)
--- NOTE | 2024-03-26 12:06 | W.PN.HOSP.TC ---
Today's Communication/Plan
-
cont current mgmt, unfortunately no additional management options
Assessment / Plan
Assessment / Plan
78yo M with PMHx of CAD, PAD s/p stents, COPD with lung fibrosis, chronic hypoxic respiratory failure on 5-10L home O2, chronic prednisone, HTN, GERD came with SOB started to worsen after he had a cancer resection procedure (without general
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 Also had episodes of palpitations. In ED found troponin of 8, lactate of 5, placed on HFNC. EKG without ST elevation. Managed for NSTEMI with GDMT, Echo showed inferiolateral wall hypokinesis but preserved EF. possible
pneumonia and exacerbation of COPD/lung fibrosis overlap. Developed worsening anemia, that later stabilized. No significant improvement with multifactorial stable CAD, stable CHF and fibrosis/COPD treatment, but patient was declining hospice on
multiple occasions.
A/P:
#Acute on chronic hypoxic respiratory failure likely multifactorial due to COPD and pulmonary fibrosis exacerbation, pneumonia, acute on chronic diastolic heart failure exacerbation
#COPD exacerbation
#Pulmonary fibrosis with end-stage lung disease
CTA chest
IV steroids solumedrol 40mg daily. Frequency decreased. Adjustment per pulm
bronchodilators
started on pulmicort
azithromycin x5 days
Pulm consulted
HFNC and wean off to baseline as tolerated
#possible CAP
Legionella and s.pneumonia urinary Ag neg
Sputum Cx if possible
COVID-19, Influenza PCR neg
Blood culture negative so far.
MRSA POSITIVE. Vancomycin completed 7d course.
Cefepime DCed. Completed 5d course.
#Dysphagia
possible silent aspiration
Diet upgraded to regular. Patient understands aspiration risk
PEA VINER MECHANIC followed
#NSTEMI
#Palpitations with sinus arrhythmia on tele
#Possible acute on chronic HFpEF exacerbation
Cardio consult
Cont asprin.
s/p hep gtt infusion.
cont statin - LDL 69
Started on Toprol 25 twice daily
sublingual nitro PRN
cont BB
Significant improvement with IV diuresis and transitioned to 40 mg p.o. twice daily. Monitor for contraction alkalosis. Monitor BMP closely.
Plavix started- trend hgb closely. Stable
Cardiology signed off.
#PETE
High LDH with normal retics -hematology consult
Discuss with cardiology blood transfusion since patient is treated for NSTEMI - would favor keeping Hgb between 9-10, however concomitant concern for CHF might be prohibitive. Also patient w/o chest pain
serial H&H - stable
GI consulted. No plan for procedure.
s/p IV iron per heme
PPI bid for now
# Lactic acidosis likely in the setting of severe hypoxemia and CHF exacerbation
No need to further trend.
#HLD
cont home meds
#Essential HTN
BB for now.
#Anxiety d/o
cont SSRI
#AST elevation - improving
CPK minimally elevated
follow LFT
most likely 2/2 cardiac injury
#R ear skin CA s/p resection
GenSx for removal of sutures on 03/26/24
DVT ppx Lovenox
DNR/DNI
I have spent at least 37min reviewing chart, test results, communication with consultants and direct patient care
Anticipated Discharge: > 48 hours
Subjective/Interval History
-
Date of Service: March 26, 2024
Objective Data
-
Labs:
Laboratory Results
03/26/24
03:46
WBC 12.3 H
Hgb 11.5 L
Hct 36.1 L
Plt Count 262
Sodium 140
Potassium 4.4
Chloride 94 L
Carbon Dioxide 34 H
BUN 67 H
Creatinine 1.1
Glucose 107 H
Calcium 9.4
Total Bilirubin 0.6
AST 39
ALT 57 H
Alkaline Phosphatase 64
Vital Signs:
Vital Signs
Temp Pulse Resp BP Pulse Ox
98.0 F 67 18 142/70 96
03/26/24 11:33 03/26/24 11:04 03/26/24 11:04 03/26/24 10:00 03/26/24 11:05
I&O
03/25/24 03/26/24 03/27/24
06:59 06:59 06:59
Intake Total 60 / 60
Output Total 600 / 600 1650 / 1650
Balance -540 / -540 -1650 / -1650
Physical Exam
-
General: Comfortable
HEENT: Normocephalic and Atraumatic
Respiratory: Crackles
Cardiac: Regular Rhythm
GI: Soft, Nontender and Nondistended
Genito-urinary: No Costovertebral Tender
Musculoskeletal: No Clubbing, No Cyanosis and No Edema
Skin: Warm
Neuro: Awake, Alert, Oriented and AO x 3
Psych: Calm
--- NOTE | 2024-03-26 15:12 | PTCARENOTE ---
Rec'd pt this AM. Remains on HF NC 50L 50%. Resting comfortably, vital signs stable.
--- NOTE | 2024-03-26 15:48 | PTCARENOTE ---
Pt and sig other requested to talk to RN about hospice. Pt states he does not feel like he is ready for hospice since he does not feel like he is 'dying'. He understands that he is requiring the most amount of O2 that we can give and that his
condition is very tenuous. He and Komal are fearful about how the hospice course would be as far as weaning him off the O2, pain, etc. They both requested to meet with the motor carrier inspector again, together as a couple. RN relayed info to Lulú Castillo,
motor carrier inspector at .
[2024-03-26] MEDS: TYLENOL 650 MG PO ×2 (16:31→23:01)
[2024-03-26] MEDS: NOVOLOG FLEXPEN-LOW RESISTANCE 2 UNITS SC (16:44)
[2024-03-26 16:52] LABS: Glucose - Point of Care 224 mg/dl (70-99)
[2024-03-26] MEDS: LOVENOX 40 MG SC (17:26)
[2024-03-26 22:14] LABS: Glucose - Point of Care 135 mg/dl (70-99)
[2024-03-26] MEDS: ATIVAN 0.5 MG PO (23:02)
[2024-03-27] VITALS (11 sets, daily range): BP systolic 122–151; BP diastolic 56–81; BMI 22.1
--- NOTE | 2024-03-27 05:45 | PTCARENOTE ---
No acute events overnight. Remains on HFNC 50 liters 50%. Daughter at bedside.
[2024-03-27 06:07] LABS: Blood Urea Nitrogen 68 mg/dl (9-20); Calcium 9.1 mg/dl (8.4-10.2); Chloride 93 mmol/L (98-107); Estimated Creatinine Clearance 46 ml/min; Glucose 100 mg/dl (70-99); Potassium 3.6 mmol/L (3.5-5.1); Sodium 143 mmol/L (135-145); eGFR > 60.00
[2024-03-27 06:18] LABS: Carbon Dioxide 37 mmol/L (22-30)
[2024-03-27] MEDS: PULMICORT 0.5 MG INH ×2 (07:17→20:29)
[2024-03-27] MEDS: DUONEB 3 ML INH ×4 (07:17→20:29)
[2024-03-27 07:24] LABS: Glucose - Point of Care 94 mg/dl (70-99)
[2024-03-27] MEDS: NOVOLOG FLEXPEN-LOW RESISTANCE SC (08:27)
[2024-03-27] MEDS: KCL 20 MEQ PO (09:19)
[2024-03-27] MEDS: TESSALON PERLES 200 MG PO ×3 (09:19→20:49)
[2024-03-27] MEDS: TOPROL XL 25 MG PO ×2 (09:19→20:49)
[2024-03-27] MEDS: LIPITOR 40 MG PO (09:19)
[2024-03-27] MEDS: ZITHROMAX 250 MG PO (09:20)
[2024-03-27] MEDS: LOW STRENGTH ASPIRIN 81 MG PO (09:20)
[2024-03-27] MEDS: PLAVIX 75 MG PO (09:20)
[2024-03-27] MEDS: ZOLOFT 50 MG PO (09:20)
[2024-03-27] MEDS: CLARITIN 10 MG PO (09:20)
[2024-03-27] MEDS: LASIX 40 MG PO ×2 (09:20→16:12)
[2024-03-27] MEDS: NEURONTIN 100 MG PO ×3 (09:21→20:49)
[2024-03-27] MEDS: MEPRON SUSPENSION 1500 MG PO (09:21)
[2024-03-27] MEDS: PROTONIX 40 MG PO ×2 (09:21→20:49)
[2024-03-27] MEDS: SOLU-MEDROL PF 40 MG IV (09:22)
[2024-03-27] MEDS: NON-FORMULARY ITEM 150 MG PO ×2 (09:22→20:48)
--- NOTE | 2024-03-27 10:25 | W.PN.PUL3 ---
Today's Communication / Plan
-
Continue IV Solu-Medrol without change
Physical therapy/Occupational Therapy as able
Wean down FiO2 as able
Nutritional support
Goals of care discussions ongoing, patient not ready for hospice.
Likely improvement is going to be as low-prognosis is guarded
Assessment
-
78-year-old male with underlying CAD, PAD with stents, COPD/pulmonary fibrosis overlap taking care of at [facility] though he does want local care, chronic hypoxemia maintained on 5 L of oxygen at home, prednisone as well as Ofev who presented
with increasing shortness of breath and noted to be hypoxemic with elevated troponin-pulmonary consulted for pulmonary fibrosis/hypoxemia 03/16/2024.
Impression:
COPD/pulmonary fibrosis overlap with acute exacerbation
Elevated troponin due to NSTEMI-peak 9.9
Acute HFpEF exacerbation
Bronchitis versus early pneumonia-elevated procalcitonin
Elevated lactate
Mild dementia
MARIANO
Mild anemia-hemoglobin 8.6-normocytic
Hyperglycemia
Conditions present prior to admission:
Recent hospitalization 11/23/2023-fall and mild acute COPD/pulmonary fibrosis overlap exacerbation
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
Former xjgjjh-[id number]-year-quit 48 years old.
Adrenal insufficiency.
Hypertension.
Hyperlipidemia.
PAD with history of RLE stent (1997) and lower extremity revascularization
Hx of RBBB
Old right cerebellar infarct.
CAD with history of LAD + RCA stents (1997)
Mild dementia.
GERD.
Anxiety/depression.
Plan
Respiratory decompensation in this patient with advanced end-stage lung disease-COPD/pulmonary fibrosis overlap.
So far no significant improvement in the last 48 hours. Remains on 50% FiO2 50 L. At rest pulse ox is 97%. Oxygen desaturation with activity.
Continue to wean down as able.
Baseline use of 5-8L at home.
Unfortunately he has end-stage lung disease and thus the only hope of improving his current situation is if there is another reversible process such as ischemic CAD/CHF/infection as his lung disease will not improve-steroids have been initiated for
the potential of reversible inflammatory component.
Ongoing discussions regarding possible hospice. This has been discussed with daughter. Patient not ready for hospice at this point.
Will take a day by day. Hopefully improves enough that he can be discharged on supplemental oxygen 8 to 10 L eventually.
Anxiety control has improved.
Continues to be very limited in regards to mobility due to increased shortness of breath with activity.
Continue supportive/symptomatic care. Likely if there is recovery is going to be as low.
Nebulizers as needed + DuoNebs QID
S/P Solu-Medrol pulse, now on 40mg IV daily - continue without change for now.
Will continue IV corticosteroids until there is hopefully some improvement but
Patient is maintained on Ofev for his pulmonary fibrosis as an outpatient
On 03/23, started Pulmicort + Zithromax mainly for anti-inflammatory response
Mucolytics
Incentive spirometry
Flutter valve, as able.
-
History of sleep apnea but has been intolerant to CPAP/BiPAP. He is refusing PAP while hospitalized
Afebrile/mild leukocytosis likely due to steroids per
Cultures-
Urine Legionella and streptococcal antigen negative
MRSA screen positive
Blood cultures negative (drawn 03/15/2024)
Last urine culture 02/17/2023-Enterococcus
Unable to produce sputum
Empiric antibiotics-vancomycin and cefepime completed e days on 03/20
MRSA screen positive
Continue with atovaquone- PJP prophylaxis.
ProBNP 3200
Troponin peaked at 9.921 03/15/2024. No need to continue trending at this time
Cardiology evaluation ongoing-correspondence reviewed-reviewed with Dr. Michael Keyes-shilpa to try increased [id number]-kehbddke-bdlixtc for bronchospasm
Continue diuresis with PO lasix
Monitor renal function. BUN increasing.
Diet as per STATE AUDITOR � recommended regular + thin liquids with aspiration precautions
PT/OT once more stable with O2 requirements
Chronic anemia noted: Contributing to symptoms. Stable for now. No evidence for bleeding.
Continue to follow
DVT prophylaxis- LMWH
GI prophylaxis - N/A (-on pantoprazole - home med)
Continue nutritional support, aspiration precaution for
GOC discussions:
Outpatient pulmonary follow-up recommended-he has end-stage lung disease
Most recently followed by Dr. De Dios at [facility] and maintained on nebulizers as well as Ofev and oxygen
Ongoing discussions with hospice.
-
Pulmonary service will continue to follow along.

Family Discussions
Viktoriya 03/20/24 - Spoke to patient and daughter today regarding prognosis they know his condition is non-reversible and agree he should be DNR. We then discussed his chances of survival on this admission which is low. Daughter aware and are likely to
enroll into hospice but need to decide. They were agreeable to consult.
03/19/24 Hospice has been discussed in the past, I discussed with him again what he would want if he made little to no progress on weaning O2
Diagnostic data:
Chest x-ray 02/12/2023-increased reticulonodular markings suggestive of interstitial fibrosis, slight blunting left costophrenic angle
Chest x-ray 02/19/2023-extremely limited because of low lung volumes
Chest x-ray 11/22/2023-pronounced reticular interstitial thickening related to interstitial fibrosis, no significant pleural effusions or pneumothorax
Chest x-ray 03/15/2024-bilateral interstitial opacifications without acute process
Lower extremity ultrasound 07/05/2021-no evidence for lower extremity venous thrombosis
CT head 11/22/2023-no acute intracranial abnormalities, mild atrophy and mild chronic small vessel changes, old right sella [place] infarct, no significant changes compared to prior study 02/12/2023
CT chest 03/15/2024-no CT evidence for PE, chronic severe pulmonary fibrosis and emphysema, severe coronary artery and aortic valve calcifications
-----
Subjective Data
-
Date of Service:
Date of Service: March 27, 2024
Chief Complaint: Pulmonary Follow Up and Dyspnea Follow Up
Subjective:
Remains on high flow oxygen 50% FiO2
No significant phlegm production or hemoptysis
Denies shortness of breath at rest
Does report minimal effort dyspnea
Denies nausea vomiting or abdominal pain.
Review of Systems
Cardiopulmonary: Dyspnea, Dyspnea on Exertion, Cough, Sputum Production (n), Wheezing (n) and Chest Pain (n)
GI: Abdominal Pain (n), Nausea (n) and Vomiting (n)
Objective Data
Data Reviewed
Vital Signs / I&O / Oxygen:
Vital Signs
Temp Pulse Resp BP Pulse Ox
97.8 F 79 17 150/56 98
03/27/24 07:28 03/27/24 09:20 03/27/24 07:24 03/27/24 09:20 03/27/24 07:24
Intake and Output
03/26/24 03/27/24 03/28/24
06:59 06:59 06:59
Intake Total 480 / 480
Output Total 1650 / 1650 1575 / 1575
Balance -1650 / -1650 -1095 / -1095
SaO2 98
Nasal Cannula flow liters per 50
minute
Physical Exam
General: Respiratory Distress (n), Comfortable, Chills (negative) and Sweats (negative)
HEENT: Normocephalic and Anicteric
Cardiovascular: Regular Rhythm, Murmur and Peripheral Edema (negative)
Respiratory: Wheeze (negative), Crackles (Bilateral detention up posteriorly), Rhonchi (n), Non-Labored Respirations, Accessory Resp Muscle Use (n) and Stridor (n)
GI: Soft, Non Distended and Non Tender
Neurology: AO x 3 and Tremors (negative)
Skin: Warm, Dry, Cyanosis (n), Jaundice (n) and Rash (n)
Labs/Micro/Reports
Lab Data
03/26/24 03:46
03/27/24 05:30
--- NOTE | 2024-03-27 11:09 | W.PN.HOSP.TC ---
Today's Communication/Plan
-
cont same mgmt
communicated with family and anatomy and physiology instructor - daughter wants to be present or dialed over the phone during next conversation with the patient
Assessment / Plan
Assessment / Plan
78yo M with PMHx of CAD, PAD s/p stents, COPD with lung fibrosis, chronic hypoxic respiratory failure on 5-10L home O2, chronic prednisone, HTN, GERD came with SOB started to worsen after he had a cancer resection procedure (without general
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 Also had episodes of palpitations. In ED found troponin of 8, lactate of 5, placed on HFNC. EKG without ST elevation. Managed for NSTEMI with GDMT, Echo showed inferolateral wall hypokinesis but preserved EF. possible
pneumonia and exacerbation of COPD/lung fibrosis overlap. Developed worsening anemia, that later stabilized. No significant improvement with multifactorial stable CAD, stable CHF and fibrosis/COPD treatment, but patient was declining hospice on
multiple occasions.
A/P:
#GOC
can dragger involved. Family in agreement but patient was still declining. Family requested to be present duering next conversation with anatomy and physiology instructor (or over the phone) to assist their father with decision making
#Acute on chronic hypoxic respiratory failure likely multifactorial due to COPD and pulmonary fibrosis exacerbation, pneumonia, acute on chronic diastolic heart failure exacerbation
#COPD exacerbation
#Pulmonary fibrosis with end-stage lung disease
CTA chest
IV steroids solumedrol 40mg daily. Frequency decreased. Adjustment per pulm
bronchodilators
started on pulmicort
azithromycin x5 days
Pulm consulted
HFNC and wean off to baseline as tolerated
#possible CAP
Legionella and s.pneumonia urinary Ag neg
Sputum Cx if possible
COVID-19, Influenza PCR neg
Blood culture negative so far.
MRSA POSITIVE. Vancomycin completed 7d course.
Cefepime DCed. Completed 5d course.
#Dysphagia
possible silent aspiration
Diet upgraded to regular. Patient understands aspiration risk
EXERCISE PHYSIOLOGIST followed
#NSTEMI
#Palpitations with sinus arrhythmia on tele
#Possible acute on chronic HFpEF exacerbation
Cardio consult
Cont asprin.
s/p hep gtt infusion.
cont statin - LDL 69
Started on Toprol 25 twice daily
sublingual nitro PRN
cont BB
Significant improvement with IV diuresis and transitioned to 40 mg p.o. twice daily. Monitor for contraction alkalosis. Monitor BMP closely.
Plavix started- trend hgb closely. Stable
Cardiology signed off.
#PETE
High LDH with normal retics -hematology consult
Discuss with cardiology blood transfusion since patient is treated for NSTEMI - would favor keeping Hgb between 9-10, however concomitant concern for CHF might be prohibitive. Also patient w/o chest pain
serial H&H - stable
GI consulted. No plan for procedure.
s/p IV iron per heme
PPI bid for now
# Lactic acidosis likely in the setting of severe hypoxemia and CHF exacerbation
No need to further trend.
#HLD
cont home meds
#Essential HTN
BB for now.
#Anxiety d/o
cont SSRI
#AST elevation - improving
CPK minimally elevated
follow LFT
most likely 2/2 cardiac injury
#R ear skin CA s/p resection
GenSx for removal of sutures on 03/26/24
DVT ppx Lovenox
DNR/DNI
I have spent at least 37min reviewing chart, test results, communication with consultants and direct patient care
Anticipated Discharge: > 48 hours
Subjective/Interval History
-
Date of Service: March 27, 2024
Objective Data
-
Labs:
Laboratory Results
03/27/24 03/27/24
04:23 05:30
Sodium Cancelled 143
Potassium Cancelled 3.6
Chloride Cancelled 93 L
Carbon Dioxide Cancelled 37 H
BUN Cancelled 68 H
Creatinine Cancelled 1.2
Glucose Cancelled 100 H
Calcium Cancelled 9.1
Vital Signs:
Vital Signs
Temp Pulse Resp BP Pulse Ox
97.8 F 69 22 137/73 96
03/27/24 07:28 03/27/24 10:00 03/27/24 10:00 03/27/24 10:00 03/27/24 10:56
I&O
03/26/24 03/27/24 03/28/24
06:59 06:59 06:59
Intake Total 480 / 480 240 / 240
Output Total 1650 / 1650 1575 / 1575
Balance -1650 / -1650 -1095 / -1095 240 / 240
Review of Systems
-
History Source: Patient
All other systems: Reviewed and negative
Physical Exam
-
General: Comfortable
Respiratory: Crackles
Cardiac: Regular Rhythm
GI: Soft
Skin: Warm
Neuro: Awake, Alert, Oriented and AO x 3
Psych: Calm
[2024-03-27 11:19] LABS: Glucose - Point of Care 206 mg/dl (70-99)
--- NOTE | 2024-03-27 12:24 | PTCARENOTE ---
Assumed care of patient this morning. Pt's daughter at bedside this morning and did not want patient bothered. She told staff like housekeeping to get out of the room. Daughter requesting to be call during doctor bedside evaluation.
aware and advised he would call her. Pt has no complaints. Plan of care is unchanged. Assessment, care and VS as charted.
[2024-03-27] MEDS: NOVOLOG FLEXPEN-LOW RESISTANCE 2 UNITS SC (12:36)
--- NOTE | 2024-03-27 14:39 | HOSPNOTE ---
Met with patient, spouse and daughter was on the phone. We discussed hospice and the philosophy again. I explained the patient would be unable to get home with hospice services because of the amount of oxygen support. The patient is AAO and at this
time does not wish for hospice, I explained how tired his body is getting and how deconditioned he is. He understands and stated if he gets too short of breath he will ask for IV morphine but at this time does not wish to wean down the oxygen
support. Will continue to follow.
[2024-03-27 16:57] LABS: Glucose - Point of Care 172 mg/dl (70-99)
[2024-03-27] MEDS: LOVENOX 40 MG SC (17:46)
[2024-03-27] MEDS: NOVOLOG FLEXPEN-LOW RESISTANCE 1 UNITS SC (17:47)
[2024-03-27 21:33] LABS: Glucose - Point of Care 175 mg/dl (70-99)
[2024-03-27] MEDS: ATIVAN 0.5 MG PO (22:32)
[2024-03-28] VITALS (13 sets, daily range): BP systolic 120–144; BP diastolic 67–86; BMI 21.3
--- NOTE | 2024-03-28 04:15 | PTCARENOTE ---
NO acute events overnight. Remains on HFNC 45 liters 45%.
[2024-03-28] MEDS: PULMICORT 0.5 MG INH ×2 (07:21→19:50)
[2024-03-28] MEDS: DUONEB 3 ML INH ×4 (07:21→19:50)
[2024-03-28 07:33] LABS: Glucose - Point of Care 89 mg/dl (70-99)
[2024-03-28] MEDS: NOVOLOG FLEXPEN-LOW RESISTANCE SC ×2 (07:47→12:38)
[2024-03-28] MEDS: TESSALON PERLES 200 MG PO ×3 (08:43→22:30)
[2024-03-28] MEDS: MEPRON SUSPENSION 1500 MG PO (08:43)
[2024-03-28] MEDS: LOW STRENGTH ASPIRIN 81 MG PO (08:44)
[2024-03-28] MEDS: KCL 20 MEQ PO (08:44)
[2024-03-28] MEDS: SOLU-MEDROL PF 40 MG IV (08:44)
[2024-03-28] MEDS: PROTONIX 40 MG PO ×2 (08:45→19:29)
[2024-03-28] MEDS: LASIX 40 MG PO ×2 (08:46→16:21)
[2024-03-28] MEDS: PLAVIX 75 MG PO (08:46)
[2024-03-28] MEDS: CLARITIN 10 MG PO (08:46)
[2024-03-28] MEDS: NEURONTIN 100 MG PO ×3 (08:46→22:30)
[2024-03-28] MEDS: ZOLOFT 50 MG PO (08:46)
[2024-03-28] MEDS: LIPITOR 40 MG PO (08:46)
[2024-03-28] MEDS: NON-FORMULARY ITEM 150 MG PO ×2 (08:47→20:53)
[2024-03-28] MEDS: TOPROL XL 25 MG PO ×2 (08:48→19:29)
--- NOTE | 2024-03-28 09:52 | W.PN.HOSP.TC ---
Today's Communication/Plan
-
cont supportive care, awaiting patient and family decision on GOC as no improvement in O2 requirements still seen
Assessment / Plan
Assessment / Plan
78yo M with PMHx of CAD, PAD s/p stents, COPD with lung fibrosis, chronic hypoxic respiratory failure on 5-10L home O2, chronic prednisone, HTN, GERD came with SOB started to worsen after he had a cancer resection procedure (without general
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 Also had episodes of palpitations. In ED found troponin of 8, lactate of 5, placed on HFNC. EKG without ST elevation. Managed for NSTEMI with GDMT, Echo showed inferolateral wall hypokinesis but preserved EF. possible
pneumonia and exacerbation of COPD/lung fibrosis overlap. Developed worsening anemia, that later stabilized. No significant improvement with multifactorial stable CAD, stable CHF and fibrosis/COPD treatment, but patient was declining hospice on
multiple occasions.
A/P:
#GOC
plastic jig and fixture builder involved. Family in agreement but patient was still declining. Family requested to be present duering next conversation with director of career services (or over the phone) to assist their father with decision making
#Acute on chronic hypoxic respiratory failure likely multifactorial due to COPD and pulmonary fibrosis exacerbation, pneumonia, acute on chronic diastolic heart failure exacerbation
#COPD exacerbation
#Pulmonary fibrosis with end-stage lung disease
CTA chest
IV steroids solumedrol 40mg daily. Frequency decreased. Adjustment per pulm
bronchodilators
started on pulmicort
azithromycin x5 days
Pulm consulted
HFNC and wean off to baseline as tolerated
#possible CAP
Legionella and s.pneumonia urinary Ag neg
Sputum Cx if possible
COVID-19, Influenza PCR neg
Blood culture negative so far.
MRSA POSITIVE. Vancomycin completed 7d course.
Cefepime DCed. Completed 5d course.
#Dysphagia
possible silent aspiration
Diet upgraded to regular. Patient understands aspiration risk
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
#NSTEMI
#Palpitations with sinus arrhythmia on tele
#Possible acute on chronic HFpEF exacerbation
Cardio consult
Cont asprin.
s/p hep gtt infusion.
cont statin - LDL 69
Started on Toprol 25 twice daily
sublingual nitro PRN
cont BB
Significant improvement with IV diuresis and transitioned to 40 mg p.o. twice daily. Monitor for contraction alkalosis. Monitor BMP closely.
Plavix started- trend hgb closely. Stable
Cardiology signed off.
#PETE
High LDH with normal retics -hematology consult
Discuss with cardiology blood transfusion since patient is treated for NSTEMI - would favor keeping Hgb between 9-10, however concomitant concern for CHF might be prohibitive. Also patient w/o chest pain
serial H&H - stable
GI consulted. No plan for procedure.
s/p IV iron per heme
PPI bid for now
# Lactic acidosis likely in the setting of severe hypoxemia and CHF exacerbation
No need to further trend.
#HLD
cont home meds
#Essential HTN
BB for now.
#Anxiety d/o
cont SSRI
#AST elevation - improving
CPK minimally elevated
follow LFT
most likely 2/2 cardiac injury
#R ear skin CA s/p resection
GenSx for removal of sutures on 03/26/24
DVT ppx Lovenox
DNR/DNI
I have spent at least 37min reviewing chart, test results, communication with consultants and direct patient care
Anticipated Discharge: > 48 hours
Subjective/Interval History
-
Date of Service: March 28, 2024
Objective Data
-
Vital Signs:
Vital Signs
Temp Pulse Resp BP Pulse Ox
97.7 F 68 18 139/74 97
03/28/24 07:05 03/28/24 08:48 03/28/24 07:24 03/28/24 08:48 03/28/24 07:25
I&O
03/27/24 03/28/24 03/29/24
06:59 06:59 06:59
Intake Total 480 / 480 240 / 240
Output Total 1575 / 1575 1750 / 1750
Balance -1095 / -1095 -1510 / -1510
Review of Systems
-
History Source: Patient
All other systems: Reviewed and negative
Physical Exam
-
General: No Apparent Distress
Respiratory: Crackles
Cardiac: Regular Rhythm
GI: Soft, Nontender and Nondistended
Neuro: Awake, Alert, Oriented and AO x 3
Psych: Calm
[2024-03-28 11:39] LABS: Glucose - Point of Care 139 mg/dl (70-99)
--- NOTE | 2024-03-28 12:27 | PTCARENOTE ---
Rec'd pt this AM. Respiratory status remains tenuous. Pt O2 sat dropped to 72 just laying flat for a boost in bed. Required NRB mask to recover. Did recover within a few minutes to 98% on HFNC. Pt does not like using pillow or wedges to turn him and
prefers to lay on his back. RN educated pt on risk of pressure injury if laying flat. Pt still requests a break from being turned. wound care complete.
--- NOTE | 2024-03-28 13:57 | HOSPNOTE ---
Spoke with son at length and still no definite decisions have been made. Will continue to follow and support.
--- NOTE | 2024-03-28 15:46 | PN.CDI ---
CDI
- -
CDI:
Physician Documentation Request
Admit Date: 03/15/24 18:53
Dear Doctor Elly,
Please review the following and provide your response in the progress notes.
Clinical Indicators:
03/18/24 14:16 - Wound Note
Wound Location and type/assessment:
#...R heel with 2 intact scabs from previous ulcers, suspect are healing stage 2PI.
Physician documentation of the type and location of wounds is required for compliant documentation. Based on the above clinical findings and your assessment, please provide the following in your progress note:
Yes Healing stage 2 pressure injury, right heel, POA
Other(please specify)
1. Location of the ulcer/wound, including laterality.
2. Type (etiology) of ulcer/wound:
- Diabetic ulcer
- Arterial (ischemic) ulcer
- Traumatic wound
- Venous stasis ulcer
- Pressure (decubitus) ulcer
3. If a pressure ulcer, please also include the stage* of the ulcer:
- Stage 1 - Skin intact, non-blanchable redness
- Stage 2 - Partial thickness loss of dermis, includes intact or open blister
- Stage 3 - Full thickness tissue not including bone, tendon or muscle
- Stage 4 - Full thickness tissue loss, including exposed bone, tendon or muscle
- Unstageable - Full thickness loss in which the base of the ulcer is covered by slough (yellow, yeh, brown, green or brown) and/or eschar (yeh, brown or black) in the wound bed.
Use of terms such as suspected, likely, concern for, or probable (associated with a specific diagnosis that is being evaluated, monitored, or treated as if it exists) are acceptable and can be coded in the inpatient setting, when documented at the
time of discharge.
Thank you,
Sis Elliott RN BSN CCDS
CDI Specialist
please contact via tiger text
Please use your independent medical judgment in providing your response.
*Source: National Pressure Ulcer Advisory Panel (NPUAP)
[2024-03-28] MEDS: NOVOLOG FLEXPEN-LOW RESISTANCE 2 UNITS SC (16:33)
--- NOTE | 2024-03-28 16:37 | PTCARENOTE ---
Pt's daughter came to RN requesting a fan for her father stating that even though the room was cool in temperature he was still hot. RN stated that we would look for one. She then came out again asking for status of the fan, became upset we had not
located one and stormed back into pt's room. Daughter also brought a larg jug of apple juice RN student educated her about pt's fluid restriction and she said it was for both she and her father. She then became upset and agitated when another RN was
giving her father a small cup of the juice. The daughter apparently then called administration to complain about this and other things. RN went back into the room after locating a fan and the daughter was not there. the pt and his sig other,
Komal, stated that she said she had an emergency and stormed out. They had asked if she had been asked to leave the hospital because she frequently is asked to leave [place] for this type of disruptive behavior. The pt and his sig other stated
that she complained the room was too cold when she arrived and turned the heat up to 80 degrees. RN did observe the room being warm the thermostat was changed to 80 degrees when it had been set to 65 earlier in the day. They report she was cold,
turned it up to 80 because she was planning to stay the night and said that he can use a fan if he is hot. They were upset by this but seem to be fearful of her stating she has erratic behavior. Both pt and his sig other stated she should only visit
for short periods of time. RN encouraged pt to tell her this if she comes back and both agreed that her visits need to be limited to short periods of time with no overnght stays. RN notified Garden Consultant, Director, Intake Rn and Security.
--- NOTE | 2024-03-28 16:37 | CM ---
Maintained on High flow oxygen .
Hospice involved . Continue to review GOC.
Family involved .
PLAN :CM will continue to assess and assist with dc planning.
--- NOTE | 2024-03-28 16:41 | W.PN.PUL3 ---
Today's Communication / Plan
-
Continue supportive care
Wean down oxygen as able
Hospice appropriate, ongoing discussions.
Continue supportive care
Physical therapy as able
Nutritional support
IV Solu-Medrol without change
Assessment
-
78-year-old male with underlying CAD, PAD with stents, COPD/pulmonary fibrosis overlap taking care of at [facility] though he does want local care, chronic hypoxemia maintained on 5 L of oxygen at home, prednisone as well as Ofev who presented
with increasing shortness of breath and noted to be hypoxemic with elevated troponin-pulmonary consulted for pulmonary fibrosis/hypoxemia 03/16/2024.
Impression:
COPD/pulmonary fibrosis overlap with acute exacerbation
Elevated troponin due to NSTEMI-peak 9.9
Acute HFpEF exacerbation
Bronchitis versus early pneumonia-elevated procalcitonin
Elevated lactate
Mild dementia
MARIANO
Mild anemia-hemoglobin 8.6-normocytic
Hyperglycemia
Conditions present prior to admission:
Recent hospitalization 11/23/2023-fall and mild acute COPD/pulmonary fibrosis overlap exacerbation
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
Former oyovtc-61-dfdo-year-quit 48 years old.
Adrenal insufficiency.
Hypertension.
Hyperlipidemia.
PAD with history of RLE stent (1997) and lower extremity revascularization
Hx of RBBB
Old right cerebellar infarct.
CAD with history of LAD + RCA stents (1997)
Mild dementia.
GERD.
Anxiety/depression.
Plan
Respiratory decompensation in this patient with advanced end-stage lung disease-COPD/pulmonary fibrosis overlap.
No significant recovery on oxygenation.
Remains on 50% FiO2 50 L. At rest pulse ox is 97%. Oxygen desaturation with activity.
Continue to wean down as able.
Baseline use of 5-8L at home.
Unfortunately he has end-stage lung disease and no detectable reversible cause at this point. Suspect worsening pulmonary fibrosis.
Ongoing discussions regarding possible hospice. This has been discussed with daughter. Patient not ready for hospice at this point. Ongoing discussion
Will take a day by day.
Hopefully improves enough that he can be discharged on supplemental oxygen 8 to 10 L eventually.
Anxiety control has improved.
Continues to be very limited in regards to mobility due to increased shortness of breath with activity.
Continue supportive/symptomatic care. Likely if there is recovery is going to be as low.
Nebulizers as needed + DuoNebs QID
Continue Solu-Medrol without change.
Patient is maintained on Ofev for his pulmonary fibrosis as an outpatient
Continue Pulmicort + Zithromax mainly for anti-inflammatory response
Mucolytics
Incentive spirometry
-
History of sleep apnea but has been intolerant to CPAP/BiPAP. He is refusing PAP while hospitalized
Afebrile/mild leukocytosis likely due to steroids per
Cultures-
Urine Legionella and streptococcal antigen negative
MRSA screen positive
Blood cultures negative (drawn 03/15/2024)
Last urine culture 02/17/2023-Enterococcus
Unable to produce sputum
Empiric antibiotics-vancomycin and cefepime completed e days on 03/20
MRSA screen positive
Continue with atovaquone- PJP prophylaxis.
ProBNP 3200
Troponin peaked at 9.921 03/15/2024. No need to continue trending at this time
Cardiology evaluation ongoing-correspondence reviewed-reviewed with Dr. Michael Keyes-shilpa to try increased [id number]-ayyromde-orbljtx for bronchospasm
Continue diuresis with PO lasix
Monitor renal function.
Diet as per MOLD YARD CRANE OPERATOR � recommended regular + thin liquids with aspiration precautions
PT/OT once more stable with O2 requirements
Chronic anemia noted: Contributing to symptoms. Stable for now.
DVT prophylaxis- LMWH
GI prophylaxis - N/A (-on pantoprazole - home med)
Continue nutritional support, aspiration precaution for
GOC discussions:
Outpatient pulmonary follow-up recommended-he has end-stage lung disease
Most recently followed by Dr. De Dios at [facility] and maintained on nebulizers as well as Ofev and oxygen
Ongoing discussions with hospice.
-
Pulmonary service will continue to follow along.

Family Discussions
Viktoriya 03/20/24 - Spoke to patient and daughter today regarding prognosis they know his condition is non-reversible and agree he should be DNR. We then discussed his chances of survival on this admission which is low. Daughter aware and are likely to
enroll into hospice but need to decide. They were agreeable to consult.
03/19/24 Hospice has been discussed in the past, I discussed with him again what he would want if he made little to no progress on weaning O2
Diagnostic data:
Chest x-ray 02/12/2023-increased reticulonodular markings suggestive of interstitial fibrosis, slight blunting left costophrenic angle
Chest x-ray 02/19/2023-extremely limited because of low lung volumes
Chest x-ray 11/22/2023-pronounced reticular interstitial thickening related to interstitial fibrosis, no significant pleural effusions or pneumothorax
Chest x-ray 03/15/2024-bilateral interstitial opacifications without acute process
Lower extremity ultrasound 07/05/2021-no evidence for lower extremity venous thrombosis
CT head 11/22/2023-no acute intracranial abnormalities, mild atrophy and mild chronic small vessel changes, old right sella [place] infarct, no significant changes compared to prior study 02/12/2023
CT chest 03/15/2024-no CT evidence for PE, chronic severe pulmonary fibrosis and emphysema, severe coronary artery and aortic valve calcifications
-----
Subjective Data
-
Date of Service:
Date of Service: March 28, 2024
Chief Complaint: Pulmonary Follow Up and Dyspnea Follow Up
Subjective:
No new complaints
Remains on high flow oxygen
Minimal effort dyspnea
Denies any chest pain
Review of Systems
Cardiopulmonary: Dyspnea, Dyspnea on Exertion and Cough
GI: Abdominal Pain (n) and Nausea (n)
Objective Data
Data Reviewed
Vital Signs / I&O / Oxygen:
Vital Signs
Temp Pulse Resp BP Pulse Ox
98.9 F 82 20 121/69 97
03/28/24 15:00 03/28/24 16:21 03/28/24 14:39 03/28/24 16:21 03/28/24 14:39
Intake and Output
03/27/24 03/28/24 03/29/24
06:59 06:59 06:59
Intake Total 480 / 480 240 / 240
Output Total 1575 / 1575 1750 / 1750 240 / 240
Balance -1095 / -1095 -1510 / -1510 -240 / -240
SaO2 97
Nasal Cannula flow liters per 45
minute
Physical Exam
General: Respiratory Distress (n), Comfortable, Chills (negative) and Sweats (negative)
HEENT: Normocephalic and Anicteric
Cardiovascular: Regular Rhythm, Murmur and Peripheral Edema (negative)
Respiratory: Wheeze (negative), Crackles (Bilateral residential up posteriorly), Rhonchi (n), Non-Labored Respirations, Accessory Resp Muscle Use (n) and Stridor (n)
GI: Soft, Non Distended and Non Tender
Neurology: AO x 3 and Tremors (negative)
Skin: Warm, Dry, Cyanosis (n), Jaundice (n) and Rash (n)
Labs/Micro/Reports
Lab Data
03/26/24 03:46
03/27/24 05:30
[2024-03-28 16:44] LABS: Glucose - Point of Care 208 mg/dl (70-99)
[2024-03-28] MEDS: LOVENOX 40 MG SC (19:28)
[2024-03-28 22:11] LABS: Glucose - Point of Care 210 mg/dl (70-99)
[2024-03-28] MEDS: ATIVAN 0.5 MG PO (22:31)
--- NOTE | 2024-03-28 22:43 | PTCARENOTE ---
Assumed care of patient. Patient is Ax3 and on high flow nasal canula. Patient does desat when turning in bed. Patients son at the bedside. Patient is resting in bed with call anderson in reach with care ongoing.
[2024-03-29] VITALS (12 sets, daily range): BP systolic 114–149; BP diastolic 53–105; BMI 22.1
[2024-03-29 07:22] LABS: Glucose - Point of Care 98 mg/dl (70-99)
[2024-03-29] MEDS: PULMICORT 0.5 MG INH ×2 (07:28→19:16)
[2024-03-29] MEDS: DUONEB 3 ML INH ×4 (07:29→19:16)
[2024-03-29] MEDS: NOVOLOG FLEXPEN-LOW RESISTANCE SC ×2 (08:00→13:07)
[2024-03-29] MEDS: MEPRON SUSPENSION 1500 MG PO (09:05)
[2024-03-29] MEDS: LASIX 40 MG PO ×2 (09:06→16:02)
[2024-03-29] MEDS: SOLU-MEDROL PF 40 MG IV (09:06)
[2024-03-29] MEDS: PROTONIX 40 MG PO ×2 (09:06→20:40)
[2024-03-29] MEDS: CLARITIN 10 MG PO (09:06)
[2024-03-29] MEDS: ZOLOFT 50 MG PO (09:06)
[2024-03-29] MEDS: TESSALON PERLES 200 MG PO ×3 (09:07→22:20)
[2024-03-29] MEDS: TOPROL XL 25 MG PO ×2 (09:07→20:40)
[2024-03-29] MEDS: LIPITOR 40 MG PO (09:07)
[2024-03-29] MEDS: PLAVIX 75 MG PO (09:07)
[2024-03-29] MEDS: NEURONTIN 100 MG PO ×3 (09:07→22:21)
[2024-03-29] MEDS: NON-FORMULARY ITEM 150 MG PO ×2 (09:08→20:38)
[2024-03-29] MEDS: LOW STRENGTH ASPIRIN 81 MG PO (09:08)
[2024-03-29] MEDS: KCL 20 MEQ PO (09:08)
--- NOTE | 2024-03-29 10:09 | W.PN.PUL3 ---
Today's Communication / Plan
-
Continue IV Solu-Medrol, if continues to improve will consider transition to prednisone in the next 48 hours
Continue nebulizer for secretion clearance
Incentive spirometry
Oral diuretics-monitor electrolytes and renal function
Physical activity/physical therapy as able
Wean down oxygen-currently on 10 L mid flow since 03/29/2024.
Ongoing goals of care discussion
Assessment
-
78-year-old male with underlying CAD, PAD with stents, COPD/pulmonary fibrosis overlap taking care of at [facility] though he does want local care, chronic hypoxemia maintained on 5 L of oxygen at home, prednisone as well as Ofev who presented
with increasing shortness of breath and noted to be hypoxemic with elevated troponin-pulmonary consulted for pulmonary fibrosis/hypoxemia 03/16/2024.
Impression:
COPD/pulmonary fibrosis overlap with acute exacerbation
Elevated troponin due to NSTEMI-peak 9.9
Acute HFpEF exacerbation
Bronchitis versus early pneumonia-elevated procalcitonin
Elevated lactate
Mild dementia
MARIANO
Mild anemia-hemoglobin 8.6-normocytic
Hyperglycemia
Conditions present prior to admission:
Recent hospitalization 11/23/2023-fall and mild acute COPD/pulmonary fibrosis overlap exacerbation
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
Former lwvkri-58-tatv-year-quit 48 years old.
Adrenal insufficiency.
Hypertension.
Hyperlipidemia.
PAD with history of RLE stent (1997) and lower extremity revascularization
Hx of RBBB
Old right cerebellar infarct.
CAD with history of LAD + RCA stents (1997)
Mild dementia.
GERD.
Anxiety/depression.
Plan
Respiratory decompensation in this patient with advanced end-stage lung disease-COPD/pulmonary fibrosis overlap.
Very slow improvement, transition to mid flow oxygen 03/29/2020 2410 L nasal cannula. High flow oxygen discontinued.
Continue to wean down as able.
Baseline use of 5-8L at home.
Unfortunately he has end-stage lung disease and no detectable reversible cause at this point. Suspect worsening pulmonary fibrosis.
Ongoing discussions regarding possible hospice. This has been discussed with daughter. Patient not ready for hospice at this point. Ongoing discussion
Hopefully improves enough that he can be discharged on supplemental oxygen 8 to 10 L eventually.
Anxiety has improved.
Continues to be very limited in regards to mobility due to increased shortness of breath with activity.
Continue supportive/symptomatic care. Likely if there is recovery is going to be very slow.
Nebulizers as needed + DuoNebs QID
Continue Solu-Medrol without change. Currently 40 mg IV daily. Will consider transition to prednisone in the next 48 hours if he continues to improve.
Patient is maintained on Ofev for his pulmonary fibrosis as an outpatient
Continue Pulmicort + Zithromax mainly for anti-inflammatory response
Mucolytics
Incentive spirometry
-
History of sleep apnea but has been intolerant to CPAP/BiPAP. He is refusing PAP while hospitalized
Afebrile/mild leukocytosis likely due to steroids per
Cultures-
Urine Legionella and streptococcal antigen negative
MRSA screen positive
Blood cultures negative (drawn 03/15/2024)
Last urine culture 02/17/2023-Enterococcus
Unable to produce sputum
Empiric antibiotics-vancomycin and cefepime completed e days on 03/20
MRSA screen positive
Continue with atovaquone- PJP prophylaxis.
ProBNP 3200
Troponin peaked at 9.921 03/15/2024. No need to continue trending at this time
Cardiology evaluation ongoing-correspondence reviewed-reviewed with Dr. Michael Keyes-shilpa to try increased nrgw-ucvmznhe-nhpwtnj for bronchospasm
Continue diuresis with PO lasix-BUN rising. Monitor closely.
Monitor renal function.
Diet as per RN IMMUNOLOGY � recommended regular + thin liquids with aspiration precautions
PT/OT once more stable with O2 requirements
Chronic anemia noted: Contributing to symptoms. Stable for now.
DVT prophylaxis- LMWH
GI prophylaxis - N/A (-on pantoprazole - home med)
Continue nutritional support, aspiration precaution for
GOC discussions:
Dr. Gordon updated 03/28/2024.
Outpatient pulmonary follow-up recommended-he has end-stage lung disease
Most recently followed by Dr. De Dios at [facility] and maintained on nebulizers as well as Ofev and oxygen
Ongoing discussions with hospice.
-
Pulmonary service will continue to follow along.

Family Discussions
Viktoriya 03/20/24 - Spoke to patient and daughter today regarding prognosis they know his condition is non-reversible and agree he should be DNR. We then discussed his chances of survival on this admission which is low. Daughter aware and are likely to
enroll into hospice but need to decide. They were agreeable to consult.
03/19/24 Hospice has been discussed in the past, I discussed with him again what he would want if he made little to no progress on weaning O2
Diagnostic data:
Chest x-ray 02/12/2023-increased reticulonodular markings suggestive of interstitial fibrosis, slight blunting left costophrenic angle
Chest x-ray 02/19/2023-extremely limited because of low lung volumes
Chest x-ray 11/22/2023-pronounced reticular interstitial thickening related to interstitial fibrosis, no significant pleural effusions or pneumothorax
Chest x-ray 03/15/2024-bilateral interstitial opacifications without acute process
Lower extremity ultrasound 07/05/2021-no evidence for lower extremity venous thrombosis
CT head 11/22/2023-no acute intracranial abnormalities, mild atrophy and mild chronic small vessel changes, old right sella [place] infarct, no significant changes compared to prior study 02/12/2023
CT chest 03/15/2024-no CT evidence for PE, chronic severe pulmonary fibrosis and emphysema, severe coronary artery and aortic valve calcifications
-----
Subjective Data
-
Date of Service:
Date of Service: March 29, 2024
Chief Complaint: Pulmonary Follow Up and Dyspnea Follow Up
Subjective:
No new complaints.
Now sitting out of bed
High flow oxygen discontinued now on mid flow oxygen
Continues to have intermittent coughing
Shortness of breath with activity
Denies chest pain
Review of Systems
General: Fever (n)
Cardiopulmonary: Dyspnea, Dyspnea on Exertion, Cough, Sputum Production (n) and Chest Pain (n)
GI: Abdominal Pain (n) and Nausea (n)
Objective Data
Data Reviewed
Vital Signs / I&O / Oxygen:
Vital Signs
Temp Pulse Resp BP Pulse Ox
98.3 F 75 24 138/105 92
03/29/24 07:00 03/29/24 09:07 03/29/24 07:37 03/29/24 09:07 03/29/24 07:37
Intake and Output
03/28/24 03/29/24 03/30/24
06:59 06:59 06:59
Intake Total 240 / 240
Output Total 1750 / 1750 1040 / 1040
Balance -1510 / -1510 -1040 / -1040
SaO2 92
Nasal Cannula flow liters per 40
minute
Physical Exam
General: Respiratory Distress (n), Comfortable, Chills (negative) and Sweats (negative)
HEENT: Normocephalic and Anicteric
Cardiovascular: Regular Rhythm, Murmur and Peripheral Edema (negative)
Respiratory: Wheeze (negative), Crackles (Bilateral fci up posteriorly), Rhonchi (n), Non-Labored Respirations, Accessory Resp Muscle Use (n) and Stridor (n)
GI: Soft, Non Distended and Non Tender
Neurology: AO x 3 and Tremors (negative)
Skin: Warm, Dry, Cyanosis (n), Jaundice (n) and Rash (n)
Labs/Micro/Reports
Lab Data
03/26/24 03:46
03/27/24 05:30
--- NOTE | 2024-03-29 10:16 | PTCARENOTE ---
Pt weaned to 15L MF. O2 sat 88-97% OOB x2, chair cushion in place.
[2024-03-29 11:27] LABS: Glucose - Point of Care 114 mg/dl (70-99)
--- NOTE | 2024-03-29 12:05 | W.PN.HOSP.TC ---
Today's Communication/Plan
-
Able to wean off to midline
Possible placement vs hospice
cont supportive care
Assessment / Plan
Assessment / Plan
78yo M with PMHx of CAD, PAD s/p stents, COPD with lung fibrosis, chronic hypoxic respiratory failure on 5-10L home O2, chronic prednisone, HTN, GERD came with SOB started to worsen after he had a cancer resection procedure (without general
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 Also had episodes of palpitations. In ED found troponin of 8, lactate of 5, placed on HFNC. EKG without ST elevation. Managed for NSTEMI with GDMT, Echo showed inferolateral wall hypokinesis but preserved EF. possible
pneumonia and exacerbation of COPD/lung fibrosis overlap. Developed worsening anemia, that later stabilized. No significant improvement with multifactorial stable CAD, stable CHF and fibrosis/COPD treatment, but patient was declining hospice on
multiple occasions.
A/P:
#GOC
tableman involved. Family in agreement but patient was still declining. Family requested to be present duering next conversation with hospice rn (or over the phone) to assist their father with decision making
#Acute on chronic hypoxic respiratory failure likely multifactorial due to COPD and pulmonary fibrosis exacerbation, pneumonia, acute on chronic diastolic heart failure exacerbation
#COPD exacerbation
#Pulmonary fibrosis with end-stage lung disease
CTA chest
IV steroids solumedrol 40mg daily. Frequency decreased. Adjustment per pulm
bronchodilators
started on pulmicort
azithromycin x5 days
Pulm consulted
HFNC and wean off to baseline as tolerated
#possible CAP
Legionella and s.pneumonia urinary Ag neg
Sputum Cx if possible
COVID-19, Influenza PCR neg
Blood culture negative so far.
MRSA POSITIVE. Vancomycin completed 7d course.
Cefepime DCed. Completed 5d course.
#Dysphagia
possible silent aspiration
Diet upgraded to regular. Patient understands aspiration risk
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
#NSTEMI
#Palpitations with sinus arrhythmia on tele
#Possible acute on chronic HFpEF exacerbation
Cardio consult
Cont asprin.
s/p hep gtt infusion.
cont statin - LDL 69
Started on Toprol 25 twice daily
sublingual nitro PRN
cont BB
Significant improvement with IV diuresis and transitioned to 40 mg p.o. twice daily. Monitor for contraction alkalosis. Monitor BMP closely.
Plavix started- trend hgb closely. Stable
Cardiology signed off.
#PETE
High LDH with normal retics -hematology consult
Discuss with cardiology blood transfusion since patient is treated for NSTEMI - would favor keeping Hgb between 9-10, however concomitant concern for CHF might be prohibitive. Also patient w/o chest pain
serial H&H - stable
GI consulted. No plan for procedure.
s/p IV iron per heme
PPI bid for now
# Lactic acidosis likely in the setting of severe hypoxemia and CHF exacerbation
No need to further trend.
#HLD
cont home meds
#Essential HTN
BB for now.
#Anxiety d/o
cont SSRI
#AST elevation - improving
CPK minimally elevated
follow LFT
most likely 2/2 cardiac injury
#R ear skin CA s/p resection
GenSx for removal of sutures on 03/26/24
#R heel with 2 intact scabs from previous ulcers, suspect are healing stage 2PI
Wound care
DVT ppx Lovenox
DNR/DNI
I have spent at least 37min reviewing chart, test results, communication with consultants and direct patient care
Anticipated Discharge: > 48 hours
Subjective/Interval History
-
Date of Service: March 29, 2024
Objective Data
-
Vital Signs:
Vital Signs
Temp Pulse Resp BP Pulse Ox
98.3 F 64 18 123/74 96
03/29/24 07:00 03/29/24 11:00 03/29/24 11:00 03/29/24 10:00 03/29/24 11:00
I&O
03/28/24 03/29/24 03/30/24
06:59 06:59 06:59
Intake Total 240 / 240
Output Total 1750 / 1750 1040 / 1040
Balance -1510 / -1510 -1040 / -1040
Review of Systems
-
History Source: Patient
All other systems: Reviewed and negative
Respiratory: Reports Trouble Breathing (on minimal exertion)
Physical Exam
-
General: No Apparent Distress
HEENT: Normocephalic
Respiratory: Rales and Crackles
Cardiac: Regular Rhythm
GI: Soft, Nontender and Nondistended
Skin: Warm
Neuro: Awake, Alert, Oriented and AO x 3
Psych: Calm
--- NOTE | 2024-03-29 12:19 | CM ---
Addendum entered by Ivone Vasquez RN 03/29/24 16:54:
PT/OT Evals pending.
Received phone call from son Miller (cell [phone]) he is happy to hear his father is improving with his O2 rerquirements. He agrees with [facility] for rehab.
Plan follow up after seen by PT/OT and make referral to [facility].
Plan continue to follow patient's respiratory status & O2 requirements.
Original Note:
Patient with Dx Acute on chronic hypoxic respiratory failure, COPD exacerbation, possible CAP, dysphagia, NSTEMI, Possible HF, iron deficiency anemia/PETE. O2 10L midflow. Receiving IV Steroids.
Message from Dr Sanabria; as patient is weaning down his O2 needs, request to initiate SNF for rehab. MD will order PT/OT. Discussed that SNFs generally prefer to accept if patient on < 10L as their O2 concentrators only go up to 10L.
Met with patient and his SO Wilma; discussed short term rehab at SNF if PT/OT recommends, and they agree. Provided SNF list; Wilma chose [facility] that she is familiar with and near their home - provided [facility] rating and agreed to
make referral there once therapy evals were completed.
Plan follow up after seen by PT/OT and make referral to [facility].
Plan continue to follow patient's respiratory status & O2 requirements.
--- NOTE | 2024-03-29 16:04 | PTCARENOTE ---
Pt remained on 10L MF throughout the shift. When getting back to bed, his O2 sat dropped to 70s, required NRB mask for a few minutes to recover. O2 sat improved once pt resting in bed.
[2024-03-29 16:58] LABS: Glucose - Point of Care 248 mg/dl (70-99)
[2024-03-29] MEDS: LOVENOX 40 MG SC (17:36)
[2024-03-29] MEDS: NOVOLOG FLEXPEN-LOW RESISTANCE 2 UNITS SC (17:37)
--- NOTE | 2024-03-29 20:00 | PTCARENOTE ---
Received pt from day shift. Pt AAOx3. 98% on 10 L MF. VSS. Resting in bed with call anderson in reach.
[2024-03-29 21:41] LABS: Glucose - Point of Care 182 mg/dl (70-99)
[2024-03-29] MEDS: ATIVAN 0.5 MG PO (22:21)
[2024-03-30] VITALS (16 sets, daily range): BP systolic 107–167; BP diastolic 55–92; PULSE 61–62; O2SAT 100; BMI 19.3
[2024-03-30] MEDS: DUONEB 3 ML INH ×4 (07:14→20:02)
[2024-03-30] MEDS: PULMICORT 0.5 MG INH (07:14)
[2024-03-30 07:45] LABS: Glucose - Point of Care 116 mg/dl (70-99)
[2024-03-30] MEDS: NOVOLOG FLEXPEN-LOW RESISTANCE SC (07:51)
[2024-03-30] MEDS: CLARITIN 10 MG PO (07:58)
[2024-03-30] MEDS: LOW STRENGTH ASPIRIN 81 MG PO (07:58)
[2024-03-30] MEDS: PROTONIX 40 MG PO ×2 (07:58→19:54)
[2024-03-30] MEDS: KCL 20 MEQ PO (07:58)
[2024-03-30] MEDS: PLAVIX 75 MG PO (07:59)
[2024-03-30] MEDS: LASIX 40 MG PO ×2 (07:59→16:00)
[2024-03-30] MEDS: TOPROL XL 25 MG PO ×2 (08:00→19:54)
[2024-03-30] MEDS: NEURONTIN 100 MG PO ×3 (08:00→23:02)
[2024-03-30] MEDS: ZOLOFT 50 MG PO (08:00)
[2024-03-30] MEDS: LIPITOR 40 MG PO (08:01)
[2024-03-30] MEDS: MEPRON SUSPENSION 1500 MG PO (08:01)
[2024-03-30] MEDS: TESSALON PERLES 200 MG PO ×3 (08:01→23:01)
[2024-03-30] MEDS: SOLU-MEDROL PF 40 MG IV (08:02)
--- NOTE | 2024-03-30 10:06 | W.PN.PUL3 ---
Today's Communication / Plan
-
On 10L midflow, wean further down as tolerated--baseline settings of 5-8L
Wean IV steroids to PO now, slow taper
PT/OT evals
Evaluate for discharge planning, likely SNF
Assessment
-
78-year-old male with underlying CAD, PAD with stents, COPD/pulmonary fibrosis overlap taking care of at [facility] though he does want local care, chronic hypoxemia maintained on 5 L of oxygen at home, prednisone as well as Ofev who presented
with increasing shortness of breath and noted to be hypoxemic with elevated troponin-pulmonary consulted for pulmonary fibrosis/hypoxemia 03/16/2024.
Impression:
COPD/pulmonary fibrosis overlap with acute exacerbation
Elevated troponin due to NSTEMI-peak 9.9
Acute HFpEF exacerbation
Bronchitis versus early pneumonia-elevated procalcitonin
Elevated lactate
Mild dementia
MARIANO
Mild anemia-hemoglobin 8.6-normocytic
Hyperglycemia
Conditions present prior to admission:
Recent hospitalization 11/23/2023-fall and mild acute COPD/pulmonary fibrosis overlap exacerbation
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
Former [id number]-year-quit 48 years old.
Adrenal insufficiency.
Hypertension.
Hyperlipidemia.
PAD with history of RLE stent (1997) and lower extremity revascularization
Hx of RBBB
Old right cerebellar infarct.
CAD with history of LAD + RCA stents (1997)
Mild dementia.
GERD.
Anxiety/depression.
Plan
Respiratory decompensation in this patient with advanced end-stage lung disease-COPD/pulmonary fibrosis overlap.
Very slow improvement, transition to mid flow oxygen 03/29/2024 10 L nasal cannula. High flow oxygen discontinued.
He is now on 10L midflow, wean further down as tolerated
Continue to wean down as able.
Baseline use of 5-8L at home.
Unfortunately he has end-stage lung disease and no detectable reversible cause at this point. Suspect worsening pulmonary fibrosis.
Ongoing discussions regarding possible hospice. This has been discussed with daughter. Patient not ready for hospice at this point. Ongoing discussion
Hopefully improves enough that he can be discharged on supplemental oxygen 8 to 10 L eventually.
Anxiety has improved.
Continues to be very limited in regards to mobility due to increased shortness of breath with activity.
Continue supportive/symptomatic care. Likely if there is recovery is going to be very slow.
Nebulizers as needed + DuoNebs QID
Continue Solu-Medrol without change. Currently 40 mg IV daily. Will transition to PO prednisone given off high flow.
Patient is maintained on Ofev for his pulmonary fibrosis as an outpatient
Continue Pulmicort + Zithromax mainly for anti-inflammatory response
Mucolytics
Incentive spirometry
History of sleep apnea but has been intolerant to CPAP/BiPAP.
He is refusing PAP while hospitalized
Afebrile/mild leukocytosis likely due to steroids per
Cultures-
Urine Legionella and streptococcal antigen negative
MRSA screen positive
Blood cultures negative (drawn 03/15/2024)
Last urine culture 02/17/2023-Enterococcus
Unable to produce sputum
Empiric antibiotics-vancomycin and cefepime completed e days on 03/20
MRSA screen positive
Continue with atovaquone- PJP prophylaxis.
ProBNP 3200
Troponin peaked at 9.921 03/15/2024. No need to continue trending at this time
Cardiology evaluation ongoing-correspondence reviewed-reviewed with Dr. Michael Keyes-shilpa to try increased [id number] for bronchospasm
Continue diuresis with PO lasix-BUN rising. Monitor closely.
Monitor renal function.
Diet as per BRICK SORTER � recommended regular + thin liquids with aspiration precautions
PT/OT once more stable with O2 requirements
Chronic anemia noted: Contributing to symptoms. Stable for now.
DVT prophylaxis- LMWH
GI prophylaxis - N/A (-on pantoprazole - home med)
Continue nutritional support, aspiration precaution for
GOC discussions:
Dr. Gordon updated 03/28/2024.
Outpatient pulmonary follow-up recommended-he has end-stage lung disease
Most recently followed by Dr. De Dios at [facility] and maintained on nebulizers as well as Ofev and oxygen
Ongoing discussions with hospice.
-
Pulmonary service will continue to follow along.

Family Discussions
Viktoriya 03/20/24 - Spoke to patient and daughter today regarding prognosis they know his condition is non-reversible and agree he should be DNR. We then discussed his chances of survival on this admission which is low. Daughter aware and are likely to
enroll into hospice but need to decide. They were agreeable to consult.
03/19/24 Hospice has been discussed in the past, I discussed with him again what he would want if he made little to no progress on weaning O2
Diagnostic Data
Chest x-ray 02/12/2023-increased reticulonodular markings suggestive of interstitial fibrosis, slight blunting left costophrenic angle
Chest x-ray 02/19/2023-extremely limited because of low lung volumes
Chest x-ray 11/22/2023-pronounced reticular interstitial thickening related to interstitial fibrosis, no significant pleural effusions or pneumothorax
Chest x-ray 03/15/2024-bilateral interstitial opacifications without acute process
Lower extremity ultrasound 07/05/2021-no evidence for lower extremity venous thrombosis
CT head 11/22/2023-no acute intracranial abnormalities, mild atrophy and mild chronic small vessel changes, old right sella [place] infarct, no significant changes compared to prior study 02/12/2023
CT chest 03/15/2024-no CT evidence for PE, chronic severe pulmonary fibrosis and emphysema, severe coronary artery and aortic valve calcifications
-----
Subjective Data
-
Date of Service:
Date of Service: March 30, 2024
Chief Complaint: Pulmonary Follow Up and Dyspnea Follow Up
Subjective:
remains on 10L midflow
appears sob but he denies
sitting in chair, falling asleep
Objective Data
Data Reviewed
Vital Signs / I&O / Oxygen:
Vital Signs
Temp Pulse Resp BP Pulse Ox
97.6 F 57 16 131/92 99
03/30/24 07:00 03/30/24 07:17 03/30/24 07:17 03/30/24 06:00 03/30/24 07:17
Intake and Output
03/29/24 03/30/24 03/31/24
06:59 06:59 06:59
Intake Total 240 / 240
Output Total 1040 / 1040 1050 / 1050
Balance -1040 / -1040 -810 / -810
SaO2 99
Nasal Cannula flow liters per 10
minute
Physical Exam
General: Respiratory Distress (n), Comfortable, Chills (negative) and Sweats (negative)
HEENT: Normocephalic and Anicteric
Cardiovascular: Regular Rhythm, Murmur and Peripheral Edema (negative)
Respiratory: Wheeze (negative), Crackles (Bilateral assisted up posteriorly), Rhonchi (n), Non-Labored Respirations, Accessory Resp Muscle Use (n) and Stridor (n)
GI: Soft, Non Distended and Non Tender
Neurology: Awake, AO x 3, Tremors (negative) and Lethargic
Skin: Warm, Dry, Cyanosis (n), Jaundice (n) and Rash (n)
Labs/Micro/Reports
Lab Data
03/26/24 03:46
03/27/24 05:30
[2024-03-30 11:54] LABS: Glucose - Point of Care 156 mg/dl (70-99)
--- NOTE | 2024-03-30 12:34 | W.PN.HOSP.TC ---
Today's Communication/Plan
-
PT/OT and possible STR placement
Assessment / Plan
Assessment / Plan
78yo M with PMHx of CAD, PAD s/p stents, COPD with lung fibrosis, chronic hypoxic respiratory failure on 5-10L home O2, chronic prednisone, HTN, GERD came with SOB started to worsen after he had a cancer resection procedure (without general
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 Also had episodes of palpitations. In ED found troponin of 8, lactate of 5, placed on HFNC. EKG without ST elevation. Managed for NSTEMI with GDMT, Echo showed inferolateral wall hypokinesis but preserved EF. possible
pneumonia and exacerbation of COPD/lung fibrosis overlap. Developed worsening anemia, that later stabilized. No significant improvement with multifactorial stable CAD, stable CHF and fibrosis/COPD treatment, but patient was declining hospice on
multiple occasions. Now since O2 requirements improving - plan for STR placement, CM aware
A/P:
#GOC
life scientists involved. Family in agreement but patient was still declining. Family requested to be present during next conversation with technical project lead (or over the phone) to assist their father with decision making
#Acute on chronic hypoxic respiratory failure likely multifactorial due to COPD and pulmonary fibrosis exacerbation, pneumonia, acute on chronic diastolic heart failure exacerbation
#COPD exacerbation
#Pulmonary fibrosis with end-stage lung disease
CTA chest
IV steroids solumedrol 40mg daily. Frequency decreased. Adjustment per pulm
bronchodilators
started on pulmicort
azithromycin x5 days
Pulm consulted
HFNC and wean off to baseline as tolerated
#possible CAP
Legionella and s.pneumonia urinary Ag neg
Sputum Cx if possible
COVID-19, Influenza PCR neg
Blood culture negative so far.
MRSA POSITIVE. Vancomycin completed 7d course.
Cefepime DCed. Completed 5d course.
#Dysphagia
possible silent aspiration
Diet upgraded to regular. Patient understands aspiration risk
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
#NSTEMI
#Palpitations with sinus arrhythmia on tele
#Possible acute on chronic HFpEF exacerbation
Cardio consult
Cont asprin.
s/p hep gtt infusion.
cont statin - LDL 69
Started on Toprol 25 twice daily
sublingual nitro PRN
cont BB
Significant improvement with IV diuresis and transitioned to 40 mg p.o. twice daily. Monitor for contraction alkalosis. Monitor BMP closely.
Plavix started- trend hgb closely. Stable
Cardiology signed off.
#PETE
High LDH with normal retics -hematology consult
Discuss with cardiology blood transfusion since patient is treated for NSTEMI - would favor keeping Hgb between 9-10, however concomitant concern for CHF might be prohibitive. Also patient w/o chest pain
serial H&H - stable
GI consulted. No plan for procedure.
s/p IV iron per heme
PPI bid for now
# Lactic acidosis likely in the setting of severe hypoxemia and CHF exacerbation
No need to further trend.
#HLD
cont home meds
#Essential HTN
BB for now.
#Anxiety d/o
cont SSRI
#AST elevation - improving
CPK minimally elevated
follow LFT
most likely 2/2 cardiac injury
#R ear skin CA s/p resection
GenSx for removal of sutures on 03/26/24
#R heel with 2 intact scabs from previous ulcers, suspect are healing stage 2PI
Wound care
DVT ppx Lovenox
DNR/DNI
I have spent at least 37min reviewing chart, test results, communication with consultants and direct patient care
Anticipated Discharge: > 48 hours
Subjective/Interval History
-
Date of Service: March 30, 2024
Objective Data
-
Vital Signs:
Vital Signs
Temp Pulse Resp BP Pulse Ox
97.3 F 65 20 131/92 98
03/30/24 11:00 03/30/24 11:20 03/30/24 11:20 03/30/24 06:00 03/30/24 11:20
I&O
03/29/24 03/30/24 03/31/24
06:59 06:59 06:59
Intake Total 240 / 240
Output Total 1040 / 1040 1050 / 1050
Balance -1040 / -1040 -810 / -810
Review of Systems
-
History Source: Patient
All other systems: Reviewed and negative
Physical Exam
-
General: No Apparent Distress
HEENT: Normocephalic
Respiratory: Crackles
GI: Soft, Nontender and Nondistended
Skin: Warm
Neuro: Awake, Alert, Oriented and AO x 3
Psych: Calm
[2024-03-30] MEDS: NON-FORMULARY ITEM 150 MG PO ×2 (13:09→19:55)
[2024-03-30] MEDS: NOVOLOG FLEXPEN-LOW RESISTANCE 1 UNITS SC (13:10)
[2024-03-30 16:30] LABS: Glucose - Point of Care 214 mg/dl (70-99)
[2024-03-30] MEDS: NOVOLOG FLEXPEN-LOW RESISTANCE 2 UNITS SC (16:54)
[2024-03-30] MEDS: LOVENOX 40 MG SC (18:21)
[2024-03-30 21:34] LABS: Glucose - Point of Care 155 mg/dl (70-99)
[2024-03-30] MEDS: ATIVAN 0.5 MG PO (23:01)
[2024-03-31] VITALS (12 sets, daily range): BP systolic 114–158; BP diastolic 66–85
--- NOTE | 2024-03-31 00:20 | PTCARENOTE ---
Received Pt resting comfortably in chair. OOB to BSC for large BM - NRB placed on Pt before exertion; Assisted back to bed with SpO2 dipping into the 70's. Pt recovered after ~ 5 minutes. Will continue to monitor and assess.
[2024-03-31] MEDS: DUONEB 3 ML INH ×4 (07:18→19:43)
[2024-03-31 08:36] LABS: Glucose - Point of Care 110 mg/dl (70-99)
[2024-03-31] MEDS: CLARITIN 10 MG PO (10:01)
[2024-03-31] MEDS: NOVOLOG FLEXPEN-LOW RESISTANCE SC ×2 (10:01→12:00)
[2024-03-31] MEDS: DELTASONE 40 MG PO (10:02)
[2024-03-31] MEDS: KCL 20 MEQ PO (10:02)
[2024-03-31] MEDS: LASIX 40 MG PO ×2 (10:03→18:29)
[2024-03-31] MEDS: LIPITOR 40 MG PO (10:03)
[2024-03-31] MEDS: LOW STRENGTH ASPIRIN 81 MG PO (10:04)
[2024-03-31] MEDS: PLAVIX 75 MG PO (10:05)
[2024-03-31] MEDS: MEPRON SUSPENSION 1500 MG PO (10:05)
[2024-03-31] MEDS: NEURONTIN 100 MG PO ×3 (10:05→22:09)
[2024-03-31] MEDS: TOPROL XL 25 MG PO ×2 (10:06→20:53)
[2024-03-31] MEDS: TESSALON PERLES 200 MG PO ×3 (10:06→22:09)
[2024-03-31] MEDS: PROTONIX 40 MG PO ×2 (10:06→20:53)
[2024-03-31] MEDS: ZOLOFT 50 MG PO (10:06)
[2024-03-31] MEDS: NON-FORMULARY ITEM 150 MG PO ×2 (10:07→20:53)
--- NOTE | 2024-03-31 11:30 | W.PN.PUL3 ---
Today's Communication / Plan
-
Wean O2 down as tolerated, on 8L which is baseline
Slow prednisone taper
He has been sleeping often, check ABG
Discharge planning per team to SNF if he has not agreed to hospice
Assessment
-
78-year-old male with underlying CAD, PAD with stents, COPD/pulmonary fibrosis overlap taking care of at [facility] though he does want local care, chronic hypoxemia maintained on 5 L of oxygen at home, prednisone as well as Ofev who presented
with increasing shortness of breath and noted to be hypoxemic with elevated troponin-pulmonary consulted for pulmonary fibrosis/hypoxemia 03/16/2024.
Impression:
COPD/pulmonary fibrosis overlap with acute exacerbation
Elevated troponin due to NSTEMI-peak 9.9
Acute HFpEF exacerbation
Bronchitis versus early pneumonia-elevated procalcitonin
Elevated lactate
Mild dementia
MARIANO
Mild anemia-hemoglobin 8.6-normocytic
Hyperglycemia
Conditions present prior to admission:
Recent hospitalization 11/23/2023-fall and mild acute COPD/pulmonary fibrosis overlap exacerbation
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
Former [id number]-year-quit 48 years old.
Adrenal insufficiency.
Hypertension.
Hyperlipidemia.
PAD with history of RLE stent (1997) and lower extremity revascularization
Hx of RBBB
Old right cerebellar infarct.
CAD with history of LAD + RCA stents (1997)
Mild dementia.
GERD.
Anxiety/depression.
Plan
Respiratory decompensation in this patient with advanced end-stage lung disease-COPD/pulmonary fibrosis overlap.
Very slow improvement, transition to mid flow oxygen 03/29/2024 10 L nasal cannula. High flow oxygen discontinued.
He is now on 8L midflow, wean further down as tolerated
Continue to wean down as able.
Baseline use of 5-8L at home.
Unfortunately he has end-stage lung disease and no detectable reversible cause at this point. Suspect worsening pulmonary fibrosis.
Ongoing discussions regarding possible hospice. This has been discussed with daughter. Patient not ready for hospice at this point. Ongoing discussion
Hopefully improves enough that he can be discharged on supplemental oxygen 8 to 10 L eventually.
Anxiety has improved.
Continues to be very limited in regards to mobility due to increased shortness of breath with activity.
Continue supportive/symptomatic care. Likely if there is recovery is going to be very slow.
Nebulizers as needed + DuoNebs QID
Continue Solu-Medrol without change. Currently 40 mg IV daily. Will transition to PO prednisone given off high flow.
Patient is maintained on Ofev for his pulmonary fibrosis as an outpatient
Continue Pulmicort + Zithromax mainly for anti-inflammatory response
Mucolytics
Incentive spirometry
History of sleep apnea but has been intolerant to CPAP/BiPAP.
He is refusing PAP while hospitalized
Check ABG as he has been notably sleeping often
Afebrile/mild leukocytosis likely due to steroids per
Cultures-
Urine Legionella and streptococcal antigen negative
MRSA screen positive
Blood cultures negative (drawn 03/15/2024)
Last urine culture 02/17/2023-Enterococcus
Unable to produce sputum
Empiric antibiotics-vancomycin and cefepime completed e days on 03/20
MRSA screen positive
Continue with atovaquone- PJP prophylaxis.
ProBNP 3200
Troponin peaked at 9.921 03/15/2024. No need to continue trending at this time
Cardiology evaluation ongoing-correspondence reviewed-reviewed with Dr. Michael Keyes-shilpa to try increased [id number] for bronchospasm
Continue diuresis with PO lasix-BUN rising. Monitor closely.
Monitor renal function.
Diet as per DIE GRINDER � recommended regular + thin liquids with aspiration precautions
PT/OT once more stable with O2 requirements
Chronic anemia noted: Contributing to symptoms. Stable for now.
DVT prophylaxis- LMWH
GI prophylaxis - N/A (-on pantoprazole - home med)
Continue nutritional support, aspiration precaution for
GOC discussions:
Dr. Gordon updated 03/28/2024.
Outpatient pulmonary follow-up recommended-he has end-stage lung disease
Most recently followed by Dr. De Dios at [facility] and maintained on nebulizers as well as Ofev and oxygen
Ongoing discussions with hospice.
-
Pulmonary service will continue to follow along.

Family Discussions
Viktoriya 03/20/24 - Spoke to patient and daughter today regarding prognosis they know his condition is non-reversible and agree he should be DNR. We then discussed his chances of survival on this admission which is low. Daughter aware and are likely to
enroll into hospice but need to decide. They were agreeable to consult.
03/19/24 Hospice has been discussed in the past, I discussed with him again what he would want if he made little to no progress on weaning O2
Diagnostic Data
Chest x-ray 02/12/2023-increased reticulonodular markings suggestive of interstitial fibrosis, slight blunting left costophrenic angle
Chest x-ray 02/19/2023-extremely limited because of low lung volumes
Chest x-ray 11/22/2023-pronounced reticular interstitial thickening related to interstitial fibrosis, no significant pleural effusions or pneumothorax
Chest x-ray 03/15/2024-bilateral interstitial opacifications without acute process
Lower extremity ultrasound 07/05/2021-no evidence for lower extremity venous thrombosis
CT head 11/22/2023-no acute intracranial abnormalities, mild atrophy and mild chronic small vessel changes, old right sella [place] infarct, no significant changes compared to prior study 02/12/2023
CT chest 03/15/2024-no CT evidence for PE, chronic severe pulmonary fibrosis and emphysema, severe coronary artery and aortic valve calcifications
Subjective Data
-
Date of Service:
Date of Service: March 31, 2024
Chief Complaint: Pulmonary Follow Up and Dyspnea Follow Up
Subjective:
Remains on midflow 8L
Sleeping constantly
Objective Data
Data Reviewed
Vital Signs / I&O / Oxygen:
Vital Signs
Temp Pulse Resp BP Pulse Ox
97.9 F 69 23 130/79 93
03/31/24 07:55 03/31/24 11:11 03/31/24 11:11 03/31/24 08:00 03/31/24 11:11
Intake and Output
03/30/24 03/31/24 04/01/24
06:59 06:59 06:59
Intake Total 240 / 240 240 / 240 240 / 240
Output Total 1050 / 1050 1250 / 1250 250 / 250
Balance -810 / -810 -1010 / -1010 -10 / -10
SaO2 93
Nasal Cannula flow liters per 10
minute
Physical Exam
General: Respiratory Distress (n), Comfortable, Chills (negative) and Sweats (negative)
HEENT: Normocephalic and Anicteric
Cardiovascular: Regular Rhythm, Murmur and Peripheral Edema (negative)
Respiratory: Wheeze (negative), Crackles (Bilateral nursing home up posteriorly), Rhonchi (n), Non-Labored Respirations, Accessory Resp Muscle Use (n) and Stridor (n)
GI: Soft, Non Distended and Non Tender
Neurology: Awake, AO x 3, Tremors (negative) and Lethargic
Skin: Warm, Dry, Cyanosis (n), Jaundice (n) and Rash (n)
Labs/Micro/Reports
Lab Data
03/26/24 03:46
03/27/24 05:30
--- NOTE | 2024-03-31 12:31 | W.PN.HOSP.TC ---
Today's Communication/Plan
-
STR - CM aware
Assessment / Plan
Assessment / Plan
78yo M with PMHx of CAD, PAD s/p stents, COPD with lung fibrosis, chronic hypoxic respiratory failure on 5-10L home O2, chronic prednisone, HTN, GERD came with SOB started to worsen after he had a cancer resection procedure (without general
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 Also had episodes of palpitations. In ED found troponin of 8, lactate of 5, placed on HFNC. EKG without ST elevation. Managed for NSTEMI with GDMT, Echo showed inferolateral wall hypokinesis but preserved EF. possible
pneumonia and exacerbation of COPD/lung fibrosis overlap. Developed worsening anemia, that later stabilized. No significant improvement with multifactorial stable CAD, stable CHF and fibrosis/COPD treatment, but patient was declining hospice on
multiple occasions. Now since O2 requirements improving - plan for STR placement, CM aware
A/P:
#GOC
toll bridge operator involved. Family in agreement but patient was still declining. Family requested to be present during next conversation with distance learning administrator (or over the phone) to assist their father with decision making
#Acute on chronic hypoxic respiratory failure likely multifactorial due to COPD and pulmonary fibrosis exacerbation, pneumonia, acute on chronic diastolic heart failure exacerbation
#COPD exacerbation
#Pulmonary fibrosis with end-stage lung disease
CTA chest
IV steroids solumedrol 40mg daily. Frequency decreased. Adjustment per pulm
bronchodilators
started on pulmicort
azithromycin x5 days
Pulm consulted
HFNC and wean off to baseline as tolerated
#possible CAP
Legionella and s.pneumonia urinary Ag neg
Sputum Cx if possible
COVID-19, Influenza PCR neg
Blood culture negative so far.
MRSA POSITIVE. Vancomycin completed 7d course.
Cefepime DCed. Completed 5d course.
#Dysphagia
possible silent aspiration
Diet upgraded to regular. Patient understands aspiration risk
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
#NSTEMI
#Palpitations with sinus arrhythmia on tele
#Possible acute on chronic HFpEF exacerbation
Cardio consult
Cont asprin.
s/p hep gtt infusion.
cont statin - LDL 69
Started on Toprol 25 twice daily
sublingual nitro PRN
cont BB
Significant improvement with IV diuresis and transitioned to 40 mg p.o. twice daily. Monitor for contraction alkalosis. Monitor BMP closely.
Plavix started- trend hgb closely. Stable
Cardiology signed off.
#PETE
High LDH with normal retics -hematology consult
Discuss with cardiology blood transfusion since patient is treated for NSTEMI - would favor keeping Hgb between 9-10, however concomitant concern for CHF might be prohibitive. Also patient w/o chest pain
serial H&H - stable
GI consulted. No plan for procedure.
s/p IV iron per heme
PPI bid for now
# Lactic acidosis likely in the setting of severe hypoxemia and CHF exacerbation
No need to further trend.
#HLD
cont home meds
#Essential HTN
BB for now.
#Anxiety d/o
cont SSRI
#AST elevation - improving
CPK minimally elevated
follow LFT
most likely 2/2 cardiac injury
#R ear skin CA s/p resection
GenSx for removal of sutures on 03/26/24
#R heel with 2 intact scabs from previous ulcers, suspect are healing stage 2PI
Wound care
DVT ppx Lovenox
DNR/DNI
I have spent at least 37min reviewing chart, test results, communication with consultants and direct patient care
Anticipated Discharge: Within 24 hours
Subjective/Interval History
-
Date of Service: March 31, 2024
Objective Data
-
Vital Signs:
Vital Signs
Temp Pulse Resp BP Pulse Ox
97.9 F 69 23 120/72 93
03/31/24 07:55 03/31/24 11:11 03/31/24 11:11 03/31/24 10:00 03/31/24 11:11
I&O
03/30/24 03/31/24 04/01/24
06:59 06:59 06:59
Intake Total 240 / 240 240 / 240 240 / 240
Output Total 1050 / 1050 1250 / 1250 250 / 250
Balance -810 / -810 -1010 / -1010 -10 / -10
Review of Systems
-
History Source: Patient
All other systems: Reviewed and negative
Physical Exam
-
General: No Apparent Distress
HEENT: Normocephalic and Atraumatic
Respiratory: Crackles
GI: Soft, Nontender and Nondistended
Genito-urinary: No Costovertebral Tender
Musculoskeletal: No Clubbing and No Cyanosis
[2024-03-31 12:43] LABS: Glucose - Point of Care 118 mg/dl (70-99)
--- NOTE | 2024-03-31 14:22 | PTCARENOTE ---
pox noted to be dropping to 77%. patient speaking with daughter at bedside and on the phone. suggested pt stop speaking to catch his breath; midflow increased to 12 L. refused non-rebreather supplement at this time. turned on and placed on the bed;
suggested he hold in front of his face as necessary. pox recovering to 85% after 1 min of rest. continuing to monitor
[2024-03-31 14:29] LABS: B.E. 12.1 mmol/L; O2 Saturation % 80.3 % (94-98); PCO2 63 mmHg (35-48)
[2024-03-31 14:36] LABS: O2 Therapy 15L/MID FLOW
[2024-03-31 14:37] LABS: PO2 46 mmHg (83-108)
--- NOTE | 2024-03-31 16:30 | PTCARENOTE ---
ABGs completed as ordered by pulmonary. pCO2 63 on [address] Sadler notified by tiger text. Patient has refused routine turning all day, lying supine. Pox dropping as low as 77% while speaking to daughter on 10 L; midflow increased to
12 L. Intermittently dropping to low 80's and recovering to 91-93% using 100% non-rebreather mask to supplement. Continuing to monitor
[2024-03-31 17:00] LABS: Glucose - Point of Care 235 mg/dl (70-99)
[2024-03-31] MEDS: NOVOLOG FLEXPEN-LOW RESISTANCE 2 UNITS SC (18:29)
[2024-03-31] MEDS: LOVENOX 40 MG SC (18:30)
[2024-03-31 21:28] LABS: Glucose - Point of Care 195 mg/dl (70-99)
[2024-03-31] MEDS: ATIVAN 0.5 MG PO (22:09)
[2024-04-01] VITALS (14 sets, daily range): BP systolic 118–160; BP diastolic 67–81; PULSE 67–78; O2SAT 93–98; BMI 21.3
[2024-04-01] MEDS: DUONEB 3 ML INH ×4 (07:37→19:39)
[2024-04-01 08:28] LABS: Glucose - Point of Care 94 mg/dl (70-99)
[2024-04-01] MEDS: NOVOLOG FLEXPEN-LOW RESISTANCE SC ×2 (08:44→12:46)
[2024-04-01] MEDS: LOW STRENGTH ASPIRIN 81 MG PO (08:58)
[2024-04-01] MEDS: MEPRON SUSPENSION 1500 MG PO (08:58)
[2024-04-01] MEDS: DELTASONE 40 MG PO (08:58)
[2024-04-01] MEDS: TOPROL XL 25 MG PO ×2 (08:58→21:15)
[2024-04-01] MEDS: PLAVIX 75 MG PO (08:58)
[2024-04-01] MEDS: KCL 20 MEQ PO (08:58)
[2024-04-01] MEDS: TESSALON PERLES 200 MG PO ×3 (08:58→21:16)
[2024-04-01] MEDS: ZOLOFT 50 MG PO (08:58)
[2024-04-01] MEDS: PROTONIX 40 MG PO ×2 (08:59→21:15)
[2024-04-01] MEDS: CLARITIN 10 MG PO (08:59)
[2024-04-01] MEDS: LIPITOR 40 MG PO (08:59)
[2024-04-01] MEDS: NEURONTIN 100 MG PO ×3 (08:59→21:15)
[2024-04-01] MEDS: LASIX 40 MG PO ×2 (08:59→17:37)
[2024-04-01] MEDS: NON-FORMULARY ITEM 150 MG PO ×2 (09:00→21:14)
--- NOTE | 2024-04-01 09:35 | CM ---
Addendum entered by Ivone Vasquez RN 04/01/24 15:32:
Spoke with LISA Mcintyre, [facility] is approved for 5 days from 04/01 - 04/05. auth # [id number]. NR 04/05 to [phone].
[facility] auth #[id number].
[facility] they are able to accept the patient today. for report [phone], fax [phone].
Plan [facility] today by ambulance.
Addendum entered by Ivone Vasquez RN 04/01/24 15:02:
O2 8L midflow.
Spoke with [facility]; they are able to accept once insurance approves.
Met with patient, SO Wilma, and grand-daughter; patient and SO are pleased that patient was accepted by [facility], and understand he will be able to go there once insurance approves. IMM completed.
Original Note:
Patient with Dx Acute on chronic hypoxic respiratory failure, COPD/pulmonary fibrosis exacerbation, NSTEMI, HF. O2 10L midflow. Modified Contact Precautions - MRSA + Nose. PT/OT recommend skilled rehab. Per nurse assessment; forgetful.
Spoke with [facility]; discussed referral for short term rehab. They can consider the patient once his O2 requirements decrease to 8L.
Plan continue to follow patient's respiratory status & O2 requirements.
Plan follow up with [facility] for acceptance once O2 requirements lessen to 8L.
--- NOTE | 2024-04-01 09:44 | W.PN.PUL.V3 ---
Today's Communication / Plan
-
Attempt to wean oxygen
Prednisone
Nebulizers and aspiration precautions
Ongoing goals of care-hospice discussions
Assessment
-
78-year-old male with underlying CAD, PAD with stents, COPD/pulmonary fibrosis overlap taking care of at [facility] though he does want local care, chronic hypoxemia maintained on 5 L of oxygen at home, prednisone as well as Ofev who presented
with increasing shortness of breath and noted to be hypoxemic with elevated troponin-pulmonary consulted for pulmonary fibrosis/hypoxemia 03/16/2024.
Impression:
COPD/pulmonary fibrosis overlap with acute exacerbation
Chronic hypercapnia
Elevated troponin due to NSTEMI-peak 9.9
Acute HFpEF exacerbation
Bronchitis versus early pneumonia-elevated procalcitonin
Elevated lactate
Mild dementia
MARIANO
Mild anemia-hemoglobin 8.6-normocytic
Hyperglycemia
Conditions present prior to admission:
Recent hospitalization 11/23/2023-fall and mild acute COPD/pulmonary fibrosis overlap exacerbation
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
Former [id number]-[id number]-year-quit 48 years old.
Adrenal insufficiency.
Hypertension.
Hyperlipidemia.
PAD with history of RLE stent (1997) and lower extremity revascularization
Hx of RBBB
Old right cerebellar infarct.
CAD with history of LAD + RCA stents (1997)
Mild dementia.
GERD.
Anxiety/depression.
Plan
Respiratory decompensation in this patient with advanced end-stage lung disease-COPD/pulmonary fibrosis overlap.
Respiratory status very slowly improving
Currently on mid flow-attempt to wean
Baseline 5-8 L of oxygen at home
Incentive spirometry
Aspiration precautions
Kixb-[id number]-[id number] to prednisone with slow taper
Nebulizers as needed
Pulmicort continues
Azithromycin continues for anti-inflammatory response
ABG 03/31/2024--63/46/7.4
Unfortunately he has end-stage lung disease and no detectable reversible cause at this point-suspect worsening pulmonary fibrosis.
Ongoing discussions regarding possible hospice
This has been discussed with daughter. Patient not ready for hospice at this point-ongoing discussion
Hopefully improves enough that he can be discharged on supplemental oxygen 8 to 10 L eventually.
History of sleep apnea but has been intolerant to CPAP/BiPAP.
He is refusing PAP while hospitalized
Check ABG as he has been notably sleeping often
Cultures reviewed
Urine Legionella and streptococcal antigen negative
MRSA screen positive
Blood cultures negative (drawn 03/15/2024)
Last urine culture 02/17/2023-Enterococcus
Patient unable to produce sputum
Empiric antibiotics-vancomycin and cefepime completed e days on 03/20
MRSA screen positive
Continue with atovaquone- PJP prophylaxis.
Cardiology following
Diuresis as tolerated
Monitor renal function, electrolytes, intake/output, lower extremity edema and weight
Replace electrolytes as needed
Monitor hemoglobin-currently stable
Transfuse as needed
DVT prophylaxis- LMWH
GI prophylaxis - N/A (-on pantoprazole - home med)
Continue nutritional support, aspiration precaution for
GOC discussions:
Dr. Gordon updated 03/28/2024.
Outpatient pulmonary follow-up recommended-he has end-stage lung disease
Most recently followed by Dr. De Dios at [facility] and maintained on nebulizers as well as Ofev and oxygen
Ongoing discussions with hospice-hospitalist discussing-hospice has been consulted
Reviewed with nursing

Family Discussions
Viktoriya 03/20/24 - Spoke to patient and daughter today regarding prognosis they know his condition is non-reversible and agree he should be DNR. We then discussed his chances of survival on this admission which is low. Daughter aware and are likely to
enroll into hospice but need to decide. They were agreeable to consult.
03/19/24 Hospice has been discussed in the past, I discussed with him again what he would want if he made little to no progress on weaning O2
Diagnostic Data
Chest x-ray 02/12/2023-increased reticulonodular markings suggestive of interstitial fibrosis, slight blunting left costophrenic angle
Chest x-ray 02/19/2023-extremely limited because of low lung volumes
Chest x-ray 11/22/2023-pronounced reticular interstitial thickening related to interstitial fibrosis, no significant pleural effusions or pneumothorax
Chest x-ray 03/15/2024-bilateral interstitial opacifications without acute process
Lower extremity ultrasound 07/05/2021-no evidence for lower extremity venous thrombosis
CT head 11/22/2023-no acute intracranial abnormalities, mild atrophy and mild chronic small vessel changes, old right sella [place] infarct, no significant changes compared to prior study 02/12/2023
CT chest 03/15/2024-no CT evidence for PE, chronic severe pulmonary fibrosis and emphysema, severe coronary artery and aortic valve calcifications
Subjective Data
-
Date of Service:
Date of Service: April 01, 2024
Chief Complaint: Pulmonary Follow Up and Dyspnea Follow Up
Subjective:
Feels a little 'better', no chest pain, productive cough, pleurisy, abdominal pain
Review of Systems
General: Other (Per HPI)
Objective Data
Data Reviewed
Vital Signs / I&O:
Vital Signs
Temp Pulse Resp BP Pulse Ox
97.6 F 58 16 143/78 100
04/01/24 07:44 04/01/24 07:41 04/01/24 07:41 04/01/24 02:00 04/01/24 07:41
Intake and Output
03/31/24 04/01/24 04/02/24
06:59 06:59 06:59
Intake Total 240 / 240 480 / 480
Output Total 1250 / 1250 1250 / 1250
Balance -1010 / -1010 -770 / -770
SaO2: 100
Nasal Cannula flow liters per minute: 10
Physical Exam
General: Respiratory Distress (n), Comfortable, Chills (negative) and Sweats (negative)
HEENT: Normocephalic and Anicteric
Cardiovascular: Regular Rhythm, Murmur and Peripheral Edema (negative)
Respiratory: Wheeze (negative), Crackles (Bilateral detention up posteriorly), Rhonchi (n), Non-Labored Respirations, Accessory Resp Muscle Use (n) and Stridor (n)
GI: Soft, Non Distended and Non Tender
Neurology: Awake, Alert and Tremors (negative)
Skin: Warm, Dry, Cyanosis (n), Jaundice (n) and Rash (n)
Labs/Micro/Reports
Lab Data
03/26/24 03:46
03/27/24 05:30
Laboratory Results
03/31/24
14:30
pH 7.40
pCO2 63 H
pO2 46 L*
HCO3 39.0 H
O2 Delivery Level 15l/mid flow
--- NOTE | 2024-04-01 10:43 | W.PN.HOSP.TC ---
Today's Communication/Plan
-
Medically stable with high O2 requirements, needs SNF vs hospice (but hospice was declined by the patient)
CM working on rehab acceptance, preliminary - can be taken if O2 requirements will be 8L midline or less
Discussed end-stage lung disease and no that no additional medical mgmt available with the son
Assessment / Plan
Assessment / Plan
78yo M with PMHx of CAD, PAD s/p stents, COPD with lung fibrosis, chronic hypoxic respiratory failure on 5-10L home O2, chronic prednisone, HTN, GERD came with SOB started to worsen after he had a cancer resection procedure (without general
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 Also had episodes of palpitations. In ED found troponin of 8, lactate of 5, placed on HFNC. EKG without ST elevation. Managed for NSTEMI with GDMT, Echo showed inferolateral wall hypokinesis but preserved EF. possible
pneumonia and exacerbation of COPD/lung fibrosis overlap. Developed worsening anemia, that later stabilized. No significant improvement with multifactorial stable CAD, stable CHF and fibrosis/COPD treatment, but patient was declining hospice on
multiple occasions. Now since O2 requirements improving - plan for STR placement, CM aware
A/P:
#GOC
leadership development manager involved. Family in agreement but patient was still declining. Family requested to be present during next conversation with patrol sergeant sheriff's office (or over the phone) to assist their father with decision making
#Acute on chronic hypoxic respiratory failure likely multifactorial due to COPD and pulmonary fibrosis exacerbation, pneumonia, acute on chronic diastolic heart failure exacerbation
#COPD exacerbation
#Pulmonary fibrosis with end-stage lung disease
CTA chest
IV steroids solumedrol 40mg daily. Frequency decreased. Adjustment per pulm
bronchodilators
started on pulmicort
azithromycin x5 days
Pulm consulted
HFNC and wean off to baseline as tolerated
#possible CAP
Legionella and s.pneumonia urinary Ag neg
Sputum Cx if possible
COVID-19, Influenza PCR neg
Blood culture negative so far.
MRSA POSITIVE. Vancomycin completed 7d course.
Cefepime DCed. Completed 5d course.
#Dysphagia
possible silent aspiration
Diet upgraded to regular. Patient understands aspiration risk
CLIENT FINANCE ANALYST followed
#NSTEMI
#Palpitations with sinus arrhythmia on tele
#Possible acute on chronic HFpEF exacerbation
Cardio consult
Cont asprin.
s/p hep gtt infusion.
cont statin - LDL 69
Started on Toprol 25 twice daily
sublingual nitro PRN
cont BB
Significant improvement with IV diuresis and transitioned to 40 mg p.o. twice daily. Monitor for contraction alkalosis. Monitor BMP closely.
Plavix started- trend hgb closely. Stable
Cardiology signed off.
#PETE
High LDH with normal retics -hematology consult
Discuss with cardiology blood transfusion since patient is treated for NSTEMI - would favor keeping Hgb between 9-10, however concomitant concern for CHF might be prohibitive. Also patient w/o chest pain
serial H&H - stable
GI consulted. No plan for procedure.
s/p IV iron per heme
PPI bid for now
# Lactic acidosis likely in the setting of severe hypoxemia and CHF exacerbation
No need to further trend.
#HLD
cont home meds
#Essential HTN
BB for now.
#Anxiety d/o
cont SSRI
#AST elevation - improving
CPK minimally elevated
follow LFT
most likely 2/2 cardiac injury
#R ear skin CA s/p resection
GenSx for removal of sutures on 03/26/24
#R heel with 2 intact scabs from previous ulcers, suspect are healing stage 2PI
Wound care
DVT ppx Lovenox
DNR/DNI
I have spent at least 37min reviewing chart, test results, communication with consultants and direct patient care
Anticipated Discharge: 24 - 48 hours
Subjective/Interval History
-
Date of Service: April 01, 2024
Objective Data
-
Vital Signs:
Vital Signs
Temp Pulse Resp BP Pulse Ox
97.6 F 58 16 143/78 100
04/01/24 07:44 04/01/24 07:41 04/01/24 07:41 04/01/24 02:00 04/01/24 09:44
I&O
03/31/24 04/01/24 04/02/24
06:59 06:59 06:59
Intake Total 240 / 240 480 / 480
Output Total 1250 / 1250 1250 / 1250
Balance -1010 / -1010 -770 / -770
Review of Systems
-
History Source: Patient
All other systems: Reviewed and negative
Physical Exam
-
General: No Apparent Distress
HEENT: Normocephalic
Respiratory: Crackles
Cardiac: Regular Rhythm
GI: Soft, Nontender and Nondistended
Musculoskeletal: No Clubbing, No Cyanosis and No Edema
Skin: Warm
Neuro: Awake, Alert, Oriented and AO x 3
Psych: Calm
[2024-04-01 12:33] LABS: Glucose - Point of Care 141 mg/dl (70-99)
--- NOTE | 2024-04-01 16:49 | W.DCSUMMARY ---
Addendum entered and electronically signed by Paul Sanabria MD 04/01/24 16:59:
#Steroid induced DM
glyburide started
Original Note:
Discharge Summary
Discharge Data
Date of Admission: 03/15/24
Date of Discharge: 04/01/24
-
Pending Results: No
Hospital Course
78yo M with PMHx of CAD, PAD s/p stents, COPD with lung fibrosis, chronic hypoxic respiratory failure on 5-10L home O2, chronic prednisone, HTN, GERD came with SOB started to worsen after he had a cancer resection procedure (without general
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 Also had episodes of palpitations. In ED found troponin of 8, lactate of 5, placed on HFNC. EKG without ST elevation. Managed for NSTEMI with GDMT, Echo showed inferolateral wall hypokinesis but preserved EF. possible
pneumonia and exacerbation of COPD/lung fibrosis overlap on chest CT. No concerns for pulmonary embolism. . Developed worsening anemia, that later stabilized. No significant improvement with multifactorial stable CAD, stable CHF and fibrosis/COPD
treatment, but patient was declining hospice on multiple occasions. Now since O2 seen by GI and in view of poor respiratory status - no procedure was advised. Medically stable with high O2 requirements, needs SNF vs hospice (but hospice was
declined by the patient after extended conversations with family and hospice services, in spite of not favorable supervisor long goods prognosis), accepted to rehab. Remained stable on 8L NC, however easily desat with minimal exertion.
Discussed end-stage lung disease and no that no additional medical mgmt available with the son
As per patient: he changed his code to DNR/DNI
Sutures from R ear surgery were removed during hospitalization. Reasonable to continue on DVT ppx upon d/c with extremely poor ambulatory capacity. SLow Prednisone titration to baseline of 15mg
High risk of readmission in 30 days.
I have spent at least 38min preparing d/c
Patient was managed for:
#GOC
#Acute on chronic hypoxic respiratory failure likely multifactorial due to COPD and pulmonary fibrosis exacerbation, pneumonia, acute on chronic diastolic heart failure exacerbation
#COPD exacerbation
#Pulmonary fibrosis with end-stage lung disease
#possible CAP
#Dysphagia
#NSTEMI
#Palpitations with sinus arrhythmia on tele
#Possible acute on chronic HFpEF exacerbation
#PETE
# Lactic acidosis likely in the setting of severe hypoxemia and CHF exacerbation
#HLD
#Essential HTN
#Anxiety d/o
#AST elevation - improving
#R ear skin CA s/p resection
#R heel with 2 intact scabs from previous ulcers, suspect are healing stage 2PI
Discharge Plan
-
Patient Disposition: Shelter/SNF
Discharge Diagnosis/Procedures: End stage lung fibrosis
Diet: Regular
Activity: As tolerated
Driving Restrictions: No driving
Activity Restrictions/Additional Instructions:
Wound Care Instructions
R ear and L anterior leg: clean with saline, Adaptic and silicone foam change q other day and prn drainage.
R elbow: clean with saline, Silicone foam change q 3 days
Heels: skin prep and Adhesive foams change q 3 days
Air cushion on pillow under calves to offload heels.
L 2nd toe open to air.
Tubigrip size F applied knee high.
Follow up at wound care center or previous wound center, call for an appointment.
Referrals:
Javon Carlos MD [Family Provider] -
Santiago Macias MD [Active] - in two to four weeks (PFTs and 6-minute walk test-will need records from [facility])
Prescriptions:
New
aspirin 81 mg Tablet,Chewable
81 mg PO DAILY Qty: 30 0RF
furosemide 40 mg Tablet
40 mg PO BID AT 0800,1600 Qty: 60 0RF
atorvastatin 40 mg Tablet
40 mg PO DAILY Qty: 30 0RF
polyethylene glycol 3350 [HealthyLax] 17 gram Powder In Packet
17 g PO DAILYPRN PRN (Reason: constipation) Qty: 30 0RF
clopidogrel 75 mg Tablet
75 mg PO DAILY Qty: 30 0RF
potassium chloride 20 mEq Tablet,Er Particles/Crystals
20 meq PO DAILY Qty: 30 0RF
benzonatate 100 mg Capsule
200 mg PO TID Qty: 90 0RF
pantoprazole 40 mg Tablet,Delayed Release (Dr/Ec)
40 mg PO BID Qty: 60 0RF
budesonide 0.5 mg/2 mL Suspension For Nebulization
0.5 mg inhalation R BID Qty: 100 0RF
metoprolol succinate 25 mg Tablet Extended Release 24 Hr
25 mg PO BID Qty: 30 0RF
atovaquone 750 mg/5 mL Suspension
1,500 mg PO DAILY Qty: 30 0RF
enoxaparin 40 mg/0.4 mL Syringe
40 mg SC QPM Qty: 30 0RF
prednisone 10 mg tablet
40 mg PO DIRECTED Qty: 30 0RF
Rx Instructions:
take daily 40mg [id number], then 30mg x10 days, then 20min x10 days, then 15mg indefinitely
ipratropium-albuterol 0.5 mg-3 mg(2.5 mg base)/3 mL Solution For Nebulization
3 ml inhalation R QID Qty: 100 0RF
ipratropium-albuterol 0.5 mg-3 mg(2.5 mg base)/3 mL Solution For Nebulization
3 ml inhalation R Q4HPRN PRN (Reason: shortness of breath) Qty: 100 0RF
Continued
Ofev 150 MG capsule
150 mg PO BID
therapeutic multivitamin Tablet
1 tab PO DAILY
fexofenadine 180 mg Tablet
180 mg PO DAILY
lorazepam 0.5 mg Tablet
0.5 mg PO Q4HPRN PRN (Reason: anxiety)
Patient Comments:
last filled 10/23/2023 for 270 tablets
Rx Instructions:
Last filled 10/23/23 #270 x90 day supply
gabapentin 100 mg Capsule
100 mg PO TID
sertraline 50 mg Tablet
50 mg PO DAILY
cholecalciferol (vitamin D3) [Vitamin D3] 25 mcg (1,000 unit) Tablet
25 mcg PO DAILY
Discontinued
prednisone 10 MG tablet
15 mg PO DAILY
benzonatate 200 MG capsule
200 mg PO TID
amlodipine 5 MG tablet
5 mg PO DAILY
pantoprazole 40 MG tablet,delayed release (DR/EC)
40 mg PO DAILY
hydrochlorothiazide 25 MG tablet
25 mg PO DAILY
atorvastatin 40 mg Tablet
40 mg PO DAILY
ibuprofen [Advil] 200 mg Tablet
200 mg PO Q6HPRN PRN (Reason: mild pain)
atovaquone 750 mg/5 mL Suspension
1,500 mg PO DAILY
Patient Comments:
last filled 11/16/2023 for 300mL.
aspirin 81 mg Tablet,Chewable
81 mg PO DAILY
Discharge Orders:
Discharge Patient (As Directed); Ordered 04/01/24
Ordered By: Paul Sanabria
Care Plan Goals
Care Plan Goals:
Problem: Readiness for enhanced knowledge related to diagnosis and treatment plan
Goal: Understand your diagnosis and treatment plan needs, including medications if applicable.
Instructions: Know your diagnosis, underlying causes and treatment plan options, including medications if applicable. Consult with your health care team to learn about your diagnosis and treatment plan, including medications if applicable.
Discharge Date and Time
Print Language: EMIRATI
[2024-04-01 16:52] LABS: Glucose - Point of Care 290 mg/dl (70-99)
[2024-04-01] MEDS: LOVENOX 40 MG SC (17:37)
[2024-04-01] MEDS: NOVOLOG FLEXPEN-LOW RESISTANCE 3 UNITS SC (17:38)
--- NOTE | 2024-04-01 19:52 | PTCARENOTE ---
pt was for discharge to snf with pickup time scheduled for 2100. pt and significant other both feel that this is too late and will be stressful to patient and potentially cause him to have increased dyspnea d/t tiredness as pt has been oob all day.
case reviewer notified and transport cancelled as pt wants pickup time in am.
[2024-04-01 22:20] LABS: Glucose - Point of Care 143 mg/dl (70-99)
[2024-04-01] MEDS: ATIVAN 0.5 MG PO (23:02)
[2024-04-02] VITALS (7 sets, daily range): BP systolic 123–139; BP diastolic 52–83; BMI 21.8
--- NOTE | 2024-04-02 01:23 | PTCARENOTE ---
Pt oob to chair. Pt requesting to use BSC, when transferring back Pt spo2 dropped to mid 80's requiring NRB for 5-7 minutes to get back to baseline of 90's on 8L. Pt had no complaints after getting back to bed. Pt is currently chewing gum and
watching tv before bed. Call anderson within reach. Assessment care and vitals as charted.
[2024-04-02] MEDS: DUONEB 3 ML INH ×2 (07:52→11:49)
[2024-04-02 09:18] LABS: Glucose - Point of Care 92 mg/dl (70-99)
[2024-04-02] MEDS: NOVOLOG FLEXPEN-LOW RESISTANCE SC (09:20)
[2024-04-02] MEDS: MEPRON SUSPENSION 1500 MG PO (09:57)
[2024-04-02] MEDS: KCL 20 MEQ PO (09:58)
[2024-04-02] MEDS: LASIX 40 MG PO (09:58)
[2024-04-02] MEDS: PROTONIX 40 MG PO (09:58)
[2024-04-02] MEDS: NEURONTIN 100 MG PO (09:58)
[2024-04-02] MEDS: PLAVIX 75 MG PO (09:58)
[2024-04-02] MEDS: DELTASONE 40 MG PO (09:58)
[2024-04-02] MEDS: LOW STRENGTH ASPIRIN 81 MG PO (09:59)
[2024-04-02] MEDS: ZOLOFT 50 MG PO (09:59)
[2024-04-02] MEDS: TESSALON PERLES 200 MG PO (09:59)
[2024-04-02] MEDS: CLARITIN 10 MG PO (09:59)
[2024-04-02] MEDS: NON-FORMULARY ITEM 150 MG PO (09:59)
[2024-04-02] MEDS: LIPITOR 40 MG PO (09:59)
[2024-04-02] MEDS: TOPROL XL 25 MG PO (09:59)
--- NOTE | 2024-04-02 10:16 | W.PN.PUL.V3 ---
Today's Communication / Plan
-
Wean oxygen
Increase activity
Prednisone taper
Outpatient pulmonary follow-up
Assessment
-
78-year-old male with underlying CAD, PAD with stents, COPD/pulmonary fibrosis overlap taking care of at [facility] though he does want local care, chronic hypoxemia maintained on 5 L of oxygen at home, prednisone as well as Ofev who presented
with increasing shortness of breath and noted to be hypoxemic with elevated troponin-pulmonary consulted for pulmonary fibrosis/hypoxemia 03/16/2024.
Impression:
COPD/pulmonary fibrosis overlap with acute exacerbation
Chronic hypercapnia
Elevated troponin due to NSTEMI-peak 9.9
Acute HFpEF exacerbation
Bronchitis versus early pneumonia-elevated procalcitonin
Elevated lactate
Mild dementia
MARIANO
Mild anemia-hemoglobin 8.6-normocytic
Hyperglycemia
Conditions present prior to admission:
Recent hospitalization 11/23/2023-fall and mild acute COPD/pulmonary fibrosis overlap exacerbation
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
Adrenal insufficiency.
Hypertension.
Hyperlipidemia.
PAD with history of RLE stent (1997) and lower extremity revascularization
Hx of RBBB
Old right cerebellar infarct.
CAD with history of LAD + RCA stents (1997)
Mild dementia.
GERD.
Anxiety/depression.
Plan
Respiratory decompensation in this patient with advanced end-stage lung disease-COPD/pulmonary fibrosis overlap.
Respiratory status continues to slowly improve
Currently on mid flow-attempt to wean as much as possible prior to discharge
Baseline 5-8 L of oxygen at home
Incentive spirometry
Aspiration precautions
Prednisone taper
Nebulizers as needed
Pulmicort continues
Azithromycin continues for anti-inflammatory response
ABG 03/31/2024--63/46/7.4
Unfortunately he has end-stage lung disease and no detectable reversible cause at this point-suspect worsening pulmonary fibrosis.
Ongoing discussions regarding possible hospice
This has been discussed with daughter. Patient not ready for hospice at this point-ongoing discussion
Hopefully improves enough that he can be discharged on supplemental oxygen 8 to 10 L eventually.
History of sleep apnea but has been intolerant to CPAP/BiPAP.
He is refusing PAP while hospitalized
Check ABG as he has been notably sleeping often
Cultures reviewed
Urine Legionella and streptococcal antigen negative
MRSA screen positive
Blood cultures negative (drawn 03/15/2024)
Last urine culture 02/17/2023-Enterococcus
Patient unable to produce sputum
Empiric antibiotics-vancomycin and cefepime completed e days on 03/20
MRSA screen positive
Continue with atovaquone- PJP prophylaxis.
Cardiology following-correspondence reviewed
Continue diuresis as tolerated
Monitor renal function, electrolytes, intake/output, lower extremity edema and weight
Replace electrolytes as needed
Follow hemoglobin-currently stable-11.5
Transfuse as needed
DVT prophylaxis- LMWH
GI prophylaxis - N/A (-on pantoprazole - home med)
Continue nutritional support, aspiration precaution for
C discussions:
Dr. Gordon updated 03/28/2024.
Outpatient pulmonary follow-up recommended-he has end-stage lung disease
Most recently followed by Dr. De Dios at [facility] and maintained on nebulizers as well as Ofev and oxygen
Ongoing discussions with hospice-hospitalist discussing-hospice has been consulted
Reviewed with nursing

Family Discussions
Viktoriya 03/20/24 - Spoke to patient and daughter today regarding prognosis they know his condition is non-reversible and agree he should be DNR. We then discussed his chances of survival on this admission which is low. Daughter aware and are likely to
enroll into hospice but need to decide. They were agreeable to consult.
03/19/24 Hospice has been discussed in the past, I discussed with him again what he would want if he made little to no progress on weaning O2
Diagnostic Data
Chest x-ray 02/12/2023-increased reticulonodular markings suggestive of interstitial fibrosis, slight blunting left costophrenic angle
Chest x-ray 02/19/2023-extremely limited because of low lung volumes
Chest x-ray 11/22/2023-pronounced reticular interstitial thickening related to interstitial fibrosis, no significant pleural effusions or pneumothorax
Chest x-ray 03/15/2024-bilateral interstitial opacifications without acute process
Lower extremity ultrasound 07/05/2021-no evidence for lower extremity venous thrombosis
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
CT chest 03/15/2024-no CT evidence for PE, chronic severe pulmonary fibrosis and emphysema, severe coronary artery and aortic valve calcifications
Subjective Data
-
Date of Service:
Date of Service: April 02, 2024
Chief Complaint: Pulmonary Follow Up and Dyspnea Follow Up
Subjective:
States that he feels better, less short of breath, no chest pain or abdominal pain, no cough
Review of Systems
General: Other (Per HPI)
Objective Data
Data Reviewed
Vital Signs / I&O:
Vital Signs
Temp Pulse Resp BP Pulse Ox
97.5 F 56 18 123/76 100
04/02/24 07:50 04/02/24 07:54 04/02/24 07:54 04/02/24 06:00 04/02/24 07:54
Intake and Output
04/01/24 04/02/24 04/03/24
06:59 06:59 06:59
Intake Total 480 / 480 120 / 120
Output Total 1250 / 1250 1175 / 1175
Balance -770 / -770 -1055 / -1055
SaO2: 100
Nasal Cannula flow liters per minute: 8
Physical Exam
General: Respiratory Distress (n), Comfortable, Chills (negative) and Sweats (negative)
HEENT: Normocephalic and Anicteric
Cardiovascular: Regular Rhythm, Murmur and Peripheral Edema (negative)
Respiratory: Wheeze (negative), Crackles (Bilateral long-term up posteriorly), Rhonchi (n), Non-Labored Respirations, Accessory Resp Muscle Use (n) and Stridor (n)
GI: Soft, Non Distended and Non Tender
Neurology: Awake, Alert and Tremors (negative)
Skin: Warm, Dry, Cyanosis (n), Jaundice (n) and Rash (n)
Labs/Micro/Reports
Lab Data
03/26/24 03:46
03/27/24 05:30
--- NOTE | 2024-04-02 10:54 | W.PN.HOSP.TC ---
Today's Communication/Plan
-
Relatively stable respiratory status while on supplemental O2 at base requirements of 5-8 litters.
DC to SNF
Assessment / Plan
Assessment / Plan
78yo M with PMHx of CAD, PAD s/p stents, COPD with lung fibrosis, chronic hypoxic respiratory failure on 5-10L home O2, chronic prednisone, HTN, GERD came with SOB started to worsen after he had a cancer resection procedure (without general
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 Also had episodes of palpitations. In ED found troponin of 8, lactate of 5, placed on HFNC. EKG without ST elevation. Managed for NSTEMI with GDMT, Echo showed inferolateral wall hypokinesis but preserved EF. possible
pneumonia and exacerbation of COPD/lung fibrosis overlap. Developed worsening anemia, that later stabilized. No significant improvement with multifactorial stable CAD, stable CHF and fibrosis/COPD treatment, but patient was declining hospice on
multiple occasions. Now since O2 requirements improving - plan for STR placement, CM aware
A/P:
#GOC
mineral engineer involved. Family in agreement but patient was still declining. Family requested to be present during next conversation with hospice case manager (or over the phone) to assist their father with decision making
#Acute on chronic hypoxic respiratory failure likely multifactorial due to COPD and pulmonary fibrosis exacerbation, pneumonia, acute on chronic diastolic heart failure exacerbation
#COPD exacerbation
#Pulmonary fibrosis with end-stage lung disease
CTA chest
IV steroids solumedrol 40mg daily. Frequency decreased. Adjustment per pulm
bronchodilators
started on pulmicort
azithromycin x5 days
Pulm consulted
HFNC and wean off to baseline as tolerated
#possible CAP
Legionella and s.pneumonia urinary Ag neg
Sputum Cx if possible
COVID-19, Influenza PCR neg
Blood culture negative so far.
MRSA POSITIVE. Vancomycin completed 7d course.
Cefepime DCed. Completed 5d course.
#Dysphagia
possible silent aspiration
Diet upgraded to regular. Patient understands aspiration risk
EXPERIENTIAL THERAPIST followed
#NSTEMI
#Palpitations with sinus arrhythmia on tele
#Possible acute on chronic HFpEF exacerbation
Cardio consult
Cont asprin.
s/p hep gtt infusion.
cont statin - LDL 69
Started on Toprol 25 twice daily
sublingual nitro PRN
cont BB
Significant improvement with IV diuresis and transitioned to 40 mg p.o. twice daily. Monitor for contraction alkalosis. Monitor BMP closely.
Plavix started- trend hgb closely. Stable
Cardiology signed off.
#PETE
High LDH with normal retics -hematology consult
Discuss with cardiology blood transfusion since patient is treated for NSTEMI - would favor keeping Hgb between 9-10, however concomitant concern for CHF might be prohibitive. Also patient w/o chest pain
serial H&H - stable
GI consulted. No plan for procedure.
s/p IV iron per heme
PPI bid for now
# Lactic acidosis likely in the setting of severe hypoxemia and CHF exacerbation
No need to further trend.
#HLD
cont home meds
#Essential HTN
BB for now.
#Anxiety d/o
cont SSRI
#AST elevation - improving
CPK minimally elevated
follow LFT
most likely 2/2 cardiac injury
#R ear skin CA s/p resection
GenSx for removal of sutures on 03/26/24
#R heel with 2 intact scabs from previous ulcers, suspect are healing stage 2PI
Wound care
DVT ppx Lovenox
DNR/DNI
Anticipated Discharge: Today
Subjective/Interval History
-
Date of Service: April 02, 2024
Objective Data
-
Vital Signs:
Vital Signs
Temp Pulse Resp BP Pulse Ox
97.5 F 56 18 123/76 100
04/02/24 07:50 04/02/24 07:54 04/02/24 07:54 04/02/24 06:00 04/02/24 10:16
I&O
04/01/24 04/02/24 04/03/24
06:59 06:59 06:59
Intake Total 480 / 480 120 / 120
Output Total 1250 / 1250 1175 / 1175
Balance -770 / -770 -1055 / -1055
Physical Exam
-
General: No Apparent Distress
HEENT: Normocephalic
Respiratory: Crackles
Cardiac: Regular Rhythm
GI: Soft, Nontender and Nondistended
Musculoskeletal: No Clubbing, No Cyanosis and No Edema
Skin: Warm
Neuro: Awake, Alert, Oriented and AO x 3
Psych: Calm
[2024-04-02] MEDS: NOVOLOG FLEXPEN-LOW RESISTANCE 1 UNITS SC (12:17)
[2024-04-02 12:28] LABS: Glucose - Point of Care 186 mg/dl (70-99)
--- NOTE | 2024-04-02 13:08 | CM ---
Patient with Dx Acute on chronic hypoxic respiratory failure, COPD/pulmonary fibrosis exacerbation, NSTEMI, HF. O2 8L midflow.
Spoke with Adm [facility]; auth info provided yesterday. They are able to accept the patient today. for report [phone], fax [phone].
Met with patient and SO yesterday; they agreed to [facility] today by ambulance. IMM completed yesterday.
Plan [facility] today by ambulance.
--- NOTE | 2024-04-02 14:04 | PTCARENOTE ---
Pt for d/c to [facility]. Pt's daughter Rosalind updated via phone that pt was for d/c by this RN earlier in the shift. Rosalind reported she would be arriving prior to d/c to assist with transport. Rosalind at bedside and angry that she was not
informed pt was going to rehab facility and not home, and that she did not receive a call back with a transport time. Also requesting pt's entire printed chart. Call placed to nursing supervisor yard, Rosa Servin, to speak with daughter. Daughter
refused to wait and states she will be filing a complaint. Claims Assistant and Nurse Silk Printer Aislinn Almaraz aware.
== END 2024-04-02 14:23 | DRG 280 ==
LOC: IMU 18:53
PROVIDERS: Hospitalist; Internal Medicine; Internal Medicine Cardiovascular Disease; Nurse Practitioner Family; ADMITTING PHYSICIAN Internal Medicine; ATTENDING PHYSICIAN Internal Medicine; CONSULT PHYSICIAN Internal Medicine Cardiovascular Disease; CONSULT PHYSICIAN Internal Medicine Critical Care Medicine; CONSULT PHYSICIAN Internal Medicine Gastroenterology; EMERGENCY PHYSICIAN Emergency Medicine; FAMILY PHYSICIAN Internal Medicine; OTHER PHYSICIAN Internal Medicine Hematology & Oncology
PROC: 5A0955A Assistance with Respiratory Ventilation, Greater than 96 Consecutive Hours, High Flow/Velocity Cannula (ICD-10-PCS; 2024-03-15)
PROC: 30233N1 Transfusion of Nonautologous Red Blood Cells into Peripheral Vein, Percutaneous Approach (ICD-10-PCS; 2024-03-17)
DX: I21.4 Non-ST elevation (NSTEMI) myocardial infarction (principal); I50.33 Acute on chronic diastolic (congestive) heart failure; J18.9 Pneumonia, unspecified organism; J96.21 Acute and chronic respiratory failure with hypoxia; J44.1 Chronic obstructive pulmonary disease with (acute) exacerbation; J44.0 Chronic obstructive pulmonary disease with (acute) lower respiratory infection; E87.20 Acidosis, unspecified; F03.A3 Unspecified dementia, mild, with mood disturbance; F03.A4 Unspecified dementia, mild, with anxiety; E27.40 Unspecified adrenocortical insufficiency; I45.10 Unspecified right bundle-branch block; J84.112 Idiopathic pulmonary fibrosis; J43.9 Emphysema, unspecified; E78.00 Pure hypercholesterolemia, unspecified; I73.9 Peripheral vascular disease, unspecified; G47.33 Obstructive sleep apnea (adult) (pediatric); I11.0 Hypertensive heart disease with heart failure; D64.9 Anemia, unspecified; F32.A Depression, unspecified; I25.10 Atherosclerotic heart disease of native coronary artery without angina pectoris; I35.0 Nonrheumatic aortic (valve) stenosis; E61.1 Iron deficiency; I25.5 Ischemic cardiomyopathy; G47.30 Sleep apnea, unspecified; R00.2 Palpitations; K21.9 Gastro-esophageal reflux disease without esophagitis; L89.612 Pressure ulcer of right heel, stage 2; R13.10 Dysphagia, unspecified; E09.65 Drug or chemical induced diabetes mellitus with hyperglycemia; T38.0X5A Adverse effect of glucocorticoids and synthetic analogues, initial encounter; Y92.9 Unspecified place or not applicable; Z66 Do not resuscitate; Z96.653 Presence of artificial knee joint, bilateral; Z96.641 Presence of right artificial hip joint; Z87.891 Personal history of nicotine dependence; Z11.52 Encounter for screening for COVID-19; Z95.820 Peripheral vascular angioplasty status with implants and grafts; Z79.52 Long term (current) use of systemic steroids; Z88.1 Allergy status to other antibiotic agents; Z88.5 Allergy status to narcotic agent; Z88.8 Allergy status to other drugs, medicaments and biological substances; Z79.82 Long term (current) use of aspirin; Z95.5 Presence of coronary angioplasty implant and graft; Z80.9 Family history of malignant neoplasm, unspecified; Z82.49 Family history of ischemic heart disease and other diseases of the circulatory system; Z86.73 Personal history of transient ischemic attack (TIA), and cerebral infarction without residual deficits; Z99.81 Dependence on supplemental oxygen; Z85.828 Personal history of other malignant neoplasm of skin
CPT/HCPCS: 36600; 71045; 71275; 80048; 80053; 80061; 80069; 80202; 81003; 82550; 82607; 82728; 82746; 82805; 82962; 83036; 83540; 83550; 83605; 83615; 83735; 83880; 84100; 84145; 84443; 84484; 85014; 85018; 85025; 85045; 85379; 85610; 85730; 86850; 86880; 86900; 86901; 86920; 87040; 87070; 87147; 87449; 87811; 87899; 92526; 92610; 93005; 93306; 94640; 96365; 96366; 96375; 97163; 97167; 97530; 99291; J2916; P9016; Q9967